=== PATIENT | female | born 1985 | race Caucasian/White ===

== ENCOUNTER 2023-06-09 20:09 | Outpatient (REF) | payer BC, SELFPAY ==
[2023-06-13 11:10] LABS: Age Gdln ACOG Testing Note (.); HPV Aptima Negative (Negative); IGP, Aptima HPV, rfx 16/18,45 Note (.)
== END 2023-06-09 20:10 | disposition home or self-care (01) ==
LOC: LAB 20:09
PROVIDERS: Visit Provider Obstetrics & Gynecology
DX: Z01.419 Encounter for gynecological examination (general) (routine) without abnormal findings (principal)
CPT/HCPCS: 87624; G0145

== ENCOUNTER 2023-07-10 15:59 | Outpatient (OUT) | payer BC, SELFPAY ==
[2023-07-10 17:03] LABS: Thyroid Stimulating Hormone 2.536 uIU/mL (0.358-3.740)
[2023-07-10 17:13] LABS: Free T4 0.96 ng/dL (0.76-1.46)
[2023-07-16 03:07] LABS: Free Testosterone(Direct) 0.4 pg/mL (0.0-4.2); Testosterone 5 ng/dL (8-60)
== END 2023-07-10 16:00 | disposition home or self-care (01) ==
LOC: LAB 16:01
PROVIDERS: PCP Internal Medicine; Visit Provider Internal Medicine
DX: E03.9 Hypothyroidism, unspecified (principal); E55.9 Vitamin D deficiency, unspecified
CPT/HCPCS: 36415; 82306; 84402; 84403; 84439; 84443; 84481

== ENCOUNTER 2024-06-16 19:28 | Outpatient (REF) | payer BC, SELFPAY ==
--- OUTSIDE RECORDS SUMMARY | 2024-06-16 19:33 | XMS_ITS | CCD ---
Author Organization [facility] Care Team Providers Care Traveling Sales Representative Name Role Phone CLARA, DR ZELAYA Attending Unavailable CLARA, DR ZELAYA Admitting Unavailable CLARA, DR ZELAYA Consulting Unavailable YUHAS, DR TREVINO Primary Care Unavailable WEST, DR SHANNA Layton Admitting Unavailable YUHAS, DR TREVINO Primary Care Unavailable WEST, DR SHANNA Layton Attending Unavailable WEST, DR SHANNA Layton Consulting Unavailable YUHAS, DR TREVINO Primary Care Unavailable WEST, DR SHANNA Layton Consulting Unavailable WEST, DR SHANNA Layton Attending Unavailable WEST, DR SHANNA Layton Admitting Unavailable YUHAS, DR TREVINO Primary Care Unavailable WEST, DR SHANNA Layton Consulting Unavailable WEST, DR SHANNA Layton Attending Unavailable WEST, DR SHANNA Layton Admitting Unavailable YUHAS, DR TREVINO Primary Care Unavailable WEST, DR SHANNA Layton Attending Unavailable WEST, DR SHANNA Layton Admitting Unavailable YUHAS, DR TREVINO Primary Care Unavailable WEST, DR SHANNA Layton Admitting Unavailable WEST, DR SHANNA Layton Consulting Unavailable WEST, DR SHANNA Layton Attending Unavailable YUHAS, DR TREVINO Primary Care Unavailable WEST, DR SHANNA Layton Consulting Unavailable WEST, DR SHANNA Layton Attending Unavailable WEST, DR SHANNA Layton Admitting Unavailable WEST, DR SHANNA Layton Admitting Unavailable YUHAS, DR TREVINO Primary Care Unavailable WEST, DR SHANNA Layton Consulting Unavailable WEST, DR SHANNA Layton Attending Unavailable YUHAS, DR TREVINO Primary Care Unavailable WEST, DR SHANNA Layton Consulting Unavailable WEST, DR SHANNA Layton Attending Unavailable WEST, DR SHANNA Layton Admitting Unavailable ZIEBER, DR SHRUTHI Orozco Consulting Unavailable YUHAS, DR TREVINO Primary Care Unavailable YULIET NAVARRO Attending Unavailable RAMONYULEIT OKEEFE Admitting Unavailable RAMONYULIET Consulting Unavailable CLARA, DR ZELAYA Attending Unavailable CLARA, DR ZELAYA Admitting Unavailable YUHAS, DR TREVINO Primary Care Unavailable CLARA, DR ZELAYA Consulting Unavailable YUHAS, DR TREVINO Primary Care Unavailable RUBI, DR MAGDALENA Orozco Attending Unavailable KUNJered, DR MAGDALENA Orozco Admitting Unavailable ZIEBER, DR SHRUTHI Orozco Consulting Unavailable RUBI, DR MAGDALENA Orozco Consulting Unavailable CLARA, DR ZELAYA Attending Unavailable CLARA, DR ZELAYA Admitting Unavailable NISH, DR TREVINO Primary Care Unavailable CLARA, DR ZELAYA Consulting Unavailable MILE, BUSHRA NEWSOME Consulting Unavailable PATRICK DAVIS Consulting Unavailable CLARA, DR ZELAYA Attending Unavailable CLARA, DR ZELAYA Admitting Unavailable NISH, DR TREVINO Primary Care Unavailable Unavailable Primary Care Provider UnavailBECKA Moore Attending Unavailable BECKA ALSTON Referring Unavailable MYA SUAZO Attending Unavailable BELINDA MOCK Referring Unavailable BELINDA MOCK Primary Care Unavailable Belinda Mokc DO Primary Care Provider Medications Current Medications Medication Drug Class(es) Dates Sig (Normalized) Sig (Original) acyclovir 400 mg oral tablet (1 source) Herpesvirus Nucleoside Analog DNA Polymerase Inhibitor, Herpes Simplex Virus Nucleoside Analog DNA Polymerase Inhibitor, Herpes Zoster Virus Nucleoside Analog DNA Polymerase Inhibitor acyclovir (ZOVIRAX) 400 mg tablet acyclovir 400 mg tablet as needed Active azithromycin 250 mg oral tablet (1 source) Macrolide Antimicrobial Start: 06-02-2024 End: 06-06-2024 azithromycin (ZITHROMAX) 250 mg tablet Indications: Upper respiratory tract infection, unspecified type Take 2 tablets the first day, then 1 tablet daily for 4 days. 6 tablet 06/02/2024 06/06/2024 Active citalopram 10 mg oral tablet (4 sources) Serotonin Reuptake Inhibitor Start: 07-29-2023 take 10 mg by mouth once daily Citalopram Active 10 MG PO Daily April 05, 2024 12:00am Start: 06-09-2023 take 20 mg by mouth once daily Citalopram Active 20 MG PO Daily April 05, 2024 12:00am dextromethorphan hydrobromide 30 mg / pyrilamine maleate 30 mg oral tablet (1 source) Uncompetitive J-dqtrts-R-aspartate Receptor Antagonist, Sigma-1 Agonist Start: 04-05-2024 take 1 tablet by mouth three times daily as needed for congestion pyrilamine-dextromethorphan 30-30 mg tablet Indications: Rhinitis, unspecified type Take 1 tablet by mouth 3 (three) times a day as needed (congestion). 15 tablet 1 04/05/2024 Active hydroxychloroquin e sulfate 200 mg oral tablet (5 sources) Antimalarial, Antirheumatic Agent Start: 2023 End: 06-05-2024 take 1.5 tablets by mouth once daily hydrOXYchloroQUINE (PLAQUENIL) 200 mg tablet Take 1.5 tablets by mouth once daily. 45 tablet 05/13/2024 Active Start: 11-13-2023 take 1 tablet by vickey th in the morning, then take 1 tablet by mouth at bedtime hydroxychloroquine (PLAQUENIL) 200 mg tablet Indications: Systemic lupus erythematosus, unspecified SLE type, unspecified organ involvement status (CMS-HCC) Take 1 tablet (200 mg total) by mouth in the morning and 1 tablet (200 mg total) before bedtime. 60 tablet 1 11/13/2023 Active levothyroxine sodium 0.05 mg oral tablet (2 sources) l-Thyroxine Start: 04-05-2024 take 50 ug by mouth once daily Levothyroxine Active 50 MCG PO Daily April 05, 2024 12:00am methylPREDNISolone (1 source) Corticosteroid Start: 04-05-2024 methylPREDNISolone (MEDROL, NAILA,) 4 mg tablet Indications: Upper respiratory tract infection, unspecified type follow package directions 21 tablet 04/05/2024 Active SUMAtriptan 100 mg oral tablet (1 source) Serotonin-1b and Serotonin-1d Receptor Agonist Start: 10-23-2022 SUMAtriptan (IMITREX) 100 mg tablet TAKE 1 TABLET BY MOUTH TWICE A DAY WITH AT LEAST 2 HOURS BETWEEN DOSES NEEDED FOR 30 DAYS 10/23/2022 Active Problems Active Problems Problem Classification Problem Date Documented Da te Episodic/Chronic Contraceptive and procreative management (4 sources) Encounter for sterilization; Translations: [ENCOUNTER FOR STERILIZATION] Onset: 06-07-2022 Episodic Malaise and fatigue (1 source) Chronic fatigue syndrome; Translations: [Chronic fatigue syndrome] Onset: 07-17-2022 07-17-2022 Chronic Other connective tissue disease (4 sources) Pain in left foot; Translations: [PAIN IN LEFT FOOT] Onset: 08-01-2022 Episodic Other upper respiratory disease (1 source) Chronic rhinitis; Translations: [Chronic rhinitis] Onset: 04-05-2024 Chronic Other upper respiratory disease (1 source) Pain in throat Onset: 04-05-2024 Episodic Other upper respiratory disease (1 source) Nasal congestion Onset: 04-05-2024 Episodic Other upper respiratory infections (2 sources) Acute upper respiratory infection, unspecified; Translations: [Upper respiratory infection] Onset: 04-05-2024 06-02-2024 Episodic Systemic lupus erythematosus and connective tissue disorders (10 sources) Systemic lupus erythematosus, unspecified; Translations: [Systemic lupus erythematosus] Onset: 08-20-2017 Chronic Thyroid disorders (3 sources) Autoimmune thyroiditis; Translations: [Hypothyroidism, unspecified] Onset: 06-12-2022 07-17-2022 Chronic Unclassified (1 source) CONTACT W/AND (SUSP) EXPOS COVID-19; Translations: [CONTACT W/AND (SUSP) EXPOS COVID-19] Onset: 06-09-2022 Past or Other Problems Problem Classification Problem Date Documented Da te Episodic/Chronic Bacterial infection; unspecified site (1 source) Methicillin resistant Staphylococcus aureus infection; Translations: [Methicillin resistant Staphylococcus aureus infection, unspecified site] Onset: 8 Resolved: 2 07-17-2022 Episodic Immunizations and screening for infectious disease (1 source) Encounter for screening for human papillomavirus (HPV); Translations: [ENC SCREENING HUMAN PAPILLOMAVIRUS] Onset: 2 Episodic Infective arthritis and osteomyelitis (except that caused by tuberculosis or sexually transmitted disease) (2 sources) Osteomyelitis of lower leg; Translations: [Subacute osteomyelitis, unspecified tibia and fibula] Onset: 8 Resolved: 8 08-22-2017 Chronic Mood disorders (1 source) Mood disorders Onset: 4 04-05-2024 Other aftercare (4 sources) Encounter for surgical aftercare following surgery on the circulatory system; Translations: [ENC SURG AFTRCARE FLW SURG CIRC SYS] Onset: 2 Episodic Other screening for suspected conditions (not mental disorders or infectious disease) (4 sources) Encounter for screening for malignant neoplasm of cervix; Translations: [ENC SCREENING MALIG NEOPLASM CERV] Onset: 2 Episodic Phlebitis; thrombophlebitis and thromboembolism (9 sources) Phlebitis and thrombophlebitis of superficial vessels of right lower extremity; Translations: [Phlebitis and thrombophlebitis of superficial vessels of left lower extremity] Onset: 2 Episodic Unclassified (1 source) Onset: 4 04-05-2024 Varicose veins of lower extremity (5 sources) Varicose veins of bilateral lower extremities with pain; Translations: [VARICOSE VNS SANTANA LOW EXTREM W/PAIN] Onset: 2 Episodic Results Test Name Value Interpretation Reference Range Facility No Panel InformationOrdered By: Emma Negrete on 04-05-2024 COVID Antigen (POC) [facility] Quick Strep (POC) [facility] VERNELL BY IFA SCREENon 12-08-19 Nuclear Ab pattern (S) [Interp] Nuclear dense fine speckled Normal [facility] Comment on above: Order Comment: Branden sandoval Type: BLOOD SPECIMEN Ordering Facility: [facility] Address: [address] [place] [address] Performed By: #### A NAIFS #### [facility] CLIA [id number] [address] [place] [address] [place] Nuclear Ab Ql (S) Positive Abnormal Negative [facility] Comment on above: Order Comment: Branden sandoval Type: BLOOD SPECIMEN Ordering Facility: [facility] Address: [address] [place] [address] Result Comment: Anti -nuclear antibody test is used as an aid in diagnosis of systemic autoimmune diseases. Where positive and clinically warranted, follow-up using disease-specific testing is recommended. Low positive titers are not uncommon with advanced age, certain chronic infections, and malignancies among others. Test methodology: Indirect fluorescence immunoassay (IFA) using HEp-2 cells. 1:640 Performed By: #### A NAIFS #### [facility] CLIA [id number] [address] [place] [address] [place] BLOOD TB SCREENon 2023 M. tuberculosis tuberculin stim IFN-g Ql (Bld) Negative Normal [facility] Comment on above: Order Comment: Branden sandoval Type: BLOOD SPECIMEN Ordering Facility: [facility] Address: [address] [place] [address] Performed By: #### I NFTBP #### [facility] CLIA [id number] [address] [place] [address] [place] MITOGEN MINUS NIL >9.99 Normal >=0.50 [facility] Comment on above: Order Comment: Speci men Type: BLOOD SPECIMEN Ordering Facility: [facility] Address: [address] [place] [address] Performed By: #### I NFTBP #### [facility] CLIA [id number] [address] [place] [address] [place] TB GAMMA INTERPRETATION Infection with M. tuberculosis complex is unlikely. If latent tuberculosis infection is highly suspected, a negative result does not rule out the infection. Specimens from immunocompromised patients and those <5 years of age may show false negative results. In case of a contact investigation, please repeat 8-12 weeks after a known exposure. Normal [facility] Comment on above: Order Comment: Speci men Type: BLOOD SPECIMEN Ordering Facility: [facility] Address: [address] [place] [address] Performed By: #### I NFTBP #### [facility] CLIA [id number] [address] [place] [address] TB NIL 0.01 IU/mL Normal <=8.00 [facility] Comment on above: Order Comment: Speci men Type: BLOOD SPECIMEN Ordering Facility: [facility] Address: [address] [place] [address] Performed By: #### I NFTBP #### [facility] CLIA [id number] [address] [place] [address] [place] TB1 AG MINUS NIL 0.02 IU/mL Normal <0.35 [facility] Comment on above: Order Comment: Speci men Type: BLOOD SPECIMEN Ordering Facility: [facility] Address: [address] [place] [address] Performed By: #### I NFTBP #### [facility] CLIA [id number] [address] [place] [address] [place] TB2 AG MINUS NIL 0.01 IU/mL Normal <0.35 [facility] Comment on above: Order Comment: Speci men Type: BLOOD SPECIMEN Ordering Facility: [facility] Address: [address] [place] [address] Performed By: #### I NFTBP #### [facility] CLIA [id number] [address] [place] [address] [place] C3 COMPLEMENTon 2023 Complement C3 [Mass/Vol] 97 mg/dL 86 - 166 mg/dL [facility] C3 SerPl-mCncon 2023 Complement C3 [Mass/Vol] 97 mg/dL Normal 86-166 [facility] Comment on above: Order Comment: Speci men Type: BLOOD SPECIMEN Ordering Facility: [facility] Address: [address] [place] [address] Performed By: #### 2 157-6, 4485-9, 4498-2 #### [facility] CLIA [id number] [address] [place] [address] [place] C4 COMPLEMENTon 2023 Complement C4 [Mass/Vol] 21 mg/dL 13 - 46 mg/dL [facility] C4 SerPl-mCncon 2023 Complement C4 [Mass/Vol] 21 mg/dL Normal 13-46 [facility] Comment on above: Order Comment: Speci men Type: BLOOD SPECIMEN Ordering Facility: [facility] Address: [address] [place] [address] Performed By: #### 2 157-6, 1435-9, 4498-2 #### [facility] CLIA [id number] [address] [place] [address] [place] CBC W Auto Differential pane l (Bld)on 2023 Basophils (Bld) [#/Vol] 0.05 10*3/uL Normal <0.11 [facility] Comment on above: Order Comment: Speci men Type: BLOOD SPECIMEN Ordering Facility: [facility] Address: [address] [place] [address] Performed By: #### 5 7021-8 #### [facility] [id number] [address] [place] [address] [place] Basophils/100 WBC (Bld) 0.9 % Normal [facility] Comment on above: Order Comment: Speci men Type: BLOOD SPECIMEN Ordering Facility: [facility] Address: [address] [place] [address] Performed By: #### 5 7021-8 #### [facility] [place] [id number] [address] [place] [address] [place] Differential cell count method Nom (Bld) Auto Normal [facility] Comment on above: Order Comment: Speci men Type: BLOOD SPECIMEN Ordering Facility: [facility] Address: [address] [place] [address] Performed By: #### 5 7021-8 #### [facility] [id number] [address] [place] [address] [place] Eosinophils (Bld) [#/Vol] 0.20 10*3/uL Normal <0.46 [facility] Comment on above: Order Comment: Speci men Type: BLOOD SPECIMEN Ordering Facility: [facility] Address: [address] [place] [address] Performed By: #### 5 7021-8 #### [facility] [id number] [address] [place] [address] [place] Eosinophils/100 WBC (Bld) 3.5 % Normal [facility] Comment on above: Order Comment: Speci men Type: BLOOD SPECIMEN Ordering Facility: [facility] Address: [address] [place] [address] Performed By: #### 5 7021-8 #### [facility] [id number] [address] [place] [address] [place] Erythrocyte distribution width (RBC) [Ratio] 12.3 % Normal 11.5-15.0 [facility] Comment on above: Order Comment: Speci men Type: BLOOD SPECIMEN Ordering Facility: [facility] Address: [address] [place] [address] Performed By: #### 5 7021-8 #### [facility] [id number] [address] [place] [address] [place] Hematocrit (Bld) [Volume fraction] 37.0 % Normal 36.0-46.0 [facility] Comment on above: Order Comment: Speci men Type: BLOOD SPECIMEN Ordering Facility: [facility] Address: [address] [place] [address] Performed By: #### 5 7021-8 #### [facility] [id number] [address] [place] [address] [place] Hemoglobin (Bld) [Mass/Vol] 12.6 g/dL Normal 11.5-15.5 [facility] Comment on above: Order Comment: Speci men Type: BLOOD SPECIMEN Ordering Facility: [facility] Address: [address] [place] [address] Performed By: #### 5 7021-8 #### [facility] [id number] [address] [place] [address] [place] Immature granulocytes (Bld) [#/Vol] 10*3/uL Normal <0.10 [facility] Comment on above: Order Comment: Speci men Type: BLOOD SPECIMEN Ordering Facility: [facility] Address: [address] [place] [address] Performed By: #### 5 7021-8 #### [facility] [id number] [address] [place] [address] [place] Immature granulocytes/100 WBC (Bld) 0.2 % Normal [facility] Comment on above: Order Comment: Speci men Type: BLOOD SPECIMEN Ordering Facility: [facility] Address: [address] [place] [address] Performed By: #### 5 7021-8 #### [facility] [id number] [address] [place] [address] [place] Lymphocytes (Bld) [#/Vol] 1.31 10*3/uL Normal 1.00-4.00 [facility] Comment on above: Order Comment: Speci men Type: BLOOD SPECIMEN Ordering Facility: [facility] Address: [address] [place] [address] Performed By: #### 5 7021-8 #### [facility] [place] [id number] [address] [place] [address] [place] Lymphocytes/100 WBC (Bld) 22.9 % Normal [facility] Comment on above: Order Comment: Speci men Type: BLOOD SPECIMEN Ordering Facility: [facility] Address: [address] [place] [address] Performed By: #### 5 7021-8 #### [facility] [id number] [address] [place] [address] [place] MCH (RBC) [Entitic mass] 31.3 pg Normal 26.0-34.0 [facility] Comment on above: Order Comment: Speci men Type: BLOOD SPECIMEN Ordering Facility: [facility] Address: [address] [place] [address] Performed By: #### 5 7021-8 #### [facility] [id number] [address] [place] [address] [place] MCHC (RBC) [Mass/Vol] 34.1 g/dL Normal 30.5-36.0 [facility] Comment on above: Order Comment: Speci men Type: BLOOD SPECIMEN Ordering Facility: [facility] Address: [address] [place] [address] Performed By: #### 5 7021-8 #### [facility] [id number] [address] [place], [place] [address] [place] MCV (RBC) [Entitic vol] 91.8 fL Normal 80.0-100.0 [facility] Comment on above: Order Comment: Speci men Type: BLOOD SPECIMEN Ordering Facility: [facility] Address: [address] [place] [address] Performed By: #### 5 7021-8 #### [facility] [id number] [address] [place] [address] [place] Monocytes (Bld) [#/Vol] 0.54 10*3/uL Normal <0.87 [facility] Comment on above: Order Comment: Speci men Type: BLOOD SPECIMEN Ordering Facility: [facility] Address: [address] [place] [address] Performed By: #### 5 7021-8 #### [facility] [id number] [address] [place] [address] [place] Monocytes/100 WBC (Bld) 9.4 % Normal [facility] Comment on above: Order Comment: Speci men Type: BLOOD SPECIMEN Ordering Facility: [facility] Address: [address] [place] [address] Performed By: #### 5 7021-8 #### [facility] [id number] [address] [place] [address] [place] Neutrophils (Bld) [#/Vol] 3.61 10*3/uL Normal 1.45-7.50 [facility] Comment on above: Order Comment: Speci men Type: BLOOD SPECIMEN Ordering Facility: [facility] Address: [address] [place] [address] Performed By: #### 5 7021-8 #### [facility] [id number] [address] [place] [address] [place] Neutrophils/100 WBC (Bld) 63.1 % Normal [facility] Comment on above: Order Comment: Speci men Type: BLOOD SPECIMEN Ordering Facility: [facility] Address: [address] [place] [address] Performed By: #### 5 7021-8 #### [facility] [id number] [address] [place] [address] [place] Nucleated RBC (Bld) [#/Vol] 10*3/uL Normal <0.01 [facility] Comment on above: Order Comment: Speci men Type: BLOOD SPECIMEN Ordering Facility: [facility] Address: [address] [place] [address] Performed By: #### 5 7021-8 #### [facility] [id number] [address] [place] [address] [place] Nucleated RBC/100 WBC (Bld) [Ratio] 0.0 /100 WBC Normal [facility] Comment on above: Order Comment: Speci men Type: BLOOD SPECIMEN Ordering Facility: [facility] Address: [address] [place] [address] Performed By: #### 5 7021-8 #### [facility] [id number] [address] [place] [address] [place] Platelet mean volume (Bld) [Entitic vol] 10.6 fL Normal 9.0-12.7 [facility] Comment on above: Order Comment: Speci men Type: BLOOD SPECIMEN Ordering Facility: [facility] Address: [address] [place] [address] Performed By: #### 5 7021-8 #### [facility] [id number] [address] [place] [address] [place] Platelets (Bld) [#/Vol] 287 10*3/uL Normal 150-400 [facility] Comment on above: Order Comment: Speci men Type: BLOOD SPECIMEN Ordering Facility: [facility] Address: [address] [place] [address] Performed By: #### 5 7021-8 #### [facility] [id number] [address] [place] [address] [place] RBC (Bld) [#/Vol] 4.03 10*6/uL Normal 3.90-5.20 [facility] Comment on above: Order Comment: Speci men Type: BLOOD SPECIMEN Ordering Facility: [facility] Address: [address] [place] [address] Performed By: #### 5 7021-8 #### [facility] [place] [id number] [address] [place] [address] [place] WBC (Bld) [#/Vol] 5.72 10*3/uL Normal 3.70-11.00 [facility] Comment on above: Order Comment: Speci men Type: BLOOD SPECIMEN Ordering Facility: [facility] Address: [address] [place] [address] Performed By: #### 5 7021-8 #### [facility] [place] [id number] [address] [place] [address] [place] Basophils (Bld) [#/Vol] 0.05 10*3/uL [facility] Basophils/100 WBC (Bld) 0.9 % [facility] Differential cell count method Nom (Bld) Auto [facility] Eosinophils (Bld) [#/Vol] 0.20 10*3/uL [facility] [facility] Eosinophils/100 WBC (Bld) 3.5 % [facility] Erythrocyte distribution width (RBC) [Ratio] 12.3 % 11.5 - 15.0 % [facility] Hematocrit (Bld) [Volume fraction] 37.0 % 36.0 - 46.0 % [facility] Hemoglobin (Bld) [Mass/Vol] 12.6 g/dL 11.5 - 15.5 g/dL [facility] Immature granulocytes (Bld) [#/Vol] NINF [facility] Immature granulocytes/100 WBC (Bld) 0.2 % [facility] Lymphocytes (Bld) [#/Vol] 1.31 10*3/uL [facility] Lymphocytes/100 WBC (Bld) 22.9 % [facility] MCH (RBC) [Entitic mass] 31.3 pg 26.0 - 34.0 pg [facility] MCHC (RBC) [Mass/Vol] 34.1 g/dL 30.5 - 36.0 g/dL [facility] MCV (RBC) [Entitic vol] 91.8 fL 80.0 - 100.0 fL [facility] Monocytes (Bld) [#/Vol] 0.54 10*3/[facility] Monocytes/100 WBC (Bld) 9.4 % [facility] Neutrophils (Bld) [#/Vol] 3.61 10*3/uL [facility] Neutrophils/100 WBC (Bld) 63.1 % [facility] Nucleated RBC (Bld) [#/Vol] NINF [facility] Nucleated RBC/100 WBC (Bld) [Ratio] 0.0 % /100 WBC [facility] Platelet mean volume (Bld) [Entitic vol] 10.6 fL 9.0 - 12.7 fL [facility] Platelets (Bld) [#/Vol] 287 10*3/uL [facility] RBC (Bld) [#/Vol] 4.03 10*6/uL 3.90 - 5.2 0 m/uL [facility] WBC (Bld) [#/Vol] 5.72 10*3/uL [facility] CK SerPl-cCncon 2023 CK [Catalytic activity/Vol] 103 U/L Normal 42-196 [facility] Comment on above: Order Comment: Speci men Type: BLOOD SPECIMEN Ordering Facility: [facility] Address: [address] [place] [address] Performed By: #### 2 157-6, 4485-9, 4498-2 #### [facility] CLIA [id number] [address] [place] [address] [place] CK [Catalytic activity/Vol]o n 2023 Interpretation and review of laboratory results Normal [facility] CNOVon 2023 CNOV Office Visit (RHEUMN ) SUSAN HOGUE ([id number]) 1985 F Date Time Provider Department 12/08/23 1:00 PM BECKA ALSTON RHEUMN During your visit today, we recorded the following information about you: Temperature Pulse Blood pressure Weight 97.8 degrees 89/minute 123/50 65.6 kg Becka Alston DO 2023 1:39 PM Signed [facility] DEPARTMENT OF RHEUMATIC AND IMMUNOLOGIC DISEASES This consult was requested by the doctor listed below for an opinion regarding the chief complaint listed below, and my final recommendations will be communicated to the requesting health care provider by way of the shared medical record for internal providers or letter via the U.[employer]. Postal Service for external providers. Referring Physician: No referring provider defined for this encounter. SUBJECTIVE: Reason for visit: Lupus establish care History of Present Illness: Susan Hogue is a 38 year old female with PMHx significant for migraines and SLE who is evaluated in the Rheumatology Clinic. To review her history, she has had symptom onset since 2010 with joint pain in her elbows and knees, weakness/numbness of her lower extremities and sun sensitivity. She was first diagnosed formally with SLE in 2015 (+VERNELL 1:640, low C3, arthralgia, myalgia of lower extremities, oral ulcerations and Raynaud's phenomenon) at which time she was and was placed on HCQ. She has had two children, no miscarriages. After her pregnancies, she was placed on methotrexate which did not have an effect and belimumab which caused injection site reactions. In 2019, she was placed in azathioprine 100 mg daily with HCQ which helped somewhat. She stayed on this regimen until 10/2023 when she was looking to change providers. She had not noticed any change in her symptoms since stopping. Today she has left hip pain, spasm ing of upper back muscles and a red race on her face which is stable to her. She has a great aunt with SLE and cousins with RA. Answers submitted by the patient for this visit: Review of Systems Rheumatology (Submitted on 12/07/2023) Fever : No Recent unintentional weight change: No Eye pain: No Eye redness: No Vision Disturbance: No Eye Dryness: Yes Nosebleeds: No Sores in your mouth: No Trouble Swallowing: No Dry Mouth: No Chest pain: No Leg Swelling: No A cough: No Shortness of breath: No Pain with breathing: No Heartburn: No Abdominal pain: No Diarrhea: Yes Black tarry stools: No Blood in urine: No Pain or burning with urination: No Joint pain or stiffness: Yes Muscle weakness: Yes Muscle aches: Yes Morning Stiffness in Joints: Yes A rash: Yes Do you have sun sensitive rashes?: Yes Skin Color Changes: No Hair Loss: Yes Nail Changes: Yes Headaches: Yes Numbness: Yes Memory Loss: No Swollen Glands: No PMHx: No past medical history on file. PSHx: No past surgical history on file. FamHx: No family history on file. SocHx: Social History Tobacco Use Smoking status: Never Smokeless tobacco: Never MEDICATIONS: hydrOXYchloroQUINE (PLAQUENIL) 200 mg tablet Take 1.5 tablets by mouth once daily. ALLERGIES: ALLERGIES Not on File OBJECTIVE: Physical Examination: Vitals: BP 123/50 Pulse 89 Temp 36.6 ?C (97.8 ?F) (Oral) Wt 65.6 kg (144 lb 10 oz) General: Looks well, NAD, A AND Ox3. HEENT: +pink rash across cheeks and chin. Sparing nasolabial fold. Neck: No LAD. CVS: RRR, nl S1/S2, no R/M/G,. Resp: CTAB. No rales or wheezing. Ext: Good DP/PTs palpable bilaterally. Neuro: Power 5/5 throughout. Gait Normal. Skin: No rash. No ulcers. Musculoskeletal: Neck: Good flexion/extension/late ral rotation Shoulders: No swelling, no tenderness, good ROM Elbows: No swelling, no tenderness, no flexion contractures, no nodules, good ROM Wrists: No swelling, no tenderness, no limitation in flexion and extension Hands: No evidence of synovitis. Able to make full fist bilaterally Knees: No effusion, no tenderness, good ROM Nailfold capillaroscopy shows tortuosity scattered throughout. IMPRESSIONS/RECOMMENDA TIONS: SLE Based on 2019 ACR/EULAR classification criteria: +VERNELL 1:640, low C3, arthralgia, myalgia of lower extremities, oral ulcerations and Raynaud's phenomenon. She has been placed on HCQ, methotrexate, mycophenolate, belimumab and azathioprine. MTX, MMF and BEL all stopped due to side effects. Currently on HCQ 200 mg PO daily. Symptoms today include joint pain of hands, elbows and knees and left hip. Also with a photosensitive rash on her face. Plan: We will obtain labs and urine studies today I have asked that she increase HCQ to 300 mg PO daily. We have discussed the risks and toxicities associated with the use of this medication and the appropriate monitoring. She will need to see (more content not included)... Normal [facility] CREATINE KINASE/CKon 024 CK [Catalytic activity/Vol] 103 U/L 42 - 196 U/L [facility] Centromere Ab IF Ql (S)on Centromere Ab Qn (S) <0.2 Normal <1.0 [facility] Comment on above: Order Comment: Speci men Type: URINE SPECIMEN Ordering Facility: [facility] Address: [address] [place] [address] Result Comment: Anti -centromere antibody is used as in aid in diagnosis of systemic sclerosis. Clinical correlation is required. Test Methodology: Multiplex flow immunoassay. Performed By: #### 2 4356-8 #### [facility] CLIA [id number] [address] [place] [address] [place] CENTROMERE AB QUAL Negative Normal Negative [facility] Comment on above: Order Comment: Speci lori Type: URINE SPECIMEN Ordering Facility: [facility] Address: [address] [place] [address] Performed By: #### 2 4356-8 #### [facility] CLIA [id number] [address] [place] [address] [place] Chromatin Ab Qnon 2023 CHROMATIN AB QUAL Negative Normal Negative [facility] Comment on above: Order Comment: Speci men Type: URINE SPECIMEN Ordering Facility: [facility] Address: [address] [place] [address] Performed By: #### 2 4356-8 #### [facility] CLIA [id number] [address] [place] [address] [place] Chromatin Ab SerPl-aCncon Chromatin Ab Qn <0.2 Normal <1.0 [facility] Comment on above: Order Comment: Speci men Type: URINE SPECIMEN Ordering Facility: [facility] Address: [address] [place] [address] Result Comment: Test Methodology: Multiplex flow immunoassay. Performed By: #### 2 4356-8 #### [facility] CLIA [id number] [address] [place] [address] [place] Comprehensive metabolic 2000 panelon 2023 Albumin [Mass/Vol] 4.4 g/dL Normal 3.9-4.9 [facility] Comment on above: Order Comment: Speci men Type: BLOOD SPECIMEN Ordering Facility: [facility] Address: [address] [place] [address] Performed By: #### 2 4323-8 #### [facility] [place] [id number] [address] [place] [address] [place] ALP [Catalytic activity/Vol] 67 U/L Normal 34-123 [facility] Comment on above: Order Comment: Speci men Type: BLOOD SPECIMEN Ordering Facility: [facility] Address: [address] [place] [address] Performed By: #### 2 4323-8 #### [facility] [place] [id number] [address] [place] [address] [place] ALT [Catalytic activity/Vol] 15 U/L Normal 7-38 [facility] Comment on above: Order Comment: Speci men Type: BLOOD SPECIMEN Ordering Facility: [facility] Address: [address] [place] [address] Performed By: #### 2 4323-8 #### [facility] [place] [id number] [address] [place] [address] [place] Anion gap [Moles/Vol] 9 mmol/L Normal 9-18 [facility] Comment on above: Order Comment: Speci men Type: BLOOD SPECIMEN Ordering Facility: [facility] Address: [address] [place] [address] Performed By: #### 2 4323-8 #### [facility] [id number] [address] [place] [address] [place] AST [Catalytic activity/Vol] 20 U/L Normal 13-35 [facility] Comment on above: Order Comment: Speci men Type: BLOOD SPECIMEN Ordering Facility: [facility] Address: [address] [place] [address] Performed By: #### 2 4323-8 #### [facility] [id number] [address] [place] [address] [place] Bilirubin [Mass/Vol] 0.6 mg/dL Normal 0.2-1.3 [facility] Comment on above: Order Comment: Speci men Type: BLOOD SPECIMEN Ordering Facility: [facility] Address: [address] [place] [address] Performed By: #### 2 4323-8 #### [facility] [id number] [address] [place] [address] [place] Calcium [Mass/Vol] 9.4 mg/dL Normal 8.5-10.2 [facility] Comment on above: Order Comment: Speci men Type: BLOOD SPECIMEN Ordering Facility: [facility] Address: [address] [place] [address] Performed By: #### 2 4323-8 #### [facility] [id number] [address] [place] [address] [place] Chloride [Moles/Vol] 105 mmol/L Normal 97-105 [facility] Comment on above: Order Comment: Speci men Type: BLOOD SPECIMEN Ordering Facility: [facility] Address: [address] [place] [address] Performed By: #### 2 4323-8 #### [facility] [id number] [address] [place] [address] [place] CO2 [Moles/Vol] 24 mmol/L Normal 22-30 [facility] Comment on above: Order Comment: Speci men Type: BLOOD SPECIMEN Ordering Facility: [facility] Address: [address] [place] [address] Performed By: #### 2 4323-8 #### [facility] [id number] [address] [place] [address] [place] Creatinine [Mass/Vol] 0.70 mg/dL Normal 0.58-0.96 [facility] Comment on above: Order Comment: Speci men Type: BLOOD SPECIMEN Ordering Facility: [facility] Address: [address] [place] [address] Performed By: #### 2 4323-8 #### [facility] [id number] [address] [place] [address] [place] Creatinine and Glomerular filtration rate.predicted panel (S/P/Bld) 115 mL/min/1.73m??? Normal >=60 [facility] Comment on above: Order Comment: Speci men Type: BLOOD SPECIMEN Ordering Facility: [facility] Address: [address] [place] [address] Result Comment: Prisca mated Glomerular Filtration Rate (eGFR) is calculated using the 2020 CKD-EPI creatinine equation. This equation utilizes serum creatinine, sex, and age as parameters. The creatinine assay has traceable calibration to isotope dilution-mass spectrometry. Refer to KDIGO guidelines for clinical interpretation. In patients with unstable renal function, e.g. those with acute kidney injury, the eGFR may not accurately reflect actual GFR. Performed By: #### 2 4323-8 #### [facility] [id number] [address] [place] [address] [place] Glucose [Mass/Vol] 89 mg/dL Normal 74-99 [facility] Comment on above: Order Comment: Speci men Type: BLOOD SPECIMEN Ordering Facility: [facility] Address: [address] [place] [address] Result Comment: The [place] Diabetes Association (ADA) provides guidance for cutoff values for fasting glucose and random glucose. The ADA defines fasting as no caloric intake for at least 8 hours. Fasting plasma glucose results between 100 to 125 mg/dL indicate increased risk for diabetes (prediabetes). Fasting plasma glucose results greater than or equal to 126 mg/dL meet the criteria for diagnosis of diabetes. In the absence of unequivocal hyperglycemia, results should be confirmed by repeat testing. In a patient with classic symptoms of hyperglycemia or hyperglycemic crisis, random plasma glucose results greater than or equal to 200 mg/dL meet the criteria for diagnosis of diabetes. Reference: Standards of Medical Care in Diabetes 2016, [place] [employer]. Diabetes Care. 2016.39(Suppl 1). Performed By: #### 2 4323-8 #### [facility] [id number] [address] [place] [address] [place] Potassium [Moles/Vol] 3.6 mmol/L Low 3.7-5.1 [facility] Comment on above: Order Comment: Speci men Type: BLOOD SPECIMEN Ordering Facility: [facility] Address: [address] [place] [address] Performed By: #### 2 4323-8 #### [facility] [id number] [address] [place] [address] [place] Protein [Mass/Vol] 6.9 g/dL Normal 6.3-8.0 [facility] Comment on above: Order Comment: Speci men Type: BLOOD SPECIMEN Ordering Facility: [facility] Address: [address] [place] [address] Performed By: #### 2 4323-8 #### [facility] [id number] [address] [place] [address] [place] Sodium [Moles/Vol] 138 mmol/L Normal 136-144 [facility] Comment on above: Order Comment: Speci men Type: BLOOD SPECIMEN Ordering Facility: [facility] Address: [address] [place], [place] [address] Performed By: #### 2 4323-8 #### [facility] [place] [id number] [address] [place] [address] [place] Urea nitrogen [Mass/Vol] 8 mg/dL Normal 7-21 [facility] Comment on above: Order Comment: Speci men Type: BLOOD SPECIMEN Ordering Facility: [facility] Address: [address] [place] [address] Performed By: #### 2 4323-8 #### [facility] [place] [id number] [address] [place] [address] [place] Albumin [Mass/Vol] 4.4 g/dL 3.9 - 4.9 g/dL [facility] ALP [Catalytic activity/Vol] 67 U/L 34 - 123 U/L [facility] ALT [Catalytic activity/Vol] 15 U/L 7 - 38 U/L [facility] Anion gap [Moles/Vol] 9 mmol/L 9 - 18 mmol/L [facility] AST [Catalytic activity/Vol] 20 U/L 13 - 35 U/L [facility] Bilirubin [Mass/Vol] 0.6 mg/dL 0.2 - 1 .3 mg/dL [facility] Calcium [Mass/Vol] 9.4 mg/dL 8.5 - 10. 2 mg/dL [facility] Chloride [Moles/Vol] 105 mmol/L 97 - 10 5 mmol/L [facility] CO2 [Moles/Vol] 24 mmol/L 22 - 30 mmol/L [facility] Creatinine [Mass/Vol] 0.70 mg/dL 0.58 - 0.96 mg/dL [facility] GFR/1.73 sq M.predicted among non-blacks MDRD (S/P/Bld) [Vol rate/Area] 115 mL/min/{1.73_m2} - PINF [facility] Comment on above: Estimated Glomerular Filtration Rate (eGFR) is calculated using the 2020 CKD-EPI creatinine equation. This equation utilizes serum creatinine, sex, and age as parameters. The creatinine assay has traceable calibration to isotope dilution-mass spectrometry. Refer to KDIGO guidelines for clinical interpretation. In patients with unstable renal function, e.g. those with acute kidney injury, the eGFR may not accurately reflect actual GFR. Glucose [Mass/Vol] 89 mg/dL 74 - 99 mg/dL [facility] Comment on above: The [place] Diabete s Association (ADA) provides guidance for cutoff values for fasting glucose and random glucose. The ADA defines fasting as no caloric intake for at least 8 hours. Fasting plasma glucose results between 100 to 125 mg/dL indicate increased risk for diabetes (prediabetes). Fasting plasma glucose results greater than or equal to 126 mg/dL meet the criteria for diagnosis of diabetes. In the absence of unequivocal hyperglycemia, results should be confirmed by repeat testing. In a patient with classic symptoms of hyperglycemia or hyperglycemic crisis, random plasma glucose results greater than or equal to 200 mg/dL meet the criteria for diagnosis of diabetes. Reference: Standards of Medical Care in Diabetes 2016, [place] [employer]. Diabetes Care. 2016.39(Suppl 1). Interpretation and review of laboratory results Abnormal [facility] Potassium [Moles/Vol] 3.6 mmol/L Low 3.7 - 5.1 mmol/L [facility] Protein [Mass/Vol] 6.9 g/dL 6.3 - 8.0 g/dL [facility] Sodium [Moles/Vol] 138 mmol/L 136 - 144 mmol/L [facility] Urea nitrogen [Mass/Vol] 8 mg/dL 7 - 21 mg/dL [facility] DNA ANTIBODY DS BLDon 2023 DNA ANTIBODY 72 IU/mL Normal <=200 [facility] Comment on above: Order Comment: Speci men Type: BLOOD SPECIMEN Ordering Facility: [facility] Address: [address] [place] [address] Result Comment: Nega tive: <200 IU/mL Equivocal: 201-300 IU/mL Moderate Positive: 301-800 IU/mL Strong Positive: >801 IU/mL Performed By: #### D NAAB #### [facility] CLIA [id number] [address] [place] [address] [place] DNA ANTIBODY QUALITATIVE INTERPRETATION Negative Normal Negative [facility] Comment on above: Order Comment: Lizi men Type: BLOOD SPECIMEN Ordering Facility: [facility] Address: [address] [place] [address] Performed By: #### D NAAB #### [facility] CLIA [id number] [address] [place] [address] [place] VANDANA Jo1 Ab Ser-aCncon 2023 Tara-1 extractable nuclear Ab Qn (S) <0.2 Normal <1.0 [facility] Comment on above: Order Comment: Speci men Type: URINE SPECIMEN Ordering Facility: [facility] Address: [address] [place] [address] Performed By: #### 2 4356-8 #### [facility] [place] [id number] [address] [place] [address] [place] VANDANA [employer] Ab Ser-aCncon 2023 Ribonucleoprotein extractable nuclear Ab Qn (S) <0.2 Normal <1.0 [facility] Comment on above: Order Comment: Speci men Type: URINE SPECIMEN Ordering Facility: [facility] Address: [address] [place] [address] Performed By: #### 2 4356-8 #### [facility] [place] [id number] [address] [place] [address] [place] Ribonucleoprotein extractable nuclear Ab Qn (S) 0.2 AI Normal <1.0 [facility] Comment on above: Order Comment: Speci men Type: BLOOD SPECIMEN Ordering Facility: [facility] Address: [address] [place] [address] Performed By: #### 2 157-6, 4485-9, 4498-2 #### [facility] [place] [id number] [address] [place] [address] [place] VANDANA SM IgG Ser-aCncon 2023 Matta extractable nuclear IgG Qn (S) <0.2 Normal <1.0 [facility] Comment on above: Order Comment: Speci men Type: URINE SPECIMEN Ordering Facility: [facility] Address: [address] [place] [address] Performed By: #### 2 4356-8 #### [facility] CLIA [id number] [address] [place] [address] [place] VAN[place]NA SS-A Ab Ser-aCncon 12-07 Sjogrens syndrome-A extractable nuclear Ab Qn (S) <0.2 Normal <1.0 [facility] Comment on above: Order Comment: Speci men Type: BLOOD SPECIMEN Ordering Facility: [facility] Address: [address] [place] [address] Result Comment: Test Methodology: Multiplex flow immunoassay. Performed By: #### 2 157-6, 4485-9, 4498-2 #### [facility] CLIA [id number] [address] [place] [address] [place] VANDANA SS-B Ab Ser-aCncon 12-07 Sjogrens syndrome-B extractable nuclear Ab Qn (S) <0.2 Normal <1.0 [facility] Comment on above: Order Comment: Speci men Type: URINE SPECIMEN Ordering Facility: [facility] Address: [address] [place] [address] Result Comment: Anti -SSB (anti-La) antibody is used as an aid in diagnosis of a variety of systemic autoimmune diseases, especially for Sjogren's syndrome and systemic lupus erythematosus. Clinical correlation is required. Test Methodology: Multiplex flow immunoassay. Performed By: #### 2 4356-8 #### [facility] CLIA [id number] [address] [place] [address] [place] HBV core Ab Ser Qlon 024 HBV core Ab Ql (S) Negative Normal Negative [facility] Comment on above: Order Comment: Speci men Type: URINE SPECIMEN Ordering Facility: [facility] Address: [address] [place] [address] Result Comment: No e vidence of current or past infection with Hepatitis B virus. Should recent infection be suspected, repeat testing may be considered 3-4 weeks after this draw. Performed By: #### 2 4356-8 #### [facility] CLIA [id number] [address] [place] [address] [place] HBV surface Ab Ql (S)on 11-10 HBV surface Ab Qn (S) 277.25 mIU/mL Normal [facility] Comment on above: Order Comment: Speci men Type: URINE SPECIMEN Ordering Facility: [facility] Address: [address] [place] [address] Result Comment: <8 m IU/mL: No serological evidence of immunity to Hepatitis B Virus. >/= 8 to <12 mIU/mL: No serological evidence of immunity to Hepatitis B Virus. >/= 12 mIU/mL: Consistent with serological evidence of immunity to Hepatitis B Virus. Performed By: #### 2 4356-8 #### [facility] CLIA [id number] [address] [place] [address] [place] HBV surface Ab Ser Qlon 11-10 HBV surface Ab Ql (S) Positive Normal [facility] Comment on above: Order Comment: Speci men Type: URINE SPECIMEN Ordering Facility: [facility] Address: [address] [place] [address] Result Comment: Cons istent with serological evidence of immunity to Hepatitis B Virus. Performed By: #### 2 4356-8 #### [facility] CLIA [id number] [address] [place] [address] [place] HBV surface Ag Ser Qlon 11-10 HBV surface Ag Ql (S) Negative Normal Negative [facility] Comment on above: Order Comment: Speci men Type: URINE SPECIMEN Ordering Facility: [facility] Address: [address] [place] [address] Performed By: #### 2 4356-8 #### [facility] CLIA [id number] [address] [place] [address] [place] HCV Ab Ser Qlon 2023 HCV Ab Ql (S) Negative Normal Negative [facility] Comment on above: Order Comment: Speci men Type: BLOOD SPECIMEN Ordering Facility: [facility] Address: [address] [place] [address] Result Comment: The result suggests no evidence of active infection with Hepatitis C virus. Should recent infection be suspected, repeat testing may be considered 4-6 weeks after this draw. Performed By: #### 2 157-6, 4485-9, 4498-2 #### [facility] CLIA [id number] [address] [place] [address] [place] Tara-1 extractable nuclear Ab Qn (S)on 2023 TARA 1 ANTIBODY QUAL Negative Normal Negative [facility] Comment on above: Order Comment: Speci men Type: URINE SPECIMEN Ordering Facility: [facility] Address: [address] [place] [address] Result Comment: Anti -TARA-1 antibody is used as an aid in diagnosis of polymyositis and dermatomyositis especially with pulmonary involvement. A negative result cannot rule out polymyositis or dermatomyositis. Clinical correlation is required. Test Methodology: Multiplex flow immunoassay. Performed By: #### 2 4356-8 #### [facility] CLIA [id number] [address] [place] [address] [place] No Panel Informationon 12-07 Interpretation and review of laboratory results Normal [facility] PROTEIN / CREATININE RATIOon 2023 Protein/Creatinine (U) [Mass ratio] 0.10 mg[facility]/mg [facility] Comment on above: Adult Proteinuria Ca tegories: <0.15 mg/mg is considered normal to mildly increased 0.15 - 0.50 mg/mg is considered moderately increased >0.50 mg/mg is considered severely increased KDIGO. (2013). KDIGO 2012 Clinical Practice Guideline for the Evaluation and Management of Chronic Kidney Disease. Official Journal of the International Society of Nephrology, 3(1), 1-150. Prot/Creat Uron 2023 Protein/Creatinine (U) [Mass ratio] 0.10 mg/mg Normal <0.15 [facility] Comment on above: Order Comment: Speci men Type: URINE SPECIMEN Ordering Facility: [facility] Address: [address] [place] [address] Result Comment: Adul t Proteinuria Categories: <0.15 mg/mg is considered normal to mildly increased 0.15 - 0.50 mg/mg is considered moderately increased >0.50 mg/mg is considered severely increased KDIGO. (2013). KDIGO 2012 Clinical Practice Guideline for the Evaluation and Management of Chronic Kidney Disease. Official Journal of the International Society of Nephrology, 3(1), 1-150. Performed By: #### 2 890-2 #### [facility] [id number] [address] [place] [address] [place] Protein/Creatinine (U) [Mass ratio]on 2023 Creatinine (U) [Mass/Vol] 48.3 mg/dL Normal 20.0-300.0 [facility] Comment on above: Order Comment: Speci men Type: URINE SPECIMEN Ordering Facility: [facility] Address: [address] [place] [address] Performed By: #### 2 890-2 #### [facility] [id number] [address] [place] [address] [place] Protein (U) [Mass/Vol] 5 mg/dL Normal 0-20 [facility] Comment on above: Order Comment: Speci men Type: URINE SPECIMEN Ordering Facility: [facility] Address: [address] [place] [address] Performed By: #### 2 890-2 #### [facility] [id number] [address] [place] [address] [place] Creatinine (U) [Mass/Vol] 48.3 mg/dL 20.0 - 300.0 mg/dL [facility] Interpretation and review of laboratory results Normal [facility] Protein (U) [Mass/Vol] 5 mg/dL 0 - 20 mg/dL [facility] Ribonucleoprotein extractabl e nuclear Ab Qn (S)on 2023 ANTI-LOGGER DRIVING HORSES QUAL Negative Normal Negative [facility] Comment on above: Order Comment: Speci men Type: BLOOD SPECIMEN Ordering Facility: [facility] Address: [address] [place] [address] Performed By: #### 2 157-6, 4485-9, 4498-2 #### [facility] CLIA [id number] [address] [place] [address] [place] RIBOSOMAL LOGGER DRIVING HORSES QUAL Negative Normal Negative [facility] Comment on above: Order Comment: Speci men Type: URINE SPECIMEN Ordering Facility: [facility] Address: [address] [place] [address] Result Comment: Anti -Ribosomal RNA (Ribosomal P) antibody is used as an aid in diagnosis of systemic autoimmune diseases especially systemic lupus erythematosus and mixed connective tissue disease. Cross-reactivity with Anti-matta antibody is not uncommon. Clinical correlation is required. Test Methodology: Multiplex flow immunoassay. Performed By: #### 2 4356-8 #### [facility] CLIA [id number] [address] [place] [address] [place] SCL-70 extractable nuclear I gG IA Qn (S)on 2023 SCLERODERMA AB QUAL Negative Normal Negative [facility] Comment on above: Order Comment: Speci men Type: URINE SPECIMEN Ordering Facility: [facility] Address: [address] [place] [address] Performed By: #### 2 4356-8 #### [facility] CLIA [id number] [address] [place] [address] [place] SCLERODERMA IGG AB <0.2 Normal <1.0 [facility] Comment on above: Order Comment: Speci men Type: URINE SPECIMEN Ordering Facility: [facility] Address: [address] [place] [address] Result Comment: Scl- 70/Scleroderma antibody test is used as an aid in diagnosis of systemic sclerosis especially the diffuse cutaneous form. A negative result cannot rule out systemic sclerosis. The final interpretation should consider clinical picture and other test results such as anti-centromere antibody. Test Methodology: Multiplex flow immunoassay. Performed By: #### 2 4356-8 #### [facility] CLIA [id number] [address] [place] [address] [place] Sjogrens syndrome-A extracta ble nuclear Ab Qn (S)on 2023 SSA ANTIBODY QUAL Negative Normal Negative [facility] Comment on above: Order Comment: Speci men Type: BLOOD SPECIMEN Ordering Facility: [facility] Address: [address] [place] [address] Performed By: #### 2 157-6, 4485-9, 4498-2 #### [facility] CLIA [id number] [address] [place] [address] [place] Sjogrens syndrome-B extracta ble nuclear Ab Qn (S)on 2023 SSB ANTIBODY QUAL Negative Normal Negative [facility] Comment on above: Order Comment: Speci men Type: URINE SPECIMEN Ordering Facility: [facility] Address: [address] [place] [address] Performed By: #### 2 4356-8 #### [facility] CLIA [id number] [address] [place] [address] [place] Matta extractable nuclear Ig G Qn (S)on 2023 SM ANTIBODY QUAL Negative Normal Negative [facility] Comment on above: Order Comment: Speci men Type: URINE SPECIMEN Ordering Facility: [facility] Address: [address] [place] [address] Result Comment: Anti -Sm (Matta) antibody is used as an aid in diagnosis of systemic lupus erythematosus and its presence is associated with renal disease. A negative result cannot rule out systemic lupus erythematosus. Clinical correlation is required. Test Methodology: Multiplex flow immunoassay. Performed By: #### 2 4356-8 #### [facility] CLIA [id number] [address] [place] [address] [place] Urinalysis complete panel (U )on 2023 Bacteria LM.HPF (Urine sed) [#/Area] Negative Normal Negative [facility] Comment on above: Order Comment: Speci men Type: URINE SPECIMEN Ordering Facility: [facility] Address: [address] [place] [address] Performed By: #### 2 4356-8 #### [facility] CLIA [id number] [address] [place] [address] [place] Bilirubin Ql (U) Negative Normal Negative [facility] Comment on above: Order Comment: Speci men Type: URINE SPECIMEN Ordering Facility: [facility] Address: [address] [place] [address] Performed By: #### 2 4356-8 #### [facility] CLIA [id number] [address] [place] [address] [place] Clarity (Unsp spec) Clear Normal Clear [facility] Comment on above: Order Comment: Speci men Type: URINE SPECIMEN Ordering Facility: [facility] Address: [address] [place] [address] Performed By: #### 2 4356-8 #### [facility] CLIA [id number] [address] [place] [address] [place] Color (U) Yellow Normal Yellow [facility] Comment on above: Order Comment: Speci men Type: URINE SPECIMEN Ordering Facility: [facility] Address: [address] [place] [address] Performed By: #### 2 4356-8 #### [facility] CLIA [id number] [address] [place] [address] [place] Epithelial cells LM.HPF (Urine sed) [#/Area] None Seen Normal [facility] Comment on above: Order Comment: Speci men Type: URINE SPECIMEN Ordering Facility: [facility] Address: [address] [place] [address] Performed By: #### 2 4356-8 #### [facility] CLIA [id number] [address] [place] [address] [place] Glucose Test strip (U) [Mass/Vol] Negative Normal Negative [facility] Comment on above: Order Comment: Speci men Type: URINE SPECIMEN Ordering Facility: [facility] Address: [address] [place] [address] Performed By: #### 2 4356-8 #### [facility] CLIA [id number] [address] [place] [address] [place] Hemoglobin Ql (U) Negative Normal Negative [facility] Comment on above: Order Comment: Speci men Type: URINE SPECIMEN Ordering Facility: [facility] Address: [address] [place] [address] Performed By: #### 2 4356-8 #### [facility] CLIA [id number] [address] [place] [address] [place] Hyaline casts (Urine sed) [#/Area] 1-3 /LPF Abnormal 0 /LPF [facility] Comment on above: Order Comment: Speci men Type: URINE SPECIMEN Ordering Facility: [facility] Address: [address] [place] [address] Performed By: #### 2 4356-8 #### [facility] CLIA [id number] [address] [place] [address] [place] Ketones Ql (U) Negative Normal Negative [facility] Comment on above: Order Comment: Speci men Type: URINE SPECIMEN Ordering Facility: [facility] Address: [address] [place] [address] Performed By: #### 2 4356-8 #### [facility] CLIA [id number] [address] [place] [address] [place] Leukocyte esterase Test strip Ql (U) Negative Normal Negative [facility] Comment on above: Order Comment: Speci men Type: URINE SPECIMEN Ordering Facility: [facility] Address: [address] [place] [address] Performed By: #### 2 4356-8 #### [facility] CLIA [id number] [address] [place] [address] [place] Nitrite Ql (U) Negative Normal Negative [facility] Comment on above: Order Comment: Speci men Type: URINE SPECIMEN Ordering Facility: [facility] Address: [address] [place] [address] Performed By: #### 2 4356-8 #### [facility] CLIA [id number] [address] [place] [address] [place] pH (U) 6.5 [pH] Normal <8.5 [facility] Comment on above: Order Comment: Speci men Type: URINE SPECIMEN Ordering Facility: [facility] Address: [address] [place] [address] Performed By: #### 2 4356-8 #### [facility] CLIA [id number] [address] [place] [address] [place] Protein (U) [Mass/Vol] Negative Normal Negative [facility] Comment on above: Order Comment: Speci men Type: URINE SPECIMEN Ordering Facility: [facility] Address: [address] [place] [address] Performed By: #### 2 4356-8 #### [facility] CLIA [id number] [address] [place] [address] [place] RBC LM.HPF (Urine sed) [#/Area] 0-2 /HPF Normal 0-2 /HPF [facility] Comment on above: Order Comment: Speci men Type: URINE SPECIMEN Ordering Facility: [facility] Address: [address] [place] [address] Performed By: #### 2 4356-8 #### [facility] CLIA [id number] [address] [place] [address] [place] Specific gravity (U) [Rel density] 1.010 Normal 1.005-1.030 [facility] Comment on above: Order Comment: Speci men Type: URINE SPECIMEN Ordering Facility: [facility] Address: [address] [place] [address] Performed By: #### 2 4356-8 #### [facility] CLIA [id number] [address] [place] [address] [place] Urobilinogen Ql (U) 0.2 EU/dL Normal 0.2-1.0 EU/dL [facility] Comment on above: Order Comment: Speci men Type: URINE SPECIMEN Ordering Facility: [facility] Address: [address] [place] [address] Performed By: #### 2 4356-8 #### [facility] CLIA [id number] [address] [place] [address] [place] WBC LM.HPF (Urine sed) [#/Area] 0-5 /HPF Normal 0-5 /HPF [facility] Comment on above: Order Comment: Speci men Type: URINE SPECIMEN Ordering Facility: [facility] Address: [address] [place] [address] Performed By: #### 2 4356-8 #### [facility] CLIA [id number] [address] [place] [address] [place] Bacteria LM.HPF (Urine sed) [#/Area] Negative Negative /HPF [facility] Bilirubin Ql (U) Negative Negative [facility] Clarity (Unsp spec) Clear [facility] Color (U) Yellow Yellow [facility] Epithelial cells LM.HPF (Urine sed) [#/Area] None Seen /HPF [facility] Glucose Test strip (U) [Mass/Vol] Negative Negative [facility] Hemoglobin Ql (U) Negative Negative [facility] Hyaline casts (Urine sed) [#/Area] 1-3 /LPF Abnormal 0 /LPF [facility] Interpretation and review of laboratory results Abnormal [facility] Ketones Ql (U) Negative Negative [facility] Leukocyte esterase Test strip Ql (U) Negative Negative [facility] Nitrite Ql (U) Negative Negative [facility] pH (U) 6.5 [pH] NINF - 8.5 [facility] Protein (U) [Mass/Vol] Negative Negative [facility] RBC LM.HPF (Urine sed) [#/Area] 0-2 /HPF 0-2 /HPF [facility] Specific gravity (U) [Rel density] 1.010 1.005 - 1.030 [facility] Urobilinogen Ql (U) 0.2 EU/dL 0.2-1.0 EU/dL [facility] WBC LM.HPF (Urine sed) [#/Area] 0-5 /HPF 0-5 /HPF [facility] This test was developed and its performance characteristics determined by [facility] [place] ([facility] It has not been cleared or approved by the FDA. [facility] is regulated under CLIA as qualified to perform high-complexity testing. This test is used for clinical purposes. It should not be regarded as investigational or for research. [facility] SED RATE 9 mm/hr Normal <=20 [facility] Comment on above: Performed By: #### S EDR #### [facility] [address] [address] [address] Mio Spicer CBC AUTO DIFFon 06-07-2022 BASO # 0.1 103/ul Normal 0.0-0.1 [facility] Comment on above: Performed By: #### C BC ####[facility] [address] [address]DrClaude Spicer Basophils/100 WBC (Bld) 1.1 % Normal 0.2-2.0 [facility] Comment on above: Performed By: #### C BC ####[facility] [address] [address]DrClaude Spicer EO # 0.5 103/ul Normal 0.0-0.7 [facility] Comment on above: Performed By: #### C BC ####[facility] [address] [address]DrClaude Spicer Eosinophils/100 WBC (Bld) 8.5 % Critically high 0.9-7.0 [facility] Comment on above: Performed By: #### C BC ####[facility] [address] [address]Dr. Mio Spicer Erythrocyte distribution width (RBC) [Ratio] 12.8 % Normal 11.0-15.0 [facility] Comment on above: Performed By: #### C BC ####[facility] [address] [address]Dr. Mio Spicer Hematocrit (Bld) [Volume fraction] 39.6 % Normal 36.0-48.0 [facility] Comment on above: Performed By: #### C BC ####[facility] [address] [place], [place] [address]Dr. Brandysanthosh Spicer Hemoglobin (Bld) [Mass/Vol] 13.4 g/dL Normal 12.0-16.0 [facility] Comment on above: Performed By: #### C BC ####[facility] [address] [place], [place] [address]Dr. Mio Spicer IG # 0.01 10e3/ul Normal 0.00-0.03 [facility] Comment on above: Performed By: #### C BC ####[facility] [address] [place], [place] [address]Dr. Brandysanthosh Spicer IG % 0.2 % Normal 0.0-0.5 [facility] Comment on above: Performed By: #### C BC ####[facility] [address] [place], [place] [address]Dr. Mio Spicer LYMPH # 1.4 103/ul Normal 1.2-3.8 [facility] Comment on above: Performed By: #### C BC ####[facility] [address] [place], [place] [address]Dr. Mio Spicer Lymphocytes/100 WBC (Bld) 23.0 % Normal 20.5-60.0 [facility] Comment on above: Performed By: #### C BC ####[facility] [address] [place], [place] [address]Dr. Mio Spicer MANUAL DIFF REQ NO Normal [facility] Comment on above: Performed By: #### C BC ####[facility] [address] [place], [place] [address]Dr. Mio Spicer MCH (RBC) [Entitic mass] 31.3 pg Normal 26.7-34.0 [facility] Comment on above: Performed By: #### C BC ####[facility] [address] [address]Dr. Mio Spicer MCHC (RBC) [Mass/Vol] 33.8 g/dL Normal 29.9-35.2 [facility] Comment on above: Performed By: #### C BC ####[facility] [address] [place], [place] [address]Dr. Mio Spicer MCV (RBC) [Entitic vol] 92.5 fL Normal 81.0-99.0 [facility] Comment on above: Performed By: #### C BC ####[facility] [address] [place], [place] [address]Dr. Mio Nayan MONO # 0.4 103/ul Normal 0.3-0.8 [facility] Comment on above: Performed By: #### C BC ####[facility] [address] [place], [place] [address]Dr. Mio Nayan Monocytes/100 WBC (Bld) 6.9 % Normal 1.7-12.0 [facility] Comment on above: Performed By: #### C BC ####[facility] [address] [place], [place] [address]Dr. Mio Spicer NEUT # 3.7 103/ul Normal 1.4-6.5 [facility] Comment on above: Performed By: #### C BC ####[facility] [address] [place], [place] [address]Dr. Mio Nayan Neutrophils/100 WBC (Bld) 60.3 % Normal 43.0-75.0 [facility] Comment on above: Performed By: #### C BC ####[facility] [address] [place], [place] [address]Dr. Mio Spicer Platelet mean volume (Bld) [Entitic vol] 10.1 fL Normal 9.5-13.5 [facility] Comment on above: Performed By: #### C BC ####[facility] [address] [place], [place] [address]Ba. Mio Spicer PLT 315 103/ul Normal 150-450 [facility] Comment on above: Performed By: #### C BC ####[facility] [address] [place], [place] [address]Uw. Mio Spicer RBC 4.28 106/ul Normal 4.20-5.40 [facility] Comment on above: Performed By: #### C BC ####[facility] [address] [place], [place] [address]Rb. Mio Spicer WBC 6.1 103/ul Normal 4.0-11.0 [facility] Comment on above: Performed By: #### C BC ####[facility] [address] [place], [place] [address]ZtClaude Spicer PREG HCG QUALon 06-07-2022 , QUAL Negative Normal NEGATIVE [facility] Comment on above: Performed By: #### P REG #### [facility] [address] [place], [place] [address] Dr. Mio Spicer Covid-19 PCR (CVDTB)on 05-12 SARS-CoV-2 (COVID-19) RNA CANDICE+probe Ql (Unsp spec) Not detected Normal NOT DETECTED [facility] Comment on above: Result Comment: This test is not yet approved or cleared by the [place] FDA. When there are no FDA-approved or cleared tests available, and other criteria are met, FDA can make tests available under an emergency access mechanism called an Emergency Use Authorization (EUA). The EUA for this test is supported by the [employer] of Health and Human Service's (HHS's) declaration that circumstances exist to justify the emergency use of in vitro diagnostics for the detection and/or diagnosis of the virus that causes COVID-19. This EUA will remain in effect (meaning this test can be used) for the duration of the COVID-19 declaration justifying emergency of IVDs, unless it is terminated or revoked by FDA (after which the test may no longer be used). When diagnostic testing is negative, the possibility of a false negative should be considered in the context of a patient's recent exposures and the presence of clinical signs and symptoms consistent with SARS-CoV-2. Performed By: #### C VDTBH ####[facility] [address] [address]Dr. Mio Spicer PAP ACOG PANEL 2: 30 to 65on 03-14-2022 . . Normal [facility] Comment on above: Result Comment: Perf ormed at: WB Performed By: #### 4 [id number] #### [facility] [address] [address] [address] Mio Spicer Age Gdln ACOG Testing 30-65 Normal [facility] Comment on above: Performed By: #### 4 [id number] #### [facility] [address] [address] [address] Mio Spicer DIAGNOSIS: Comment Normal [facility] Comment on above: Result Comment: NEGA TIVE FOR INTRAEPITHELIAL LESION OR MALIGNANCY. Performed at: WB Performed By: #### 4 [id number] #### [facility] [address] [place] [address] Dr. Mio Spicer HPV Aptima Negative Normal [facility] Comment on above: Result Comment: This nucleic acid amplification test detects fourteen high-risk HPV types (16,18,31,33,35,39,45,51,52,56,58,59,66,68) without differentiation. Performed at: =G Performed By: #### 4 [id number] #### [facility] [facility] [address] [place] [address] Dr. Moi Spicer Methodology: Comment Normal [facility] Comment on above: Result Comment: This liquid based ThinPrep(R) pap test was screened with the use of an image guided system. Performed at: [facility] Performed By: [id number] #### [facility] [address] [place] [address] Dr. Mio Spicer Note: Comment Normal [facility] Comment on above: Result Comment: The Pap smear is a screening test designed to aid in the detection of premalignant and malignant conditions of the uterine cervix. It is not a diagnostic procedure and should not be used as the sole means of detecting cervical cancer. Both false-positive and false-negative reports do occur. . Performed at: WB Performed By: [id number] #### [facility] [address] [address] [address] Mio Spicer Performed by: Comment Normal [facility] Comment on above: Result Comment: Carlo Goldman, [employer] (AS[facility]) Performed at: WB Performed By: [id number] #### [facility] [address] [address] [address] Mio Spicer Specimen adequacy: Comment Normal [facility] Comment on above: Result Comment: Sati sfactory for evaluation. Endocervical and/or squamous metaplastic cells (endocervical component) are present. Performed at: WB Performed By: #### [id number] #### [facility] [address] [address] [address] Mio Spicer MRI Ankle w/o + w/ Lefton MRI Ankle w/o + w/ Left HISTORY: Painful soft tissue mass just lateral to the insertion of the Achilles tendon. TECHNIQUE: Multisequence multiplanar MRI of the ankle was performed without contrast COMPARISON: Radiographs 10/04/2021 FINDINGS: A marker was placed on the skin along the lateral aspect of the Achilles tendon at the level of the tip of the lateral malleolus. No soft tissue mass directly deep to this marker however there is a 6 x 4 x 7 mm hyperintense T2/hypointense T1 nonenhancing lesion just distal to the marker along the lateral aspect of the calcaneus and Achilles tendon most compatible with a ganglion. A ganglion is also present along the lateral aspect of the articulation of the lateral cuneiform and cuboid measuring up to 7 mm. Achilles tendon and flexor and extensor tendons are intact. Plantar fascia is intact. No acute fracture or or bone marrow edema. No enhancing soft tissue or bone lesion. IMPRESSION: 6 x 4 x 7 mm nonenhancing cystic lesion along the distal lateral Achilles tendon at its insertion to the calcaneus most compatible with a ganglion. Report reported and signed by Blair [address] on 01/17/2022 1601 Normal [facility] Marketing Communications Coordinator VC INJ SCL ROSA SUPERVISOR OPEN HEARTH STOCKYARD VEINSon 0 01-08-2022 VC INJ SCL ROSA SUPERVISOR OPEN HEARTH STOCKYARD VEINS Patient: SUSAN HOGUE Exam Date: 01/08/2022 : 1985 Gender:F Ordering : DR SHANNA ROSA M.D. Admission #: [id number] Family : Order #: [id number] CLICK HERE TO VIEW EXAM RADIOLOGY REPORT PROCEDURE: VEIN CENTER INJECTION SCLEROSING SOLUTION MULTIPLE VEINS SAME COMPARISON: None. INDICATIONS: Pain co-occurrent and due to varicose veins of bilateral legs I83.813 PROCEDURE NOTE: The risks and benefits of the procedure were explained at length to the patient and informed written consent was obtained. Judd Maradiaga was present and assisted. The procedure was performed under sterile technique. The patient's leg was wrapped with Coban and postprocedural verbal and written instructions provided. SCLEROSANT: 4 cc, 0.5% polidocanol VEIN(S) INJECTED: 24 veins in the left leg VISUALIZATION: Ultrasound was not used to visualize the sclerosant ANESTHESIA Supercooled air COMPLICATIONS: None CONCLUSION: 1. Technically successful sclerotherapy as described Dictated by: Shanna Rosa MD on 01/08/2022 at 10:33 Approved by: Shanna Rosa MD on 01/08/2022 at 10:33 Normal [facility] VC CONSULT FOLLOWUPon 2021 VC CONSULT FOLLOWUP Patient: SUSAN HOGUE Exam Date: 12/10/2021 : 1985 Gender:F Ordering : DR SHANNA ROSA M.D. Admission #: [id number] Family : Order #: [id number] CLICK HERE TO VIEW EXAM RADIOLOGY REPORT PROCEDURE: VEIN CENTER CONSULTATION FOLLOWUP VEIN CENTER - OFFICE VISIT FOLLOW UP COMPARISON: VC CONSULT FOLLOWUP, 11/19/2021. VC CONSULT FOLLOWUP, 10/22/2021. PROGRESS NOTES: The patient reports no significant problems following intravenous laser ablation of the right small saphenous vein. The patient did not require oral analgesics. The patient did wear her compression stocking. The patient has followed our recommendations to walk 20-30 minutes once or twice per day since the procedure. The patient reports significant improvement in her initial presenting symptoms. The patient no longer has pain along the left calf, therefore we will defer treatment of the left small saphenous vein at this time. The patient would like treatment of her incompetent varicose veins, which measure up to 7 mm, however her insurance company did not approve micro foam chemical ablation. Review of the ultrasound performed the same day demonstrates occlusive thrombus extending throughout the treated right small saphenous vein with heat induced thrombus 2.7 cm from the saphenopopliteal junction. There is a residual branch saphenous incompetent 7 mm varicose vein observed. The patient expressed a desire to proceed with treatment of reticular and spider veins with injection sclerotherapy. She is approved for a single session, I did counseled the patient that she would need 3-4 sessions for treatment of her existing disease. IMPRESSION: 1. Successful ablation of the right small saphenous vein 2. 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 Persistent reticular and spider veins PLAN: Injection sclerotherapy Nurse notes, history and physical were reviewed and confirmed, see attached forms. The nurse was present throughout the physical exam and consultation Dictated by: Shanna Rosa MD on 12/10/2021 at 08:33 Approved by: Shanna Rosa MD on 12/10/2021 at 08:35 Normal [facility] VC EXT VENOUS RT LIMITEDon 0 12-10-2021 VC EXT VENOUS RT LIMITED Patient: SUSAN HOGUE Exam Date: 12/10/2021 : 1985 Gender:F Ordering : DR SHANNA ROSA M.D. Admission #: [id number] Family : Order #: [id number] CLICK HERE TO VIEW EXAM RADIOLOGY REPORT PROCEDURE: VEIN CENTER EXTREMITY VENOUS RIGHT LIMITED COMPARISON: VC VENOUS REFLUX SANTANA LMT, 01/09/2021. VC EXT VENOUS RT LIMITED, 10/22/2021. INDICATIONS: Phlebitis and thrombophlebitis of superficial veins of right lower extremity I80.01 TECHNIQUE: Lower extremity gavin scale and Duplex Doppler evaluation of the deep venous system from the inguinal ligament through the calf veins. FINDINGS: REGION: Right lower extremity. THROMBI: Negative for DVT. Heat-induced thrombus visualized in the right SSV 2.7 cm from SPJ and extends to the mid calf. COMPRESSIBILITY: Non-compressible segments corresponding to thrombus. FLOW: Absent flow corresponding to thrombus OTHER: 7 mm varicosity off of proximal SSV remains patent. *Exam performed in accordance with [facility] practice guidelines- Peripheral venous ultrasound, November 04, 2009. CONCLUSION: 1. Post ablation occlusion of the right small saphenous vein with heat induced thrombus 2.7 cm from the saphenous popliteal junction 2. Residual incompetent 7 mm tributary arising off the occluded right small saphenous vein Dictated by: Shanna Rosa MD on 12/10/2021 at 08:17 Approved by: Shanna Rosa MD on 12/10/2021 at 08:19 Normal [facility] VC ENDOVENOUS ABL 1ST V RTon 12-03-2021 VC ENDOVENOUS ABL 1ST V RT Patient: SUSAN HOGUE Exam Date: 12/03/2021 : 1985 Gender:F Ordering : DR SHANNA ROSA M.D. Admission #: [id number] Family : Order #: [id number] CLICK HERE TO VIEW EXAM RADIOLOGY REPORT PROCEDURE: VEIN CENTER ENDOVENOUS ABLATION FIRST VEIN RIGHT SMALL SAPHENOUS VEIN COMPARISON: VC ENDOVENOUS ABL 1ST V RT, 10/15/2021. INDICATIONS: Pain co-occurrent and due to varicose veins of bilateral legs I83.813 OPERATIVE REPORT: The risks and benefits of the procedure had been previously discussed, and were rediscussed at length. Informed written consent was obtained by and Judd Maradiaga assisted. Time out procedure was performed. The right lower extremity was prepared and draped in the usual sterile fashion. Duplex ultrasound probe was draped in a sterile cover, sterile transmission gel was used. Venous mapping was performed with the areas of dilation and large tributaries marked. The total length was 19 cm from the entry mid to distal thigh to where the vein begins to dip through the muscular fascia, this was a thigh extension. The diameter of the small saphenous vein ranged from 4-7 mm. A 30 gauge needle and 1% buffered lidocaine was used to anesthetize the entry site. A 4 mm incision was made with a scalpel and the saphenous vein was entered percutaneously under direct ultrasound guidance with a micropuncture set, 2 sticks were successful in gaining access. A micro-guide wire was inserted and the needle removed. A micro-set including a dilator was inserted over the microwire and the needle and dilator were removed. A 0.018 guide wire was inserted through the micro-set and threaded through the saphenous vein. The dilator was removed and an introducer sheath was inserted over the wire. The dilator and wire were removed and the 600 micron fiber was introduced and placed and positioned so that it extended beyond the sheath. Final position of the fiber was determined by ultrasound guidance and duplex imaging. Tumescent anesthetic was delivered by ultrasound guidance. 125 cc of fluid was delivered along the entire course of the saphenous vein. The solution consisted of 500 cc of normal saline with 20mL of 1% lidocaine and 10 mL of sodium bicarbonate. A final positioning check was made. The energy source was turned on by means of the foot pedal and the fiber and sheath were withdrawn. The total number of Joules delivered was 839. The laser was active for 105 seconds under continuous pulse, average laser use of 8 J. Laser start time 11:07 a.m. December 03, 2021. Laser stop time < 11:09 a.m. December 03, 2021. A duplex ultrasound revealed compressibility and flow at the saphenofemoral junction immediately after the procedure. Hemostasis at the access site was achieved. The skin incision of the saphenous vein was closed with a 4 x 4. A compression stocking was applied. Postop instructions were given. A follow up appointment was recommended and scheduled. The patient tolerated the procedure well and was discharged in good condition. CONCLUSION: 1. Technically successful endovenous laser ablation of the right small saphenous vein. Dictated by: Shanna Rosa MD on 12/03/2021 at 11:15 Approved by: Shanna Rosa MD on 12/03/2021 at 11:18 Normal [facility] VC CONSULT FOLLOWUPon 2021 VC CONSULT FOLLOWUP Patient: SUSAN HOGUE Exam Date: 11/19/2021 : 1985 Gender:F Ordering : DR SHANNA ROSA M.D. Admission #: [id number] Family : Order #: [id number] CLICK HERE TO VIEW EXAM RADIOLOGY REPORT PROCEDURE: VEIN CENTER CONSULTATION FOLLOWUP VEIN CENTER - OFFICE VISIT FOLLOW UP COMPARISON: VC CONSULT FOLLOWUP, 10/22/2021. PROGRESS NOTES: The patient reports mild discomfort following intravenous laser ablation of the left great saphenous vein. The patient did not require oral analgesics. The patient has worn her compression stocking. The patient has followed our recommendations to walk 20-30 minutes once or twice per day since the procedure. Physical exam demonstrates an area of mild bruising measuring 10 x 4 cm along the mid to distal left thigh likely related to tumescence injection. The insertion site is well-healed. No areas of erythema or warmth to suggest cellulitis or thrombophlebitis. No active ulceration. Review of the ultrasound performed the same day demonstrates occlusive thrombus extending throughout the treated left great saphenous vein with heat induced thrombus 9 mm from the saphenofemoral junction. Ultrasound demonstrated dilated incompetent bilateral small saphenous veins, right greater than left. The patient expressed a desire to proceed with treatment of incompetent right small saphenous vein with intravenous laser ablation. IMPRESSION: 1. Successful ablation of the left great saphenous vein 2. Persistent small saphenous veins, right greater than left PLAN: Endovenous laser ablation left small saphenous vein Nurse notes, history and physical were reviewed and confirmed, see attached forms. The nurse was present throughout the physical exam and consultation Dictated by: Shanna Rosa MD on 11/19/2021 at 13:58 Approved by: Shanna Rosa MD on 11/19/2021 at 14:00 Normal [facility] EXT VENOUS LT LIMITEDon 0 11-19-2021 VC EXT VENOUS LT LIMITED Patient: SUSAN HOGUE Exam Date: 11/19/2021 : 1985 Gender:F Ordering : DR SHANNA ROSA M.D. Admission #: [id number] Family : Order #: [id number] CLICK HERE TO VIEW EXAM RADIOLOGY REPORT PROCEDURE: VEIN CENTER EXTREMITY VENOUS LEFT LIMITED COMPARISON: None. INDICATIONS: Phlebitis and thrombophlebitis of superficial veins of left lower extremity I80.02 TECHNIQUE: Lower extremity gavin scale and Duplex Doppler evaluation of the deep venous system from the inguinal ligament through the calf veins. FINDINGS: REGION: Left lower extremity. THROMBI: Negative for DVT. Heat induced thrombus in the left GSV 8.6 mm from the SFJ and extends to the distal thigh in area of insertion. COMPRESSIBILITY: Noncompressibility corresponding to thrombus FLOW: Absent flow corresponding to thrombus. *Exam performed in accordance with [facility] practice guidelines- Peripheral venous ultrasound, November 04, 2009. CONCLUSION: Post ablation occlusion of the left great saphenous vein with heat induced thrombus 0.9 cm from the saphenofemoral junction Dictated by: Shanna Rosa MD on 11/19/2021 at 13:46 Approved by: Shanna Rosa MD on 11/19/2021 at 13:48 Normal [facility] ENDOVENOUS ABL 1ST V LTon 11-12-2021 VC ENDOVENOUS ABL 1ST V LT Patient: SUSAN HOGUE Exam Date: 11/12/2021 : 1985 Gender:F Ordering : DR SHANNA ROSA M.D. Admission #: [id number] Family : Order #: [id number] CLICK HERE TO VIEW EXAM RADIOLOGY REPORT PROCEDURE: VEIN CENTER ENDOVENOUS ABLATION FIRST VEIN LEFT GREAT SAPHENOUS VEIN COMPARISON: None. INDICATIONS: Pain co-occurrent and due to varicose veins of bilateral legs i83.813 OPERATIVE REPORT: The risks and benefits of the procedure had been previously discussed, and were rediscussed at length. Informed written consent was obtained by and Judd Maradiaga assisted. Time out procedure was performed. The left lower extremity was prepared and draped in the usual sterile fashion to allow knee flexion in the sterile field. Duplex ultrasound probe was draped in a sterile cover, sterile transmission gel was used. Venous mapping was performed with the areas of dilation and large tributaries marked. The total length was 26 cm from the entry at the level of the knee to 3 cm below the saphenofemoral junction. The vein below this area was to tortuous for treatment. The diameter of the greater saphenous vein ranged from 4-8 mm. A 30 gauge needle and 1% buffered lidocaine was used to anesthetize the entry site. A 4 mm incision was made with a scalpel and the saphenous vein was entered percutaneously under direct ultrasound guidance with a micropuncture set, a single stick was successful in gaining access. A micro-guide wire was inserted and the needle removed. A micro-set including a dilator was inserted over the microwire and the needle and dilator were removed. A 0.018 guide wire was inserted through the micro-set and threaded through the saphenous vein to the saphenofemoral junction. The dilator was removed and an introducer sheath was inserted over the wire until the end of the sheath entered the saphenofemoral junction. The dilator and wire were removed and the 600 micron fiber was introduced and placed and positioned so that it extended beyond the sheath and was 3 cm peripheral to the saphenofemoral femoral junction. Final position of the fiber was determined by ultrasound guidance and duplex imaging. Tumescent anesthetic was delivered by ultrasound guidance. 175 cc of fluid was delivered along the entire course of the saphenous vein. The solution consisted of 500 cc of normal saline with 20mL of 1% lidocaine and 10 mL of sodium bicarbonate. A final positioning check was made. The energy source was turned on by means of the foot pedal and the fiber and sheath were withdrawn. The total number of Joules delivered was 1266. The laser was active for 153 seconds under continuous pulse, average laser use of 8 J. Laser start time 9:55 a.m. November 12, 2021. Laser stop time 9:59 a.m. November 12, 2021. A duplex ultrasound revealed compressibility and flow at the saphenofemoral junction immediately after the procedure. Hemostasis at the access site was achieved. The skin incision of the saphenous vein was closed with a 4 x 4. A compression stocking was applied. Postop instructions were given. A follow up appointment was recommended and scheduled. The patient tolerated the procedure well and was discharged in good condition. CONCLUSION: 1. Technically successful endovenous laser ablation of the left great saphenous vein. Dictated by: Shanna Rosa MD on 11/12/2021 at 10:01 Approved by: Shanna Rosa MD on 11/12/2021 at 10:02 Normal [facility] VC CONSULT FOLLOWUPon 2021 VC CONSULT FOLLOWUP Patient: SUSAN HOGUE Exam Date: 10/22/2021 : 1985 Gender:F Ordering : DR SHANNA ROSA M.D. Admission #: [id number] Family : Order #: [id number] CLICK HERE TO VIEW EXAM RADIOLOGY REPORT PROCEDURE: VEIN CENTER CONSULTATION FOLLOWUP VEIN CENTER - OFFICE VISIT FOLLOW UP COMPARISON: None. PROGRESS NOTES: The patient reports no significant pain following intravenous laser ablation of the right great saphenous vein. The patient did not require oral analgesics. The patient has worn her compression stocking. The patient has followed our recommendations to walk 20-30 minutes once or twice per day since the procedure. Physical exam demonstrates a linear area of bruising along the distal medial thigh related to intravenous laser ablation. No areas of erythema or warmth to suggest cellulitis or thrombophlebitis. No active ulceration. Review of the ultrasound performed the same day demonstrates occlusive thrombus extending throughout the treated right great saphenous vein. Heat induced thrombus is 2.4 mm in the saphenofemoral junction. Occlusion of an associated branch saphenous varicose vein is observed. The patient expressed a desire to proceed with treatment of incompetent left great saphenous vein with intravenous laser ablation. The patient does need to sort out an insurance issue before scheduling the procedure. IMPRESSION: 1. Successful ablation of the right great saphenous vein with heat induced thrombus 2.4 mm from the saphenofemoral junction 2. Incompetent left great saphenous vein PLAN: 1. Follow-up ultrasound in 1-2 weeks to evaluate proximal right great saphenous vein thrombus extension 2. Endovenous laser ablation left great saphenous vein Nurse notes, history and physical were reviewed and confirmed, see attached forms. The nurse was present throughout the physical exam and consultation Dictated by: Shanna Rosa MD on 10/22/2021 at 13:40 Approved by: Shanna Rosa MD on 10/22/2021 at 13:42 Normal [facility] VC EXT VENOUS RT LIMITEDon 0 10-22-2021 VC EXT VENOUS RT LIMITED Patient: SUSAN HOGUE Exam Date: 10/22/2021 : 1985 Gender:F Ordering : DR SHANNA ROSA M.D. Admission #: [id number] Family : Order #: [id number] CLICK HERE TO VIEW EXAM RADIOLOGY REPORT PROCEDURE: VEIN CENTER EXTREMITY VENOUS RIGHT LIMITED COMPARISON: None. INDICATIONS: Phlebitis and thrombophlebitis of superficial veins of right lower extremity I80.01 TECHNIQUE: Lower extremity gavin scale and Duplex Doppler evaluation of the deep venous system from the inguinal ligament through the calf veins. FINDINGS: REGION: Right lower extremity. THROMBI: Negative for DVT. Heat induced thrombus in the right GSV 2.4 mm from SFJ and extends to the point of insertion at distal thigh. Associated varicose vein medial distal thigh is also thrombosed. COMPRESSIBILITY: Noncompressibility corresponding to thrombus FLOW: Absent flow corresponding to thrombus *Exam performed in accordance with [facility] practice guidelines- Peripheral venous ultrasound, November 04, 2009. CONCLUSION: Post ablation occlusion of the right great saphenous vein with heat induced thrombus 2.4 mm from the saphenofemoral junction. Dictated by: Shanna Rosa MD on 10/22/2021 at 13:26 Approved by: Shanna Rosa MD on 10/22/2021 at 13:28 [facility] ENDOVENOUS ABL 1ST V RTon 10-15-2021 VC ENDOVENOUS ABL 1ST V RT Patient: SUSAN HOGUE Exam Date: 10/15/2021 : 1985 Gender:F Ordering : DR SHANNA ROSA M.D. Admission #: [id number] Family : Order #: [id number] CLICK HERE TO VIEW EXAM RADIOLOGY REPORT PROCEDURE: VEIN CENTER ENDOVENOUS ABLATION FIRST VEIN RIGHT GREAT SAPHENOUS VEIN COMPARISON: None. INDICATIONS: Pain co-occurrent and due to varicose veins of bilateral legs I83.813 OPERATIVE REPORT: The risks and benefits of the procedure had been previously discussed, and were rediscussed at length. Informed written consent was obtained by and Judd pennington. Time out procedure was performed. The right lower extremity was prepared and draped in the usual sterile fashion to allow knee flexion in the sterile field. Duplex ultrasound probe was draped in a sterile cover, sterile transmission gel was used. Venous mapping was performed with the areas of dilation and large tributaries marked. The total length was 25 cm from the entry just below the knee to 3 cm below the saphenofemoral junction. The diameter of the greater saphenous vein ranged from 4-8 mm. A 30 gauge needle and 1% buffered lidocaine was used to anesthetize the entry site. A 4 mm incision was made with a scalpel and the saphenous vein was entered percutaneously under direct ultrasound guidance with a micropuncture set, a single stick was successful in gaining access. A micro-guide wire was inserted and the needle removed. A micro-set including a dilator was inserted over the microwire and the needle and dilator were removed. A 0.018 guide wire was inserted through the micro-set and threaded through the saphenous vein to the saphenofemoral junction. The dilator was removed and an introducer sheath was inserted over the wire until the end of the sheath entered the saphenofemoral junction. The dilator and wire were removed and the 600 micron fiber was introduced and placed and positioned so that it extended beyond the sheath and was 3 cm peripheral to the saphenofemoral femoral junction. Final position of the fiber was determined by ultrasound guidance and duplex imaging. Tumescent anesthetic was delivered by ultrasound guidance. 175 cc of fluid was delivered along the entire course of the saphenous vein. The solution consisted of 500 cc of normal saline with 20mL of 1% lidocaine and 10 mL of sodium bicarbonate. A final positioning check was made. The energy source was turned on by means of the foot pedal and the fiber and sheath were withdrawn. The total number of Joules delivered was 1206. The laser was active for 151 seconds under continuous pulse, average laser use of 8 J. Laser start time 10:21 a.m., October 15, 2021. Laser stop time 10:25 a.m., October 15, 2021. A duplex ultrasound revealed compressibility and flow at the saphenofemoral junction immediately after the procedure. Hemostasis at the access site was achieved. The skin incision of the saphenous vein was closed with a 4 x 4. A compression stocking was applied. Postop instructions were given. A follow up appointment was recommended and scheduled. The patient tolerated the procedure well and was discharged in good condition. CONCLUSION: 1. Technically successful endovenous laser ablation of the right great saphenous vein. Dictated by: Shanna Rosa MD on 10/15/2021 at 10:26 Approved by: Shanna Rosa MD on 10/15/2021 at 10:35 [facility] Vital Signs Date Time Vital Sign Value Performing Clinician Facility 04-05-2024 10:18-0400 Body height 165.1 cm [facility] 04-05-2024 10:18-0400 Body mass index (BMI) [Ratio] 23 kg/m2 [facility] 04-05-2024 10:18-0400 Body temperature 99.3 [degF] [facility] 04-05-2024 10:18-0400 Body weight 62.7 kg [facility] 04-05-2024 10:18-0400 Heart rate 91 /min [facility] 04-05-2024 10:18-0400 Respiratory rate 18 /min [facility] 04-05-2024 10:18-0400 SaO2% (BldA) [Mass fraction] 99 % [facility] 2023 12:42-0400 Body temperature 97.81 [degF] Becka Alecia DO Work Phone: [facility] 2023 12:42-0400 Body weight 65.6 kg Becka Alston DO Work Phone: [facility] 2023 12:42-0400 Diastolic blood pressure 50 mm[Hg] Becka Alston DO Work Phone: [facility] 2023 12:42-0400 Heart rate 89 /min Becka Alston DO Work Phone: [facility] 2023 12:42-0400 Systolic blood pressure 123 mm[Hg] Becka Alston DO Work Phone: [facility] Encounters Encounter Date Encounter Type Care Provider Facility Start: 06-02-2024 End: 06-02-2024 Orders Only Mya Rahul [facility] MINILAB OPERATOR-FILM WAXER Work Phone: [facility] Internal Medicine - Family Medicine Comment on above: Upper respiratory tr act infection, unspecified type (Primary Dx) Start: 05-13-2024 End: 05-13-2024 Refill Becka Alston DO Work Phone: Rheumatology Comment on above: Refill Request Start: 04-05-2024 End: 04-05-2024 ambulatory [facility] Start: 04-05-2024 End: 04-05-2024 ambulatory [facility] Work Phone: Start: 04-05-2024 End: 04-05-2024 Patient encounter procedure [facility] Jose Alberto Work Phone: Start: 2023 End: 12-09-2023 ambulatory BECKAJACQUELYN ANTONYJOHN Facility:[facility] Start: 2023 End: 2023 Patient encounter procedure Becka Alston DO Work Phone: Rheumatology Comment on above: 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) Start: 08-01-2022 End: 08-02-[address] SHRUTHI CHOW Facility: Start: 07-18-2022 End: 07-19-[address] BELINDA MOCK Facility:[facility] Start: 06-09-2022 Encounter for preprocedural laboratory examination DR GARCIA LÓPEZ [facility] Start: 06-07-2022 End: 06-07-[address] GARCIA LÓPEZ Facility:[facility] Start: 06-04-2022 End: 06-05-[address] GARCIA LÓPEZ Facility:[facility] Start: 06-04-2022 End: 06-05-2022 Encounter for preprocedural laboratory examination DR GARCIA LÓPEZ Facility:[facility] Start: 05-29-[address] GARCIA LÓPEZ Facility :[facility] Start: 03-11-2022 End: 03-11-[address] GARCIA LÓPEZ Facility:[facility] Start: 01-09-[address] BELINDA MOCK Facility: [facility] Start: 01-08-2022 End: 01-09-[address] BELINDA MOCK Facility:[facility] Start: 12-10-2021 End: 12-11-[address] BELINDA MOCK Facility:[facility] Start: 12-03-2021 End: 12-04-[address] BELINDA MOCK Facility:[facility] Start: 11-19-2021 End: 11-20-[address] SHANNA ROSA Facility:[facility] Start: 11-12-2021 End: 11-13-[address] SHANNA ROSA Facility:[facility] Start: 10-22-2021 End: 10-23-[address] BELINDA MOCK Facility:[facility] Start: 10-15-2021 End: 10-16-[address] BELINDA MOCK Facility:[facility] Procedures Date Procedure Procedure Detail Performing Clinician Start: 04-05-2024 COVID Antigen (POC) Start: 04-05-2024 Quick Strep (POC) Start: 04-05-2024 Adult depression screening assessment Mya EVANS Work Phone: Plan of Treatment Date Care Activity Detail Author Start: 07-25-2030 DTaP,Tdap and Td Vaccines (2 - Td or Tdap) DTaP,Tdap and Td Vaccines (2 - Td or Tdap) [facility] Start: 07-25-2030 Urine microalbumin profile DTaP,Tdap,Td Vaccine (2 - Td or Tdap) [facility] Start: 04-05-2025 Adult BMI Screening Adult BMI Screen ing [facility] Start: 04-05-2025 Depression Screening Depression Scre ening [facility] Start: 04-05-2025 Tobacco Screening Tobacco Screening [facility] Start: 06-16-2024 End: 06-16-2024 Patient encounter procedure 06/16/2024 11:00 AM EST Office Visit Rheumatology [address] [address] Becka Alston DO [id number] [place] [address] 6m SLE f/u per [facility] Comment on above: 6m SLE f/u per David duenas Start: 04-11-2024 Covid-19 Vaccine ( season) Covid-19 Vaccine ( season) [facility] Start: 04-11-2024 COVID-19 Vaccine ( season) COVID-19 Vaccine ( season) [facility] Start: 04-11-2024 Influenza vaccination [facility] Start: 2023 End: 03-08-2024 VERNELL BY IFA SCREEN [facility] Comment on above: Expected: 2023 , Expires: 03/08/2024 Start: 2023 End: 03-08-2024 BLOOD TB SCREEN [facility] Comment on above: Expected: 2023 , Expires: 03/08/2024 Start: 2023 End: 03-08-2024 DNA ANTIBODY DS BLD [facility] Comment on above: Expected: 2023 , Expires: 03/08/2024 Start: 2023 End: 03-08-2024 Extractable nuclear Ab panel - Serum [facility] Work Phone: Comment on above: Expected: 2023 , Expires: 03/08/2024 Start: 08-11-2023 Behavioral Health Screening Behavioral Health Screening [facility] Start: 04-11-2023 Covid-19 Vaccine ( season) Covid-19 Vaccine ( season) [facility] Start: 12-07-2017 Screening for malign ant neoplasm of cervix HPV Testing [facility] Start: 12-07-2008 Screening for malign ant neoplasm of cervix [facility] Start: 12-07-2005 Anxiety Screening Anxiety Screening [facility] Start: 12-07-2005 Depression Screening Depression Scre ening [facility] Start: 12-07-2005 HIV screening HIV Screening [facility] Immunizations Immunization Date Immunization Notes Care Provider Fa cilismita 05-15-2023 Influenza Vaccine, Quadrivalent, Adjuvanted Mya Suazo MINILAB OPERATOR-FILM WAXER Work Phone: [facility] 05-15-2023 influenza virus vaccine, unspecified formulation Becka Alston DO Work Phone: [facility] 05-21-2022 influenza virus vaccine, unspecified formulation Mya Suazo MINILAB OPERATOR-FILM WAXER Work Phone: [facility] 05-21-2022 influenza, injectabl e, quadrivalent, preservative free Mya Suazo MINILAB OPERATOR-FILM WAXER Work Phone: [facility] 07-25-2020 tetanus toxoid, reduced diphtheria toxoid, and acellular pertussis vaccine, adsorbed Mya Suazo MINILAB OPERATOR-FILM WAXER Work Phone: [facility] 05-12-2020 influenza, injectabl e, quadrivalent, preservative free Mya Suazo MINILAB OPERATOR-FILM WAXER Work Phone: [facility] 06-12-2019 influenza, injectabl e, quadrivalent, preservative free May Suazo MINILAB OPERATOR-FILM WAXER Work Phone: [facility] 05-28-2018 Influenza, injectabl e, Madin Helen Canine Kidney, preservative free, quadrivalent Mya Suazo MINILAB OPERATOR-FILM WAXER Work Phone: [facility] 05-30-2017 Influenza, injectabl e, Madin Helen Canine Kidney, preservative free, quadrivalent Mya Suazo MINILAB OPERATOR-FILM WAXER Work Phone: [facility] [employer] Payers Date Payer Category Payer Blue Cross Blue Shie ld Managed Care - Other ANTHEM [id number] 2020 Unknown ANTHEM BLUE CARD PPO OOS [id number] 2020-Present [phone] [address] [place] [address] PPO [id number] 1987 Unknown [id number] .[id number] 1987 Unknown [id number] .[id number] 1987 Unknown [id number] [id number] .2.593 1987 Unknown [id number] [id number] .2.593 1987 Unknown [id number] [id number] .2.593 1987 Unknown [id number] [id number] .2.593 1987 Unknown [id number] [id number] .2.593 1987 Unknown [id number] [id number] .2.593 1987 Unknown [id number] [id number] .2.593 1987 Unknown [id number] [id number] .2.593 1987 Unknown [id number] [id number] .2.593 1987 Unknown [id number] [id number] .2.593 1987 Unknown [id number] 2.16.840.1.341458.3.579 .2.593 1987 Unknown [id number] [id number] .2.593 1987 Unknown [id number] [id number] .2.1286 1959 Unknown [id number] Private Health Insurance [facility]ly [facility] [employer] Co [id number] Social History Date Type Detail Facility Start: 07-17-2022 End: 2023 Tobacco smoking status MDIS Never smoked tobacco [facility] Start: 07-17-2022 End: 2023 Tobacco use and exposure Smokeless tobacco non-user [facility] Start: 09-21-2020 End: 2023 History of Social function [facility] Start: 09-21-2020 End: 2023 Tobacco use panel [facility] Adult Depression Screening Assessment 0 [facility] Start: 1987 Sex Assigned At Not on file [facility] Start: 1987 Sex Assigned At Female F [facility] Start: 04-05-2024 Alcoholic beverage intake Current drinker of alcohol (finding) [facility] Start: 03-16-2015 Sex Female (finding) [facility] Clinical Notes 06-07-2022 to 05-13-2024 Telephone Encounter - Carmen Oquendo RN - 05/13/2024 4:40 PM EDTTelephone Encounter - Carmen Oquendo RN - 05/13/2024 4:40 PM Becka Baugh DO - 2023 1:00 PM EDT Note Date & Type Note Facility 05-13-2024 Telephone encounter Note Images from the original note were not included. Requesting refill on plaquenil. Script pended. No eye exam records in chart. [employer] Communication[employer] message sent to pt asking if she had her eye exam/OCT done. Please adjust script quantity if needed. Thank you. Most recent Rheumatology visit: 2023 (with Becka Alston) Last Bone Density on file: None on file Rheumatology Care Team: None on file Recent Office Visits - This Specialty 2023 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) Rheumatology Becka Alston DO Upcoming Rheumatology Appointments - Next 365 Days Visit Type Date Time Department [facility] 06/16/2024 11:00 AM [facility] A[facility] Last Ophthalmology Check for Plaquenil (Hydroxychloroquine) Last OCT Macula Exam No resulted procedures found. Last Visual Field Exam No resulted procedures found. CBC: Latest Ref Rng & Units 2023 CBC WBC 3.70 - 11.00 k/uL 5.72 Hemoglobin 11.5 - 15.5 g/dL 12.6 Hematocrit 36.0 - 46.0 % 37.0 Platelet Count 150 - 400 k/uL 287 Abs Neut (ANC) 1.45 - 7.50 k/uL 3.61 Abs Lymph 1.00 - 4.00 k/uL 1.31 Vitamin D: None on file in the last 6 months LFT: Latest Ref Rng & Units 2023 CMP Sodium 136 - 144 mmol/L 138 Potassium 3.7 - 5.1 mmol/L 3.6 Chloride 97 - 105 mmol/L 105 CO2 22 - 30 mmol/L 24 Glucose 74 - 99 mg/dL 89 BUN 7 - 21 mg/dL 8 Creatinine 0.58 - 0.96 mg/dL 0.70 Calcium 8.5 - 10.2 mg/dL 9.4 AST 13 - 35 U/L 20 ALT 7 - 38 U/L 15 Alkaline Phosphatase 34 - 123 U/L 67 Hepatic Function: Creatinine: Latest Ref Rng & Units 2023 Creatinine Creatinine 0.58 - 0.96 mg/dL 0.70 ESR/CRP: None on file in the last 6 months Uric Acid: None on file in the last 6 months Open Standing (Multiple Instance) Lab Orders None Open Future (Single Instance) Lab Orders None [facility] 05-13-2024 Miscellaneous Notes Images from the original note were not included. Requesting refill on plaquenil. Script pended. No eye exam records in chart. [employer] Communication[employer] message sent to pt asking if she had her eye exam/OCT done. Please adjust script quantity if needed. Thank you. Most recent Rheumatology visit: 2023 (with Becka Alston) Last Bone Density on file: None on file Rheumatology Care Team: None on file Recent Office Visits - This Specialty 2023 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) Rheumatology Becka Alston, DO Upcoming Rheumatology Appointments - Next 365 Days Visit Type Date Time Department [facility] 06/16/2024 11:00 AM [facility] MAIN A50 Last Ophthalmology Check for Plaquenil (Hydroxychloroquine) Last OCT Macula Exam No resulted procedures found. Last Visual Field Exam No resulted procedures found. CBC: Latest Ref Rng & Units 2023 CBC WBC 3.70 - 11.00 k/uL 5.72 Hemoglobin 11.5 - 15.5 g/dL 12.6 Hematocrit 36.0 - 46.0 % 37.0 Platelet Count 150 - 400 k/uL 287 Abs Neut (ANC) 1.45 - 7.50 k/uL 3.61 Abs Lymph 1.00 - 4.00 k/uL 1.31 Vitamin D: None on file in the last 6 months LFT: Latest Ref Rng & Units 2023 CMP Sodium 136 - 144 mmol/L 138 Potassium 3.7 - 5.1 mmol/L 3.6 Chloride 97 - 105 mmol/L 105 CO2 22 - 30 mmol/L 24 Glucose 74 - 99 mg/dL 89 BUN 7 - 21 mg/dL 8 Creatinine 0.58 - 0.96 mg/dL 0.70 Calcium 8.5 - 10.2 mg/dL 9.4 AST 13 - 35 U/L 20 ALT 7 - 38 U/L 15 Alkaline Phosphatase 34 - 123 U/L 67 Hepatic Function: Creatinine: Latest Ref Rng & Units 2023 Creatinine Creatinine 0.58 - 0.96 mg/dL 0.70 ESR/CRP: None on file in the last 6 months Uric Acid: None on file in the last 6 months Open Standing (Multiple Instance) Lab Orders None Open Future (Single Instance) Lab Orders None documented in this encounter [facility] 2023 Note HNO ID: [id number] Author: BECKA ALSTON, DO Service: ? Author Type: Physician Type: Progress Notes Filed: 2023 13:39 Note Text: [facility] DEPARTMENT OF RHEUMATIC AND IMMUNOLOGIC DISEASES This consult was requested by the doctor listed below for an opinion regarding the chief complaint listed below, and my final recommendations will be communicated to the requesting health care provider by way of the shared medical record for internal providers or letter via the [employer] Postal Service for external providers. Referring Physician: No referring provider defined for this encounter. SUBJECTIVE: Reason for visit: Lupus establish care History of Present Illness: Susan Hogue is a 38 year old female with PMHx significant for migraines and SLE who is evaluated in the Rheumatology Clinic. To review her history, she has had symptom onset since 2010 with joint pain in her elbows and knees, weakness/numbness of her lower extremities and sun sensitivity. She was first diagnosed formally with SLE in 2015 (+VERNELL 1:640, low C3, arthralgia, myalgia of lower extremities, oral ulcerations and Raynaud's phenomenon) at which time she was and was placed on HCQ. She has had two children, no miscarriages. After her pregnancies, she was placed on methotrexate which did not have an effect and belimumab which caused injection site reactions. In 2019, she was placed in azathioprine 100 mg daily with HCQ which helped somewhat. She stayed on this regimen until 10/2023 when she was looking to change providers. She had not noticed any change in her symptoms since stopping. Today she has left hip pain, spasm ing of upper back muscles and a red race on her face which is stable to her. She has a great aunt with SLE and cousins with RA. Answers submitted by the patient for this visit: Review of Systems Rheumatology (Submitted on 12/07/2023) Fever : No Recent unintentional weight change: No Eye pain: No Eye redness: No Vision Disturbance: No Eye Dryness: Yes Nosebleeds: No Sores in your mouth: No Trouble Swallowing: No Dry Mouth: No Chest pain: No Leg Swelling: No A cough: No Shortness of breath: No Pain with breathing: No Heartburn: No Abdominal pain: No Diarrhea: Yes Black tarry stools: No Blood in urine: No Pain or burning with urination: No Joint pain or stiffness: Yes Muscle weakness: Yes Muscle aches: Yes Morning Stiffness in Joints: Yes A rash: Yes Do you have sun sensitive rashes?: Yes Skin Color Changes: No Hair Loss: Yes Nail Changes: Yes Headaches: Yes Numbness: Yes Memory Loss: No Swollen Glands: No PMHx: No past medical history on file. PSHx: No past surgical history on file. FamHx: No family history on file. SocHx: Social History Tobacco Use Smoking status: Never Smokeless tobacco: Never MEDICATIONS: hydrOXYchloroQUINE (PLAQUENIL) 200 mg tablet Take 1.5 tablets by mouth once daily. ALLERGIES: ALLERGIES Not on File OBJECTIVE: Physical Examination: Vitals: BP 123/50 Pulse 89 Temp 36.6 ?C (97.8 ?F) (Oral) Wt 65.6 kg (144 lb 10 oz) General: Looks well, NAD, A AND Ox3. HEENT: +pink rash across cheeks and chin. Sparing nasolabial fold. Neck: No LAD. CVS: RRR, nl S1/S2, no R/M/G,. Resp: CTAB. No rales or wheezing. Ext: Good DP/PTs palpable bilaterally. Neuro: Power 5/5 throughout. Gait Normal. Skin: No rash. No ulcers. Musculoskeletal: Neck: Good flexion/extension/lateral rotation Shoulders: No swelling, no tenderness, good ROM Elbows: No swelling, no tenderness, no flexion contractures, no nodules, good ROM Wrists: No swelling, no tenderness, no limitation in flexion and extension Hands: No evidence of synovitis. Able to make full fist bilaterally Knees: No effusion, no tenderness, good ROM Nailfold capillaroscopy shows tortuosity scattered throughout. IMPRESSIONS/RECOMMENDATIONS: SLE Based on 2019 ACR/EULAR classification criteria: +VERNELL 1:640, low C3, arthralgia, myalgia of lower extremities, oral ulcerations and Raynaud's phenomenon. She has been placed on HCQ, methotrexate, mycophenolate, belimumab and azathioprine. MTX, MMF and BEL all stopped due to side effects. Currently on HCQ 200 mg PO daily. Symptoms today include joint pain of hands, elbows and knees and left hip. Also with a photosensitive rash on her face. Plan: We will obtain labs and urine studies today I have asked that she increase HCQ to 300 mg PO daily. We have discussed the risks and toxicities associated with the use of this medication and the appropriate monitoring. She will need to see ophthalmology for VF/OCT We will consider the use of monthly anifrolumab infusions, she is aware that she will need Shingles vaccination beforehand. She will see Dermatology locally. 2. History of arm numbness Per review of records, she has had this for > 10 years with (more content not included)... [facility] 2023 History of Presen t illness Narrative [facility] DEPARTMENT OF RHEUMATIC AND IMMUNOLOGIC DISEASES This consult was requested by the doctor listed below for an opinion regarding the chief complaint listed below, and my final recommendations will be communicated to the requesting health care provider by way of the shared medical record for internal providers or letter via the U.[employer]. Postal Service for external providers. Referring Physician: No referring provider defined for this encounter. SUBJECTIVE: Reason for visit: Lupus establish care History of Present Illness: Susan Hogue is a 38 year old female with PMHx significant for migraines and SLE who is evaluated in the Rheumatology Clinic. To review her history, she has had symptom onset since 2010 with joint pain in her elbows and knees, weakness/numbness of her lower extremities and sun sensitivity. She was first diagnosed formally with SLE in 2015 (+VERNELL 1:640, low C3, arthralgia, myalgia of lower extremities, oral ulcerations and Raynaud's phenomenon) at which time she was and was placed on HCQ. She has had two children, no miscarriages. After her pregnancies, she was placed on methotrexate which did not have an effect and belimumab which caused injection site reactions. In 2019, she was placed in azathioprine 100 mg daily with HCQ which helped somewhat. She stayed on this regimen until 10/2023 when she was looking to change providers. She had not noticed any change in her symptoms since stopping. Today she has left hip pain, spasm ing of upper back muscles and a red race on her face which is stable to her. She has a great aunt with SLE and cousins with RA. Answers submitted by the patient for this visit: Review of Systems Rheumatology (Submitted on 12/07/2023) Fever : No Recent unintentional weight change: No Eye pain: No Eye redness: No Vision Disturbance: No Eye Dryness: Yes Nosebleeds: No Sores in your mouth: No Trouble Swallowing: No Dry Mouth: No Chest pain: No Leg Swelling: No A cough: No Shortness of breath: No Pain with breathing: No Heartburn: No Abdominal pain: No Diarrhea: Yes Black tarry stools: No Blood in urine: No Pain or burning with urination: No Joint pain or stiffness: Yes Muscle weakness: Yes Muscle aches: Yes Morning Stiffness in Joints: Yes A rash: Yes Do you have sun sensitive rashes?: Yes Skin Color Changes: No Hair Loss: Yes Nail Changes: Yes Headaches: Yes Numbness: Yes Memory Loss: No Swollen Glands: No PMHx: No past medical history on file. PSHx: No past surgical history on file. FamHx: No family history on file. SocHx: Social History Tobacco Use Smoking status: Never Smokeless tobacco: Never MEDICATIONS: hydrOXYchloroQUINE (PLAQUENIL) 200 mg tablet Take 1.5 tablets by mouth once daily. ALLERGIES: ALLERGIES Not on File OBJECTIVE: Physical Examination: Vitals: BP 123/50 Pulse 89 Temp 36.6 C (97.8 F) (Oral) Wt 65.6 kg (144 lb 10 oz) General: Looks well, NAD, A & Ox3. HEENT: +pink rash across cheeks and chin. Sparing nasolabial fold. Neck: No LAD. CVS: RRR, nl S1/S2, no R/M/G,. Resp: CTAB. No rales or wheezing. Ext: Good DP/PTs palpable bilaterally. Neuro: Power 5/5 throughout. Gait Normal. Skin: No rash. No ulcers. Musculoskeletal: Neck: Good flexion/extension/lateral rotation Shoulders: No swelling, no tenderness, good ROM Elbows: No swelling, no tenderness, no flexion contractures, no nodules, good ROM Wrists: No swelling, no tenderness, no limitation in flexion and extension Hands: No evidence of synovitis. Able to make full fist bilaterally Knees: No effusion, no tenderness, good ROM Nailfold capillaroscopy shows tortuosity scattered throughout. IMPRESSIONS/RECOMMENDATIONS: SLE Based on 2019 ACR/EULAR classification criteria: +VERNELL 1:640, low C3, arthralgia, myalgia of lower extremities, oral ulcerations and Raynaud's phenomenon. She has been placed on HCQ, methotrexate, mycophenolate, belimumab and azathioprine. MTX, MMF and BEL all stopped due to side effects. Currently on HCQ 200 mg PO daily. Symptoms today include joint pain of hands, elbows and knees and left hip. Also with a photosensitive rash on her face. Plan: We will obtain labs and urine studies today I have asked that she increase HCQ to 300 mg PO daily. We have discussed the risks and toxicities associated with the use of this medication and the appropriate monitoring. She will need to see ophthalmology for VF/OCT We will consider the use of monthly anifrolumab infusions, she is aware that she will need Shingles vaccination beforehand. She will see Dermatology locally. 2. History of arm numbness Per review of records, she has had this for > 10 years with EMG at some point. 3. History of Muscle spasms She has had trapezius muscle spasms and right shoulder blade pain A course of PT and use of flexeril helped these symptoms. I will touch base with her over the portal with follow up in 3 months. Becka Alston DO documented in this encounter [facility] 08-02-2022 Note PROCEDURE: XR FOOT L T MIN 3 VIEWS HISTORY: Pain in left foot ; acute left foot pain, progression of pain to lateral, dorsal, and plantar forefoot COMPARISON: XR foot left 07/18/2022 FINDINGS: BONES:No fracture, acute abnormality, or significant arthropathy. SOFT TISSUES:No visible soft tissue swelling. EFFUSION:None visible. OTHER: Negative. IMPRESSION: 1. Normal examination. Electronically authenticated by: SHRUTHI CHOW Date: 2022-08-02 10:27 [facility] 07-18-2022 Note PROCEDURE: XR FOOT L T MIN 3 VIEWS HISTORY: Pain in left foot ; acute left foot pain, no known injury COMPARISON: None. FINDINGS: BONES:No fracture, acute abnormality, or significant arthropathy. SOFT TISSUES:No visible soft tissue swelling. EFFUSION:None visible. OTHER: Negative. IMPRESSION: 1. Normal examination. Electronically authenticated by: SHRUTHI CHOW Date: 2022-07-18 08:45 [facility] 06-07-2022 Note OPERATIVE NOTE OPERATION DATE: 06/07/2022 PROCEDURE: Bilateral laparoscopic salpingectomy. PREOPERATIVE DIAGNOSIS: Desires permanent sterilization, multiparity. POSTOPERATIVE DIAGNOSIS: Desires permanent sterilization, multiparity. ANESTHESIA: General. SURGEON: Garcia López D.O. PROTECTIVE SIGNAL OPERATIONS SUPERVISOR: BENJAMIN French URINE OUTPUT: Yellow and clear. BLOOD LOSS: 5 mL. SPECIMEN: Bilateral tubes. PROCEDURE: The patient was taken back to the Operating Room where she was given general anesthesia without difficulty. She was then prepped and draped in the normal sterile fashion after being placed in a dorsal lithotomy position. A wet sponge stick was placed into the patient's vagina. Attention was then turned to the patient's abdomen, where a scalpel was used to make a small infraumbilical incision. The S retractors were then used to dissect the underlying layers until the fascia could be seen. The fascia was then grasped with Mauro clamps and tented up. A knife was then used to make a small incision to the fascia. The muscle was identified, at that time two sutures of #0 Vicryl on a GI needle was then used and placed through the fascia. The peritoneum was then identified and entered bluntly. The 10-4 Neri was then placed into the patient's abdomen. This was confirmed with direct visualization of the bowel, using the laparoscope. The patient's abdomen was then insufflated using approximately 4 liters of CO2 gas. Survey of the patient's abdomen demonstrated ovaries were normal in appearance as well as both tubes and uterus. A second and third rt and lt lateral ports which were 7-8 and 5 mm in size, was then placed after the skin incision was made under direct visualization The patient's tube on the patient's right side was identified and tented up using a grasper, the LigaSure apparatus was then used to come across the mesosalpinx from the fimbriated end to the insertion site at the uterus, the tube was then amputated and removed in its entirety. This was done on the contralateral side. The tubes were the removed from the patient's abdomen. Excellent hemostasis was noted. The lateral ports were then moved under direct visualization with excellent hemostasis. All instruments were removed from the patient's abdomen. The fascia was closed using the #0 Vicryl on GI needle. The skin was closed using 4-0 Vicryl subcuticularly. All instruments were removed from the patient's vagina as well. The patient was taken out of the dorsal lithotomy position and placed in the supine position and taken to recovery in stable condition. Sponge, lap and needle counts were correct x2. [facility] Evaluation note Diagnosis 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)- Primary [facility] assessment information [facility] Work Phone: Evaluation note* Diagnosis Upper respiratory tract infection, unspecified type- Primary [facility] in this encounter [facility] System[facility]ructionsNot on filedocumented in this encounter [facility] Summary Purpose Family History Relationship Condition Age at Onset Recorded Date/T kylie Not Specified No pertinent family history Unknown Advance Directives Advance Directive Response Recorded Date/ Time Advance Directives No April 05, 2024 10:10am Date Activated Date Inactivated Comments 08/20/2017 8:46 PM 08/22/2017 6:59 PM Chief Complaint and Reason for Visit Chief Complaint Cough, sore throat Additional Source Comments INFORMATION SOURCE (unrecogn ized section and content) DATE CREATED AUTHOR 01/18/2022 [facility] dical Specialist DATE CREATED AUTHOR AUTHOR'S ORGANIZ ATION 08/08/2022 [facility] DATE CREATED AUTHOR AUTHOR'S ORGANIZ ATION 12/10/2023 [facility] DATE CREATED AUTHOR AUTHOR'S ORGANIZ ATION 04/07/2024 [facility] Source Comments (unrecognize d section and content) In the event this informatio n is protected by the Federal Confidentiality of Alcohol and Drug Abuse Patient Records regulations: The Federal rules restrict any use of the information to criminally investigate or prosecute any alcohol or drug abuse patient.[facility] the event this information is protected by the Federal Confidentiality of Alcohol and Drug Abuse Patient Records regulations: The Federal rules restrict any use of the information to criminally investigate or prosecute any alcohol or drug abuse patient.[facility] Care Teams (unrecognized sec tion and content) Team Status: Active Member Role Status Dates Belinda Mock DO Primary Care Provider Active Team Status: Inactive Member Role Status Dates Emma Negrete APRN Attending Provider Active Start: April 05, 2024 End: April 05, 2024 Belinda Mock DO Primary Care Provider Active Sta rt: April 05, 2024 End: April 05, 2024 Traveling Sales Representative Relationship Specialty Start Date End Date Belinda Mock DO [address] [place], [place] [id number] PCP - General Internal Medicine 08/20/17 Goals (unrecognized section and content) Goals may be documented in a n alternate sectionNot on filedocumented as of this encounter Reason for Visit (unrecogniz ed section and content) Reason Comments Refill Request FOR RECORDS PERTAINING TO PATIENTS WHO ARE OR HAVE BEEN ENROLLED IN A CHEMICAL DEPENDENCY/SUBSTANCEABUSE PROGRAM, SOME INFORMATION MAY BE OMITTED. This clinical summary was aggregated from multiple sources. Caution should be exercised in using it in the provision of clinical care. This summary normalizes information from multiple sources, and as a consequence, information in this document may materially change the coding, format and clinical context of patient data. In addition, data may be omitted in some cases. CLINICAL DECISIONS SHOULD BE BASED ON THE PRIMARY CLINICAL RECORDS. [facility]. provides no warranty or guarantee of the accuracy or completeness of information in this document.
[2024-06-24 12:09] LABS: Age Gdln ACOG Testing Note (.); HPV Aptima Negative (Negative); IGP, Aptima HPV, rfx 16/18,45 Note (.)
== END 2024-06-16 19:29 | disposition home or self-care (01) ==
LOC: LAB 19:28
PROVIDERS: PCP Internal Medicine; Visit Provider Obstetrics & Gynecology
DX: Z01.419 Encounter for gynecological examination (general) (routine) without abnormal findings (principal)
CPT/HCPCS: 87624; 88175

== ENCOUNTER 2024-07-26 12:37 | Outpatient (OUT) | payer BC, SELFPAY ==
--- NOTE | 2024-07-26 12:39 | MM_ITS ---
Patient Name: LISA KLINE MR#: [id number] : 1985 Exam Date: 07/26/2024 Ordering Doctor: DR aSurabh López . RADIOLOGY REPORT PROCEDURE: MM TOMOSYNTHESIS SCREENING BI COMPARISON: None. INDICATIONS: Screening Calculator Name NCI Breast Cancer Risk Assessment Tool 5 Year Breast Cancer Risk 0.30% Lifetime Breast Cancer Risk 9.20% Personal Breast Cancer No Personal Ovarian Cancer No Treatments None Family Cancers None [facility]: [facility] BREAST COMPOSITION: The breasts are heterogeneously dense,which may obscure small masses. FINDINGS: DIAGNOSTIC CATEGORY 2--BENIGN FINDING: Scattered benign-appearing calcifications are present. Scattered benign-appearing lymph nodes are present. RIGHT BREAST: No significant suspicious finding. LEFT BREAST: No significant suspicious finding. RECOMMENDATIONS: CLINICAL EVALUATION. PLEASE NOTE: A NORMAL MAMMOGRAM DOES NOT EXCLUDE THE POSSIBILITY OF BREAST CANCER. A CLINICALLY SUSPICIOUS PALPABLE LUMP SHOULD BE BIOPSIED. Dictated by: Pepe Linn MD on 07/26/2024 at 14:12 Approved by: Pepe Linn MD on 07/26/2024 at 14:13
--- OUTSIDE RECORDS SUMMARY | 2024-07-26 12:45 | XMS_ITS | CCD ---
Author Organization [facility] Care Team Providers Care Director Athletic Name Role Phone MARIBEL, DR ZELAYA Attending Unavailable MARIBEL, DR ZELAYA Admitting Unavailable MARIBEL, DR ZELAYA Consulting Unavailable YUHAS, DR TREVINO [...] Primary Care Unavailable WEST, DR SHANNA Layton Admsina Unavailable WEST, DR SHANNA Layton Consulting Unavailable [...] Primary Care Unavailable YULIET NAVARRO Attending Unavailable RAMONYULIET Admitting Unavailable RAMONYULIET Consulting Unavailable MARIBEL, DR ZELAYA Attending Unavailable MARIBEL, DR ZELAYA Admitting Unavailable YUHAS, DR TREVINO Primary Care Unavailable MARIBEL, DR ZELAYA Consulting Unavailable YUHAS, DR TREVINO Primary Care Unavailable RUBI, DR MAGDALENA Orozco Attending Unavailable RUBI, DR MAGDALENA Orozco Admitting Unavailable GERALDO, DR SHRUTHI Orozco Consulting Unavailable RUBI, DR MAGDALENA Orozco Consulting Unavailable MARIBEL, DR ZELAYA Attending Unavailable MARIBEL, DR ZELAYA Admitting Unavailable NISH, DR TREVINO Primary Care Unavailable MARIBEL, DR ZELAYA Consulting Unavailable TREADWELL, BUSHRA NEWSOME Consulting Unavailable PATRICK DAVIS Consulting Unavailable MRAIBEL, DR ZELAYA Attending Unavailable MARIBEL, DR ZELAYA Admitting Unavailable NISH, DR TREVINO Primary Care Unavailable Unavailable Primary Care Provider UnavailMYA Marin Attending Unavailable BELINDA MOCK Referring Unavailable BELINDA MOCK Primary Care Unavailable Belinda Mock DO Primary Care Provider [phone] BECKA ALSTON Attending Unavailable BECKA ALSTON Referring Unavailable BECKA ALSTON Attending Unavailable Belinda Mock MD Primary Care Provider GARCIA LÓPEZ Attending Unavailable Medications Current Medications Medication Drug Class(es) Dates Sig (Normalized) Sig (Original) azithromycin 250 mg oral tablet (1 source) Macrolide Antimicrobial Start: 06-02-2024 End: 06-06-2024 azithromycin (ZITHROMAX) 250 mg tablet Indications: Upper respiratory tract infection, unspecified type Take 2 tablets the first day, then 1 tablet daily for 4 days. 6 tablet 06/02/2024 06/06/2024 Active citalopram 10 mg oral tablet (12 sources) Serotonin Reuptake Inhibitor Start: 07-29-2023 take 1 tablet by mouth once daily in the morning citalopram (CeleXA) 10 MG tablet Indications: Mood changes TAKE 1 TABLET BY MOUTH EVERY DAY IN THE MORNING 90 tablet 3 05/04/2024 Active Start: 06-09-2023 take 1 tablet by vickey th once daily in the morning citalopram (CeleXA) 20 MG tablet Indications: Mood changes TAKE 1 TABLET BY MOUTH EVERY DAY IN THE MORNING 90 tablet 3 05/04/2024 Active dextromethorphan hydrobromide 30 mg / pyrilamine maleate 30 mg oral tablet (1 source) Uncompetitive Q-tyukvx-K-aspartate Receptor Antagonist, Sigma-1 Agonist Start: 04-05-2024 take 1 tablet by mouth three times daily as needed for congestion pyrilamine-dextromethorphan 30-30 mg tablet Indications: Rhinitis, unspecified type Take 1 tablet by mouth 3 (three) times a day as needed (congestion). 15 tablet 1 04/05/2024 Active hydroxychloroquin e sulfate 200 mg oral tablet (11 sources) Antimalarial, Antirheumatic Agent Start: 2023 End: 09-14-2024 take 1.5 tablets by mouth once daily hydrOXYchloroQUINE (PLAQUENIL) 200 mg tablet Take 1.5 tablets by mouth once daily. 135 tablet 06/16/2024 09/14/2024 Active Start: 11-13-2023 take 1 tablet by [...] Active levothyroxine sodium 0.05 mg oral tablet (6 sources) l-Thyroxine Start: 04-05-2024 take 50 ug [...] DOSES NEEDED FOR 30 DAYS 10/23/2022 Active Completed/Discontinued Medications Medication Drug Class(es) Dates Sig (Normalized) Sig (Original) acyclovir 400 mg oral tablet (5 sources) Herpesvirus Nucleoside Analog DNA Polymerase Inhibitor, Herpes Simplex Virus Nucleoside Analog DNA Polymerase Inhibitor, Herpes Zoster Virus Nucleoside Analog DNA Polymerase Inhibitor End: 06-25-2024 acyclovir (Zovirax) 400 MG tablet every 12 (twelve) hours. 06/25/2024 Discontinued acyclovir (ZOVIR AX) 400 mg tablet acyclovir 400 mg tablet as needed Active azaTHIOprine 50 mg oral tablet (3 sources) Purine Antimetabolite Start: 06-02-2020 End: 06-16-2024 Imuran 50 MG tablet as directed Orally 06/02/2020 06/16/2024 Discontinued Problems Active Problems Problem Classification Problem Date [...] Systemic lupus erythematosus and connective tissue disorders (11 sources) Systemic lupus erythematosus, unspecified; Translations: [Systemic [...] (HPV); Translations: [ENC SCREENING HUMAN PAPILLOMAVIRUS] Onset: Episodic Infective arthritis and osteomyelitis (except that [...] Test Name Value Interpretation Reference Range Facility IGP,APTIMA HPV,AGE GDLNon AGE GDLN ACOG TESTING Note . [facility] Comment on above: TESTS RESULT FLAG UN ITS REF RANGE LAB Clinician Provided Cytology Information Source.............Cervix;Endocervix No. of containers..01 ThinPrep Vial Age Algo ACOG Olga... FLAG LEGEND: L-Low Normal,H-High Normal,LL-Alert Low,HH-Alert High <-Panic Low,>-Panic High,A-Abnormal,AA-Critical Abnormal Performed at: 01 =[address] [phone] Fide Bolton MD, HPV APTIMA Negative Negative [facility] Comment on above: This nucleic acid am plification test detects fourteen high- risk HPV types (16,18,31,33,35,39,45,51,52,56,58,59,66,68) without differentiation. Performed at: =[address] [id number] Car Body Inspector: Fide Bolton MD, Phone: [phone] Performed at: [address] [id number] Car Body Inspector: Fide Bolton MD, Phone: [phone] IGP, APTIMA HPV, RFX 16/18,45 Note . [facility] Comment on above: TESTS RESULT FLAG UN ITS REF RANGE LAB DIAGNOSIS: 02 NEGATIVE FOR INTRAEPITHELIAL LESION OR MALIGNANCY. Specimen adequacy: 02 Satisfactory for evaluation. No endocervical component is identified. Performed by: 02 Inés Rsoa Money Examiner (ASCP) . 02 Note: Note 02 The Pap smear is a screening test designed to aid in the detection of premalignant and malignant conditions of the uterine cervix. It is not a diagnostic procedure and should not be used as the sole means of detecting cervical cancer. Both false-positive and false-negative reports do occur. Test Methodology: Note 02 This liquid based ThinPrep(R) pap test was screened with the use of an image guided system. HPV Genotype Reflex Note 02 Criteria not met, HPV Genotype not performed. FLAG LEGEND: L-Low Normal,H-High Normal,LL-Alert Low,HH-Alert High <-Panic Low,>-Panic High,A-Abnormal,AA-Critical Abnormal Performed at: 02 [address] [facility] [address] [address] Fide Bolton MD, BRUSH-SPATULA CERVIX ENDOCERVIX [facility] No Panel InformationOrdered By: Emma Negrete on 04-05-2024 COVID Antigen (POC) [facility] Quick Strep (POC) [facility] VERNELL BY IFA SCREENon 12-08-19 Nuclear Ab pattern (S) [Interp] Nuclear dense fine speckled Normal [facility] Comment on above: Order Comment: Branden sandoval Type: BLOOD SPECIMEN Ordering Facility: [facility] Address: [address] [place] [address] Performed By: #### A MALINIIFS #### [facility] CLIA [id number] [address] [place] [id number] [place] [address] [place] Nuclear Ab Ql (S) Positive Abnormal Negative [facility] Comment on above: Order Comment: Branden sandoval Type: BLOOD SPECIMEN Ordering Facility: [facility] Address: [address] [place] [address] Result Comment: Anti -nuclear antibody test is used as an aid in diagnosis of systemic autoimmune diseases. Where positive and clinically warranted, follow-up using disease-specific testing is recommended. Low positive titers are not uncommon with advanced age, certain chronic infections, and malignancies among others. Test methodology: Indirect fluorescence immunoassay (IFA) using HEp-2 cells. 1:640 Performed By: #### A NAIFS #### [facility] CLIA [id number] [address] [place] [address] BLOOD TB SCREENon 2023 M. tuberculosis tuberculin stim IFN-g Ql (Bld) Negative Normal [facility] Comment on above: Order Comment: Speci men Type: BLOOD SPECIMEN Ordering Facility: [facility] Address: [address] [place] [address] Performed By: #### A NAIFS #### [facility] CLIA [id number] [address] [place] [address] [place] MITOGEN MINUS NIL >9.99 Normal >=0.50 [facility] Comment on above: Order Comment: Lizi men Type: BLOOD SPECIMEN Ordering Facility: [facility] Address: [address] [place] [address] Performed By: #### A NAIFS #### [facility] CLIA [id number] [address] [place] [address] TB GAMMA INTERPRETATION Infection with M. tuberculosis complex is unlikely. If latent tuberculosis infection is highly suspected, a negative result does not rule out the infection. Specimens from immunocompromised patients and those <5 years of age may show false negative results. In case of a contact investigation, please repeat 8-12 weeks after a known exposure. Normal [facility] Comment on above: Order Comment: Lizi lori Type: BLOOD SPECIMEN Ordering Facility: [facility] Address: [address] [place] [address] Performed By: #### A NAIFS #### [facility] CLIA [id number] [address] [place] [address] TB NIL 0.01 IU/mL Normal <=8.00 [facility] Comment on above: Order Comment: Lizi men Type: BLOOD SPECIMEN Ordering Facility: [facility] Address: [address] [place] [address] Performed By: #### A NAIFS #### [facility] CLIA [id number] [address] [place] [address] [place] TB1 AG MINUS NIL 0.02 IU/mL Normal <0.35 [facility] Comment on above: Order Comment: Speci men Type: BLOOD SPECIMEN Ordering Facility: [facility] Address: [address] [place] [address] Performed By: #### A NAIFS #### [facility] CLIA [id number] [address] [place] [address] [place] TB2 AG MINUS NIL 0.01 IU/mL Normal <0.35 [facility] Comment on above: Order Comment: Speci men Type: BLOOD SPECIMEN Ordering Facility: [facility] Address: [address] [place] [address] Performed By: #### A NAIFS #### [facility] CLIA [id number] [address] [place] [address] [place] C3 COMPLEMENTon 2023 Complement C3 [Mass/Vol] 97 mg/dL 86 - 166 mg/dL [facility] C3 SerPl-mCncon 2023 Complement C3 [Mass/Vol] 97 mg/dL Normal 86-166 [facility] Comment on above: Order Comment: Speci men Type: BLOOD SPECIMEN Ordering Facility: [facility] Address: [address] [place] [address] Performed By: #### 1 6128-1 #### [facility] CLIA [id number] [address] [place], [place] [id number] [place] C4 COMPLEMENTon 2023 Complement C4 [Mass/Vol] 21 mg/dL 13 - 46 mg/dL [facility] C4 SerPl-mCncon 2023 Complement C4 [Mass/Vol] 21 mg/dL Normal 13-46 [facility] Comment on above: Order Comment: Speci men Type: BLOOD SPECIMEN Ordering Facility: [facility] Address: [address] [place] [address] Performed By: #### 1 6128-1 #### [facility] CLIA [id number] [address] [place] [address] [place] CBC W Auto Differential pane l (Bld)on 2023 Basophils (Bld) [#/Vol] 0.05 10*3/uL [facility] Basophils/100 WBC (Bld) 0.9 % [facility] Differential cell count method Nom (Bld) Auto [facility] Eosinophils (Bld) [#/Vol] 0.20 10*3/uL [facility] Eosinophils/100 WBC (Bld) 3.5 % [facility] Erythrocyte distribution width (RBC) [Ratio] 12.3 % 11.5 - 15.0 % [facility] Hematocrit (Bld) [Volume fraction] 37.0 % 36.0 - 46.0 % [facility] Hemoglobin (Bld) [Mass/Vol] 12.6 g/dL 11.5 - 15.5 g/dL [facility] Immature granulocytes (Bld) [#/Vol] [facility] Immature granulocytes/100 WBC (Bld) 0.2 % [facility] Lymphocytes (Bld) [#/Vol] 1.31 10*3/uL [facility] Lymphocytes/100 WBC (Bld) 22.9 % [facility] MCH (RBC) [Entitic mass] 31.3 pg 26.0 - 34.0 pg [facility] MCHC (RBC) [Mass/Vol] 34.1 g/dL 30.5 - 36.0 g/dL [facility] MCV (RBC) [Entitic vol] 91.8 fL 80.0 - 100.0 fL [facility] Monocytes (Bld) [#/Vol] 0.54 10*3/uL [facility] Monocytes/100 WBC (Bld) 9.4 % [facility] Neutrophils (Bld) [#/Vol] 3.61 10*3/uL [facility] Neutrophils/100 WBC (Bld) 63.1 % [facility] Nucleated RBC (Bld) [#/Vol] [facility] Nucleated RBC/100 WBC (Bld) [Ratio] 0.0 % /100 WBC [facility] Platelet mean volume (Bld) [Entitic vol] 10.6 fL 9.0 - 12.7 fL [facility] Platelets (Bld) [#/Vol] 287 10*3/uL [facility] RBC (Bld) [#/Vol] 4.03 10*6/uL 3.90 - 5.2 0 m/uL [facility] WBC (Bld) [#/Vol] 5.72 10*3/uL [facility] Basophils (Bld) [#/Vol] 0.05 10*3/uL Normal <0.11 [facility] Comment on above: Order Comment: Speci men Type: BLOOD SPECIMEN Ordering Facility: [facility] Address: [address] [place] [address] Performed By: #### 1 6128-1 #### [facility] CLIA [id number] [address] [place] [address] [place] Basophils/100 WBC (Bld) 0.9 % Normal [facility] Comment on above: Order Comment: Speci men Type: BLOOD SPECIMEN Ordering Facility: [facility] Address: [address] [place] [address] Performed By: #### 1 6128-1 #### [facility] CLIA [id number] [address] [place] [address] [place] Differential cell count method Nom (Bld) Auto Normal [facility] Comment on above: Order Comment: Speci men Type: BLOOD SPECIMEN Ordering Facility: [facility] Address: [address] [place] [address] Performed By: #### 1 6128-1 #### [facility] CLIA [id number] [address] [place] [address] [place] Eosinophils (Bld) [#/Vol] 0.20 10*3/uL Normal <0.46 [facility] Comment on above: Order Comment: Speci men Type: BLOOD SPECIMEN Ordering Facility: [facility] Address: [address] [place] [address] Performed By: #### 1 6128-1 #### [facility] CLIA [id number] [facility] [place] [address] [place] Eosinophils/100 WBC (Bld) 3.5 % Normal [facility] Comment on above: Order Comment: Speci men Type: BLOOD SPECIMEN Ordering Facility: [facility] Address: [address] [place] [address] Performed By: #### 1 6128-1 #### [facility] CLIA [id number] [address] [place] [address] [place] Erythrocyte distribution width (RBC) [Ratio] 12.3 % Normal 11.5-15.0 [facility] Comment on above: Order Comment: Speci men Type: BLOOD SPECIMEN Ordering Facility: [facility] Address: [address] [place] [address] Performed By: #### 1 6128-1 #### [facility] CLIA [id number] [address] [place] [address] [place] Hematocrit (Bld) [Volume fraction] 37.0 % Normal 36.0-46.0 [facility] Comment on above: Order Comment: Speci men Type: BLOOD SPECIMEN Ordering Facility: [facility] Address: [address] [place] [address] Performed By: #### 1 6128-1 #### [facility] CLIA [id number] [address] [place] [address] [place] Hemoglobin (Bld) [Mass/Vol] 12.6 g/dL Normal 11.5-15.5 [facility] Comment on above: Order Comment: Speci men Type: BLOOD SPECIMEN Ordering Facility: [facility] Address: [address] [place] [address] Performed By: #### 1 6128-1 #### [facility] CLIA [id number] [address] [place] [address] [place] Immature granulocytes (Bld) [#/Vol] 10*3/uL Normal <0.10 [facility] Comment on above: Order Comment: Speci men Type: BLOOD SPECIMEN Ordering Facility: [facility] Address: [address] [place] [address] Performed By: #### 1 6128-1 #### [facility] CLIA [id number] [address] [place] [address] [place] Immature granulocytes/100 WBC (Bld) 0.2 % Normal [facility] Comment on above: Order Comment: Speci men Type: BLOOD SPECIMEN Ordering Facility: [facility] Address: [address] [place] [address] Performed By: #### 1 6128-1 #### [facility] CLIA [id number] [address] [place] [address] [place] Lymphocytes (Bld) [#/Vol] 1.31 10*3/uL Normal 1.00-4.00 [facility] Comment on above: Order Comment: Speci men Type: BLOOD SPECIMEN Ordering Facility: [facility] Address: [address] [place] [address] Performed By: #### 1 6128-1 #### [facility] CLIA [id number] [address] [place] [address] [place] Lymphocytes/100 WBC (Bld) 22.9 % Normal [facility] Comment on above: Order Comment: Speci men Type: BLOOD SPECIMEN Ordering Facility: [facility] Address: [address] [place] [address] Performed By: #### 1 6128-1 #### [facility] CLIA [id number] [address] [place] [address] [place] MCH (RBC) [Entitic mass] 31.3 pg Normal 26.0-34.0 [facility] Comment on above: Order Comment: Speci men Type: BLOOD SPECIMEN Ordering Facility: [facility] Address: [address] [place] [address] Performed By: #### 1 6128-1 #### [facility] CLIA [id number] [address] [place] [address] [place] MCHC (RBC) [Mass/Vol] 34.1 g/dL Normal 30.5-36.0 [facility] Comment on above: Order Comment: Speci men Type: BLOOD SPECIMEN Ordering Facility: [facility] Address: [address] [place] [address] Performed By: #### 1 6128-1 #### [facility] CLIA [id number] [address] [place] [address] [place] MCV (RBC) [Entitic vol] 91.8 fL Normal 80.0-100.0 [facility] Comment on above: Order Comment: Speci men Type: BLOOD SPECIMEN Ordering Facility: [facility] Address: [address] [place] [address] Performed By: #### 1 6128-1 #### [facility] CLIA [id number] [address] [place] [address] [place] Monocytes (Bld) [#/Vol] 0.54 10*3/uL Normal <0.87 [facility] Comment on above: Order Comment: Speci men Type: BLOOD SPECIMEN Ordering Facility: [facility] Address: [address] [place] [address] Performed By: #### 1 6128-1 #### [facility] CLIA [id number] [address] [place] [address] [place] Monocytes/100 WBC (Bld) 9.4 % Normal [facility] Comment on above: Order Comment: Speci men Type: BLOOD SPECIMEN Ordering Facility: [facility] Address: [address] [place] [address] Performed By: #### 1 6128-1 #### [facility] CLIA [id number] [address] [place] [address] [place] Neutrophils (Bld) [#/Vol] 3.61 10*3/uL Normal 1.45-7.50 [facility] Comment on above: Order Comment: Speci men Type: BLOOD SPECIMEN Ordering Facility: [facility] Address: [address] [place] [address] Performed By: #### 1 6128-1 #### [facility] CLIA [id number] [address] [place] [address] [place] Neutrophils/100 WBC (Bld) 63.1 % Normal [facility] Comment on above: Order Comment: Speci men Type: BLOOD SPECIMEN Ordering Facility: [facility] Address: [address] [place] [address] Performed By: #### 1 6128-1 #### [facility] CLIA [id number] [address] [place] [address] [place] Nucleated RBC (Bld) [#/Vol] 10*3/uL Normal <0.01 [facility] Comment on above: Order Comment: Speci men Type: BLOOD SPECIMEN Ordering Facility: [facility] Address: [address] [place] [address] Performed By: #### 1 6128-1 #### [facility] CLIA [id number] [address] [place] [address] [place] Nucleated RBC/100 WBC (Bld) [Ratio] 0.0 /100 WBC Normal [facility] Comment on above: Order Comment: Speci men Type: BLOOD SPECIMEN Ordering Facility: [facility] Address: [address] [place] [address] Performed By: #### 1 6128-1 #### [facility] CLIA [id number] [address] [place] [address] [place] Platelet mean volume (Bld) [Entitic vol] 10.6 fL Normal 9.0-12.7 [facility] Comment on above: Order Comment: Speci men Type: BLOOD SPECIMEN Ordering Facility: [facility] Address: [address] [place] [address] Performed By: #### 1 6128-1 #### [facility] CLIA [id number] [address] [place] [address] [place] Platelets (Bld) [#/Vol] 287 10*3/uL Normal 150-400 [facility] Comment on above: Order Comment: Speci men Type: BLOOD SPECIMEN Ordering Facility: [facility] Address: [address] [place] [address] Performed By: #### 1 6128-1 #### [facility] CLIA [id number] [address] [place] [address] [place] RBC (Bld) [#/Vol] 4.03 10*6/uL Normal 3.90-5.20 [facility] Comment on above: Order Comment: Speci men Type: BLOOD SPECIMEN Ordering Facility: [facility] Address: [address] [place] [address] Performed By: #### 1 6128-1 #### [facility] CLIA [id number] [address] [place] [address] [place] WBC (Bld) [#/Vol] 5.72 10*3/uL Normal 3.70-11.00 [facility] Comment on above: Order Comment: Speci men Type: BLOOD SPECIMEN Ordering Facility: [facility] Address: [address] [place] [address] Performed By: #### 1 6128-1 #### [facility] CLIA [id number] [address] [place] [address] [place] CK SerPl-cCncon 2023 CK [Catalytic activity/Vol] 103 U/L Normal 42-196 [facility] Comment on above: Order Comment: Speci men Type: BLOOD SPECIMEN Ordering Facility: [facility] Address: [address] [place] [address] Performed By: #### 1 6128-1 #### [facility] CLIA [id number] [address] [place] [address] [place] CK [Catalytic activity/Vol]o n 2023 Interpretation and review of laboratory results Normal [facility] CNOVon 2023 CNOV Office Visit (RHEUMN ) SUSAN HOGUE ([id number]) 1985 F Date Time Provider Department 12/08/23 1:00 PM BECKA ALSTON RHEUMN During your visit today, we recorded the following information about you: Temperature Pulse Blood pressure Weight 97.8 degrees 89/minute 123/50 65.6 kg Becka Alston DO 2023 1:39 PM Signed [facility] DEPARTMENT OF [...] to see (more content not included)... Normal [facility] CREATINE KINASE/CKon 024 CK [Catalytic activity/Vol] 103 U/L 42 - 196 U/L [facility] Centromere Ab IF Ql (S)on Centromere Ab Qn (S) <0.2 Normal <1.0 [facility] Comment on above: Order Comment: Branden sandoval Type: BLOOD SPECIMEN Ordering Facility: [facility] Address: [address] [place] [address] Result Comment: Anti -centromere antibody is used as in aid in diagnosis of systemic sclerosis. Clinical correlation is required. Test Methodology: Multiplex flow immunoassay. Performed By: #### 1 7791-5, 93673-1, 68597-1, 44917-1, 66160-5, 24006-0, 38126-9, 14594-1 #### [facility] CLIA [id number] [address] [place] [address] [place] CENTROMERE AB QUAL Negative Normal Negative [facility] Comment on above: Order Comment: Speci men Type: BLOOD SPECIMEN Ordering Facility: [facility] Address: [address] [place] [address] Performed By: #### 1 7791-5, 89543-2, 85442-1, 81419-0, 99244-4, 76633-8, 17572-5, 04802-1 #### [facility] CLIA [id number] [address] [place] [address] [place] Chromatin Ab Qnon 2023 CHROMATIN AB QUAL Negative Normal Negative [facility] Comment on above: Order Comment: Speci men Type: BLOOD SPECIMEN Ordering Facility: [facility] Address: [address] [place] [address] Performed By: #### 1 7791-5, 16044-0, 65771-7, 97932-1, 49809-0, 17113-9, 08022-6, 14261-0 #### [facility] CLIA [id number] [address] [place] [address] [place] Chromatin Ab SerPl-aCncon Chromatin Ab Qn <0.2 Normal <1.0 [facility] Comment on above: Order Comment: Speci men Type: BLOOD SPECIMEN Ordering Facility: [facility] Address: [address] [place] [address] Result Comment: Test Methodology: Multiplex flow immunoassay. Performed By: #### 1 7791-5, 81498-7, 84035-6, 28644-5, 58520-2, 21241-0, 95173-4, 01680-9 #### [facility] CLIA [id number] [address] [place] [address] [place] Comprehensive metabolic 2000 panelon 2023 Albumin [Mass/Vol] 4.4 g/dL 3.9 - 4.9 g/dL [facility] ALP [Catalytic activity/Vol] 67 U/L 34 - 123 U/L [facility] ALT [Catalytic activity/Vol] 15 U/L 7 - 38 U/L [facility] Anion gap [Moles/Vol] 9 mmol/L 9 - 18 mmol/L [facility] AST [Catalytic activity/Vol] 20 U/L 13 - 35 U/L [facility] Bilirubin [Mass/Vol] 0.6 mg/dL 0.2 - 1 .3 mg/dL [facility] Calcium [Mass/Vol] 9.4 mg/dL 8.5 - 10. 2 mg/dL [facility] Chloride [Moles/Vol] 105 mmol/L 97 - 10 5 mmol/L [facility] CO2 [Moles/Vol] 24 mmol/L 22 - 30 mmol/L [facility] Creatinine [Mass/Vol] 0.70 mg/dL 0.58 - 0.96 mg/dL [facility] GFR/1.73 sq M.predicted among non-blacks MDRD (S/P/Bld) [Vol rate/Area] 115 mL/min/{1.73_m2} - PINF [facility] Comment on above: Estimated Glomerular Filtration Rate [...] [Mass/Vol] 89 mg/dL 74 - 99 mg/dL [facility] Comment on above: The [place] Diabete s Association (ADA) provides guidance for [...] Standards of Medical Care in Diabetes 2016, [place] [employer] Association. Diabetes Care. 2016.39(Suppl 1). Interpretation and review of laboratory results Abnormal [facility] Potassium [Moles/Vol] 3.6 mmol/L Low 3.7 - 5.1 mmol/L [facility] Protein [Mass/Vol] 6.9 g/dL 6.3 - 8.0 g/dL [facility] Sodium [Moles/Vol] 138 mmol/L 136 - 144 mmol/L [facility] Urea nitrogen [Mass/Vol] 8 mg/dL 7 - 21 mg/dL [facility] Albumin [Mass/Vol] 4.4 g/dL Normal 3.9-4.9 [facility] Comment on above: Order Comment: Speci men Type: BLOOD SPECIMEN Ordering Facility: [facility] Address: [address] [place] [address] Performed By: #### 1 6128-1 #### [facility] CLIA [id number] [address] [place] [address] [place] ALP [Catalytic activity/Vol] 67 U/L Normal 34-123 [facility] Comment on above: Order Comment: Speci men Type: BLOOD SPECIMEN Ordering Facility: [facility] Address: [address] [place] [address] Performed By: #### 1 6128-1 #### [facility] CLIA [id number] [address] [place] [address] [place] ALT [Catalytic activity/Vol] 15 U/L Normal 7-38 [facility] Comment on above: Order Comment: Speci men Type: BLOOD SPECIMEN Ordering Facility: [facility] Address: [address] [place] [address] Performed By: #### 1 6128-1 #### [facility] CLIA [id number] [address] [place] [address] [place] Anion gap [Moles/Vol] 9 mmol/L Normal 9-18 [facility] Comment on above: Order Comment: Speci men Type: BLOOD SPECIMEN Ordering Facility: [facility] Address: [address] [place] [address] Performed By: #### 1 6128-1 #### [facility] CLIA [id number] [address] [place] [address] [place] AST [Catalytic activity/Vol] 20 U/L Normal 13-35 [facility] Comment on above: Order Comment: Speci men Type: BLOOD SPECIMEN Ordering Facility: [facility] Address: [address] [place] [address] Performed By: #### 1 6128-1 #### [facility] CLIA [id number] [address] [place] [address] [place] Bilirubin [Mass/Vol] 0.6 mg/dL Normal 0.2-1.3 [facility] Comment on above: Order Comment: Speci men Type: BLOOD SPECIMEN Ordering Facility: [facility] Address: [address] [place] [address] Performed By: #### 1 6128-1 #### [facility] CLIA [id number] [address] [place] [address] [place] Calcium [Mass/Vol] 9.4 mg/dL Normal 8.5-10.2 [facility] Comment on above: Order Comment: Speci men Type: BLOOD SPECIMEN Ordering Facility: [facility] Address: [address] [place] [address] Performed By: #### 1 6128-1 #### [facility] CLIA [id number] [address] [place] [address] [place] Chloride [Moles/Vol] 105 mmol/L Normal 97-105 [facility] Comment on above: Order Comment: Speci men Type: BLOOD SPECIMEN Ordering Facility: [facility] Address: [address] [place] [address] Performed By: #### 1 6128-1 #### [facility] CLIA [id number] [address] [place] [address] [place] CO2 [Moles/Vol] 24 mmol/L Normal 22-30 [facility] Comment on above: Order Comment: Speci men Type: BLOOD SPECIMEN Ordering Facility: [facility] Address: [address] [place], [place] [address] Performed By: #### 1 6128-1 #### [facility] CLIA [id number] [address] [place] [address] [place] Creatinine [Mass/Vol] 0.70 mg/dL Normal 0.58-0.96 [facility] Comment on above: Order Comment: Specpatricia men Type: BLOOD SPECIMEN Ordering Facility: [facility] Address: [address] [place] [address] Performed By: #### 1 6128-1 #### [facility] CLIA [id number] [address] [place] [address] [place] Creatinine and Glomerular filtration rate.predicted panel (S/P/Bld) 115 mL/min/1.73m??? Normal >=60 [facility] Comment on above: Order Comment: Branden sandoval Type: BLOOD SPECIMEN Ordering Facility: [facility] Address: [address] [place] [address] Result Comment: Prisca mated Glomerular Filtration Rate [...] accurately reflect actual GFR. Performed By: #### 1 6128-1 #### [facility] CLIA [id number] [address] [place] [address] [place] Glucose [Mass/Vol] 89 mg/dL Normal 74-99 [facility] Comment on above: Order Comment: Speci men Type: BLOOD SPECIMEN Ordering Facility: [facility] Address: [address] [place] [address] Result Comment: The [place] Diabetes Association (ADA) provides guidance for cutoff [...] Standards of Medical Care in Diabetes 2016, [place] [employer]. Diabetes Care. 2016.39(Suppl 1). Performed By: #### 1 6128-1 #### [facility] CLIA [id number] [address] [place] [address] [place] Potassium [Moles/Vol] 3.6 mmol/L Low 3.7-5.1 [facility] Comment on above: Order Comment: Speci men Type: BLOOD SPECIMEN Ordering Facility: [facility] Address: [address] [place] [address] Performed By: #### 1 6128-1 #### [facility] CLIA [id number] [address] [place] [address] [place] Protein [Mass/Vol] 6.9 g/dL Normal 6.3-8.0 [facility] Comment on above: Order Comment: Speci men Type: BLOOD SPECIMEN Ordering Facility: [facility] Address: [address] [place] [address] Performed By: #### 1 6128-1 #### [facility] CLIA [id number] [address] [place] [address] [place] Sodium [Moles/Vol] 138 mmol/L Normal 136-144 [facility] Comment on above: Order Comment: Speci men Type: BLOOD SPECIMEN Ordering Facility: [facility] Address: [address] [place] [address] Performed By: #### 1 6128-1 #### [facility] CLIA [id number] [address] [place] [address] [place] Urea nitrogen [Mass/Vol] 8 mg/dL Normal 7-21 [facility] Comment on above: Order Comment: Speci men Type: BLOOD SPECIMEN Ordering Facility: [facility] Address: [address] [place] [address] Performed By: #### 1 6128-1 #### [facility] CLIA [id number] [address] [place] [address] [place] DNA ANTIBODY DS BLDon 2023 DNA ANTIBODY 72 IU/mL Normal <=200 [facility] Comment on above: Order Comment: Speci men Type: BLOOD SPECIMEN Ordering Facility: [facility] Address: [address] [place] [address] Result Comment: Nega tive: <200 IU/mL Equivocal: 201-300 IU/mL Moderate Positive: 301-800 IU/mL Strong Positive: >801 IU/mL Performed By: #### A NAIFS #### [facility] CLIA [id number] [address] [place] [address] [place] DNA ANTIBODY QUALITATIVE INTERPRETATION Negative Normal Negative [facility] Comment on above: Order Comment: Speci men Type: BLOOD SPECIMEN Ordering Facility: [facility] Address: [address] [place] [address] Performed By: #### A NAIFS #### [facility] CLIA [id number] [address] [place] [address] [place] VANDANA Jo1 Ab Ser-aCncon 2023 Tara-1 extractable nuclear Ab Qn (S) <0.2 Normal <1.0 [facility] Comment on above: Order Comment: Speci men Type: BLOOD SPECIMEN Ordering Facility: [facility] Address: [address] [place] [address] Performed By: #### 1 7791-5, 93404-0, 88705-1, 94767-6, 19682-5, 74236-6, 94287-2, 28614-0 #### [facility] CLIA [id number] [address] [place] [address] [place] VANDANA GOLF PLAYER ASSISTANT Ab Ser-aCncon 2023 Ribonucleoprotein extractable nuclear Ab Qn (S) <0.2 Normal <1.0 [facility] Comment on above: Order Comment: Speci men Type: BLOOD SPECIMEN Ordering Facility: [facility] Address: [address] [place] [address] Performed By: #### 1 7791-5, 40900-2, 49156-2, 64089-6, 88936-5, 99740-9, 84483-9, 24379-3 #### [facility] CLIA [id number] [address] [place] [address] [place] Ribonucleoprotein extractable nuclear Ab Qn (S) 0.2 AI Normal <1.0 [facility] Comment on above: Order Comment: Speci men Type: BLOOD SPECIMEN Ordering Facility: [facility] Address: [address] [place] [address] Performed By: #### A NALILLIANS #### [facility] CLIA [id number] [address] [place] [address] [place] VANDANA SM IgG Ser-aCncon 2023 Matta extractable nuclear IgG Qn (S) <0.2 Normal <1.0 [facility] Comment on above: Order Comment: Speci men Type: BLOOD SPECIMEN Ordering Facility: [facility] Address: [address] [place] [address] Performed By: #### 1 7791-5, 14801-1, 83809-6, 08200-8, 05092-7, 89290-8, 84912-6, 98543-6 #### [facility] CLIA [id number] [address] [place] [address] [place] VANDANA SS-A Ab Ser-aCncon 12-07 Sjogrens syndrome-A extractable nuclear Ab Qn (S) <0.2 Normal <1.0 [facility] Comment on above: Order Comment: Speci men Type: BLOOD SPECIMEN Ordering Facility: [facility] Address: [address] [place], [place] [address] Result Comment: Test Methodology: Multiplex flow immunoassay. Performed By: #### A NAIFS #### [facility] CLIA [id number] [address] [place] [address] [place] VANDANA SS-B Ab Ser-aCncon 12-07 Sjogrens syndrome-B extractable nuclear Ab Qn (S) <0.2 Normal <1.0 [facility] Comment on above: Order Comment: Speci men Type: BLOOD SPECIMEN Ordering Facility: [facility] Address: [address] [place] [address] Result Comment: Anti -SSB (anti-La) antibody is used as an aid in diagnosis of a variety of systemic autoimmune diseases, especially for Sjogren's syndrome and systemic lupus erythematosus. Clinical correlation is required. Test Methodology: Multiplex flow immunoassay. Performed By: #### 1 7791-5, 56097-6, 69621-4, 53424-9, 11632-2, 66216-7, 38855-1, 08222-3 #### [facility] CLIA [id number] [address] [place] [address] [place] HBV core Ab Ser Qlon 024 HBV core Ab Ql (S) Negative Normal Negative [facility] Comment on above: Order Comment: Speci men Type: BLOOD SPECIMEN Ordering Facility: [facility] Address: [address] [place] [address] Result Comment: No e vidence of current or past infection with Hepatitis B virus. Should recent infection be suspected, repeat testing may be considered 3-4 weeks after this draw. Performed By: #### A NAIFS #### [facility] CLIA [id number] [address] [place] [address] [place] HBV surface Ab Ql (S)on 11-10 HBV surface Ab Qn (S) 277.25 mIU/mL Normal [facility] Comment on above: Order Comment: Speci men Type: BLOOD SPECIMEN Ordering Facility: [facility] Address: [address] [place] [address] Result Comment: <8 m IU/mL: No serological evidence of immunity to Hepatitis B Virus. >/= 8 to <12 mIU/mL: No serological evidence of immunity to Hepatitis B Virus. >/= 12 mIU/mL: Consistent with serological evidence of immunity to Hepatitis B Virus. Performed By: #### A NAIFS #### [facility] CLIA [id number] [address] [place] [address] [place] HBV surface Ab Ser Qlon 11-10 HBV surface Ab Ql (S) Positive Normal [facility] Comment on above: Order Comment: Speci men Type: BLOOD SPECIMEN Ordering Facility: [facility] Address: [address] [place] [address] Result Comment: Cons istent with serological evidence of immunity to Hepatitis B Virus. Performed By: #### A NAIFS #### [facility] CLIA [id number] [address] [place] [address] OF [facility] HBV surface Ag Ser Qlon 11-10 HBV surface Ag Ql (S) Negative Normal Negative [facility] Comment on above: Order Comment: Speci men Type: BLOOD SPECIMEN Ordering Facility: [facility] Address: [address] [place] [address] Performed By: #### A NAIFS #### [facility] CLIA [id number] [address] [place] [address] [place] HCV Ab Ser Qlon 2023 HCV Ab Ql (S) Negative Normal Negative [facility] Comment on above: Order Comment: Speci men Type: BLOOD SPECIMEN Ordering Facility: [facility] Address: [address] [place] [address] Result Comment: The result suggests no evidence of active infection with Hepatitis C virus. Should recent infection be suspected, repeat testing may be considered 4-6 weeks after this draw. Performed By: #### 1 6128-1 #### [facility] CLIA [id number] [address] [place] Tara-1 extractable nuclear Ab Qn (S)on 2023 TARA 1 ANTIBODY QUAL Negative Normal Negative [facility] Comment on above: Order Comment: Speci men Type: BLOOD SPECIMEN Ordering Facility: [facility] Address: [address] [place] [address] Result Comment: Anti -TARA-1 antibody is used as an aid in diagnosis of polymyositis and dermatomyositis especially with pulmonary involvement. A negative result cannot rule out polymyositis or dermatomyositis. Clinical correlation is required. Test Methodology: Multiplex flow immunoassay. Performed By: #### 1 7791-5, 91712-8, 54936-4, 22172-2, 55334-7, 81477-6, 29107-5, 49194-3 #### [facility] CLIA [id number] [address] [place] [address] [place] No Panel Informationon 12-07 Interpretation and review of laboratory results Normal [facility] PROTEIN / CREATININE RATIOon 2023 Protein/Creatinine (U) [Mass ratio] 0.10 mg/mg NINF - 0.15 mg/mg [facility] Comment on above: Adult Proteinuria Ca tegories: [...] (U) [Mass ratio] 0.10 mg/mg Normal <0.15 [facility] Comment on above: Order Comment: Branden sandoval Type: BLOOD SPECIMEN Ordering Facility: [facility] Address: [address] [place] [address] Result Comment: Adul t Proteinuria Categories: <0.15 mg/mg is considered normal to mildly increased 0.15 - 0.50 mg/mg is considered moderately increased >0.50 mg/mg is considered severely increased KDIGO. (2013). KDIGO 2012 Clinical Practice Guideline for the Evaluation and Management of Chronic Kidney Disease. Official Journal of the International Society of Nephrology, 3(1), 1-150. Performed By: #### 1 6128-1 #### [facility] CLIA [id number] [address] [place] [address] [place] Protein/Creatinine (U) [Mass ratio]on 2023 Creatinine (U) [Mass/Vol] 48.3 mg/dL 20.0 - 300.0 mg/dL [facility] Interpretation and review of laboratory results Normal [facility] Protein (U) [Mass/Vol] 5 mg/dL 0 - 20 mg/dL [facility] Creatinine (U) [Mass/Vol] 48.3 mg/dL Normal 20.0-300.0 [facility] Comment on above: Order Comment: Speci men Type: BLOOD SPECIMEN Ordering Facility: [facility] Address: [address] [place] [address] Performed By: #### 1 6128-1 #### [facility] [place] [id number] [address] [place] [address] [place] Protein (U) [Mass/Vol] 5 mg/dL Normal 0-20 [facility] Comment on above: Order Comment: Speci lori Type: BLOOD SPECIMEN Ordering Facility: [facility] Address: [address] [place] [address] Performed By: #### 1 6128-1 #### [facility] CLIA [id number] [address] [place] [address] [place] Ribonucleoprotein extractabl e nuclear Ab Qn (S)on 2023 ANTI-GOLF PLAYER ASSISTANT QUAL Negative Normal Negative [facility] Comment on above: Order Comment: Speci men Type: BLOOD SPECIMEN Ordering Facility: [facility] Address: [address] [place] [address] Performed By: #### A NAIFS #### [facility] [place] [id number] [address] [place], [place] [address] [place] RIBOSOMAL GOLF PLAYER ASSISTANT QUAL Negative Normal Negative [facility] Comment on above: Order Comment: Branden sandoval Type: BLOOD SPECIMEN Ordering Facility: [facility] Address: [address] [place] [address] Result Comment: Anti -Ribosomal RNA (Ribosomal P) antibody is used as an aid in diagnosis of systemic autoimmune diseases especially systemic lupus erythematosus and mixed connective tissue disease. Cross-reactivity with Anti-matta antibody is not uncommon. Clinical correlation is required. Test Methodology: Multiplex flow immunoassay. Performed By: #### 1 7791-5, 21727-4, 19455-2, 74233-9, 34672-4, 63865-2, 73757-8, 67775-8 #### [facility] CLIA [id number] [address] [place] [address] [place] SCL-70 extractable nuclear I gG IA Qn (S)on 2023 SCLERODERMA AB QUAL Negative Normal Negative [facility] Comment on above: Order Comment: Branden sandoval Type: BLOOD SPECIMEN [facility] [facility] Address: [address] [place] [address] Performed By: #### 1 7791-5, 25058-7, 72557-6, 28909-7, 68701-4, 98194-3, 74529-2, 82497-9 #### [facility] CLIA [id number] [address] [place] [address] [place] SCLERODERMA IGG AB <0.2 Normal <1.0 [facility] Comment on above: Order Comment: Branden sandoval Type: BLOOD SPECIMEN Ordering Facility: [facility] Address: [address] [place] [address] Result Comment: Scl- 70/Scleroderma antibody test is used as an aid in diagnosis of systemic sclerosis especially the diffuse cutaneous form. A negative result cannot rule out systemic sclerosis. The final interpretation should consider clinical picture and other test results such as anti-centromere antibody. Test Methodology: Multiplex flow immunoassay. Performed By: #### 1 7791-5, 60281-5, 02562-6, 02654-7, 43475-1, 75232-8, 43504-5, 82098-8 #### [facility] CLIA [id number] [address] [place] [address] [place] Sjogrens syndrome-A extracta ble nuclear Ab Qn (S)on 2023 SSA ANTIBODY QUAL Negative Normal Negative [facility] Comment on above: Order Comment: Speci men Type: BLOOD SPECIMEN Ordering Facility: [facility] Address: [address] [place] [address] Performed By: #### A NAIFS #### [facility] CLIA [id number] [address] [place] [address] [place] Sjogrens syndrome-B extracta ble nuclear Ab Qn (S)on 2023 SSB ANTIBODY QUAL Negative Normal Negative [facility] Comment on above: Order Comment: Speci men Type: BLOOD SPECIMEN Ordering Facility: [facility] Address: [address] [place] [address] Performed By: #### 1 7791-5, 23360-6, 64499-9, 25688-8, 21159-6, 98615-5, 48163-7, 38781-5 #### [facility] CLIA [id number] [address] [place] [address] [place] Matta extractable nuclear Ig G Qn (S)on 2023 SM ANTIBODY QUAL Negative Normal Negative [facility] Comment on above: Order Comment: Speci men Type: BLOOD SPECIMEN Ordering Facility: [facility] Address: [address] [place] [address] Result Comment: Anti -Sm (Matta) antibody is used as an aid in diagnosis of systemic lupus erythematosus and its presence is associated with renal disease. A negative result cannot rule out systemic lupus erythematosus. Clinical correlation is required. Test Methodology: Multiplex flow immunoassay. Performed By: #### 1 7791-5, 04751-6, 40272-2, 25965-2, 93132-7, 70970-5, 00839-1, 90238-7 #### [facility] CLIA [id number] [address] [place] [address] [place] Urinalysis complete panel (U )on 2023 Bacteria LM.HPF (Urine sed) [#/Area] Negative Negative /HPF [facility] Bilirubin Ql (U) Negative Negative [facility] Clarity (Unsp spec) Clear Clear [facility] Color (U) Yellow Yellow [facility] Epithelial cells LM.HPF (Urine sed) [#/Area] None Seen /HPF [facility] Glucose Test strip (U) [Mass/Vol] Negative Negative [facility] Hemoglobin Ql (U) Negative Negative [facility] Hyaline casts (Urine sed) [#/Area] 1-3 /LPF Abnormal 0 /LPF [facility] Interpretation and review of laboratory results Abnormal [facility] Ketones Ql (U) Negative Negative [facility] Leukocyte esterase Test strip Ql (U) Negative Negative [facility] Nitrite Ql (U) Negative Negative [facility] pH (U) 6.5 [pH] NINF - 8.5 [facility] Protein (U) [Mass/Vol] Negative Negative [facility] RBC LM.HPF (Urine sed) [#/Area] 0-2 /HPF 0-2 /HPF [facility] Specific gravity (U) [Rel density] 1.010 1.005 - 1.030 [facility] Urobilinogen Ql (U) 0.2 EU/dL 0.2-1.0 EU/dL [facility] WBC LM.HPF (Urine sed) [#/Area] 0-5 /HPF 0-5 /HPF [facility] This test was developed and its performance characteristics determined by [facility]'s [facility] Pathology [facility] [place] ([facility]-PL[facility]). It has not been cleared or approved by the FDA. -[facility] is regulated under CLIA as qualified to perform high-complexity testing. This test is used for clinical purposes. It should not be regarded as investigational or for research. [facility] Bacteria LM.HPF (Urine sed) [#/Area] Negative Normal Negative [facility] Comment on above: Order Comment: Speci men Type: URINE SPECIMEN Ordering Facility: [facility] Address: [address] [place] [address] Performed By: #### 2 4356-8 #### [facility] CLIA [id number] [address] [place] [address] [place] Bilirubin Ql (U) Negative Normal Negative [facility] Comment on above: Order Comment: Speci men Type: URINE SPECIMEN Ordering Facility: [facility] Address: [address] [place] [address] Performed By: #### 2 4356-8 #### [facility] CLIA [id number] [address] [place] [address] [place] Clarity (Unsp spec) Clear Normal [facility] Comment on above: Order Comment: Speci men Type: URINE SPECIMEN Ordering Facility: [facility] Address: [address] [place] [address] Performed By: #### 2 4356-8 #### [facility] CLIA [id number] [address] [place] [address] [place] Color (U) Yellow Normal Yellow [facility] Comment on above: Order Comment: Speci men Type: URINE SPECIMEN Ordering Facility: [facility] Address: [address] [place] [address] Performed By: #### 2 4356-8 #### [facility] CLIA [id number] [address] [place] [address] [place] Epithelial cells LM.HPF (Urine sed) [#/Area] None Seen Normal [facility] Comment on above: Order Comment: Speci men Type: URINE SPECIMEN Ordering Facility: [facility] Address: [address] [place] [address] Performed By: #### 2 4356-8 #### [facility] CLIA [id number] [address] [place] [address] [place] Glucose Test strip (U) [Mass/Vol] Negative Normal Negative [facility] Comment on above: Order Comment: Speci men Type: URINE SPECIMEN Ordering Facility: [facility] Address: [address] [place] [address] Performed By: #### 2 4356-8 #### [facility] CLIA [id number] [address] [place] [address] [place] Hemoglobin Ql (U) Negative Normal Negative [facility] Comment on above: Order Comment: Speci men Type: URINE SPECIMEN Ordering Facility: [facility] Address: [address] [place] [address] Performed By: #### 2 4356-8 #### [facility] CLIA [id number] [address] [place] [address] [place] Hyaline casts (Urine sed) [#/Area] 1-3 /LPF Abnormal 0 /LPF [facility] Comment on above: Order Comment: Speci men Type: URINE SPECIMEN Ordering Facility: [facility] Address: [address] [place] [address] Performed By: #### 2 4356-8 #### [facility] CLIA [id number] [address] [place] [address] [place] Ketones Ql (U) Negative Normal Negative [facility] Comment on above: Order Comment: Speci men Type: URINE SPECIMEN Ordering Facility: [facility] Address: [address] [place] [address] Performed By: #### 2 4356-8 #### [facility] CLIA [id number] [address] [place] [address] [place] Leukocyte esterase Test strip Ql (U) Negative Normal Negative [facility] Comment on above: Order Comment: Speci men Type: URINE SPECIMEN Ordering Facility: [facility] Address: [address] [place] [address] Performed By: #### 2 4356-8 #### [facility] CLIA [id number] [address] [id number] [address] [place] Nitrite Ql (U) Negative Normal Negative [facility] Comment on above: Order Comment: Speci men Type: URINE SPECIMEN Ordering Facility: [facility] Address: [address] [place] [address] Performed By: #### 2 4356-8 #### [facility] CLIA [id number] [address] [place] [address] [place] pH (U) 6.5 [pH] Normal <8.5 [facility] Comment on above: Order Comment: Speci men Type: URINE SPECIMEN Ordering Facility: [facility] Address: [address] [place] [address] Performed By: #### 2 4356-8 #### [facility] CLIA [id number] [address] [place] [address] [place] Protein (U) [Mass/Vol] Negative Normal Negative [facility] [place] [facility] Comment on above: Order Comment: Speci men Type: URINE SPECIMEN Ordering Facility: [facility] Address: [address] [place] [address] Performed By: #### 2 4356-8 #### [facility] CLIA [id number] [address] [place] [address] [place] RBC LM.HPF (Urine sed) [#/Area] 0-2 /HPF Normal 0-2 /HPF [facility] Comment on above: Order Comment: Speci men Type: URINE SPECIMEN Ordering Facility: [facility] Address: [address] [place] [address] Performed By: #### 2 4356-8 #### [facility] CLIA [id number] [address] [place] [address] [place] Specific gravity (U) [Rel density] 1.010 Normal 1.005-1.030 [facility] Comment on above: Order Comment: Speci men Type: URINE SPECIMEN Ordering Facility: [facility] Address: [address] [place] [address] Performed By: #### 2 4356-8 #### [facility] CLIA [id number] [address] [place] [address] [place] Urobilinogen Ql (U) 0.2 EU/dL Normal 0.2-1.0 EU/dL [facility] Comment on above: Order Comment: Speci men Type: URINE SPECIMEN Ordering Facility: [facility] Address: [address] [place] [address] Performed By: #### 2 4356-8 #### [facility] CLIA [id number] [address] [place] [address] [place] WBC LM.HPF (Urine sed) [#/Area] 0-5 /HPF Normal 0-5 /HPF [facility] Comment on above: Order Comment: Speci men Type: URINE SPECIMEN Ordering Facility: [facility] Address: [address] [place] [address] Performed By: #### 2 4356-8 #### [facility] CLIA [id number] [address] [place] [address] [place] Cytology Cervical or vaginal smear or scraping studyOrdered By: Rita Busby on 06-09-2023 [facility] SED RATE [facility] 2021 SED RATE 9 mm/hr Normal <=20 [facility] Comment on above: Performed By: #### S EDR #### [facility] [address] [address] [address] Mio Spicer CBC AUTO DIFFon 06-07-2022 BASO # 0.1 103/ul Normal 0.0-0.1 [facility] Comment on above: Performed By: #### C BC ####[facility] [address] [address]Dr. Mio Spicer Basophils/100 WBC (Bld) 1.1 % Normal 0.2-2.0 [facility] Comment on above: Performed By: #### C BC ####[facility] [address] [address]Dr. Mio Spicer EO # 0.5 103/ul Normal 0.0-0.7 [facility] Comment on above: Performed By: #### C BC ####[facility] [address] [place], [place] [address]Dr. Mio Nayan Eosinophils/100 WBC (Bld) 8.5 % Critically high 0.9-7.0 [facility] Comment on above: Performed By: #### C BC ####[facility] [address] [place], [place] [address]Dr. Mio Spicer Erythrocyte distribution width (RBC) [Ratio] 12.8 % Normal 11.0-15.0 [facility] Comment on above: Performed By: #### C BC ####[facility] [address] [place], [place] [address]Dr. Brandysanthosh Spicer Hematocrit (Bld) [Volume fraction] 39.6 % Normal 36.0-48.0 [facility] Comment on above: Performed By: #### C BC ####[facility] [address] [place], [place] [address]Dr. Mio Nayan Hemoglobin (Bld) [Mass/Vol] 13.4 g/dL Normal 12.0-16.0 [facility] Comment on above: Performed By: #### C BC ####[facility] [address] [place], [place] [address]Dr. Mio Spicer IG # 0.01 10e3/ul Normal 0.00-0.03 [facility] Comment on above: Performed By: #### C BC ####[facility] [address] [place], [place] [address]Dr. Mio Spicer IG % 0.2 % Normal 0.0-0.5 [facility] Comment on above: Performed By: #### C BC ####[facility] [address] [place], [place] [address]DrClaude Spicer LYMPH # 1.4 103/ul Normal 1.2-3.8 [facility] Comment on above: Performed By: #### C BC ####[facility] [address] [place], [place] [address]Dr. Mio Spicer Lymphocytes/100 WBC (Bld) 23.0 % Normal 20.5-60.0 [facility] Comment on above: Performed By: #### C BC ####[facility] [address] [address]DrClaude Spicer MANUAL DIFF REQ NO Normal [facility] Comment on above: Performed By: #### C BC ####[facility] [address] [address]Dr. Mio Spicer MCH (RBC) [Entitic mass] 31.3 pg Normal 26.7-34.0 [facility] Comment on above: Performed By: #### C BC ####[facility] [address] [place], [place] [address]Dr. Mio Spicer MCHC (RBC) [Mass/Vol] 33.8 g/dL Normal 29.9-35.2 [facility] Comment on above: Performed By: #### C BC ####[facility] [address] [place], [place] [address]Dr. Mio Spicer MCV (RBC) [Entitic vol] 92.5 fL Normal 81.0-99.0 [facility] Comment on above: Performed By: #### C BC ####[facility] [address] [place], [place] [address]DrClaude Spicer MONO # 0.4 103/ul Normal 0.3-0.8 [facility] Comment on above: Performed By: #### C BC ####[facility] [address] [place], [place] [address]Dr. Mio Spicer Monocytes/100 WBC (Bld) 6.9 % Normal 1.7-12.0 [facility] Comment on above: Performed By: #### C BC ####[facility] [address] [place], [place] [address]DrClaude Spicer NEUT # 3.7 103/ul Normal 1.4-6.5 [facility] Comment on above: Performed By: #### C BC ####[facility] [address] [place], [place] [address]DrClaude Spicer Neutrophils/100 WBC (Bld) 60.3 % Normal 43.0-75.0 [facility] Comment on above: Performed By: #### C BC ####[facility] [address] [address]Dr. Mio Nayan Platelet mean volume (Bld) [Entitic vol] 10.1 fL Normal 9.5-13.5 [facility] Comment on above: Performed By: #### C BC ####[facility] [address] [place], [place] [address]Dd. Brandysanthosh Nayan PLT 315 103/ul Normal 150-450 [facility] Comment on above: Performed By: #### C BC ####[facility] [address] [address]DrClaude Spicer RBC 4.28 106/ul Normal 4.20-5.40 [facility] Comment on above: Performed By: #### C BC ####[facility] [address] [address]DrClaude Spicer WBC 6.1 103/ul Normal 4.0-11.0 [facility] Comment on above: Performed By: #### C BC ####[facility] [address] [address]Dr. Mio pSicer PREG HCG QUALon 06-07-2022 , QUAL Negative Normal NEGATIVE [facility] Comment on above: Performed By: #### P REG #### [facility] [address] [place], [place] [address] Dr. Mio Spicer [facility]12 SARS-CoV-2 (COVID-19) RNA CANDICE+probe Ql (Unsp spec) Not detected Normal NOT DETECTED [facility] Comment on above: Result Comment: This test is not yet approved or cleared by the [place] FDA. When there are no FDA-approved or cleared tests available, and other criteria are met, FDA can make tests available under an emergency access mechanism called an Emergency Use Authorization (EUA). The EUA for this test is supported by the [place] of Health and Human Service's (HHS's) declaration [...] consistent with SARS-CoV-2. Performed By: #### C VDTB ####[facility] [address] [address]Dr. Mio Spicer PAP ACOG PANEL 2: 30 to 65on 03-14-2022 . . Normal [facility] Comment on above: Result Comment: Perf ormed at: WB Performed By: #### 4 [id number] #### [facility] [address] [place] [address] Dr. Mio Spicer Age Gdln ACOG Testing - [facility] Comment on above: Performed By: #### 4 092433 #### [facility] [address] [address] [address] Mio Spicer DIAGNOSIS: Comment Normal [facility] Comment on above: Result Comment: NEGA TIVE FOR INTRAEPITHELIAL LESION OR MALIGNANCY. Performed at: WB Performed By: #### 4 [id number] #### [facility] [address] [address] [address] Mio Spicer HPV Aptima Negative Normal Negative [facility] Comment on above: Result Comment: This nucleic acid amplification test detects fourteen high-risk HPV types (16,18,31,33,35,39,45,51,52,56,58,59,66,68) without differentiation. Performed at: =G Performed By: #### 4 [id number] #### [facility] [address] [place] [address] Dr. Mio Spicer Methodology: Comment Normal [facility] Comment on above: Result Comment: This liquid based ThinPrep(R) pap test was screened with the use of an image guided system. Performed at: WB Performed By: #### 4 130059 #### [facility] [address] [address] [address] Mio Spicer Note: Comment Normal [facility] Comment on above: Result Comment: The Pap smear is a screening test designed to aid in the detection of premalignant and malignant conditions of the uterine cervix. It is not a diagnostic procedure and should not be used as the sole means of detecting cervical cancer. Both false-positive and false-negative reports do occur. . Performed at: WB Performed By: #### 4 [id number] #### [facility] [address] [address] [address] Mio Spicer Performed by: Comment Normal [facility] Comment on above: Result Comment: Carlo Goldman, Money Examiner (ASCP) Performed at: WB Performed By: #### 4 [id number] #### [facility] [address] [place] [address] Dr. Mio Spicer Specimen adequacy: Comment Normal [facility] Comment on above: Result Comment: Sati sfactory for evaluation. Endocervical and/or squamous metaplastic cells (endocervical component) are present. Performed at: WB Performed By: #### 4 [id number] #### [facility] [address] [place] [address] Dr. Mio Spicre MRI Ankle w/o + w/ Lefton MRI [...] by [address] on 01/17/2022 1601 Normal [facility] Medical Claims Processor VC INJ SCL ROSA DECISION SUPPORT ANALYST VEINSon 0 01-08-2022 VC INJ SCL ROSA DECISION SUPPORT ANALYST VEINS Patient: SUSAN HOGUE Exam Date: 01/08/2022 : 1985 Gender:F Ordering : DR SHANNA ROSA M.D. Admission #: [id number] Family : Order #: [id number] CLICK HERE TO VIEW EXAM RADIOLOGY REPORT [...] Rosa MD on 01/08/2022 at 10:33 Normal [facility] VC CONSULT FOLLOWUPon 2021 VC CONSULT FOLLOWUP Patient: SUSAN HOGUE Exam Date: 12/10/2021 : 1985 Gender:F Ordering : DR SHANNA ROSA M.D. Admission #: [id number] Family : Order #: [id number] CLICK HERE TO VIEW EXAM RADIOLOGY REPORT [...] Rosa MD on 12/10/2021 at 08:35 Normal [facility] VC EXT VENOUS RT LIMITEDon 0 12-10-2021 VC EXT VENOUS RT LIMITED Patient: SUSAN HOGUE Exam Date: 12/10/2021 : 1985 Gender:F Ordering : DR SHANNA ROSA M.D. Admission #: [id number] Family : Order #: [id number] CLICK HERE TO VIEW EXAM RADIOLOGY REPORT [...] Rosa MD on 12/10/2021 at 08:19 Normal [facility] VC ENDOVENOUS ABL 1ST V RTon 12-03-2021 VC ENDOVENOUS ABL 1ST V RT Patient: SUSAN HOGUE Exam Date: 12/03/2021 : 1985 Gender:F Ordering : DR SHANNA ROSA M.D. Admission #: [id number] Family : Order #: [id number] CLICK HERE TO VIEW EXAM RADIOLOGY REPORT PROCEDURE: VEIN CENTER ENDOVENOUS ABLATION FIRST VEIN RIGHT SMALL SAPHENOUS VEIN COMPARISON: VC ENDOVENOUS ABL 1ST V RT, 10/15/2021. INDICATIONS: Pain co-occurrent and due to varicose veins of bilateral legs I83.813 OPERATIVE REPORT: The risks and benefits of the procedure had been previously discussed, and were rediscussed at length. Informed written consent was obtained by ks and Judd Maradiaga assisted. Time out procedure [...] Shanna Rosa MD on 12/03/2021 at 11:18 [facility] VC CONSULT FOLLOWUPon 2021 VC CONSULT FOLLOWUP Patient: SUSAN HOGUE Exam Date: 11/19/2021 : 1985 Gender:F Ordering : DR SHANNA ROSA M.D. Admission #: [id number] Family : Order #: [id number] CLICK HERE TO VIEW EXAM RADIOLOGY REPORT [...] physical exam and consultation Dictated by: Shanna Rsoa MD on 11/19/2021 at 13:58 Approved by: Shanna Rosa MD on 11/19/2021 at 14:00 Normal [facility] EXT VENOUS LT LIMITEDon 0 11-19-2021 EXT VENOUS LT LIMITED Patient: SUSAN HOGUE Exam Date: 11/19/2021 : 1985 Gender:F Ordering : DR SHANNA ROSA M.D. Admission #: [id number] Family : Order #: [id number] CLICK HERE TO VIEW EXAM RADIOLOGY REPORT [...] to thrombus. *Exam performed in accordance with [facility] practice guidelines- Peripheral venous ultrasound, November 04, 2009. 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 Admission #: [id number] Family : Order #: [id number] CLICK HERE TO VIEW EXAM RADIOLOGY REPORT PROCEDURE: VEIN CENTER ENDOVENOUS ABLATION FIRST VEIN LEFT GREAT SAPHENOUS VEIN COMPARISON: None. INDICATIONS: Pain co-occurrent and due to varicose veins of bilateral legs i83.813 OPERATIVE REPORT: The risks and benefits of the procedure had been previously discussed, and were rediscussed at length. Informed written consent was obtained by me and Judd Maradiaga assisted. Time out procedure [...] Shanna Rosa MD on 11/12/2021 at 10:02 [facility] VC CONSULT FOLLOWUPon 2021 VC CONSULT FOLLOWUP Patient: SUSAN HOGUE Exam Date: 10/22/2021 : 1985 Gender:F Ordering : DR SHANNA ROSA M.D. Admission #: [id number] Family : Order #: [id number] CLICK HERE TO VIEW EXAM RADIOLOGY REPORT [...] Rosa MD on 10/22/2021 at 13:42 Normal [facility] VC EXT VENOUS RT LIMITEDon 0 10-22-2021 VC EXT VENOUS RT LIMITED Patient: SUSAN HOGUE Exam Date: 10/22/2021 : 1985 Gender:F Ordering : DR SHANNA ROSA M.D. Admission #: [id number] Family : Order #: [id number] CLICK HERE TO VIEW EXAM RADIOLOGY REPORT [...] to thrombus *Exam performed in accordance with [facility] practice guidelines- Peripheral venous ultrasound, November 04, 2009. CONCLUSION: Post ablation occlusion of the right great saphenous vein with heat induced thrombus 2.4 mm from the saphenofemoral junction. Dictated by: Shanna Rosa MD on 10/22/2021 at 13:26 Approved by: Shanna Rosa MD on 10/22/2021 at 13:28 Normal [facility] VC ENDOVENOUS ABL 1ST V RTon 10-15-2021 VC ENDOVENOUS ABL 1ST V RT Patient: SUSAN HOGUE Exam Date: 10/15/2021 : 1985 Gender:F Ordering : DR SHANNA ROSA M.D. Admission #: [id number] Family : Order #: [id number] CLICK HERE TO VIEW EXAM RADIOLOGY REPORT [...] Shanna Rosa MD on 10/15/2021 at 10:35 [facility] Vital Signs Date Time Vital Sign Value Performing Clinician Facility 06-16-2024 14:37-0500 Body mass index (BMI) [Ratio] 23.86 kg/m2 Zong Work Phone: [facility] 06-16-2024 14:37-0500 Body weight 65.05 kg Zong Work Phone: [facility] 06-16-2024 14:37-0500 Diastolic blood pressure 60 mm[Hg] Zong Work Phone: [facility] 06-16-2024 14:37-0500 Systolic blood pressure 106 mm[Hg] Garcia Maribel DO Work Phone: [facility] 04-05-2024 10:18-0400 Body height 165.1 cm [facility] 04-05-2024 10:18-0400 Body mass index (BMI) [Ratio] 23 kg/m2 [facility] 04-05-2024 10:18-0400 Body temperature 99.3 [degF] [facility] 04-05-2024 10:18-0400 Body weight 62.7 kg [facility] 04-05-2024 10:18-0400 Heart rate 91 /min [facility] 04-05-2024 10:18-0400 Respiratory rate 18 /min [facility] 04-05-2024 10:18-0400 SaO2% (BldA) [Mass fraction] 99 % [facility] 2023 12:42-0400 Body temperature 97.81 [degF] Becka Alston DO Work Phone: [facility] 2023 12:42-0400 Body weight 65.6 kg Becka Alston DO Work Phone: [facility] 2023 12:42-0400 Diastolic blood pressure 50 mm[Hg] Becka Villafanahn DO Work Phone: [facility] 2023 12:42-0400 Heart rate 89 /min Becka Alston DO Work Phone: [facility] 2023 12:42-0400 Systolic blood pressure 123 mm[Hg] Becka Villafanahn DO Work Phone: [facility] Encounters Encounter Date Encounter Type Care Provider Facility Start: 06-16-2024 End: 06-16-2024 Bamboo flowsheet Garcia Maribel DO Work Phone: [facility] Start: 06-16-2024 End: 06-24-2024 Bamboo flowsheet Garcia López DO Work Phone: [facility] Start: 06-16-2024 End: 06-24-2024 Clinisync Result Encounter Garcia Mujicao DO Work Phone: [facility] Unsolicited Start: 06-16-2024 End: 06-16-2024 Patient encounter procedure Garcia Mujicao DO Work Phone: [facility] Work Phone: Start: 06-16-2024 End: 06-16-2024 Periodic preventive med est patient 18-39 yrs Garcia Mujicao DO Work Phone: [facility] Comment on above: Well woman exam with routine gynecological exam Start: 06-16-2024 End: 06-16-2024 ambulatory Becka Alston DO Work Phone: Rheumatology Comment on above: Other forms of syste leopoldo lupus erythematosus, unspecified organ involvement status (HCC) (Primary Dx) Start: 06-16-2024 End: 06-16-2024 Telemedicine consultation with patient Becka Alston DO Work Phone: Rheumatology Start: 06-02-2024 End: 06-02-2024 Orders Only Mya Suazo REPAIR SERVICE CLERK-ZOOLOGY TEACHER Work Phone: [facility] Comment on above: Upper respiratory tr act infection, unspecified type (Primary Dx) Start: 05-13-2024 End: 05-13-2024 Refill Becka Alston DO Work Phone: Rheumatology Comment on above: Refill Request Start: 04-05-2024 End: 04-05-2024 ambulatory MYA SUAZO [facility] Start: 04-05-2024 End: 04-05-2024 ambulatory [facility] Work Phone: Start: 04-05-2024 End: 04-05-2024 Patient encounter procedure [facility] Jose Alberto Work Phone: Start: 2023 End: 2023 ambulatory BECKA ALSTON Facility:[facility] Start: 2023 End: 2023 Patient encounter procedure Becka Abdul Alecia DO Work Phone: Rheumatology Comment on above: 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) Start: 08-01-2022 End: 08-02-[address] SHRUTHI CHOW Facility:[facility] Start: 07-18-2022 End: 07-19-[address] BELINDA MOCK Facility:[facility] Start: 06-09-2022 Encounter for preprocedural laboratory examination DR GARCIA LÓPEZ [facility] Start: 06-07-2022 End: 06-07-[address] GARCIA [...] Date Procedure Procedure Detail Performing Clinician Start: 06-16-2024 IGP,APTIMA HPV,AGE GDLN Garcia López [employer] Work Phone: Start: 06-16-2024 Microscopic observat ion [Identifier] in Cervix by Cyto stain Garcia López [facility] [employer] Work Phone: Start: 04-05-2024 COVID Antigen (POC) Start: 04-05-2024 Quick Strep (POC) Start: 04-05-2024 Adult depression scr eening assessment Mya Suazo REPAIR SERVICE CLERK-ZOOLOGY TEACHER Work Phone: Start: 06-09-2023 Microscopic observat ion [Identifier] in Cervix by Cyto stain Garcia López [facility] Work Phone: Start: 06-09-2023 Cytp cerv/vag auto t hin layer prep mnl screen Garcia López [employer] Work Phone: Plan of Treatment Date Care Activity Detail Author Start: 07-25-2030 DTaP,Tdap and Td Vaccines (2 - Td or Tdap) DTaP,Tdap and Td Vaccines (2 - Td or Tdap) [facility] [email or web address] [facility] Start: 07-25-2030 Urine microalbumin profile DTaP,Tdap,Td Vaccine (2 - Td or Tdap) [facility] Start: 06-16-2029 Screening for malign ant neoplasm of cervix [facility] Start: 06-09-2028 Screening for malign ant neoplasm of cervix [facility] Start: 06-23-2025 End: 06-23-2025 Patient encounter procedure 06/23/2025 8:30 AM EST Office Visit [facility] [address] [place] [address] Garcia López DO [address] [place] [address] [facility] Start: 04-05-2025 Adult BMI Screening Adult BMI Screen ing [facility] Start: 04-05-2025 Depression Screening Depression Scre ening [facility] Start: 04-05-2025 Tobacco Screening Tobacco Screening [facility] Start: 06-16-2024 End: 09-15-2024 CBC W Auto Differential panel - Blood COMPLETE BLOOD COUNT AND DIFFERENTIAL Lab Routine Other forms of systemic lupus erythematosus, unspecified organ involvement status (HCC) Expected: 06/16/2024, Expires: 09/15/2024 [facility] Comment on above: Expected: 06/16/2024 , Expires: 09/15/2024 Start: 06-16-2024 End: 09-15-2024 Complement C3 [Mass/volume] in Serum or Plasma C3 COMPLEMENT Lab Routine Other forms of systemic lupus erythematosus, unspecified organ involvement status (HCC) Expected: 06/16/2024, Expires: 09/15/2024 [facility] Work Phone: Comment on above: Expected: 06/16/2024 , Expires: 09/15/2024 Start: 06-16-2024 End: 09-15-2024 Complement C4 [Mass/volume] in Serum or Plasma C4 COMPLEMENT Lab Routine Other forms of systemic lupus erythematosus, unspecified organ involvement status (HCC) Expected: 06/16/2024, Expires: 09/15/2024 [facility] Comment on above: Expected: 06/16/2024 , Expires: 09/15/2024 Start: 06-16-2024 End: 09-15-2024 Comprehensive metabolic 2000 panel - Serum or Plasma COMPREHENSIVE METABOLIC PANEL Lab Routine Other forms of systemic lupus erythematosus, unspecified organ involvement status (HCC) Expected: 06/16/2024, Expires: 09/15/2024 [facility] Comment on above: Expected: 06/16/2024 , Expires: 09/15/2024 Start: 06-16-2024 End: 09-15-2024 DNA ANTIBODY DS BLD DNA ANTIBODY DS BLD Lab Routine Other forms of systemic lupus erythematosus, unspecified organ involvement status (HCC) Expected: 06/16/2024, Expires: 09/15/2024 [facility] Comment on above: Expected: 06/16/2024 , Expires: 09/15/2024 Start: 06-16-2024 End: 09-15-2024 Protein/Creatinine [Mass Ratio] in Urine PROTEIN / CREATININE RATIO Lab Routine Other forms of systemic lupus erythematosus, unspecified organ involvement status (HCC) Expected: 06/16/2024, Expires: 09/15/2024 [facility] Comment on above: Expected: 06/16/2024 , Expires: 09/15/2024 Start: 06-16-2024 End: 09-15-2024 Urinalysis complete panel - Urine URINALYSIS, WITH MICROSCOPIC Lab Routine Other forms of systemic lupus erythematosus, unspecified organ involvement status (HCC) Expected: 06/16/2024, Expires: 09/15/2024 [facility] Comment on above: Expected: 06/16/2024 , Expires: 09/15/2024 Start: 06-16-2024 End: 06-16-2024 Patient encounter procedure 06/16/2024 11:00 AM EST Office Visit Rheumatology [address] [address] Becka Alston DO [address] [place] [address] 6m SLE f/u per [facility] Comment on above: 6m SLE f/u per David ejohn Start: 04-11-2024 Covid-19 Vaccine ( season) Covid-19 Vaccine ( season) [facility] Start: 04-11-2024 COVID-19 Vaccine ( season) COVID-19 Vaccine ( season) [facility] Start: 04-11-2024 Influenza vaccination C [facility] Start: 2023 End: 03-08-2024 VERNELL BY IFA SCREEN [facility] Comment on above: Expected: 2023 , Expires: 03/08/2024 Start: 2023 End: 03-08-2024 BLOOD TB SCREEN [facility] Comment on above: Expected: 2023 , Expires: 03/08/2024 Start: 2023 End: 03-08-2024 DNA ANTIBODY DS BLD [facility] Comment on above: Expected: 2023 , Expires: 03/08/2024 Start: 2023 End: 03-08-2024 Extractable nuclear Ab panel - Serum [facility] Work Phone: Comment on above: Expected: 2023 , Expires: 03/08/2024 Start: 08-11-2023 Behavioral Health Screening Behavioral Health Screening [facility] Start: 04-11-2023 Covid-19 Vaccine ( season) Covid-19 Vaccine ( season) [facility] Start: 12-07-2017 Screening for malign ant neoplasm of cervix HPV Testing [facility] Start: 12-07-2008 Screening for malign ant neoplasm of cervix [facility] Start: 12-07-2005 Anxiety Screening Anxiety Screening [facility] Start: 12-07-2005 Depression Screening Depression Scre ening [facility] Start: 12-07-2005 HIV screening HIV Screening [facility] Cervical or vaginal smear or scraping study Pap Smear Pathology and Cytology Routine Well woman exam with routine gynecological exam Ordered: 06/16/2024 [facility] [employer] Work Phone: Comment on above: Ordered: 06/16/2024 Human papilloma viru s DNA [Presence] in Unspecified specimen by Probe with amplification HPV DNA probe, amplified Microbiology Routine Well woman exam with routine gynecological exam Ordered: 06/16/2024 [facility] [employer] Comment on above: Ordered: 06/16/2024 Immunizations Immunization Date Immunization Notes Care Provider Jl mullins 05-15-2023 Influenza Vaccine, Quadrivalent, Adjuvanted Mya Suazo REPAIR SERVICE CLERK-ZOOLOGY TEACHER Work Phone: [facility] 05-15-2023 influenza virus vaccine, unspecified formulation Becka Alecia RAGLAND Work Phone: [facility] 05-21-2022 influenza virus vaccine, unspecified formulation Mya Suazo REPAIR SERVICE CLERK-ZOOLOGY TEACHER Work Phone: [facility] 05-21-2022 influenza, injectabl e, quadrivalent, preservative free Mya Suazo REPAIR SERVICE CLERK-ZOOLOGY TEACHER Work Phone: [facility] 07-25-2020 tetanus toxoid, reduced diphtheria toxoid, and acellular pertussis vaccine, adsorbed Mya Suazo REPAIR SERVICE CLERK-ZOOLOGY TEACHER Work Phone: [facility] 05-12-2020 influenza, injectabl e, quadrivalent, preservative free Mya Suazo REPAIR SERVICE CLERK-ZOOLOGY TEACHER Work Phone: [facility] 06-12-2019 influenza, injectabl e, quadrivalent, preservative free Mya Suazo REPAIR SERVICE CLERK-ZOOLOGY TEACHER Work Phone: [facility] 05-28-2018 Influenza, injectabl e, [place] Canine Kidney, preservative free, quadrivalent Mya Suazo REPAIR SERVICE CLERK-ZOOLOGY TEACHER Work Phone: [facility] 05-30-2017 Influenza, injectabl e, [place] Canine Kidney, preservative free, quadrivalent Mya Suazo REPAIR SERVICE CLERK-ZOOLOGY TEACHER Work Phone: [facility] Payers Date Payer Category [id number] 2020 [facility] Managed Care - Other ANTH [id number] 2020 Unknown [employer]UE C[employer] PPO OOS [id number] 2020-Present [phone] [address] [place] [address] PPO [id number] 1987 Unknown [id number] .2.593 1987 Unknown [id number] [id number] .2.593 1987 Unknown [id number] 2.16.840.1.229212.3.579 .2.593 1987 Unknown [id number] 2.16.840.1.205940.3.579 .2.593 1987 Unknown [id number] 2.16.840.1.942198.3.579 .2.593 1987 Unknown [id number] 2.16.840.1.547467.3.579 .2.593 1987 Unknown [id number] 2.16.840.1.269620.3.579 .2.593 1987 Unknown [id number] 2.16.840.1.267676.3.579 .2.593 1987 Unknown [id number] 2.16.840.1.632478.3.579 .2.593 1987 Unknown [id number] 2.16.840.1.895370.3.579 .2.593 1987 Unknown [id number] 2.16.840.1.213135.3.579 .2.593 1987 Unknown [id number] 2.16.840.1.450742.3.579 .2.593 1987 Unknown [id number] 2.16.840.1.185641.3.579 .2.593 1987 Unknown [id number] 2.16.840.1.883147.3.579 .2.593 1987 Unknown [id number] 2.16.840.1.403966.3.579 .2.1286 1987 Unknown [id number] 2.16.840.1.067565.3.579 .2.1259 1959 Unknown [id number] Private Health Insurance [employer] [id number] Social History Date Type Detail Facility Start: 05-26-2023 End: 2023 Tobacco smoking status NHIS Never smoked tobacco [facility] Start: 07-17-2022 End: 2023 Tobacco use and exposure Smokeless tobacco non-user [facility] Start: 2023 End: 06-16-2024 History of Social function [facility] Start: 2023 End: 06-16-2024 Tobacco use panel [facility] Start: 06-02-2023 Adult Depression Screening Assessment 0 [facility] Start: 1985 Sex Assigned At Not on file [facility] Start: 1985 Sex Assigned At Female F [facility] Start: 04-05-2024 End: 06-16-2024 Alcoholic beverage intake Current drinker of alcohol (finding) [facility] Start: 03-16-2015 Sex Female (finding) [facility] Start: 05-26-2023 Alcohol Comment Moderate alcohol use [facility] Start: 06-02-2023 Gender identity Identifies as female gender (finding) [facility] Clinical Notes 06-07-2022 to 06-16-2024 Summer Murry LPN - 06/16/2024 2:00 PM Becka Duffy DO - 06/16/2024 11:00 AM ESTTeanabell Rodriguez - Carmen Oquendo RN - 05/13/2024 4:40 PM EDT Note Date & Type Note Facility 06-16-2024 History of Presen t illness Narrative Reason for Appointment: Patient ID: Susan Hogue is a 38 y.o. female who presents for Well Women Visit Patient presents today for Annual Exam. MEDICATIONS Current Outpatient Medications Medication Instructions acyclovir (Zovirax) 400 MG tablet Every 12 hours citalopram (CELEXA) 20 mg, Oral, Every morning citalopram (CELEXA) 10 mg, Oral, Every morning hydroxychloroquine (Plaquenil) 200 MG tablet 1 tablet, Daily levothyroxine (Synthroid, Levoxyl) 50 MCG tablet TAKE 1 TABLET BY MOUTH EVERY DAY IN THE MORNING ON EMPTY STOMACH ALLERGIES No Known Allergies PROBLEMS Active Ambulatory Problems Diagnosis Date Noted No Active Ambulatory Problems Resolved Ambulatory Problems Diagnosis Date Noted No Resolved Ambulatory Problems Past Medical History: Diagnosis Date BMI 23.0-23.9, adult Genital herpes in women 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[facility]) Hypothyroidism (acquired) ([facility]) Lupus Pre-op evaluation Request for sterilization Skin infection HISTORY PAST MEDICAL HISTORY SOCIAL HISTORY Past Medical History: Diagnosis Date BMI 23.0-23.9, adult Genital herpes in women 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[facility]) Hypothyroidism (acquired) ([facility]) Lupus Pre-op evaluation Request for sterilization Skin infection hospitalizatin history Social History Tobacco Use Smoking status: Never Smokeless tobacco: Not on file Substance Use Topics Alcohol use: Yes Comment: Moderate alcohol use Drug use: Never FAMILY HISTORY Family History Problem Relation Name Age of Onset No Known Problems Sister Diabetes Maternal Grandmother Hypertension Maternal Grandfather Hypertension Paternal Grandmother SURGICAL HISTORY History reviewed. No pertinent surgical history. REVIEW OF SYSTEMS Review of Systems: Review of Systems Constitutional: Negative. HENT: Negative. Eyes: Negative. Respiratory: Negative. Cardiovascular: Negative. Gastrointestinal: Negative. Genitourinary: Negative. Musculoskeletal: Negative. Skin: Negative. Neurological: Negative. All other systems reviewed and are negative. Hematological: Negative. Endocrine: Negative. Allergic/Immunologic: Negative. OBJECTIVE Objective: Physical Exam Constitutional: Appearance: Normal appearance. She is well-developed. Genitourinary: Vulva normal. Breasts: Breasts are soft. Right: Normal. Left: Normal. Cardiovascular: Rate and Rhythm: Normal rate and regular rhythm. Pulmonary: Effort: Pulmonary effort is normal. Breath sounds: Normal breath sounds. Abdominal: General: Bowel sounds are normal. There is no distension. Palpations: Abdomen is soft. Tenderness: There is no abdominal tenderness. There is no guarding or rebound. Musculoskeletal: General: No swelling. Normal range of motion. Right lower leg: No edema. Left lower leg: No edema. Neurological: Mental Status: She is alert and oriented to person, place, and time. Skin: General: Skin is warm and dry. Psychiatric: Mood and Affect: Mood normal. Behavior: Behavior normal. Vitals and nursing note reviewed. Exam conducted with a pipe stem sawyer present. Vitals: Estimated body mass index is 23.86 kg/m as calculated from the following: Height as of 01/21/22: 5' 5 . Weight as of this encounter: 143 lb 6.4 oz. BP: 106/60 Patient's last menstrual period was 05/20/2024. ASSESSMENT & PLAN ICD-10-CM 1. Well woman exam with routine gynecological exam Z01.419 Pap Smear HPV DNA probe, amplified Annual Exam: Patient presents today for an annual exam. Patient states she is doing well and has no complaints. Pap was obtained without difficulty. Orders Placed This Encounter Procedures HPV DNA probe, amplified Follow Up: Patient is to return in one year for annual unless needed otherwise. Documented by Summer Murry LPN on behalf of: Garcia López DO documented in this encounter [facility] 06-16-2024 History of Presen t illness Narrative [facility] DEPARTMENT OF RHEUMATIC AND IMMUNOLOGIC DISEASES This visit was conducted as a virtual visit. SUBJECTIVE: Reason for visit: SLE Brief History of Present Illness: Susan Hogue is a 38 year old female with migraines and SLE who is evaluated in the Rheumatology Clinic. To review her history, she has had symptom onset since 2010 with joint pain in her elbows and knees, weakness/numbness of her lower extremities and sun sensitivity. She was first diagnosed formally with SLE in 2016 (+VERNELL 1:640, low C3, arthralgia, myalgia of [...] any change in her symptoms since stopping. Last seen 11/2023 when she had left hip pain, spasming of upper back muscles and a red race on her face which was stable to her. At that time, HCQ was increased to 300 mg daily. Today she notes she is much better on the higher dose of HCQ. She still has hair loss and some joint pain in her elbows, knees and ankles. Answers submitted by the patient for this visit: Review of Systems Rheumatology (Submitted on 06/11/2024) Fever : No Recent unintentional weight change: No Eye pain: No Eye redness: No Vision Disturbance: No Eye Dryness: Yes Nosebleeds: No Sores in your mouth: No Trouble Swallowing: Yes Dry Mouth: No Chest pain: No Leg Swelling: No A cough: No Shortness of breath: No Pain with breathing: No Heartburn: No Abdominal pain: No Diarrhea: Yes Black tarry stools: No Blood in urine: No Pain or burning with urination: No Joint pain or stiffness: Yes Muscle weakness: Yes Muscle aches: Yes Joint swelling: No Morning Stiffness in Joints: Yes A rash: Yes Do you have sun sensitive rashes?: Yes Skin Color Changes: No Hair Loss: Yes Nail Changes: No Headaches: Yes Numbness: Yes Memory Loss: Yes Swollen Glands: No PMHx: No past medical history on file. PSHx: No past surgical history on file. MEDICATIONS: hydrOXYchloroQUINE (PLAQUENIL) 200 mg tablet Take 1.5 tablets by mouth once daily. ALLERGIES: ALLERGIES Not on File OBJECTIVE: Physical Examination: General: Looks well, NAD, A & Ox3. HEENT: No facial rash. No alopecia. Neck: No LAD. Skin: No rash. No ulcers. Musculoskeletal: Shoulders: No swelling, good ROM Elbows: No swelling, no flexion contractures, no nodules, good ROM Wrists: No swelling, no limitation in flexion and extension Hands: No evidence of synovitis. Able to make full fist bilaterally IMPRESSIONS/RECOMMENDATIONS: Systemic Lupus Based on 2019 ACR/EULAR classification criteria: +VERNELL 1:640, low C3, arthralgia, myalgia of lower extremities, oral ulcerations and Raynaud's phenomenon. She has been placed on HCQ, methotrexate, mycophenolate, belimumab and azathioprine. MTX, MMF and BEL all stopped due to side effects. Currently on HCQ 300 mg PO daily. Symptoms today include joint pain of hands, elbows and knees and a photosensitive rash on her face which is improved since increasing HCQ. She would like to wait until spring 2023 prior to considering anifrolumab infusions. Plan: We will obtain labs and urine studies today She will continue HCQ to 300 mg PO daily. We have discussed the risks and toxicities associated with the use of this medication and the appropriate monitoring. She will need to fax /MAY fax # provided today. We will consider the use of monthly anifrolumab infusions, she is aware that she will need Shingles vaccination beforehand. RTC 4-6 months. Becka Alston D.O. Rheumatology Staff documented in this encounter [facility] 06-16-2024 Note HNO ID: [id number] Author: BECKA ALSTON DO Service: ? Author Type: Physician Type: Progress Notes Filed: 06/16/2024 11:15 Note Text: [facility] [facility] DEPARTMENT OF RHEUMATIC AND IMMUNOLOGIC DISEASES This visit was conducted as a virtual visit. SUBJECTIVE: Reason for visit: SLE Brief History of Present Illness: Susan Hogue is a 38 year old female with migraines and SLE who is evaluated in the Rheumatology Clinic. To review her history, she has had symptom onset since 2010 with joint pain in her elbows and knees, weakness/numbness of her lower extremities and sun sensitivity. She was first diagnosed formally with SLE in 2016 (+VERNELL 1:640, low C3, arthralgia, myalgia of [...] any change in her symptoms since stopping. Last seen 11/2023 when she had left hip pain, spasming of upper back muscles and a red race on her face which was stable to her. At that time, HCQ was increased to 300 mg daily. Today she notes she is much better on the higher dose of HCQ. She still has hair loss and some joint pain in her elbows, knees and ankles. Answers submitted by the patient for this visit: Review of Systems Rheumatology (Submitted on 06/11/2024) Fever : No Recent unintentional weight change: No Eye pain: No Eye redness: No Vision Disturbance: No Eye Dryness: Yes Nosebleeds: No Sores in your mouth: No Trouble Swallowing: Yes Dry Mouth: No Chest pain: No Leg Swelling: No A cough: No Shortness of breath: No Pain with breathing: No Heartburn: No Abdominal pain: No Diarrhea: Yes Black tarry stools: No Blood in urine: No Pain or burning with urination: No Joint pain or stiffness: Yes Muscle weakness: Yes Muscle aches: Yes Joint swelling: No Morning Stiffness in Joints: Yes A rash: Yes Do you have sun sensitive rashes?: Yes Skin Color Changes: No Hair Loss: Yes Nail Changes: No Headaches: Yes Numbness: Yes Memory Loss: Yes Swollen Glands: No PMHx: No past medical history on file. PSHx: No past surgical history on file. MEDICATIONS: hydrOXYchloroQUINE (PLAQUENIL) 200 mg tablet Take 1.5 tablets by mouth once daily. ALLERGIES: ALLERGIES Not on File OBJECTIVE: Physical Examination: General: Looks well, NAD, A AND Ox3. HEENT: No facial rash. No alopecia. Neck: No LAD. Skin: No rash. No ulcers. Musculoskeletal: Shoulders: No swelling, good ROM Elbows: No swelling, no flexion contractures, no nodules, good ROM Wrists: No swelling, no limitation in flexion and extension Hands: No evidence of synovitis. Able to make full fist bilaterally IMPRESSIONS/RECOMMENDATIONS: Systemic Lupus Based on 2019 ACR/EULAR classification criteria: +VERNELL 1:640, low C3, arthralgia, myalgia of lower extremities, oral ulcerations and Raynaud's phenomenon. She has been placed on HCQ, methotrexate, mycophenolate, belimumab and azathioprine. MTX, MMF and BEL all stopped due to side effects. Currently on HCQ 300 mg PO daily. Symptoms today include joint pain of hands, elbows and knees and a photosensitive rash on her face which is improved since increasing HCQ. She would like to wait until spring 2023 prior to considering anifrolumab infusions. Plan: We will obtain labs and urine studies today She will continue HCQ to 300 mg PO daily. We have discussed the risks and toxicities associated with the use of this medication and the appropriate monitoring. She will need to fax VF/OCT fax # provided today. We will consider the use of monthly anifrolumab infusions, she is aware that she will need Shingles vaccination beforehand. RTC 4-6 months. Becka Alston D.O. Rheumatology Staff [facility] 05-13-2024 Telephone encounter Note Images from the original note were not included. Requesting refill on plaquenil. Script pended. No eye exam records in chart. [facility] sent to pt asking if she [...] 365 Days Visit Type Date Time Department [facility] 06/16/2024 11:00 AM [facility] MAIN A50 Last Ophthalmology Check for Plaquenil [...] Open Future (Single Instance) Lab Orders None [facility] 05-13-2024 Miscellaneous Notes Images from the original note were not included. Requesting refill on plaquenil. Script pended. No eye exam records in chart. [facility] sent to pt asking if she [...] 365 Days Visit Type Date Time Department [facility] 06/16/2024 11:00 AM [facility] MAIN A50 Last Ophthalmology Check for Plaquenil [...] Lab Orders None documented in this encounter [facility] 2023 History of Presen t illness Narrative [facility] DEPARTMENT OF [...] was first diagnosed formally with SLE in 2016 (+VERNELL 1:640, low C3, arthralgia, myalgia of [...] Becka Alston DO documented in this encounter [facility] 2023 Note HNO ID: [id number] Author: ALECIA, BECKA, DO Service: ? Author Type: Physician Type: Progress Notes Filed: 2023 13:39 Note Text: [facility] DEPARTMENT OF [...] 10 years with (more content not included)... [facility] 08-02-2022 Note PROCEDURE: XR FOOT L T [...] authenticated by: SHRUTHI CHOW Date: 2022-08-02 10:27 [facility] 07-18-2022 Note PROCEDURE: XR FOOT L T MIN 3 VIEWS HISTORY: Pain in left foot ; acute left foot pain, no known injury COMPARISON: None. FINDINGS: BONES:No fracture, acute abnormality, or significant arthropathy. SOFT TISSUES:No visible soft tissue swelling. EFFUSION:None visible. OTHER: Negative. IMPRESSION: 1. Normal examination. Electronically authenticated by: SHRUTHI CHOW Date: 2022-07-18 08:45 [facility] 06-07-2022 Note OPERATIVE NOTE OPERATION DATE: 06/07/2022 PROCEDURE: Bilateral laparoscopic salpingectomy. PREOPERATIVE DIAGNOSIS: Desires permanent sterilization, multiparity. POSTOPERATIVE DIAGNOSIS: Desires permanent sterilization, multiparity. ANESTHESIA: General. SURGEON: Garcia López D.O. DIRECTOR OF NEIGHBORHOOD SERVICE CENTER: BENJAMIN French URINE OUTPUT: Yellow and clear. [...] and needle counts were correct x2. [facility] Evaluation note Diagnosis 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)- Primary [facility] this [facility] noteNo assessment information availableMed[facility] Work Phone: Evaluation note* Diagnosis Upper respiratory tract infection, unspecified type- Primary documented [facility]* Diagnosis Other forms of systemic lupus erythematosus, unspecified organ involvement status (HCC)- Primary [facility] this encounter [facility]* Diagnosis Well woman exam with routine gynecological exam Routine gynecological examination documented in this encounter [facility] HealthcareInstructionsNot on filedocumented in this [facility] Summary Purpose Family History Relationship Condition Age [...] section and content) DATE CREATED AUTHOR 01/18/2022 [facility] dical Specialist DATE CREATED AUTHOR AUTHOR'S ORGANIZ ATION 08/08/2022 [facility] DATE CREATED AUTHOR AUTHOR'S ORGANIZ ATION 04/07/2024 [facility] DATE CREATED AUTHOR AUTHOR'S ORGANIZ ATION 06/18/2024 [facility] DATE CREATED AUTHOR AUTHOR'S ORGANIZ ATION 06/18/2024 [facility] dical Specialists EPIC Source Comments (unrecognize d section and content) In the event this informatio n is protected by the Federal Confidentiality of Alcohol and Drug Abuse Patient Records regulations: The Federal rules restrict any use of the information to criminally investigate or prosecute any alcohol or drug abuse patient.[facility] Center[facility] the event this information is protected by the Federal Confidentiality of Alcohol and Drug Abuse Patient Records regulations: The Federal rules restrict any use of the information to criminally investigate or prosecute any alcohol or drug abuse patient.[facility] CenterIn the event this information is protected by the Federal Confidentiality of Alcohol and Drug Abuse Patient Records regulations: The Federal rules restrict any use of the information to criminally investigate or prosecute any alcohol or drug abuse patient.[facility] Care Teams (unrecognized sec tion and content) Team Status: Active Member Role Status Dates Belinda Mock DO Primary Care Provider Active Team Status: Inactive Member Role Status Dates Emma Negrete APRN Attending Provider Active Start: April 05, 2024 End: April 05, 2024 Belinda Mock DO Primary Care Provider Active Sta rt: April 05, 2024 End: April 05, 2024 Director Athletic Relationship Specialty Start Date End Date Belinda Mock DO [address] [place] [address] PCP - General Internal Medicine 08/20/17 Director Athletic Relationship Specialty Start Date End Date Belinda Mock MD [address] [place] [address] PCP - General Internal Medicine 06/09/23 Director Athletic Relationship Specialty Start Date End Date Belinda Mock MD [address] [place] [address] PCP - General Internal Medicine 06/09/23 Goals (unrecognized section and content) Goals may be documented in a n alternate sectionNot on filedocumented as of this encounter Reason for Visit (unrecogniz ed section and content) Reason Comments Refill Request Reason Comments SLE Reason Comments Well Women Visit FOR RECORDS PERTAINING TO PATIENTS WHO ARE [...] BE BASED ON THE PRIMARY CLINICAL RECORDS. [facility]. provides no warranty or guarantee of the accuracy or completeness of information in this document.
== END 2024-07-26 12:38 | disposition home or self-care (01) ==
LOC: MAMMO 12:37
PROVIDERS: PCP Internal Medicine; Visit Provider Obstetrics & Gynecology
DX: N64.4 Mastodynia (principal); Z12.31 Encounter for screening mammogram for malignant neoplasm of breast
CPT/HCPCS: 77063; 77067

== ENCOUNTER 2025-01-17 15:20 | Outpatient (OUT) | payer BC, SELFPAY ==
--- OUTSIDE RECORDS SUMMARY | 2025-01-10 10:00 | XMS_ITS | Encounter Summary ---
Author Organization [facility] Address [address] [facility] [place] [address] Care Team Providers Care Deputy Sheriff K9 Handler Name Role Phone Aba Garner MD Primary Care Provider [phone] Encounter Details Date Type Department Care Team (Latest Contact Info) Description 01/10/2025 10:00 AM EDT Ancillary Procedure [facility] [address] [place] [address] Menorrhagia with regular cycle Social History Tobacco Use Types Packs/Day Years Used Date Smoking Tobacco: Never Alcohol Use Standard Drinks/Week Comments Yes 0 (1 standard drink = 0.6 oz pur e alcohol) Moderate alcohol use Comments No Sex and Gender Information Value Date Recorded Sex Assigned at Female 06/02/2023 9:24 AM EDT Legal Sex Female 11:33 PM EDT Gender Identity Female 06/02/2023 9:24 AM EDT Sexual Orientation Asexual 06/02/2023 9: 24 AM EDT documented as of this encounter Plan of Treatment Upcoming Encounters Date Type Department Care Team (Late st Contact Info) Description 01/20/2025 10:30 AM EDT Procedure Visit [facility] [address] [place] [address] Saurabh López, DO [facility] [address] [place], [place] [id number] 06/27/2025 9:20 AM EST Office Visit [facility] [address] [place] [address] Saurabh López, DO [address] [place] [address] 12/01/2025 1:10 PM EDT Office Visit [facility] [address] [place] [id number] Brenna Merchant, ACCOUNTANCY PROFESSOR-HOME ADMINISTRATOR [address] [place] [address] documented as of this encounter Procedures Procedure Name Priority Date/Time Associated Diagnosis Comments US PELVIC COMPLETE W/ TV Routine 01/10/2025 10:30 AM EDT Menorrhagia with regular cycle documented in this encounter Results * US Pelvis w/ TV (01/10/2025 10:30 AM EDT) Anatomical Region Laterality Modality Pelvis Ultrasound 01/11/2025 11:3 3 PM EDT Narrative 01/11/2025 11:33 PM EDT EXAM: US PELVIC COMPLETE W/ TV HISTORY: Menorrhagia. Left lower quadrant discomfort. LMP 12/12/2024. . Bilateral salpingectomy. COMPARISON: None available. TECHNIQUE: Two-dimensional transabdominal grayscale and color Doppler ultrasound imaging of the pelvis was performed. Transvaginal was performed. FINDINGS: UTERUS 8.5 x 5.3 x 5.6 cm The uterus is anteverted in position and demonstrates a normal, homogeneous echotexture. There are prominent peripheral uterine and bilateral adnexal vessels. A nabothian cyst is visualized within the cervix. ENDOMETRIUM 1.1 cm The endometrium demonstrates a normal, homogeneous echotexture. RIGHT OVARY 2.6 x 1.2 x 2.4 cm The right ovary demonstrates a normal echotexture. There is normal color Doppler flow. LEFT OVARY 4.4 x 2.9 x 3.4 cm The left ovary demonstrates a normal echotexture with a 2.5 x 2.0 x 2.4 cm cystic lesion with an internal mural component. There is normal color Doppler flow. No fluid is present within the cul-de-sac. IMPRESSION: 1. Prominent peripheral uterine and bilateral adnexal vessels. 2. Left ovarian 2.5 cm cystic lesion with an internal mural component, possibly representing a complex cyst however, mass can not be entirely excluded. A follow up ultrasound in 6-12 weeks is recommended to document improvement/resolution. Interpreted by: Electronically signed by DARRYL KINNEY II, MD, PHD at 11-Jan-2025 11:32:05 PM [facility] Procedure Note Darryl Kinney MD - 01/11/2025 EXAM: US PELVIC COMPLETE W/ TV HISTORY: Menorrhagia. Left lower quadrant discomfort. LMP 12/12/2024.. Bilateral salpingectomy. COMPARISON: None available. TECHNIQUE: Two-dimensional transabdominal grayscale and color Dopplerultrasound imaging of the pelvis was performed. Transvaginal wasperformed. FINDINGS: UTERUS 8.5 x 5.3 x 5.6 cm The uterus is anteverted in position and demonstrates a normal,homogeneous echotexture. There are prominent peripheral uterine andbilateral adnexal vessels. A nabothian cyst is visualized within thecervix. ENDOMETRIUM 1.1 cm The endometrium demonstrates a normal, homogeneous echotexture. RIGHT OVARY 2.6 x 1.2 x 2.4 cm The right ovary demonstrates a normal echotexture. There is normal colorDoppler flow. LEFT OVARY 4.4 x 2.9 x 3.4 cm The left ovary demonstrates a normal echotexture with a 2.5 x 2.0 x 2.4 cmcystic lesion with an internal mural component. There is normal colorDoppler flow. No fluid is present within the cul-de-sac. IMPRESSION: 1. Prominent peripheral uterine and bilateral adnexal vessels. 2. Left ovarian 2.5 cm cystic lesion with an internal mural component,possibly representing a complex cyst however, mass can not be entirelyexcluded. A follow up ultrasound in 6-12 weeks is recommended to documentimprovement/resolution. Interpreted by: Electronically signed by DARRYL KINNEY II, MD, PHD [id number] 11:32:05 PM [facility] us Rita ALEJANDRO US PROCEDURES Final Result documented in this encounter Visit Diagnoses Diagnosis Menorrhagia with regular cycle documented in this encounter Care Teams Deputy Sheriff K9 Handler Relationship Specialty Start Date End Date Aba Garner MD PCP - General Internal Medicine 06/09/23 documented as of this encounter
--- OUTSIDE RECORDS SUMMARY | 2025-01-17 15:23 | XMS_ITS | Encounter Summary ---
Author Organization [facility] Address [address] [place] [address] Care Team Providers Care Well Drill Operator Cable Tool Name Role Phone Unavailable Primary Care Provider Unavailabl e Source Comments In the event this information is protected by the Federal Confidentiality of Alcohol and Drug AbusePatient Records regulations: The Federal rules restrict any use of the information to criminally investigate or prosecute any alcohol or drug abuse patient.[facility] Encounter Details Date Type Department Care Team (Late st Contact Info) Description 06/15/2024 Telephone [facility] [address] [id number] [place] [address] [place] [address], [address] [phone] Social History Tobacco Use Types Packs/Day Years Used Date Smoking Tobacco: Never Smokeless Tobacco: Never PHQ-2 Answer Date Recorded PHQ-2 score 0 12/01/2023 Comments Unknown Sex and Gender Information Value Date Recorded Sex Assigned at Not on file Legal Sex Female 3:09 PM EDT Gender Identity Not on file Sexual Orientation Not on file documented as of this encounter Plan of Treatment Upcoming Encounters Date Type Department Care Team (Late Contact Info) Description 04/13/2025 11:00 AM EDT Office Visit Rheumatology [address] [address] Becka Treviño, [address], [address] [phone] 6m SLE f/u per [place] documented as of this encounter Visit Diagnoses Not on filedocumented in this encounter
--- OUTSIDE RECORDS SUMMARY | 2025-01-17 15:23 | XMS_ITS | Encounter Summary ---
Author Organization [facility] Address [address] [facility] [place] [place] [address] Care Team Providers Care Clipper Operator Name Role Phone Aba Garner MD Primary Care Provider [phone] Encounter Details Date Type Department Care Team (Late st Contact Info) Description 06/25/2024 Orders Only [facility] [address] [facility] [place] [address] Rita Busby [place] [address] [place] [address] Social History Tobacco Use Types Packs/Day Years Used Date Smoking Tobacco: Never Alcohol Use Standard Drinks/Week Comments Yes 0 (1 standard drink = 0.6 oz pur e alcohol) Moderate alcohol use Comments Unknown Sex and Gender Information Value [...] 01/20/2025 10:30 AM EDT Procedure Visit [facility] OB [address] [place] [address] Saurabh López DO [address] [place], [place] [phone] 06/27/2025 9:20 AM EST Office Visit [facility] [address] [place] [address] Saurabh López, [address] [place] [address] 12/01/2025 1:10 PM EDT Office Visit [facility] [address] [place] [phone] Brenna Merchant APRN-TEACHERS' ASSISTANT [address] [place] [address] documented as of this encounter Procedures Procedure Name Priority Date/Time Associated Diagnosis Comments PAP SMEAR Routine 06/16/2024 12:00 AM EST documented in this encounter Results * Pap Smear (06/16/2024 12:00 AM EST) Swab Cervical swab / Unknown us Saurabh López DO LAB CYTOLOGY ORDERABLES Final Re sult EXTERNAL LAB documented in this encounter Visit Diagnoses Not on filedocumented in this encounter Care Teams Clipper Operator Relationship Specialty Start Date End Date Aba Garner MD PCP - General Internal Medicine 06/09/23 documented as of this encounter
--- OUTSIDE RECORDS SUMMARY | 2025-01-17 15:23 | XMS_ITS | Encounter Summary ---
Author Organization [facility] Address [address] [place] [address] Care Team Providers Care Rehab Rn Name Role Phone Unavailable Primary Care Provider Unavailabl e Source Comments In the event this information is protected by the Federal Confidentiality of Alcohol and Drug AbusePatient Records regulations: The Federal rules restrict any use of the information to criminally investigate or prosecute any alcohol or drug abuse patient.[facility] Encounter Details Date Type Department Care Team (Late st Contact Info) Description 12/15/2023 Patient Msg Rheumatology [address] [phone] Provider, [facility] Appointment scheduled Social History Tobacco Use Types Packs/Day Years [...] Care Team (Late st Contact Info) Description 04/13/2025 11:00 AM EDT Office Visit Rheumatology [address] [address] [place] [address] [place] [address], [address] [place] [address] 6m SLE f/u per [place] documented as of this encounter Visit Diagnoses Not on filedocumented in this encounter
--- OUTSIDE RECORDS SUMMARY | 2025-01-17 15:23 | XMS_ITS | Clinical Summary ---
Author Organization [employer] tem Address [id number] [address] [place] [address] Care Team Providers Care Filament Cutter Name Role Phone Vianeykimani Aba Juany RAGLAND Primary Care Provider [phone] Allergies No known active allergies Medications levothyroxine (SYNTHROID, LEVOTHROID) 50 MCG tablet Take 1 tablet (50 mcg total) by mouth in the morning. Active acyclovir (ZOVIRAX) 400 mg tablet acyclovir 400 mg tablet as needed Active SUMAtriptan (IMITREX) 100 mg tablet TAKE 1 TABLET BY MOUTH TWICE A DAY WITH AT LEAST 2 HOURS BETWEEN DOSES NEEDED FOR 30 DAYS 3 Active hydroxychloroqui ne (PLAQUENIL) 200 mg tabletIndication s:Systemic lupus erythematosus, unspecified SLE type, unspecified organ involvement status ([facility]) Take 1 tablet (200 mg total) by mouth in the morning and 1 tablet (200 mg total) before bedtime. 60 tablet 1 4 Active citalopram (CeleXA) 20 mg tablet Daily 3 Active citalopram (CeleXA) 10 mg tablet Daily 3 Active methylPREDNISolo ne (MEDROL, NAILA,) 4 mg tabletIndication s:Upper respiratory tract infection, unspecified type follow package directions 21 tablet 4 Active pyrilamine-dextr omethorphan 30-30 mg tabletIndication s:Rhinitis, unspecified type Take 1 tablet by mouth 3 (three) times a day as needed (congestion). 15 tablet 1 08/26/202 4 Active Active Problems Problem Noted Date Diagnosed Date Chronic fatigue syndrome 07/17/2022 Hypothyroidism 07/17/2022 Sjogren's syndrome 07/17/2022 SLE (systemic lupus erythematosus) 07/17/2022 SLE-Sjogren overlap syndrome 08/20/2017 Resolved Problems Problem Noted Date Diagnosed Date Resolved Date MRSA (methicillin resistant Staphylococcus aureus) infection 08/20/2017 07/17/2022 Subacute osteomyelitis of fibula 08/20/2017 08/22/2017 Osteomyelitis of ankle or foot 08/20/2017 08/22/2017 Immunizations Immunization Administration Dates Next Due Influenza Vaccine, Quadrivalent, Adjuvanted 12/2022 Influenza, Injectable, Mdck, Preservative Free, Quad 05/28/2018,05/30/2017 Influenza, Injectable, quadrivalent (PF) 022,05/12/2020,06/12/2019 Influenza, Unspecified 05/21/2022 Tdap 07/25/2020 Family History Medical History Relation Name Comments No Known Problems Father No Known Problems Mother No Known Problems Sister Relation Name Status Comments Father Alive Mother Alive Sister Alive Social History Tobacco Use Types Packs/Day Years Used Date Smoking Tobacco: Never Smokeless Tobacco: Never Tobacco Cessation:Counseling Given: Not Answered Alcohol Use Standard Drinks/Week Comments Yes 0 (1 standard drink = 0.6 oz pur e alcohol) PHQ-2 Answer Date Recorded Total Score 0 04/05/2024 Childcare Answer Date Recorded Childcare Unknown 01/20/2019 Employment Answer Date Recorded Employment Unknown 01/20/2019 Hunger Screening Answer Date Recorded Within the past 12 months we worried whether our food would run out before we got money to buy more. Never True 04/05/2024 Within the past 12 months th e food we bought just didn't last and we didn't have money to get more. Never True 04/05/2024 Purpose - Life Answer Date Recorded Purpose and direction in life Unknown Comments Unknown Sex and Gender Information Value Date Recorded Sex Assigned at Not on file Legal Sex Female 11:37 AM EDT Gender Identity Not on file Sexual Orientation Not on file Last Filed Vital Signs Vital Sign Reading Time Taken Comments Blood Pressure 120/50 04/05/2024 2:55 PM EDT Pulse 75 04/05/2024 2:55 PM EDT Temperature 36.9 C (98.4 F) 04/05/2024 2:55 PM EDT Respiratory Rate 20 04/05/2024 2:55 PM EDT Oxygen Saturation 99% 04/05/2024 2:55 PM EDT Inhaled Oxygen Concentration - - Weight 61.7 kg (136 lb) 04/05/2024 2:55 PM EDT Height 165.1 cm (5' 5 ) 04/05/2024 2:55 PM EDT Body Mass Index 22.63 04/05/2024 2:55 PM EDT Plan of Treatment Health Maintenance Due Date Last Done Comments COVID-19 Vaccine (2023-2 5 season) 2024 04/25/2021, 04/02/2021 Adult BMI Screening 04/05/2025 04/05/2024 Depression Screening 04/05/2025 04/05/2024 Tobacco Screening 04/05/2025 04/05/2024 Influenza Vaccine 04/11/2025 05/15/2023, , 05/21/2022, Additional history exists Pap Smear 06/09/2026 06/09/2023 DTaP,Tdap and Td Vaccines (2 - Td or Tdap) 07/25/2030 07/25/2020 Medical Devices Not on file Insurance [employer] Advance Directives * Full Code (Latest Code Status on File) Date Activated Date Inactivated Comments 08/20/2017 8:46 PM 08/22/2017 6:59 PM Care Teams Filament Cutter Relationship Specialty Start Date End Date Aba Garner DO [address] [id number] PCP - General Internal Medicine 08/20/17
--- OUTSIDE RECORDS SUMMARY | 2025-01-17 15:23 | XMS_ITS | Encounter Summary ---
Author Organization [facility] Address [address] [place] [address] Care Team Providers Care Avian Keeper Name Role Phone Unavailable Primary Care Provider Unavailabl e Source Comments In the event this information is protected by the Federal Confidentiality of Alcohol and Drug AbusePatient Records regulations: The Federal rules restrict any use of the information to criminally investigate or prosecute any alcohol or drug abuse patient.[facility] Encounter Details Date Type Department Care Team (Late st Contact Info) Description 06/07/2024 Patient [facility] -[address] [place] [address] Brenna Lima RPh At your next appointment, choose [facility]. Social History Tobacco Use Types Packs/Day Years [...] 11:00 AM EDT Office Visit Rheumatology [address] [address] Becka Treviño, DO [address], [address] [place] [address] 6m SLE f/u per [place] documented as of this encounter Visit Diagnoses Not on filedocumented in this encounter
--- OUTSIDE RECORDS SUMMARY | 2025-01-17 15:23 | XMS_ITS | Encounter Summary ---
Author Organization [facility] [employer] tem Address [id number] [address] [place] [address] Care Team Providers Care No Bake Molder Name Role Phone Aba Garner DO Primary Care Provider [phone] Reason for Visit * Reason Comments Med Refill Encounter Details Date Type Department Care Team (Late st Contact Info) Description 10/17/2023 Refill [facility] Internal Medicine - Family Medicine [address] [place] [address] Aba Garner DO [address] [place] [address] Social History Tobacco Use Types Packs/Day Years Used Date Smoking Tobacco: Never Smokeless Tobacco: Never Alcohol Use Standard Drinks/Week Comments Yes 0 (1 standard drink = 0.6 oz pur e alcohol) PHQ-2 Answer Date Recorded Total Score 0 12/02/2022 Childcare Answer Date Recorded Childcare Unknown 01/20/2019 Employment Answer Date Recorded Employment Unknown 01/20/2019 Hunger Screening Answer Date Recorded Within the past 12 months we worried whether our food would run out before we got money to buy more. Never True 12/02/2022 Within the past 12 months th e food we bought just didn't last and we didn't have money to get more. Never True 12/02/2022 Purpose - Life Answer Date Recorded Purpose and direction in life Unknown Comments Unknown Sex and Gender Information Value Date Recorded Sex Assigned at Not on file Legal Sex Female 11:37 AM EDT Gender Identity Not on file Sexual Orientation Not on file documented as of this encounter Miscellaneous Notes * Telephone Encounter - Nora Mcguire - 10/17/2023 12:18 AM EST LM on VM * Telephone Encounter - Jennifer Khanna CMA - 10/17/2023 12:18 AM EST Spoke with the patient and she said that this should of went to her Community Worker. She is going to call [facility] and let them know this documented in this encounter Plan of Treatment Not on file documented as of this encounter Visit Diagnoses Not on filedocumented in this encounter Additional Health Concerns Assessment Noted Time PHQ-9 Depression Total Score: 0 12/03/19 23 1:44 PM EDT documented as of this encounter Care Teams No Bake Molder Relationship Specialty Start Date End Date Aba Garner DO [address] [place] [address] PCP - General Internal Medicine 08/20/17 documented as of this encounter
--- OUTSIDE RECORDS SUMMARY | 2025-01-17 15:23 | XMS_ITS | Encounter Summary ---
Author Organization [facility] Address [address] [facility] [place] [address] Care Team Providers Care Shipping Supervisor Name Role Phone Aba Garner MD Primary Care Provider [phone] Reason for Visit * Reason Comments Med Refill Encounter Details Date Type Department Care Team (Late st Contact Info) Description 02/05/2024 Refill [facility] [address] [facility] [place] [address] Saurabh López, DO [address] [facility] [place] [address] Yeast infection Social History Tobacco Use Types Packs/Day Years [...] AM EDT documented as of this encounter Miscellaneous Notes * Telephone Encounter - Myrna Olmos LPN - 02/09/2024 7:10 AM EDT Medication refused due to failing protocol. Requested Prescriptions Pending Prescriptions Disp Refills fluconazole (Diflucan) 150 MG tablet [Pharmacy Med Name: FLUCONAZOLE 150 MG TABLET] 2 tablet 0 Sig: TAKE 1 TABLET BY MOUTH 1 TIME FOR 1 DOSE REPEAT IN 7 DAYS IF SYMPTOMS PERSIST There is no refill protocol information for this order documented in this encounter Plan of Treatment Upcoming Encounters Date Type Department Care Team (Late st Contact Info) Description 01/20/2025 10:30 AM EDT Procedure Visit [facility] [address] [facility] [place] [id number] Saurabh López, DO [address] [place] [address] [place] [address] 06/27/2025 9:20 AM EST Office Visit [facility] [address] [facility] [place] [address] Saurabh López, DO [address] [facility] [place] [address] 12/01/2025 1:10 PM EDT Office Visit [facility] [address] [place] [phone] Brenna Merchant APRN-SUPERVISOR [employer]ARING [address] [place] [address] documented as of this encounter Visit Diagnoses Diagnosis Yeast infection documented in this encounter Care Teams Shipping Supervisor Relationship Specialty Start Date End Date Aba Garner MD PCP - General Internal Medicine 06/09/23 documented as of this encounter
--- OUTSIDE RECORDS SUMMARY | 2025-01-17 15:23 | XMS_ITS | Encounter Summary ---
Author Organization [facility] Address [address] [facility] [place] [address] Care Team Providers Care Valet Cashier Name Role Phone Belinda Mock MD Primary Care Provider [phone] Encounter Details Date Type Department Care Team (Late st Contact Info) Description 07/26/2024 Clinisync Result Encounter [facility] External Department Unsolicited Saurabh López, [facility] [address] Social History Tobacco Use Types Packs/Day Years [...] 01/20/2025 10:30 AM EDT Procedure Visit [facility] [address] [place] [phone] Saurabh López DO [facility] [place] [address] 06/27/2025 9:20 AM EST Office Visit [facility] [address] [place] [address] Saurabh López, DO [address] [facility] [place] [address] 12/01/2025 1:10 PM EDT Office Visit [facility] [address] [place] [address] Brenna Merchant, REGULATORY SERVICES CONSULTANT-HAZMAT TANKER DRIVER [address] [place] [address] documented as of this encounter Procedures Procedure Name Priority Date/Time Associated Diagnosis Comments MM TOMOSYNTHESIS SCREENING BI 07/26/2024 2:13 PM EST documented in this encounter Results * MM TOMOSYNTHESIS SCREENING BI (07/26/2024 2:13 PM EST) Anatomical Region Laterality Modality Other 07/26/2024 2:13 PM EST Narrative 07/26/2024 2:14 PM EST [address] [address] Mammography Report Signed Patient: SUSAN HOGUE MR#: [id number] : 1985 Acct:[id number] Age/Sex: 38 / F ADM Date: 07/26/24 Loc: MAMMO Attending Dr: Saurabh López D.O. Ordering Physician: Saurabh López D.O. Results: Date of Service: 07/26/24 Follow Up: Procedure(s): MM tomosynthesis screening BI Accession Number(s): [id number] cc: Saurabh López D.O.; BELINDA MOCK Patient Name: SUSAN HOGUE MR#: [id number] : 1985 Exam Date: 07/26/2024 Ordering Doctor: DR Saurabh López . RADIOLOGY REPORT PROCEDURE: MM TOMOSYNTHESIS SCREENING BI COMPARISON: None. INDICATIONS: Screening Calculator Name NCI Breast Cancer Risk Assessment Tool 5 Year Breast Cancer Risk 0.30% Lifetime Breast Cancer Risk 9.20% Personal Breast Cancer No Personal Ovarian Cancer No Treatments None Family Cancers None LOCATION: [facility] BREAST COMPOSITION: The breasts are heterogeneously dense,which may obscure small masses. FINDINGS: DIAGNOSTIC CATEGORY 2--BENIGN FINDING: Scattered benign-appearing calcifications are present. Scattered benign-appearing lymph nodes are present. RIGHT BREAST: No significant suspicious finding. LEFT BREAST: No significant suspicious finding. RECOMMENDATIONS: CLINICAL EVALUATION. PLEASE NOTE: A NORMAL MAMMOGRAM DOES NOT EXCLUDE THE POSSIBILITY OF BREAST CANCER. A CLINICALLY SUSPICIOUS PALPABLE LUMP SHOULD BE BIOPSIED. Dictated by: Pepe Linn MD on 07/26/2024 at 14:12 Approved by: Pepe Linn MD on 07/26/2024 at 14:13 Dictated By: Pepe Linn M.D. Signed By: 07/26/24 141 DD/ 12 TD/TT: Folding Rules Printing Machine Operator: Procedure Note Radiology, Radiologist, - 07/26/2024 [place] [address] Mammography Report Signed Patient: SUSAN HOGUE MMR#: [id number] : 1985Acct:[id number] Age/Sex: 38 / FADM Date: 07/26/24 Loc: MAMMO Attending Dr: Saurabh López D.O. Ordering Physician: Saurabh López D.O.Results: Date of Service: 07/26/24Follow Up: Procedure(s): MM tomosynthesis screening BI Accession Number(s): [id number] cc: Saurabh López D.O.; BELINDA MOCK Patient Name: SUSAN HOGUE MR#: [id number] : 1985 Exam Date: 07/26/2024 Ordering Doctor: DR Saurabh López . RADIOLOGY REPORT PROCEDURE: MM TOMOSYNTHESIS SCREENING BI COMPARISON: None. INDICATIONS: Screening Calculator Name NCI Breast Cancer Risk Assessment Tool 5 Year Breast Cancer Risk 0.30% Lifetime Breast Cancer Risk 9.20% Personal Breast Cancer No Personal Ovarian Cancer No Treatments None Family Cancers None LOCATION: [facility] BREAST COMPOSITION: The breasts are heterogeneously dense,which may obscure small masses. FINDINGS: DIAGNOSTIC CATEGORY 2--BENIGN FINDING: Scattered benign-appearing calcifications are present. Scattered benign-appearing lymph nodes are present. RIGHT BREAST: No significant suspicious finding. LEFT BREAST: No significant suspicious finding. RECOMMENDATIONS: CLINICAL EVALUATION. PLEASE NOTE: A NORMAL MAMMOGRAM DOES NOT EXCLUDE THE POSSIBILITY OFBREAST CANCER. A CLINICALLY SUSPICIOUS PALPABLE LUMP SHOULD BE BIOPSIED. Dictated by: Pepe Linn MD on 07/26/2024 at 14:12 Approved by: Pepe Linn MD on 07/26/2024 at 14:13 Dictated By: Pepe Linn M.D. Signed By:07/26/24 1414 DD/ 1413 TD/TT: Folding Rules Printing Machine Operator: us Saurabh Maribel DO [facility] Final Result documented in this encounter Visit Diagnoses Not on filedocumented in this encounter Care Teams Valet Cashier Relationship Specialty Start Date End Date Belinda Mock MD PCP - General Internal Medicine 06/09/23 documented as of this encounter
--- OUTSIDE RECORDS SUMMARY | 2025-01-17 15:23 | XMS_ITS | Encounter Summary ---
Author Organization [facility] Address [facility] [id number] [address] [place] [address] Care Team Providers Care Tube Handler Name Role Phone Aba Garner Primary Care Provider [phone] Encounter Details Date Type Department Care Team (Late st Contact Info) Description 07/26/2024 Orders Only [facility] Internal Medicine - Family Medicine [address] [place] [address] Ref Prov, [place] [address] Social History Tobacco Use Types Packs/Day Years [...] as of this encounter Plan of Treatment Not on file documented as of this encounter Procedures Procedure Name Priority Date/Time Associated Diagnosis Comments HM MAMMOGRAPHY Routine 07/26/2024 5:05 PM EST documented in this encounter Results * MAMMOGRAPHY (07/26/2024 5:05 PM EST) Anatomical Region Laterality Modality Other us Not In System Ref Prov HEALTH MAINTENANCE Final Result documented in this encounter Visit Diagnoses Not on filedocumented in this encounter Additional Health Concerns Assessment Noted Time PHQ-9 Depression Total Score: 0 04/05/20 24 2:54 PM EDT A Body Mass Index follow-up plan has been documented for the patient 04/05/2024 3:39 PM EDT documented as of this encounter Care Teams Tube Handler Relationship Specialty Start Date End Date Aba Garner DO [address] [place] [address] PCP - General Internal Medicine 08/20/17 documented as of this encounter
--- OUTSIDE RECORDS SUMMARY | 2025-01-17 15:23 | XMS_ITS | Encounter Summary ---
Author Organization [facility] tem Address [id number] [address] [place] [address] Care Team Providers Care Program Architect Name Role Phone Aba Garner Primary Care Provider [phone] Encounter Details Date Type Department Care Team (Late st Contact Info) Description 09/27/2024 [facility] [address] [place] [address] Ref Prov, [place] [address] Social History Tobacco Use Types Packs/Day Years [...] Procedure Name Priority Date/Time Associated Diagnosis Comments DIABETES EYE EXAM Routine 09/23/2024 3:03 PM EST documented in this encounter Results * DIABETES EYE EXAM (09/23/2024 3:03 PM EST) us Not In System Ref Prov HEALTH MAINTENANCE Final Result MANUALLY TRANSCRIBED RESULTS documented in this encounter Visit Diagnoses Not on filedocumented in this encounter Additional Health Concerns Assessment Noted Time PHQ-9 Depression Total Score: 0 04/05/20 24 2:54 PM EDT A Body Mass Index follow-up plan has been documented for the patient 04/05/2024 3:39 PM EDT documented as of this encounter Care Teams Program Architect Relationship Specialty Start Date End Date Aba Garner DO [address] [place] [address] PCP - General Internal Medicine 08/20/17 documented as of this encounter
--- OUTSIDE RECORDS SUMMARY | 2025-01-17 15:23 | XMS_ITS | Encounter Summary ---
Author Organization [employer] Address [id number] [address] [place] [address] Care Team Providers Care Automated Cutting Machine Operator Name Role Phone Aba Garner Primary Care Provider [phone] Encounter Details Date Type Department Care Team (Late st Contact Info) Description 11/12/2023 Refill [facility] Internal Medicine - Family Medicine [address] [place] [address] Summer Najera CMA Systemic lupus erythematosus, unspecified SLE type, unspecified organ involvement status (CMS-HCC) (Primary Dx) Social History Tobacco Use Types Packs/Day Years [...] encounter Miscellaneous Notes * Telephone Encounter - Summer Najera CMA - 11/12/2023 3:35 PM EDT Pt called states her Rheumatoid arthritis Doctor resigned or retired and she has a visit with the [facility] Rheumatoid Doctor the end of November.Was wondering if you could give her a refill on her Plaquenil just until she sees him? Pharmacy is listed and correct documented in this encounter Plan of Treatment Not on file documented as of this encounter Visit Diagnoses Diagnosis Systemic lupus erythematosus, unspecified SLE type, unspecified organ involvement status (CMS-HCC)- Primary documented in this encounter Additional Health Concerns Assessment Noted Time PHQ-9 Depression Total Score: 0 12/03/19 23 1:44 PM EDT documented as of this encounter Care Teams Automated Cutting Machine Operator Relationship Specialty Start Date End Date Aba Garner DO [address] [phone] PCP - General Internal Medicine 08/20/17 documented as of this encounter
--- OUTSIDE RECORDS SUMMARY | 2025-01-17 15:23 | XMS_ITS | Encounter Summary ---
Author Organization [facility] Address [address] [place] [address] Care Team Providers Care Insurance Claims Processor Name Role Phone Unavailable Primary Care Provider Unavailabl e Source Comments In the event this information is protected by the Federal Confidentiality of Alcohol and Drug AbusePatient Records regulations: The Federal rules restrict any use of the information to criminally investigate or prosecute any alcohol or drug abuse patient.[facility] Encounter Details Date Type Department Care Team (Late st Contact Info) Description 12/01/2023 Patient Msg Rheumatology [address] [address] Provider, [facility] Appointment Rescheduled Social History Tobacco Use Types Packs/Day Years Used Date Smoking Tobacco: Never Assessed PHQ-2 Answer Date Recorded PHQ-2 score 0 [...] 11:00 AM EDT Office Visit Rheumatology [address] [address] Becka Treviño DO [address] [place] [address] 6m SLE f/u per [place] documented as of this encounter Visit Diagnoses Not on filedocumented in this encounter
--- OUTSIDE RECORDS SUMMARY | 2025-01-17 15:23 | XMS_ITS | Encounter Summary ---
Author Organization [facility] Address [address] [place] [address] Care Team Providers Care Import Export Agent Name Role Phone Unavailable Primary Care Provider Unavailabl e Source Comments In the event this information is protected by the Federal Confidentiality of Alcohol and Drug AbusePatient Records regulations: The Federal rules restrict any use of the information to criminally investigate or prosecute any alcohol or drug abuse patient.[facility] Encounter Details Date Type Department Care Team (Late st Contact Info) Description 11/22/2024 Patient Msg Rheumatology [address] [address] [place] [address] [place] [address], [address] [place], [place] [phone] Appointment Request Social History Tobacco Use Types Packs/Day Years [...] 11:00 AM EDT Office Visit Rheumatology [address] [address] Becka Treviño, [address], [address] [place] [phone] 6m SLE f/u per [place] documented as of this encounter Visit Diagnoses Not on filedocumented in this encounter
--- OUTSIDE RECORDS SUMMARY | 2025-01-17 15:23 | XMS_ITS | Encounter Summary ---
Author Organization [facility] Sys tem Address [id number] [address] [place] [address] Care Team Providers Care Ceo Ziff Davis Name Role Phone Aba Garner DO Primary Care Provider [phone] Reason for Visit * Reason Comments Med Change Request Encounter Details Date Type Department Care Team (Late st Contact Info) Description 01/08/2023 Refill [facility] Internal Medicine - Family Medicine [address] [place] [address] Aba Garner DO [address] [phone] Allergic conjunctivitis of right eye Social History Tobacco Use Types Packs/Day Years [...] as of this encounter Visit Diagnoses Diagnosis Allergic conjunctivitis of right eye Other chronic allergic conjunctivitis documented in this encounter Additional Health Concerns Assessment Noted Time PHQ-9 Depression Total Score: 0 12/03/19 23 1:44 PM EDT documented as of this encounter Care Teams Ceo Ziff Davis Relationship Specialty Start Date End Date Aba Garner DO [address] [place] [address] PCP - General Internal Medicine 08/20/17 documented as of this encounter
--- OUTSIDE RECORDS SUMMARY | 2025-01-17 15:23 | XMS_ITS | Encounter Summary ---
Author Organization [facility] Address [address] [place] [address] Care Team Providers Care Supervisor Blast Furnace [employer]uxiliaries Name Role Phone Unavailable Primary Care Provider Unavailabl e Source Comments In the event this information is protected by the Federal Confidentiality of Alcohol and Drug AbusePatient Records regulations: The Federal rules restrict any use of the information to criminally investigate or prosecute any alcohol or drug abuse patient.[facility] Encounter Details Date Type Department Care Team (Late st Contact Info) Description 12/12/2023 Patient Msg Rheumatology [address] [address] [place] [address] [place] [address], [address] [place] [address] [id number] Rheumatology labs Social History Tobacco Use Types Packs/Day Years [...] 11:00 AM EDT Office Visit Rheumatology [address] [address] Becka Treviño, [address], [address] [place] [phone] 6m SLE f/u per [place] documented as of this encounter Visit Diagnoses Not on filedocumented in this encounter
--- OUTSIDE RECORDS SUMMARY | 2025-01-17 15:23 | XMS_ITS | Encounter Summary ---
Author Organization [facility] Address [facility] [id number] [address] [place] [address] Care Team Providers Care Rib Sawyer Name Role Phone Aba Garner Juany RAGLAND Primary Care Provider [phone] Encounter Details Date Type Department Care Team (Late st Contact Info) Description 07/24/2022 Orders Only [facility] Internal Medicine - Family Medicine [address] [place] [address] Rita Weathers MA Systemic lupus erythematosus, unspecified SLE type, unspecified organ involvement status ([facility]) Social History Tobacco Use Types Packs/Day Years Used Date Smoking Tobacco: Never Smokeless Tobacco: Never Alcohol Use Standard Drinks/Week Comments Yes 0 (1 standard drink = 0.6 oz pur e alcohol) Childcare Answer Date Recorded Childcare Unknown 01/20/2019 Employment Answer Date Recorded Employment Unknown 01/20/2019 Purpose - Life Answer Date Recorded Purpose and direction in life Unknown Comments Unknown Sex and Gender Information Value Date Recorded Sex Assigned at Not on file Legal Sex Female 11:37 AM EDT Gender Identity Not on file Sexual Orientation Not on file COVID-19 Exposure Response Date Recorded In the last month, have you been in contact with someone who was confirmed or suspected to have Coronavirus / COVID-19? No / Unsure 07/17/2022 3:42 PM EST documented as of this encounter Plan of Treatment Not on file documented as of this encounter Procedures Procedure Name Priority Date/Time Associated Diagnosis Comments XR FOOT LT MIN 3 VWS Routine 07/24/2022 8:[address] Systemic lupus erythematosus, unspecified SLE type, unspecified organ involvement status ([facility]) documented in this encounter Results * X-ray foot left minimum 3 views (07/24/2022 8:10 AM EST) Anatomical Region Laterality Modality Lower Extremities, MSK, Foot Left Com puted Radiography Ml Wolfe SEAMSTRESS FITTER-SHANK BREAKER IMG DIAGNOSTIC IMAGING ORDE DHARA Final Result documented in this encounter Visit Diagnoses Diagnosis Systemic lupus erythematosus, unspecified SLE type, unspecified organ involvement status ([facility]) documented in this encounter Care Teams Rib Sawyer Relationship Specialty Start Date End Date Aba Garner DO [facility] [place] [address] PCP - General Internal Medicine 08/20/17 documented as of this encounter
--- OUTSIDE RECORDS SUMMARY | 2025-01-17 15:23 | XMS_ITS | Encounter Summary ---
Author Organization [facility] Address [facility] [id number] [address] [place] [address] Care Team Providers Care Thread Laster Name Role Phone Aba Garner Primary Care Provider [phone] Encounter Details Date Type Department Care Team (Late st Contact Info) Description 06/06/2022 [facility] [address] [facility] [address] [place] [address] Ref Prov, [place] [address] Social History Tobacco Use Types Packs/Day Years Used Date Smoking Tobacco: Never Smokeless Tobacco: Never Alcohol Use Standard Drinks/Week Comments No 0 (1 standard drink = 0.6 oz [...] Procedure Name Priority Date/Time Associated Diagnosis Comments SARS COV 2 (COVID-19) STAT 06/06/2022 documented in this encounter Results * SARS COV 2 (COVID-19) (06/06/2022) NASOPHARYNGEAL us Not In System Ref Prov MICROBIOLOGY - GENERAL OR DERABLES Final Result MANUALLY TRANSCRIBED RESULTS documented in this encounter Visit Diagnoses Not on filedocumented in this encounter Care Teams Thread Laster Relationship Specialty Start Date End Date Aba Garner DO [address] [place] [address] PCP - General Internal Medicine 08/20/17 documented as of this encounter
--- OUTSIDE RECORDS SUMMARY | 2025-01-17 15:23 | XMS_ITS | Encounter Summary ---
Author Organization [facility] Address [facility] [place]-[id number] [address] [place] [address] Care Team Providers Care Granulizing Machine Operator Name Role Phone Aba Garner Juany RAGLAND Primary Care Provider [phone] Encounter Details Date Type Department Care Team (Late st Contact Info) Description 07/23/2022 Orders Only [facility] Internal Medicine - Family Medicine [address] [place] [address] Diane Yin MA Systemic lupus erythematosus, unspecified SLE type, unspecified organ involvement status ([facility]) Social History Tobacco Use Types Packs/Day Years [...] Procedure Name Priority Date/Time Associated Diagnosis Comments ERYTHROCYTE SEDIMENTATION RATE (ESR) Routine 07/18/2022 Systemic lupus erythematosus, unspecified SLE type, unspecified organ involvement status ([facility]) documented in this encounter Results * Erythrocyte Sedimentation Rate (ESR) (07/18/2022) 07/18/2022 Ml Wolfe ELEMENTARY INSTRUCTIONAL COACH-PETROGRAPHER LAB BLOOD ORDERABLES Final Result [facility] documented in this encounter Visit Diagnoses Diagnosis Systemic lupus erythematosus, unspecified SLE type, unspecified organ involvement status ([facility]) documented in this encounter Care Teams Granulizing Machine Operator Relationship Specialty Start Date End Date Aba Garner DO [facility] [place] [address] PCP - General Internal Medicine 08/20/17 documented as of this encounter
--- OUTSIDE RECORDS SUMMARY | 2025-01-17 15:24 | XMS_ITS | Encounter Summary ---
Author Organization [facility] Address [address] [place] [address] Care Team Providers Care Marble Machine Operator Name Role Phone Aba Garner MD Primary Care Provider [phone] Encounter Details Date Type Department Care Team (Late st Contact Info) Description 01/13/2025 Telephone [facility] OB [address] [facility] [place] [address] Rita Fermin PA [address] [facility] [address] [place], [facility]11 Social History Tobacco Use Types Packs/Day Years [...] encounter Miscellaneous Notes * Telephone Encounter - Oksana CHEL Bass - 01/13/2025 11:47 AM EDT Patient call was returned and she was advised per this is a normal size we expel each month and that this pain should not be from that and will discuss at her appointment more on . Patientwas instructed per provider if to severe to go to ER for evaluation. Patient was advised to use heat, tylenol and motrin to help. PVU * Telephone Encounter - Oksana Bass LPN - 01/13/2025 11:10 AM EDT I have been in recently. You can look at my ultrasound I had I am again having excruciating pain onmy left side. This happened last month. I do have a cyst that was found. I am just really not feeling well. And I want to to just let the know, or if you could advise me documented in this encounter Plan of Treatment Upcoming Encounters Date Type Department Care Team (Late st Contact Info) Description 01/20/2025 10:30 AM EDT Procedure Visit [facility] OB [address] [place] [phone] Saurabh López, DO [address] [place] [address] [place] [address] 06/27/2025 9:20 AM EST Office Visit [facility] [address] [facility] [place] [address] Saurabh López, DO [address] [facility] [place] [address] 12/01/2025 1:10 PM EDT Office Visit [facility] DERM [address] [place] [address] Brenna Merchant, REMOTE MEDICAL CODER-CONVEYOR FEEDER OFFBEARER [address] [place] [address] documented as of this encounter Visit Diagnoses Not on filedocumented in this encounter Care Teams Marble Machine Operator Relationship Specialty Start Date End Date Aba Garner MD PCP - General Internal Medicine 06/09/23 documented as of this encounter
--- OUTSIDE RECORDS SUMMARY | 2025-01-17 15:24 | XMS_ITS | Encounter Summary ---
Author Organization [facility] Address [address] [facility] [place] [address] Care Team Providers Care Adjunct Faculty Mathematics Department Name Role Phone Aba Garner MD Primary Care Provider [phone] Encounter Details Date Type Department Care Team (Latest Contact Info) Description 01/10/2025 Travel Social History Tobacco Use Types Packs/Day Years [...] 01/20/2025 10:30 AM EDT Procedure Visit [facility] OB [address] [facility] [address] Saurabh López, DO [address] [place], [place] [address] 06/27/2025 9:20 AM EST Office Visit [facility] [address] [place] [address] Saurabh López, DO [address] [place], [facility]11 12/01/2025 1:10 PM EDT Office Visit [facility] DERM [address] [place] [address] Brenna Merchant APRN-CASH APPLICATIONS COORDINATOR [address] [place] [address] documented as of this encounter Visit Diagnoses Not on filedocumented in this encounter Care Teams Adjunct Faculty Mathematics Department Relationship Specialty Start Date End Date Aba Garner MD PCP - General Internal Medicine 06/09/23 documented as of this encounter
--- OUTSIDE RECORDS SUMMARY | 2025-01-17 15:24 | XMS_ITS | Encounter Summary ---
Author Organization [facility] Address [address] [facility] [place] [address] Care Team Providers Care Car Electronics Installer Name Role Phone Aba Garner MD Primary Care Provider [phone] Encounter Details Date Type Department Care Team (Late st Contact Info) Description 05/26/2023 Abstract [facility] OB [address] [place] [address] Saurabh López [address] [place], [facility]11 Social History Tobacco Use Types Packs/Day Years Used Date Smoking Tobacco: Never Tobacco Cessation:Counseling Given: Not Answered [...] 01/20/2025 10:30 AM EDT Procedure Visit [facility] OB [address] [place] [address] Saurabh López [facility] [address] [place], [place] [phone] 06/27/2025 9:20 AM EST Office Visit [facility] BCP OB [address] [facility] [address] Saurabh López DO [address] [facility] [place] [address] 12/01/2025 1:10 PM EDT Office Visit [facility] [address] [place] [address] Brenna Merchant APRN-RESOURCE RECOVERY ENGINEER [address] [place] [address] documented as of this encounter Visit Diagnoses Not on filedocumented in this encounter Care Teams Car Electronics Installer Relationship Specialty Start Date End Date Aba Garner MD PCP - General Internal Medicine 06/09/23 documented as of this encounter
--- OUTSIDE RECORDS SUMMARY | 2025-01-17 15:24 | XMS_ITS | Encounter Summary ---
Author Organization [facility] Address [address] [facility] [place] [address] Care Team Providers Care Transplant Case Manager Name Role Phone Aba Garner MD Primary Care Provider [phone] Encounter Details Date Type Department Care Team (Late st Contact Info) Description 01/12/2025 Abstract [facility] OB [address] [facility] [place] [address] Rita Fermin PA [address] [facility] [address] [place], [facility]11 Social History Tobacco Use Types Packs/Day [...] EDT Procedure Visit [facility] OB [address] [facility] [place] [address] Saurabh López DO [address] [facility] [address] [place], [place] [address] 06/27/2025 9:20 AM EST Office Visit [facility] OB [address] [facility] [place] [address] Saurabh López, DO [address] [facility] [place] [address] 12/01/2025 1:10 PM EDT Office Visit [facility] [address] [place] [address] Brenna Merchant APRN-SPORTS PHYSICIAN [address] [place] [address] documented as of this encounter Visit Diagnoses Not on filedocumented in this encounter Care Teams Transplant Case Manager Relationship Specialty Start Date End Date Aba Garner MD PCP - General Internal Medicine 06/09/23 documented as of this encounter
--- OUTSIDE RECORDS SUMMARY | 2025-01-17 15:24 | XMS_ITS | Encounter Summary ---
Author Organization [facility] Address [address] [place] [address] Care Team Providers Care Blind Lacer Name Role Phone Unavailable Primary Care Provider Unavailabl e Source Comments In the event this information is protected by the Federal Confidentiality of Alcohol and Drug AbusePatient Records regulations: The Federal rules restrict any use of the information to criminally investigate or prosecute any alcohol or drug abuse patient.[facility] Encounter Details Date Type Department Care Team (Late st Contact Info) Description 11/23/2024 Patient Msg Orth and Rheum [place] [address] [place] [address] Provider, [facility]cf Appointment Social History Tobacco Use Types Packs/Day Years [...] 11:00 AM EDT Office Visit Rheumatology [address] [place] [address] Becka Treviño, DO [address], [address] [place] [address] 6m SLE f/u per [place] documented as of this encounter Visit Diagnoses Not on filedocumented in this encounter
--- OUTSIDE RECORDS SUMMARY | 2025-01-17 15:24 | XMS_ITS | Clinical Summary ---
Author Organization [facility] Address [address] [place] [address] Care Team Providers Care Personnel Worker Name Role Phone Unavailable Primary Care Provider Unavailabl e Medications hydrOXYchloroQ UINE (PLAQUENIL) 200 mg tablet TAKE 1 AND 1/2 TABLETS BY MOUTH ONCE DAILY 136 tablet 5 Active hydrOXYchloroQ UINE (PLAQUENIL) 200 mg tablet TAKE 1 AND 1/2 TABLETS BY MOUTH ONCE DAILY 45 tablet 5 12/25/19 25 Discontinued Encounters Date Type Department Care Team Description 12/27/2024 Telephone Rheumatology [address] [address] Becka Treviño DO Received Outside Medical Records 12/24/2024 Refill Rheumatology [address] [address] Becka Treviño DO Refill Request 12/10/2024 8:30 AM EDT [facility] Rheumatology [address] [address] Becka Treviño DO 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) 12/10/2024 Travel 12/09/2024 Telephone [facility] [address] [address] Becka Treviño DO Appointment 11/23/2024 Patient Msg Orth and Rheum [place] [address] [place] [address] Provider, Ccf Appointment 11/22/2024 Patient Msg Rheumatology [address] [address] Becka Treviño DO Appointment Request 10/21/2024 Refill Rheumatology [address] [address] Becka Trveiño DO Refill Request from Last 3 Months Social History Tobacco Use Types Packs/Day Years Used Date Smoking Tobacco: Never Smokeless Tobacco: Never PHQ-2 Answer Date Recorded PHQ-2 score 0 12/10/2024 Area Deprivation Index Answer Date Jan rded National Score (1-100), lower number is lower ri sk 63 12/10/2024 State Score (1-10), lower number is lower risk 4 12/10/2024 Data from: https://www.neighborhoodatlas.medicine.[facility].edu/. Last address used for calculation [address] [place] [address] [address] 12/10/2024 Comments Unknown Sex and Gender Information Value Date Recorded Sex Assigned at Not on file Legal Sex Female 3:09 PM EDT Gender Identity Not on file Sexual Orientation Not on file Last Filed Vital Signs Vital Sign Reading Time Taken Comments Blood Pressure 123/50 2023 12:42 PM EDT Pulse 89 2023 12:42 PM EDT Temperature 36.6 C (97.8 F) 2023 12:42 PM EDT Respiratory Rate - - Oxygen Saturation - - Inhaled Oxygen Concentration - - Weight 65.6 kg (144 lb 10 oz) 2023 12:42 P M EDT Height - - Body Mass Index - - Plan of Treatment Upcoming Encounters Date Type Department Care Team (Late st Contact Info) Description 04/13/2025 11:00 AM EDT Office Visit Rheumatology [address] [address] Becka Treviño DO [address], [address] [place], [place] [phone] 6m SLE f/u per [place] Health Maintenance Due Date Last Done Comments HPV Vaccine: Recommended Bas ed On Risk 1987 Cervical Cancer Screening 12/07/1998 Anxiety Screening 12/07/2005 Depression Screening 12/07/2005 HIV Screening 12/07/2005 Covid-19 Vaccine (2023-2 5 season) 2024 04/25/2021, 04/02/2021 Influenza Vaccine (Season Ended) 2025 05/15/2023, 05/21/2022, 05/12/2020, Additional history exists DTaP,Tdap,Td Vaccine (2 - Td or Tdap) 07/25/2030 07/25/2020 Hepatitis C Screening Completed 2023, 024 Procedures Procedure Name Priority Date/Time Associated Diagnosis Comments HEPATITIS C ANTIBODY IA WITH CONFIRMATION Routine 2023 2:12 PM EDT 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) from Last 3 Months or Most Recently Relevant to Health Maintenance Results * HEPATITIS C ANTIBODY IA WITH CONFIRMATION (2023 2:12 PM EDT) Hep C Antibody IA Negative Negative 2023 5:39 PM EDT [facility] Comment:The result suggests no evidence of active infection with Hepatitis C virus. Should recent infection be suspected, repeat testing may be considered 4-6 weeks after this draw. Blood BLOOD SPECIMEN / Unknown Venipuncture / Unknown 2023 2:12 PM EDT 2023 2:14 PM EDT us Becka Treviño DO LABORATORY Final Resu lt [facility] [address] [facility] [address] [place] [address], [place] from Last 3 Months or Most Recently Relevant to Health Maintenance Insurance [address] [place], [place] [id number] [place] [address] CARD PPO OOS Member Subscriber Plan / Payer (Ef fective 2020-Present) Name:SUSAN KLINE Relation to Subscriber:Spouse Name:BUSHRA KLINE Date of :1978 (Home) Address: [address] [place] [address] Payer ID:[id number] (NAIC) Type:PPO Address: [facility] [id number] [place] [id number]
--- OUTSIDE RECORDS SUMMARY | 2025-01-17 15:24 | XMS_ITS | Encounter Summary ---
Author Organization [facility] Address [address] [place] [address] Care Team Providers Care Chlorine Cell Tender Name Role Phone Unavailable Primary Care Provider Unavailabl e Source Comments In the event this information is protected by the Federal Confidentiality of Alcohol and Drug AbusePatient Records regulations: The Federal rules restrict any use of the information to criminally investigate or prosecute any alcohol or drug abuse patient.[facility] Reason for Visit * Reason Comments Appointment Encounter Details Date Type Department Care Team (Late st Contact Info) Description 12/09/2024 Telephone [facility] [address] [address] [place] [address] [place] [address], [address] [place] [address] Appointment Social History Tobacco Use Types Packs/Day Years Used Date Smoking Tobacco: Never Smokeless Tobacco: Never PHQ-2 Answer Date Recorded PHQ-2 score 0 12/10/2024 Area Deprivation Index Answer Date Jan rded National Score (1-100), lower number is lower ri sk 63 12/10/2024 State Score (1-10), lower number is lower risk 4 12/10/2024 Data from: https://www.neighborhoodatlas.medicine.[facility].edu/. Last address used for calculation [address] [place] [address] 185 12/10/2024 Comments Unknown Sex and Gender Information Value Date Recorded Sex Assigned at Not on file Legal Sex Female 3:09 PM EDT Gender Identity Not on file Sexual Orientation Not on file documented as of this encounter Plan of Treatment Upcoming Encounters Date Type Department Care Team (Late st Contact Info) Description 04/13/2025 11:00 AM EDT Office Visit Rheumatology [address] [address] Becka Treviño DO [address], [address] [place] [address] 6m SLE f/u per [place] documented as of this encounter Visit Diagnoses Not on filedocumented in this encounter
--- OUTSIDE RECORDS SUMMARY | 2025-01-17 15:24 | XMS_ITS | Encounter Summary ---
Author Organization [facility] Address [facility]-[id number] [address] [place] [address] Care Team Providers Care Special Loan Officer Name Role Phone Aba Garner DO Primary Care Provider [phone] Encounter Details Date Type Department Care Team (Late st Contact Info) Description 01/20/2023 [facility]phone [facility] Medicine [address] [place] [address] Aba Garner DO [address] [place] [address] Social History Tobacco Use Types Packs/Day Years [...] encounter Miscellaneous Notes * Telephone Encounter - Angeles Monge - 01/20/2023 12:51 PM EDT Susan called today upset about a recent Bill she received for a Influenza A/B COVID test that was performed in the office on 12-02-22. Pt states that she came in the office for possible Strep and wastold that she was being swabbed for Strep which would have cost $30 after this is run through her insurance. She learned today that a different test was performed and is costing her $100 after insurance. She said if she was told up front that an Influenza A/B COVID test was being done she would have denied this test. Please advise if wrong test was performed, documented and billed and needs rebilled to ins. Thanks * Telephone Encounter - Aba Garner DO - 01/20/2023 12:51 PM EDT It appears I ordered the wrong test. Can we just cancel the charge? * Telephone Encounter - Angeles Monge - 01/20/2023 12:51 PM EDT I spoke with Diane Yin and she voided the charge and sent a note to Billing noting the reason documented in this encounter Plan of Treatment Not on file documented as of this encounter Visit Diagnoses Not on filedocumented in this encounter Additional Health Concerns Assessment Noted Time PHQ-9 Depression Total Score: 0 12/03/19 1:44 PM EDT documented as of this encounter Care Teams Special Loan Officer Relationship Specialty Start Date End Date Aba Garner DO [address] [place] [address] PCP - General Internal Medicine 08/20/17 documented as of this encounter
--- OUTSIDE RECORDS SUMMARY | 2025-01-17 15:24 | XMS_ITS | Clinical Summary ---
Author Organization [facility] Address [address] [facility] [place] [address] Care Team Providers Care Circus Trainer Name Role Phone Aba Garner MD Primary Care Provider [phone] Allergies Active Allergy Reactions Criticality Noted Date Comments Duloxetine Hcl Unknown 12/01/2024 Medications hydroxychloroqui ne (Plaquenil) 200 MG tablet Take 1 tablet by mouth in the morning. Active citalopram (CeleXA) 20 MG tabletIndication s:Mood changes TAKE 1 TABLET BY MOUTH EVERY DAY IN THE MORNING 90 tablet 3 4 Active citalopram (CeleXA) 10 MG tabletIndication s:Mood changes TAKE 1 TABLET BY MOUTH EVERY DAY IN THE MORNING 90 tablet 3 4 Active acyclovir (Zovirax) 400 MG tabletIndication s:H/O cold sores TAKE 1 TABLET BY MOUTH TWICE A DAY 180 tablet 5 Active SUMAtriptan (Imitrex) 100 MG tabletIndication s:Migraine without status migrainosus, not intractable, unspecified migraine type (CMS/HCC) Take 1 tablet (100 mg) by mouth 1 (one) time if needed for migraine (december repeat x1) 27 tablet 2 5 Active levothyroxine (Synthroid, Levoxyl) 50 MCG tabletIndication s:Hypothyroidism , unspecified TAKE 1 TABLET BY MOUTH EVERY DAY IN THE MORNING ON EMPTY STOMACH 90 tablet 1 5 Active Active Problems No known active problems Encounters Date Type Department Care Team Description 01/13/2025 Telephone [facility] [address] [place] [address] Rita Fermin PA 01/12/2025 Abstract [facility] [address] [place] [address] Rita Fermin PA 01/12/20[address] Telephone [facility] [address] [place] [address] Rita Fermin PA 01/10/2025 10:00 AM EDT Ancillary Procedure [facility] [address] [place] [address] Menorrhagia with regular cycle 01/10/2025 Travel 12/13/2024 2:30 PM EDT Office Visit [facility] [address] [place] [address] Rita Fermin, PA Menorrhagia with regular cycle; Pelvic cramping; Nausea 12/13/2024 Telephone [facility] [address] [place] [address] Saurabh López DO 12/01/2024 1:40 PM EDT Office Visit [facility] [address] [place] [address] Brenna Merchant, GEOSPATIAL APPLICATIONS DEVELOPER-PROBATION AND PAROLE OFFICER Capillary angioma; Seborrheic keratosis; Other rosacea; Common wart; Pain 12/01/2024 Bamboo flowsheet [facility] [address] [place] [address] Brenna Merchant, GEOSPATIAL APPLICATIONS DEVELOPER-PROBATION AND PAROLE OFFICER 12/01/2024 Travel 11/30/2024 Travel 10/29/2024 Refill [facility] [address] [place] [address] Jammie Tee MD Hypothyroidism, unspecified (CMS/HCC) from Last 3 Months Family History Medical History Relation Name Comments Hypertension Maternal Grandfather Diabetes Maternal Grandmother Hypertension Paternal Grandmother No Known Problems Sister Relation Name Status Comments Father Alive Maternal Grandfather Maternal Grandmother Mother Alive Paternal Grandmother Sister Son 1 Alive Son 2 Alive Social History Tobacco Use Types Packs/Day [...] Orientation Asexual 06/02/2023 9: 24 AM EDT Last Filed Vital Signs Vital Sign Reading Time Taken Comments Blood Pressure 110/68 12/13/2024 2:51 PM EDT Pulse 72 07/07/2023 3:09 PM EST Temperature - - Respiratory Rate 18 07/07/2023 3:09 PM EST Oxygen Saturation 99% 07/07/2023 3:09 PM EST Inhaled Oxygen Concentration - - Weight 65.3 kg (144 lb) 12/13/2024 2:51 PM EDT Height 165.1 cm (5' 5 ) 10/11/2024 12:06 PM EST Body Mass Index 23.96 10/11/2024 12:06 PM EST Plan of Treatment Upcoming Encounters Date Type Department Care Team (Late st Contact Info) Description 01/20/2025 10:30 AM EDT Procedure Visit [facility] [address] [facility] [address] [address] [place] [phone] Saurabh López, [address] [place] [address] 06/27/2025 9:20 AM EST Office Visit [facility] [address] [facility] [place] [place] [address] Saurabh López, DO [facility] [place], [place] [address] 12/01/2025 1:10 PM EDT Office Visit [facility] [address] [place] [address] Felter, Brenna A, GEOSPATIAL APPLICATIONS DEVELOPER-PROBATION AND PAROLE OFFICER [address] [place] [address] Health Maintenance Due Date Last Done Comments Influenza Vaccine (Season Ended) 2025 05/15/2023, 05/21/2022, 05/12/2020, Additional history exists Cervical Cancer Screening 06/16/2029 HPV/Cotest 06/16/2029 Pap Smear 06/16/2029 06/16/2024, 06/09/2023 Procedures Procedure Name Priority Date/Time Associated Diagnosis Comments US PELVIC COMPLETE W/ TV Routine 01/10/2025 10:30 AM EDT Menorrhagia with regular cycle POCT , URINE Routine 12/13/2024 2:56 PM EDT Nausea Pelvic cramping POCT URINALYSIS DIPSTICK Routine 12/13/2024 2:56 PM EDT Nausea Pelvic cramping PAP SMEAR Routine 06/16/2024 12:00 AM EST from Last 3 Months or Most Recently Relevant to Health Maintenance Results * US Pelvis w/ TV (01/10/2025 [...] II, MD, PHD at 11-Jan-2025 11:32:05 PM [facility] Procedure Note Darryl Kinney MD - [...] signed by DARRYL KINNEY II, MD, PHD [id number] 11:32:05 PM [facility] Rita BAHENA IMG US PROCEDURES Final Result * POCT , urine manually resulted (12/13/2024 2:56 PM EDT) Preg Test, Ur Negative Negative Urine 12/13/2024 2:56 PM EDT Rita BAHENA POINT OF CARE TEST ENTER/EDIT OR DERABLES Final Result * POCT urinalysis dipstick manually resulted (12/13/2024 2:56 PM EDT) Color, UA Yellow Clarity, UA Clear Glucose, UA Negative Negative - 2000(110) ++++ mg/dL Bilirubin, UA Negative Negative - 4(70) +++ mg/dL Ketones, UA Positive Negative - 160(16) ++++ mg/dL Comment:trace Spec Grav, UA 1.030 1 - 1.03 Blood, UA Negative Negative - 50 Gino/mcL pH, UA 5.5 5 - 9 Protein, UA Negative Negative - 2000(20) ++++ mg/dL Urobilinogen, UA 0.2 0.2 - 12 mg/dL Leukocytes, UA Negative Negative - 500+++ Lisa/mcL Nitrite, UA Negative Negative - Positive Urine 12/13/2024 2:56 PM EDT Rita BAHENA POINT OF CARE TEST ENTER/EDIT OR DERABLES Final Result * Pap Smear (06/16/2024 12:00 AM EST) Swab Cervical swab / Unknown Saurabh López DO LAB CYTOLOGY ORDERABLES Final Re sult EXTERNAL LAB from Last 3 Months or Most Recently Relevant to Health Maintenance Insurance BCBS Care Teams Circus Trainer Relationship Specialty Start Date End Date Aba Garner MD PCP - General Internal Medicine 06/09/23
--- OUTSIDE RECORDS SUMMARY | 2025-01-17 15:24 | XMS_ITS | Encounter Summary ---
Author Organization [facility] Address [address] [facility] [place] [address] Care Team Providers Care Light Out Examiner Name Role Phone Aba Garner MD Primary Care Provider [phone] Encounter Details Date Type Department Care Team (Late st Contact Info) Description 01/12/2025 Telephone [facility] [address] [facility] [place] [address] Rita Fermin PA [address] [facility] [address] [place], [facility] Social History Tobacco Use Types Packs/Day [...] Miscellaneous Notes * Telephone Encounter - Oksana Bass LPN - 01/12/2025 12:13 PM EDT Patient was called and made aware with the ultrasound results Provider would like to order labs to have obtained prior to next appointment. Patient was advised will come in for the Endo biopsy and will discuss the ablation. Patient had labs previously ordered and advised to get those and this set together. Patient was asking about the HCG level and that no chance of as tubes removed andshe was advised she can decline this but may have to have done prior to surgery. VPU and all labs sent to [facility]. documented in this encounter Plan of Treatment Upcoming Encounters Date Type Department Care Team (Late st Contact Info) Description 01/20/2025 10:30 AM EDT Procedure Visit [facility] OB [address] [place] [address] Saurabh López, DO [address] [place] [address] 06/27/2025 9:20 AM EST Office Visit [facility] OB [address] [facility] [address] Saurabh López, DO [address] [place] [address] 12/01/2025 1:10 PM EDT Office Visit [facility] [address] [place] [address] Brenna Merchant APRN-DIRT SHOVELER [address] [place], [place] [id number] Scheduled Orders Name Type Priority Associated Diagnoses Orde r Schedule Lactate dehydrogenase, isoenzymes Lab Routine Complex ovarian cyst Expected: 01/12/2025 (Approximate), Expires: 01/12/2026 CEA Lab Routine Complex ovarian cyst Expected: 01/12/2025 (Approximate), Expires: 01/12/2026 HCG, tumor marker Lab Routine Complex ovarian cyst Expected: 01/12/2025 (Approximate), Expires: 01/12/2026 CA 125 Lab Routine Complex ovarian cyst Expected: 01/12/2025 (Approximate), Expires: 01/12/2026 AFP tumor marker Lab Routine Complex ovarian cyst Expected: 01/12/2025 (Approximate), Expires: 01/12/2026 documented as of this encounter Visit Diagnoses Diagnosis Complex ovarian cyst documented in this encounter Care Teams Light Out Examiner Relationship Specialty Start Date End Date Aba Garner MD PCP - General Internal Medicine 06/09/23 documented as of this encounter
[2025-01-17 15:50] LABS: Basophils Percent Auto 0.6 % (0.2-2.0); Eosinophils Absolute Auto 0.2 10^3/uL (0.0-0.7); Eosinophils Percent Auto 3.2 % (0.9-7.0); Hemoglobin 11.9 g/dL (12.0-16.0); Immature Granulocytes Abs Auto 0.01 10^3/uL (0.00-0.03); Immature Granulocytes Pct Auto 0.2 % (0.0-0.5); Lymphocytes Absolute Auto 1.6 10^3/uL (1.2-3.8); Lymphocytes Percent Auto 30.4 % (20.5-60.0); Mean Corpuscular Hemoglobin 31.5 pg (26.7-34.0); Mean Corpuscular Volume 92.6 fL (81.0-99.0); Mean Platelet Volume 10.6 fL (9.5-13.5); Monocytes Absolute Auto 0.5 10^3/uL (0.3-0.8); Monocytes Percent Auto 8.8 % (1.7-12.0); Neutrophils Absolute Auto 3.1 10^3/uL (1.4-6.5); Neutrophils Percent Auto 56.8 % (43.0-75.0); Platelet Count 268 10^3/uL (150-450); Red Blood Count 3.78 10^6/uL (4.20-5.40); Red Cell Distribution Width 12.5 % (11.0-15.0); White Blood Count 5.4 10^3/uL (4.0-11.0)
[2025-01-17 16:04] LABS: INR 1.02; Partial Thromboplastin Time 28.9 sec (22.3-36.2); Prothrombin Time 10.8 sec (9.0-11.6)
[2025-01-17 16:16] LABS: Lactate Dehydrogenase 182 U/L (81-234); Thyroid Stimulating Hormone 2.971 uIU/mL (0.358-3.740)
[2025-01-17 17:01] LABS: Estimated Average Glucose 100 mg/dL; Glycohemoglobin A1C 5.1 % (4.5-6.2)
[2025-01-17 17:03] LABS: HCG Quantitative <1 mIU/mL
[2025-01-17 17:09] LABS: Free T4 1.05 ng/dL (0.76-1.46)
[2025-01-19 04:10] LABS: HCG Tumor Marker <1 mIU/mL (.)
[2025-01-19 08:08] LABS: AFP, Serum, Tumor Marker 3.7 ng/mL (0.0-6.4); CEA 2.3 ng/mL (0.0-4.7); Cancer Antigen (CA) 125 23.6 U/mL (0.0-38.1)
== END 2025-01-17 15:21 | disposition home or self-care (01) ==
PROVIDERS: PCP Internal Medicine; Visit Provider Physician Assistant
DX: N92.0 Excessive and frequent menstruation with regular cycle (principal); N83.299 Other ovarian cyst, unspecified side
CPT/HCPCS: 36415; 82105; 82378; 83036; 83615; 84439; 84443; 84702; 85025; 85610; 85730; 86304

== ENCOUNTER 2025-01-20 15:27 | Outpatient (REF) | payer BC, SELFPAY ==
--- OUTSIDE RECORDS SUMMARY | 2025-01-20 10:30 | XMS_ITS | Encounter Summary ---
Author Organization [facility] Address [address] [place] [address] Care Team Providers Care Client Director Name Role Phone Aba Garner MD Primary Care Provider [phone] Reason for Visit * Reason Comments Pre-op Visit Encounter Details Date Type Department Care Team (Late st Contact Info) Description 01/20/2025 10:30 AM EDT Procedure Visit [facility] [address] [place] [address] Saurabh López, DO [address] [facility] [address] [place], [facility] Pre-op examination; Menorrhagia with irregular cycle; Pelvic pain; Abnormal uterine bleeding (AUB) Social History Tobacco Use Types Packs/Day Years [...] AM EDT documented as of this encounter Last Filed Vital Signs Vital Sign Reading Time Taken Comments Blood Pressure 112/72 01/20/2025 11:00 AM EDT Pulse - - Temperature - - Respiratory Rate - - Oxygen Saturation - - Inhaled Oxygen Concentration - - Weight 61.2 kg (135 lb) 01/20/2025 11:00 AM EDT Height - - Body Mass Index 22.47 10/11/2024 12:06 PM EST documented in this encounter Progress Notes * Rita Busby MA - 01/20/2025 10:30 AM EDT Reason for Appointment: Patient ID: Susan Hogue is a 39 y.o. female who presents for Pre-op Visit Patient presents today for Pre Op/Endometrial Biopsy appointment. Patient is scheduled to undergo Endometrial Ablation with Tiffanie on 02/18/[address] López at [facility]. MEDICATIONS Current Outpatient Medications Medication Instructions acyclovir (ZOVIRAX) 400 mg, Oral, 2 times daily citalopram (CELEXA) 20 mg, Oral, Every morning citalopram (CELEXA) 10 mg, Oral, Every morning hydroxychloroquine (Plaquenil) 200 MG tablet 1 tablet, Daily levothyroxine (Synthroid, Levoxyl) 50 MCG tablet TAKE 1 TABLET BY MOUTH EVERY DAY IN THE MORNING ONEMPTY STOMACH SUMAtriptan (IMITREX) 100 mg, Oral, Once as needed ALLERGIES Allergies Allergen Reactions Duloxetine Hcl Unknown PROBLEMS Active Ambulatory Problems Diagnosis Date Noted No Active Ambulatory Problems Resolved Ambulatory Problems Diagnosis Date Noted No Resolved Ambulatory Problems Past Medical History: Diagnosis Date Abnormal weight gain BMI 23.0-23.9, adult Genital herpes in women Serafin's disease Hypothyroidism (acquired) Lupus Pre-op evaluation Request for sterilization Skin infection Vitamin D deficiency HISTORY PAST MEDICAL HISTORY SOCIAL HISTORY Past Medical History: Diagnosis Date Abnormal weight gain BMI 23.0-23.9, adult Genital herpes in women Serafin's disease Hypothyroidism (acquired) Lupus Pre-op evaluation Request for sterilization Skin infection hospitalizatin history Vitamin D deficiency Social History Tobacco Use Smoking status: Never Smokeless tobacco: Not on file Substance Use Topics Alcohol use: Yes Comment: Moderate alcohol use Drug use: Never FAMILY HISTORY Family History Problem Relation Name Age of Onset No Known Problems Sister Diabetes Maternal Grandmother Hypertension Maternal Grandfather Hypertension Paternal Grandmother SURGICAL HISTORY Past Surgical History: Procedure Laterality Date SALPINGECTOMY REVIEW OF SYSTEMS Review of Systems: Review of Systems Gastrointestinal: Positive for abdominal pain. Genitourinary: Positive for pelvic pain, vaginal bleeding and vaginal pain. All other systems reviewed and are negative. OBJECTIVE Objective: Physical Exam Constitutional: Appearance: Normal appearance. She is well-developed. Genitourinary: Vulva normal. Right Adnexa: not tender and no mass present. Left Adnexa: not tender and no mass present. No cervical discharge. Breasts: Breasts are soft. Right: Normal. Left: Normal. HENT: Head: Normocephalic. Nose: Nose normal. Mouth/Throat: Mouth: Mucous membranes are moist. Cardiovascular: Rate and Rhythm: Normal rate and regular rhythm. Pulmonary: Effort: Pulmonary effort is normal. Breath sounds: Normal breath sounds. Abdominal: General: Bowel sounds are normal. There is no distension. Palpations: Abdomen is soft. Tenderness: There is no abdominal tenderness. There is no guarding or rebound. Musculoskeletal: General: No swelling. Normal range of motion. Cervical back: Normal range of motion. Right lower leg: No edema. Left lower leg: No edema. Neurological: General: No focal deficit present. Mental Status: She is alert and oriented to person, place, and time. Skin: General: Skin is warm and dry. Psychiatric: Mood and Affect: Mood normal. Behavior: Behavior normal. Vitals and nursing note reviewed. Exam conducted with a cable puller present. Vitals: Estimated body mass index is 23.96 kg/m?? as calculated from the following: Height as of 10/11/24: 5' 5 . Weight as of 12/13/24: 144 lb. BP: No LMP recorded. ASSESSMENT & PLAN ICD-10-CM 1. Pre-op examination Z01.818 2. Menorrhagia with irregular cycle N92.1 3. Pelvic pain R10.2 4. Abnormal uterine bleeding (AUB) N93.9 EMBX: Patient was placed in dorsal lithotomy position with feet in stirrups. A sterile speculum was placed into the vagina and the cervix was visualized. The cervix was grasped with a single tooth tenaculum. The endometrial pipette was placed through the cervix into the uterus, endometrial curettage was performed and sampling was obtained, endometrial curettings were placed in formalin, and single tooth tenaculum was removed. Excellent hemostasis was assured. All instruments were removed from vagina. Pre Op: Patient is doing well but has complaints of bleeding and pelvic pain. Patient has tried hormone therapy in the past but all attempts to subside patients issues have failed. I have discussed conservative management vs. surgical management with the patient in detail and patient desires surgical management at this time. Patient will undergo Endometrial Ablation with Tiffanie on 02/18/2025. Surgical consents were signed, mmc was reviewed, and patient is to proceed to [facility] OR. Patient voiced that her last 2 cycles have been very painful. Patient voiced that they were so painful that she almost passed out. Patient aware that if she has severe cramps again that effect her ADL's she is to reach out to office and nursing can see if pain medication could be prescribed to helpwith symptoms until procedure. Follow Up: Patient is to follow up between 1-2 weeks post op to assess proper healing and recovery from procedure. Documented by Sunshine Fernandez LPN on behalf of: Saurabh López DO documented in this encounter Plan of Treatment Upcoming Encounters Date Type Department Care Team (Late st Contact Info) Description 02/28/2025 8:40 AM EDT Office Visit [facility] OB [address] [facility] [place] [address] Saurabh López DO [address] [place] [address] 06/27/2025 9:20 AM EST Office Visit [facility] OB [address] [facility] [place] [address] Saurabh López [address] [place] [address] 12/01/2025 1:10 PM EDT Office Visit [facility] [address] [place] [address] Brenna Merchant APRN-JENNIFER [address] [place] [address] Scheduled Orders Name Type Priority Associated Diagnoses Orde r Schedule Endometrial biopsy Procedures Routine Menorrhagia with irregular cycle Pelvic pain Abnormal uterine bleeding (AUB) Ordered: 01/20/2025 documented as of this encounter Procedures Procedure Name Priority Date/Time Associated Diagnosis Comments POCT , URINE Routine 01/20/2025 11:02 AM EDT Menorrhagia with irregular cycle Pelvic pain Abnormal uterine bleeding (AUB) documented in this encounter Results * POCT , urine manually resulted (01/20/2025 11:02 AM EDT) Preg Test, Ur Negative Negative Urine 01/20/2025 11:0 2 AM EDT Saurabh Maribel DO POINT OF CARE TEST ENTER/EDIT OR DERABLES Final Result documented in this encounter Visit Diagnoses Diagnosis Pre-op examination Menorrhagia with irregular cycle Pelvic pain Abnormal uterine bleeding (AUB) documented in this encounter Care Teams Client Director Relationship Specialty Start Date End Date Aba Garner MD [address] [place] [address] PCP - General Internal Medicine 06/09/23 documented as of this encounter
--- OUTSIDE RECORDS SUMMARY | 2025-01-27 15:30 | XMS_ITS | Clinical Summary ---
Author Organization [facility] Address [address] [place] [address] Care Team Providers Care Atmospheric Scientist Name Role Phone Unavailable Primary Care Provider Unavailabl e Medications hydrOXYchloroQU INE (PLAQUENIL) 200 mg tablet TAKE 1 AND 1/2 TABLETS BY MOUTH ONCE DAILY 136 tablet 12/24/2024 Active Encounters Date Type Department Care Team Description 12/27/2024 Telephone Rheumatology [address] [address] Becka Treviño DO Received Outside Medical Records 12/24/2024 Refill Rheumatology [address] [address] Becka Treviño DO Refill Request 12/10/2024 8:30 AM EDT [facility] Rheumatology [address] [address] Becka Treviño DO 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) 12/10/2024 Travel 12/09/2024 Telephone [facility] [address] [address] Becka Treviño DO Appointment 11/23/2024 Patient Msg [facility] [place] [address] [place] [address] Provider, [facility] Appointment 11/22/2024 Patient Msg Rheumatology [address] [address] Becka Treviño DO Appointment Request from Last 3 Months Social History Tobacco Use Types Packs/Day Years Used Date Smoking Tobacco: Never Smokeless Tobacco: Never PHQ-2 Answer Date Recorded PHQ-2 score 0 12/10/2024 Area Deprivation Index Answer Date Jan rded National Score (1-100), lower number is lower ri sk 63 12/10/2024 State Score (1-10), lower number is lower risk 4 12/10/2024 Data from: https://www.neighborhoodatlas.medicine.[facility]/. Last address used for calculation [address] 12/10/2024 Comments Unknown Sex and [...] 11:00 AM EDT Office Visit Rheumatology [address] [place] [id number] Becka Treviño DO [address] [facility] [place] [address] 6m SLE f/u per [facility] Maintenance [...] IA Negative Negative 2023 5:39 PM EDT [facility] Comment:The result suggests no evidence of active infection with Hepatitis C virus. Should recent infection be suspected, repeat testing may be considered 4-6 weeks after this draw. Blood BLOOD SPECIMEN / Unknown Venipuncture / Unknown 2023 2:12 PM EDT 2023 2:14 PM EDT us Becka Treviño DO LABORATORY Final Resu lt [facility] [address] [facility] [address], [place] from Last 3 Months or Most Recently Relevant to Health Maintenance Insurance BLUE CARD PPO OOS
--- OUTSIDE RECORDS SUMMARY | 2025-01-27 15:30 | XMS_ITS | Encounter Summary ---
Author Organization [facility] Address [address] [facility] [place] [address] Care Team Providers Care Skoog Patching Machine Operator Name Role Phone Aba Garner MD Primary Care Provider [phone] Encounter Details Date Type Department Care Team (Late st Contact Info) Description 06/25/2024 Orders Only [facility] [address] [facility] [place] [address] Rita Busby [place] [address] [place] [address] Social History Tobacco Use Types Packs/Day Years [...] 02/28/2025 8:40 AM EDT Office Visit [facility] [address] [facility] [place] [address] Saurabh López DO [address] [place] [place], [place] [id number] 06/27/2025 9:20 AM EST Office Visit [facility] OB [address] [place] [address] Saurabh López [address] [place] [address] 12/01/2025 1:10 PM EDT Office Visit [facility] [address] [place] [address] Brenna Merchant APRN-DIRECTOR SUPPLY CHAIN [address] [place] [address] documented as of this encounter Procedures Procedure Name Priority Date/Time Associated Diagnosis Comments PAP SMEAR Routine 06/16/2024 12:00 AM EST documented in this encounter Results * Pap Smear (06/16/2024 12:00 AM EST) Swab Cervical swab / Unknown Saurabh López DO LAB CYTOLOGY ORDERABLES Final Re sult EXTERNAL LAB documented in this encounter Visit Diagnoses Not on filedocumented in this encounter Care Teams Skoog Patching Machine Operator Relationship Specialty Start Date End Date Aba Garner MD [address] [place] [address] PCP - General Internal Medicine 06/09/23 documented as of this encounter
--- OUTSIDE RECORDS SUMMARY | 2025-01-27 15:30 | XMS_ITS | Encounter Summary ---
Author Organization [facility] Address [address] [place] [address] Care Team Providers Care Severity Of Illness Coordinator Name Role Phone Unavailable Primary Care Provider Unavailabl e Source Comments In the event this information is protected by the Federal Confidentiality of Alcohol and Drug AbusePatient Records regulations: The Federal rules restrict any use of the information to criminally investigate or prosecute any alcohol or drug abuse patient.[facility] Encounter Details Date Type Department Care Team (Late st Contact Info) Description 11/22/2024 Patient Msg Rheumatology [address] [address] [place] [address] [place] [address], [address] [place], [place] [phone] Appointment Request Social History Tobacco Use Types [...] 11:00 AM EDT Office Visit Rheumatology [address] [address] Becka Treviño, [address], [address] [place] [id number] 6m SLE f/u per [facility] documented as of this encounter Visit Diagnoses Not on filedocumented in this encounter
--- OUTSIDE RECORDS SUMMARY | 2025-01-27 15:30 | XMS_ITS | Encounter Summary ---
Author Organization [facility] Address [facility] [address] [place] [address] Care Team Providers Care Brazer Repair And Salvage Name Role Phone Aba Garner Primary Care Provider [phone] Encounter Details Date Type Department Care Team (Late st Contact Info) Description 06/06/2022 [facility] [address] [facility] [place] [address] Ref Prov, [place] [address] Social History Tobacco Use Types Packs/Day Years [...] on filedocumented in this encounter Care Teams Brazer Repair And Salvage Relationship Specialty Start Date End Date Aba Garner DO [address] [place] [address] PCP - General Internal Medicine 08/20/17 documented as of this encounter
--- OUTSIDE RECORDS SUMMARY | 2025-01-27 15:30 | XMS_ITS | Patient Health Record ---
Author Organization [facility] in [place] Address [address] [place] [address] Care Team Providers Care Gas Appliance Servicer Helper Name Role Phone Aba Garner DO Primary Care Provider Unavailabl e Allergies Allergen (clinical drug ingredient) Drug/Non Drug Allergy documented on EMR Reaction Allergy Type Onset Date Status duloxetine Duloxetine HCl Unknown Drug Allergy A ctive Reason For Referral No Information Medications Medication SIG (Take, Route, Frequency, Duration) Notes Start Date End Date Status NIFEdipine ER 30 MG 1 tablet on an empty stomach Orally Once a day for 30 Not-Taking Acyclovir 400 MG 1 tablet Orally prn prn Active Magic Mouthwash 80 ml viscous lidocaine 2%, 80 ml Mylanta, 80 ml diphenhydramine 12.5 mg per 5 ml elixir, 80 ml nystatin 100,000U suspension, 80 ml prednisolone 15mg per 5ml solution, 80 ml distilled water as directed Swish, gargle, and spit 5-10 mL Q6h. May be swallowed if esophageal involvement. for 10 days 02/18/2017 Not-Taking Mycophenolate Mofetil 500 MG 1 Orally Daily for 30 day(s) 01/18/2019 Not-Taking LamISIL 250 MG 1 tablet Orally Once a day for 10 day(s) called patient and instructed not to take- risk of SLE exacerbation. (DW 05/26/19 4248) 10/22/2018 Not-Taking Loratadine 10 MG 1 tablet Orally Once a day Not-Taking Folic Acid 1 MG 1 tablet Orally Once a day for 90 days 12/30/2016 Not-Taking Jolessa 0.15-0.03 MG 1 tablet Orally Once a day Not-Taking Celecoxib 200 mg 1 capsule with food Orally Once a day for 90 Not-Taking Clindamycin HCl 300 MG one Orally TID for 10 day(s) 07/27/2020 Not-Taking Benlysta 200 MG/ML 1 ml Subcutaneous once a week for 30 day(s) 06/03/2018 Not-Taking Hydroxychloroquine Sulfate 200 MG TAKE 1 TABLET BY MOUTH EVERY DAY FOR 90 DAYS for 90 Active azaTHIOprine 50 MG 1 tablet Orally BID for 90 days Active Ambien 5 MG 1 tablet at bedtime Orally Once a day for 14 days 05/19/2017 Not-Taking Bactrim DS 800-160 MG 1 tablet Orally BID for 10 day(s) 06/02/2017 Not-Taking SUMAtriptan Succinate 25 MG 1 tablet at least 2 hours between doses as needed Orally Twice a day for 30 days dx: G43.919 06/28/2021 Active ZyrTEC Allergy 10 MG 1 tablet Orally Once a day for 30 day(s) Active Naproxen 500 MG TAKE 1 TABLET BY MOUTH EVERY 12 HOURS WITH FOOD OR MILK NEEDED FOR 30 DAYS for 30 Active predniSONE 5 MG as directed Orally 4 tabs daily x 3 days, 3 tabs daily x 3 days , 2 tabs daily x 3 days , 1 tab daily x 3 days for 12 days 03/25/2022 Not-Taking Levothyroxine Sodium 50 MCG 1 tablet Orally Once a day Active Cyclobenzaprine HCl 10 MG 1 tablet as needed Orally BID for 30 days prn 01/28/2019 Active predniSONE 5 MG 0.5 Orally Once a day Not-Taking predniSONE 5 MG 30 mg x 3 days, 25 mg x 3 days, 20 mg x 3 days, 15 mg x 3 days, 10 mg x 3 days 5 mg x 3 days Orally Once a day for 18 days 06/28/2021 Not-Taking Pennsaid 2 % 2 applications to affected area Transdermal Twice a day * Lot # [id number] Expiration Date 01/26 Rosa Gallagher RMA 12/30/2016 02:39:57 PM EDT > 12/30/2016 Not-Taking predniSONE 10 MG 40 mg x 3 days, 30 mg x 3 days, 20 mg x 3 days, 10 mg x 3 days Orally Once a day for 16 days 05/19/2017 Not-Taking Ibuprofen 800 MG 1 tablet with food or milk as needed Orally every 8 hrs for 7 Days hold all other nsaids while on 08/28/2022 Active Social History Tobacco Use: Social History Observation Description Date Details (start date - stop date) Never Smoker NA - NA Tobacco Use/Smoking Question Answer Notes Patient is a nonsmoker Living Will Question Answer Notes Living Will No, patient does not have a living will and no information was provided Problems Problem Type SNOMED Code ICD Code Onset Dates Problem Status W/U Status Risk Notes Problem 907132744 Rheumatoid nodule, unspecified site (M06.30) Active confirmed Problem Systemic lupus erythematosus (72177106) Systemic lupus erythematosus, unspecified (M32.9) Active confirmed Problem Chronic fatigue syndrome (42074918) Chronic fatigue, unspecified (R53.82) Active confirmed Problem Chronic fatigue syndrome (27856844) Chronic fatigue (R53.82) Active confirmed Problem Autoimmune disease (65875319) Autoimmune disease (M35.9) Active confirmed Problem History of methicillin resistant Staphylococcus aureus infection (546328172) History of MRSA infection (Z86.14) Active confirmed Problem Sjogrens syndrome (70363579) Sicca syndrome (M35.00) Active confirmed Problem 360880128 Intractable migraine without status migrainosus, unspecified migraine type (G43.919) Active confirmed Problem Collagen disease (58898821) Diffuse connective tissue disease (M35.9) Active confirmed Problem 85203935 Hypothyroidism, unspecified type (E03.9) Active confirmed Problem 565376434 Raynaud's disease without gangrene (I73.00) Active confirmed Problem Localized, primary osteoarthritis of the pelvic region and thigh (407633745) Arthritis of both hips (M16.0) Active confirmed Problem Neuropathy of upper limb (491825342) 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) Active confirmed Problem 921987006112261 Acute migraine (G43.909) Active confirmed Plan Of Treatment Pending Test Test Name Order Date VERNELL SUBTYPE (8) (dsDNA, SSA, SSB, MILIAN, PRODUCT APPLICATIONS ENGINEER, SCL70,JO1,CENTOMERE) 03/25/2022 MRI Brain w/wo contrast * 08/20/2017 Future Test Test Name Order Date MTX PANEL (CBC, ALB,ALT, AST, ALK and CR EA) 10/07/2022 SED RATE and CRP 10/07/2022 MTX PANEL (CBC, ALB,ALT, AST, ALK and CR EA) 12/05/2022 SED RATE and CRP 12/05/2022 MTX PANEL (CBC, ALB,ALT, AST, ALK and CR EA) 02/04/2023 SED RATE and CRP 02/04/2023 MTX PANEL (CBC, ALB,ALT, AST, ALK and CR EA) 04/06/2023 SED RATE and CRP 04/06/2023 Insurance Providers Payer Name Payer Address Payer Phone Subscriber Number Group Number Insured Name Patient Relationship to Insured Coverage Start Date Coverage End Date BCBS OUT OF STATE [address] [place] [address] [phone] [id number] Mukul Hogue Spouse - patient is the spouse of the insured 2020 Medications Administered Medication Instructions Date of Administration Dosage Notes Kenalog, 40 mg/mL 10/09/2016 40 mg Medical (General) History Medical History History ICD Code Hypothyroidism 244.9 Genital herpes, unspecified 054.10 Systemic lupus erythematosus, unspecifie d M32.9 Surgical History Surgery Date(Month/Year) salpingectomy 05/2022 Hospitalization History Reason Date(Month/Year) childbirth. 2015 MRSA 08/2017
--- OUTSIDE RECORDS SUMMARY | 2025-01-27 15:30 | XMS_ITS | Encounter Summary ---
Author Organization [facility] [employer] Sys tem Address [id number] [address] [place] [address] Care Team Providers Care Fleece Tier Name Role Phone Aba Garner DO Primary Care Provider [phone] Reason for Visit * Reason Comments Med Refill Encounter Details Date Type Department Care Team (Late st Contact Info) Description 10/17/2023 Refill [facility] - Family Medicine [address] [place] [address] Aba Garner DO [address] [place] [address] Social History Tobacco Use Types Packs/Day Years [...] that this should of went to her Medical Aide. She is going to call [facility] and let them know this documented in this encounter Plan of Treatment Not on file documented as of this encounter Visit Diagnoses Not on filedocumented in this encounter Additional Health Concerns Assessment Noted Time PHQ-9 Depression Total Score: 0 12/03/19 23 1:44 PM EDT documented as of this encounter Care Teams Fleece Tier Relationship Specialty Start Date End Date Aba Garner DO [address] [place] [address] PCP - General Internal Medicine 08/20/17 documented as of this encounter
--- OUTSIDE RECORDS SUMMARY | 2025-01-27 15:30 | XMS_ITS | Encounter Summary ---
Author Organization [facility] Address [address] [facility] [place] [address] Care Team Providers Care Wet Pan Mixer Name Role Phone Aba Garner MD Primary Care Provider [phone] Encounter Details Date Type Department Care Team (Late st Contact Info) Description 01/17/2025 Clinisync Result Encounter [facility] External Department Unsolicited Rita Fermin PA [address] [place], [place] [id number] Social History Tobacco Use Types Packs/Day Years [...] EDT Office Visit [facility] [address] [place] [address] Saurabh López DO [address] [place] [address] 06/27/2025 9:20 AM EST Office Visit [facility] [address] [facility] [place] [address] Saurabh López, DO [address] [place] [address] 12/01/2025 1:10 PM EDT Office Visit [facility] [address] [place] [phone] Brenna Merchant, HEAD OF COMMISSION DEPARTMENT-REGIONAL COMMERCIAL SALES MANAGER [address] [place] [address] documented as of this encounter Procedures Procedure Name Priority Date/Time Associated Diagnosis Comments ELCH AFP TUMOR MARKER Routine 01/17/2025 3:42 PM EDT [facility] HCG,BETA-QUANT,TUMOR MARKER Routine 01/17/2025 3:42 PM EDT TBH PREG QUANT HCG Routine 01/17/2025 3: 42 PM EDT SRMCO[facility] PROTHROMBIN TIME INR W/O COUM Routine 01/17/2025 3:42 PM EDT MLR HEMOGLOBIN A1C Routine 01/17/2025 3: 42 PM EDT CCF APTT Routine 01/17/2025 3:42 PM EDT ALL THYROXINE (T4) FREE Routine 01/17/2025 3:42 PM EDT ALL THYROID STIM HORMONE Routine 01/17/2025 3:42 PM EDT ALL LDH Routine 01/17/2025 3:42 PM EDT ALL CEA Routine 01/17/2025 3:42 PM EDT ALL CBC WITH AUTO DIFF Routine 01/17/2025 3:42 PM EDT ALL CA 125 Routine 01/17/2025 3:42 PM EDT documented in this encounter Results * ALL CEA (01/17/2025 3:42 PM EDT) Pathologist [facility] CEA 2.3 0.0 - 4.7 ng/mL TB Comment: Nonsmokers <3.9 Smokers <5.6 [employer] Electrochemiluminescence Immunoassay (ECLIA) Values obtained with different assay methods or kits cannot be used interchangeably. Results cannot be interpreted as absolute evidence of the presence or absence of malignant disease. Performed at: [address] [id number] Electrical Supervisor: Luis Garcia PhD, Phone: [phone] 01/17/2025 3:42 PM EDT 01/17/2025 3:43 PM EDT Narrative EVITANC - 01/19/2025 8:08 AM EDT Rita BAHENA CLINISYMA Final Result [facility] * HCG,BETA-QUANT,TUMOR MARKER (01/17/2025 3:42 PM EDT) Pathologist [facility] HCG TUMOR MARKER <1 . mIU/mL TB Comment: Female (Non-) 0 - 5 (Postmenopausal) 0 - 8 [employer] Electrochemiluminescence Immunoassay (ECLIA) The [employer] HCG + beta assay recognizes the holo-hormone, human chorionic gonadotropin (hCG), nicked forms of hCG, the beta-core fragment and the free beta-subunit in human serum and plasma. Results obtained with different test methods or kits cannot used interchangeably. This assay is intended for the early detection of . The result should not be used for treatment or for diagnostic purposes without confirmation of the diagnosis by another medically established diagnostic product or procedure. This test was developed and its performance characteristics determined by [employer] ([place]). It has not been cleared or approved by the Food and Drug Administration for use as a tumor marker. This test is not interpretable as a tumor marker in females. Performed at: [address] [id number] Electrical Supervisor: Luis Garcia PhD, Phone: [phone] 01/17/2025 3:42 PM EDT 01/17/2025 3:43 PM EDT Narrative CLINISYNC - 01/19/2025 8:08 AM EDT Rita WOOTEN Final Result [facility] * ALL CA 125 (01/17/2025 3:42 PM EDT) [facility] CANCER ANTIGEN (CA) 125 23.6 0.0 - 38.1 U/mL [facility] Comment: [employer] Electrochemiluminescence Immunoassay (ECLIA) Values obtained with different assay methods or kits cannot be used interchangeably. Results cannot be interpreted as absolute evidence of the presence or absence of malignant disease. Performed at: [address] [id number] Electrical Supervisor: Luis Garcia PhD, Phone: [phone] 01/17/2025 3:42 PM EDT 01/17/2025 3:43 PM EDT Narrative CLINISYNC - 01/19/2025 8:08 AM EDT Rita WOOTEN Final Result Performing Organization Address [facility]/ZIP Co de Phone Number [facility] * ELCH AFP TUMOR MARKER (01/17/2025 3:42 PM EDT) [facility] AFP, SERUM, TUMOR MARKER 3.7 0.0 - 6.4 ng/mL [facility] Comment: [employer] Electrochemiluminescence Immunoassay (ECLIA) Values obtained with different assay methods or kits cannot be used interchangeably. Results cannot be interpreted as absolute evidence of the presence or absence of malignant disease. This test is not interpretable in females. 01/17/2025 3:42 PM EDT 01/17/2025 3:43 PM EDT Narrative CLINISYNC - 01/19/2025 8:08 AM EDT Rita WOOTEN Final Result Performing Organization Address [facility]/ZIP Co de Phone Number [facility] * ALL THYROXINE (T4) FREE (01/17/2025 3:42 PM EDT) FREE T4 1.05 0.76 - 1.46 ng/dL TB 01/17/2025 3:42 PM EDT 01/17/2025 3:43 PM EDT Narrative CLINISYNC - 01/17/2025 5:12 PM EDT Rita WOOTEN Final Result Performing Organization Address [facility] Co de Phone Number [facility] * MLR HEMOGLOBIN A1C (01/17/2025 3:42 PM EDT) [facility] GLYCOHEMOGLOBIN A1C 5.1 4.5 - 6.2 % [facility] Comment: ADA RECOMMENDED LIMIT 4.0 - 6.0 ADA THERAPEUTIC TARGET < 7.0 ACTION SUGGESTED > 7.0 ESTIMATED AVERAGE GLUCOSE 100 mg/dL TB 01/17/2025 3:42 PM EDT 01/17/2025 3:43 PM EDT Narrative CLINISYNC - 01/17/2025 5:03 PM EDT Rita WOOTEN Final Result Performing Organization Address [facility] de Phone Number [facility] * TBH PREG QUANT HCG (01/17/2025 3:42 PM EDT) [facility] HCG QUANTITATIVE <1 mIU/mL TB Comment: 5-50 0.2-1 WEEK 50-500 1-2 WEEKS 100-5,000 2-3 WEEKS 500-10,000 3-4 WEEKS 1,000-50,000 4-5 WEEKS 10,000-100,000 5-6 WEEKS 15,000-200,000 6-8 WEEKS 10,000-100,000 2-3 MONTHS 01/17/2025 3:42 PM EDT 01/17/2025 3:43 PM EDT Narrative CLINISYNC - 01/17/2025 5:03 PM EDT Rita BAHENA CLINISYNC Final Result Performing Organization Address [facility] Phone Number [facility] * ALL THYROID STIM HORMONE (01/17/2025 3:42 PM EDT) THYROID STIMULATING HORMONE 2.971 0.358 - 3.740 uIU/mL TB 01/17/2025 3:42 PM EDT 01/17/2025 3:43 PM EDT Narrative CLINISYNC - 01/17/2025 5:03 PM EDT Rita ACOSTAISYALLA Final Result Performing Organization Address [facility] Phone Number [facility] * ALL LDH (01/17/2025 3:42 PM EDT) LACTATE DEHYDROGENASE 182 81 - 234 U/L TB 01/17/2025 3:42 PM EDT 01/17/2025 3:43 PM EDT Narrative CLINISYNC - 01/17/2025 5:03 PM EDT Rita BAHENA CLINISYNC Final Result Performing Organization Address [facility] Phone [facility] * [facility] APTT (01/17/2025 3:42 PM EDT) PARTIAL THROMBOPLASTIN TIME 28.9 22.3 - 36.2 sec TB 01/17/2025 3:42 PM EDT 01/17/2025 3:43 PM EDT Narrative CLINISYNC - 01/17/2025 4:05 PM EDT Rita BAHENA EVITANC Final Result Performing Organization Address [facility] Phone Number [facility] * [facility] PROTHROMBIN TIME INR W/O COUM (01/17/2025 3:42 PM EDT) PROTHROMBIN TIME 10.8 9.0 - 11.6 sec TB TB INR 1.02 TB Comment: DESIRED INR: 2.0-3.0 CONDITIONS NOT LISTED BELOW 2.5-3.5 FOR PROSTHETIC HEART VALVE REPLACEMENT 2.5-3.5 RECURRENT THROMBOSIS 01/17/2025 3:42 PM EDT 01/17/2025 3:43 PM EDT Narrative CLINISYNC - 01/17/2025 4:05 PM EDT Rita BAHENA CLINISYNC Final Result [facility] * (ABNORMAL) ALL CBC WITH AUTO DIFF (01/17/2025 3:42 PM EDT) Pathologist [facility] TB WBC 5.4 4.0 - 11.0 10 3/uL TBH TB RBC 3.78(L) 4.20 - 5.40 10 6/uL TBH TBH HGB 11.9(L) 12.0 - 16.0 g/dL TB TB HCT 35.0(L) 36.0 - 48.0 % TB TB MCV 92.6 81.0 - 99.0 fL TBH TB MCH 31.5 26.7 - 34.0 pg TBH TB MCHC 34.0 29.9 - 35.2 g/dL TB TB RDW 12.5 11.0 - 15.0 % TBH TBH PLT 268 150 - 450 10 3/uL TBH TB MPV 10.6 9.5 - 13.5 fL TBH NEUTROPHILS PERCENT AUTO 56.8 43.0 - 75.0 % TBH LYMPHOCYTES PERCENT AUTO 30.4 20.5 - 60.0 % TBH MONOCYTES PERCENT AUTO 8.8 1.7 - 12.0 % TBH TBH EO % 3.2 0.9 - 7.0 % TBH BASOPHILS PERCENT AUTO 0.6 0.2 - 2.0 % TBH IMMATURE GRANULOCYTES PCT AUTO 0.2 0.0 - 0.5 % TBH NEUTROPHILS ABSOLUTE AUTO 3.1 1.4 - 6.5 10 3/uL TBH LYMPHOCYTES ABSOLUTE AUTO 1.6 1.2 - 3.8 10 3/uL TBH MONOCYTES ABSOLUTE AUTO 0.5 0.3 - 0.8 10 3/uL TBH TBH EO # 0.2 0.0 - 0.7 10 3/uL TBH BASOPHILS ABSOLUTE AUTO 0.0 0.0 - 0.1 10 3/uL TBH IMMATURE GRANULOCYTES ABS AUTO 0.01 0.00 - 0.03 10 3/uL TBH 01/17/2025 3:42 PM EDT 01/17/2025 3:43 PM EDT Narrative CLINISYNC - 01/17/2025 3:54 PM EDT Rita BAHENA CLINISYNC Final Result [facility] documented in this encounter Visit Diagnoses Not on filedocumented in this encounter Care Teams Wet Pan Mixer Relationship Specialty Start Date End Date Aba Garner MD [address] [place] [address] PCP - General Internal Medicine 06/09/23 documented as of this encounter
--- OUTSIDE RECORDS SUMMARY | 2025-01-27 15:30 | XMS_ITS | Encounter Summary ---
Author Organization [facility] Address [id number] [address] [place] [address] Care Team Providers Care Oven Roaster Name Role Phone Aba Garner DO Primary Care Provider [phone] Reason for Visit * Reason Comments Med Change Request Encounter Details Date Type Department Care Team (Late st Contact Info) Description 01/08/2023 Refill [facility] - Family Medicine [address] [place] [address] Aba Garner DO [address] [phone] Allergic conjunctivitis of right eye Social History [...] documented as of this encounter Care Teams Oven Roaster Relationship Specialty Start Date End Date Aba Garner DO [address] [place] [address] PCP - General Internal Medicine 08/20/17 documented as of this encounter
--- OUTSIDE RECORDS SUMMARY | 2025-01-27 15:30 | XMS_ITS | Encounter Summary ---
Author Organization [facility] Address [address] [facility] [address] Care Team Providers Care Fluorescent Solution Mixer Name Role Phone Aba Garner MD Primary Care Provider [phone] Reason for Visit * Reason Comments Med Refill Encounter Details Date Type Department Care Team (Late st Contact Info) Description 02/05/2024 Refill [facility] [address] [place] [address] Saurabh López, DO [address] [facility] [place] [address] Yeast infection Social History Tobacco Use Types [...] EDT Office Visit [facility] [address] [place] [phone] Saurabh López, DO [address] [place] [address] [place] [address] 06/27/2025 9:20 AM EST Office Visit [facility] [address] [place] [address] Saurabh López, DO [address] [facility] [place] [address] 12/01/2025 1:10 PM EDT Office Visit [facility] [address] [place] [address] Brenna Merchant APRN-PRINTING SIGN MACHINE OPERATOR [address] [place] [address] documented as of this encounter Visit Diagnoses Diagnosis Yeast infection documented in this encounter Care Teams Fluorescent Solution Mixer Relationship Specialty Start Date End Date Aba Garner MD [address] [place] [address] PCP - General Internal Medicine 06/09/23 documented as of this encounter
--- OUTSIDE RECORDS SUMMARY | 2025-01-27 15:30 | XMS_ITS | Encounter Summary ---
Author Organization [employer] Address [id number] [address] [place] [address] Care Team Providers Care Medical Administrative Specialist Name Role Phone Aba Garner Primary Care Provider [phone] Encounter Details Date Type Department Care Team (Late st Contact Info) Description 11/12/2023 Refill [facility] - Family Medicine [address] [place] [address] Summer Najera CMA Systemic lupus erythematosus, unspecified [...] and she has a visit with the [facility] Rheumatoid Doctor the end of November.Was [...] documented as of this encounter Care Teams Medical Administrative Specialist Relationship Specialty Start Date End Date Aba Garner DO [address] [phone] PCP - General Internal Medicine 08/20/17 documented as of this encounter
--- OUTSIDE RECORDS SUMMARY | 2025-01-27 15:30 | XMS_ITS | Encounter Summary ---
Author [facility] Address [id number] [address] [place] [address] Care Team Providers Care Aquatic Laborer Name Role Phone Aba Garner Juany RAGLAND Primary Care Provider [phone] Encounter Details Date Type Department Care Team (Late st Contact Info) Description 07/23/2022 Orders Only [facility] - Family Medicine [address] [place] [address] Diane Yin MA Systemic lupus erythematosus, unspecified SLE type, unspecified organ involvement status ([facility]) Social History Tobacco Use Types Packs/Day Years [...] unspecified SLE type, unspecified organ involvement status ([facility]) documented in this encounter Results * Erythrocyte Sedimentation Rate (ESR) (07/18/2022) 07/18/2022 Ml Wolfe WAREHOUSE PACKER-STONE FINISHER LAB BLOOD ORDERABLES Final Result [facility] documented in this encounter Visit Diagnoses Diagnosis Systemic lupus erythematosus, unspecified SLE type, unspecified organ involvement status ([facility]) documented in this encounter Care Teams Aquatic Laborer Relationship Specialty Start Date End Date Aba Garner DO [facility] [place] [address] PCP - General Internal Medicine 08/20/17 documented as of this encounter
--- OUTSIDE RECORDS SUMMARY | 2025-01-27 15:30 | XMS_ITS | Clinical Summary ---
Author Organization [employer] Address [id number] [address] [place] [address] Care Team Providers Care Cabinet Builder Name Role Phone Vianeykimani Aba Juany RAGLAND Primary Care Provider [phone] Allergies No known active allergies Medications levothyroxine [...] unspecified SLE type, unspecified organ involvement status ([facility]) Take 1 tablet (200 mg total) by [...] 8:46 PM 08/22/2017 6:59 PM Care Teams Cabinet Builder Relationship Specialty Start Date End Date Aba Garner DO [address] [phone] PCP - General Internal Medicine 08/20/17
--- OUTSIDE RECORDS SUMMARY | 2025-01-27 15:30 | XMS_ITS | Encounter Summary ---
Author Organization [employer] s tem Address [id number] [address] [place] [address] Care Team Providers Care Metallurgy Laboratory Technician Name Role Phone Aba Garner Juany RAGLAND Primary Care Provider [phone] Encounter Details Date Type Department Care Team (Late st Contact Info) Description 07/24/2022 Orders Only [facility] Internal Medicine - Family Medicine [address] [place] [address] Rita Weathers MA Systemic lupus erythematosus, unspecified SLE type, unspecified organ involvement status ([facility]) Social History Tobacco Use Types Packs/Day Years [...] unspecified SLE type, unspecified organ involvement status ([facility]) documented in this encounter Results * X-ray foot left minimum 3 views (07/24/2022 8:10 AM EST) Anatomical Region Laterality Modality Lower Extremities, MSK, Foot Left Com puted Radiography Ml Wolfe FARMWORKER CRANBERRY-STEAM FINISHER IMG DIAGNOSTIC IMAGING ORDE DHARA Final Result documented in this encounter Visit Diagnoses Diagnosis Systemic lupus erythematosus, unspecified SLE type, unspecified organ involvement status ([facility]) documented in this encounter Care Teams Metallurgy Laboratory Technician Relationship Specialty Start Date End Date Aba Garner DO [facility] [place] [address] PCP - General Internal Medicine 08/20/17 documented as of this encounter
--- OUTSIDE RECORDS SUMMARY | 2025-01-27 15:30 | XMS_ITS | Encounter Summary ---
Author Organization [facility] Address [id number] [address] [place] [address] Care Team Providers Care Aircraft Sheet Metal Mechanic Name Role Phone Aba Garner Primary Care Provider [phone] Encounter Details Date Type Department Care Team (Late st Contact Info) Description 07/26/2024 Orders Only [facility] Internal Medicine - Family Medicine [address] [place] [address] Ref Prov, [place] [address] Social History Tobacco Use Types Packs/Day Years [...] documented as of this encounter Care Teams Aircraft Sheet Metal Mechanic Relationship Specialty Start Date End Date Aba Garner DO [address] [place] [address] PCP - General Internal Medicine 08/20/17 documented as of this encounter
--- OUTSIDE RECORDS SUMMARY | 2025-01-27 15:30 | XMS_ITS | Encounter Summary ---
Author Organization [facility] Address [address] [place] [address] Care Team Providers Care Returned Telephone Equipment Appraiser Name Role Phone Unavailable Primary Care Provider Unavailabl e Source Comments In the event this information is protected by the Federal Confidentiality of Alcohol and Drug AbusePatient Records regulations: The Federal rules restrict any use of the information to criminally investigate or prosecute any alcohol or drug abuse patient.[facility] Encounter Details Date Type Department Care Team (Late st Contact Info) Description 06/15/2024 Telephone [facility] [address] [id number] [place] [address] [place] [address], [address] [place] [id number] Social History Tobacco Use Types Packs/Day Years [...] 11:00 AM EDT Office Visit Rheumatology [address] [address] Becka Treviño, [address], [address] [place] [phone] 6m SLE f/u per [place] documented as of this encounter Visit Diagnoses Not on filedocumented in this encounter
--- OUTSIDE RECORDS SUMMARY | 2025-01-27 15:30 | XMS_ITS | Encounter Summary ---
Author Organization [facility] Address [address] [facility] [place] [address] Care Team Providers Care Electrical Lineworker Name Role Phone Aba Garner MD Primary Care Provider [phone] Encounter Details Date Type Department Care Team (Late st Contact Info) Description 05/26/2023 Abstract [facility] [address] [place] [address] Saurabh López [address] [place], [place] [address] Social History Tobacco Use Types Packs/Day Years [...] 02/28/2025 8:40 AM EDT Office Visit [facility] [address] [place] [address] Saurabh López [facility] [address] [place], [place] [id number] 06/27/2025 9:20 AM EST Office Visit [facility] OB [address] [facility] [place] [phone] Saurabh López DO [address] [facility] [place] [address] 12/01/2025 1:10 PM EDT Office Visit [facility] [address] [place] [address] Brenna Merchant APRN-HEALTH CAREERS INSTRUCTOR [address] [place] [address] documented as of this encounter Visit Diagnoses Not on filedocumented in this encounter Care Teams Electrical Lineworker Relationship Specialty Start Date End Date Aba Garner MD [address] [place] [address] PCP - General Internal Medicine 06/09/23 documented as of this encounter
--- OUTSIDE RECORDS SUMMARY | 2025-01-27 15:30 | XMS_ITS | Encounter Summary ---
Author Organization [facility] Address [address] [facility] [place] [address] Care Team Providers Care Gear Inspector Name Role Phone Aba Garner MD Primary Care Provider [phone] Encounter Details Date Type Department Care Team (Late st Contact Info) Description 01/13/2025 Telephone [facility] [address] [facility] [place] [address] Rita Fermin PA [address] [facility] [address] [place], [facility] Social History Tobacco Use Types Packs/Day Years [...] EDT Office Visit [facility] [address] [facility] [place] [place] [address] Saurabh López, [address] [place] [address] 06/27/2025 9:20 AM EST Office Visit [facility] OB [address] [place] [address] Saurabh López, [address] [place] [address] 12/01/2025 1:10 PM EDT Office Visit [facility] [address] [place] [address] Brenna Merchant, ALARM SECURITY OR SURVEILLANCE MONITOR-DAIRY PROCESSING SUPERVISOR [address] [place] [address] documented as of this encounter Visit Diagnoses Not on filedocumented in this encounter Care Teams Gear Inspector Relationship Specialty Start Date End Date Aba Garner MD [address] [place] [address] PCP - General Internal Medicine 06/09/23 documented as of this encounter
--- OUTSIDE RECORDS SUMMARY | 2025-01-27 15:30 | XMS_ITS | Encounter Summary ---
Author Organization [facility] Address [address] [facility] [place] [address] Care Team Providers Care Baby Counselor Name Role Phone Belinda Mock MD Primary Care Provider [phone] Encounter Details Date Type Department Care Team (Late st Contact Info) Description 07/26/2024 Clinisync Result Encounter [facility] External Department Unsolicited Saurabh López, [place] [address] Social History Tobacco Use Types Packs/Day Years [...] 02/28/2025 8:40 AM EDT Office Visit [facility] [address] [place] [address] Saurabh López DO [facility] [place] [address] 06/27/2025 9:20 AM EST Office Visit [facility] OB [address] [place] [address] Saurabh López, DO [address] [facility] [place] [address] 12/01/2025 1:10 PM EDT Office Visit [facility] [address] [place] [address] Brenna Merchant, COMPUTER INSTALLATION ENGINEER-GAME MODERATOR [address] [place] [address] documented as of this encounter Procedures Procedure Name Priority Date/Time Associated Diagnosis Comments MM TOMOSYNTHESIS SCREENING BI 07/26/2024 2:13 PM EST documented in this encounter Results * MM TOMOSYNTHESIS SCREENING BI (07/26/2024 2:13 PM EST) Anatomical Region Laterality Modality Other 07/26/2024 2:13 PM EST Narrative 07/26/2024 2:14 PM EST [address] [address] Mammography Report Signed Patient: SUSAN HOGUE MR#: [id number] : 1985 Acct:[id number] Age/Sex: 38 / F ADM Date: 07/26/24 Loc: MAMMO Attending Dr: Saurabh López D.O. Ordering Physician: Saurabh López D.O. Results: Date of Service: 07/26/24 Follow Up: Procedure(s): MM tomosynthesis screening BI Accession Number(s): [id number] cc: Saurabh López D.O.; BELINDA MOCK Patient Name: SUSAN HOGUE MR#: [id number] : 1985 Exam Date: 07/26/2024 Ordering Doctor: DR Saurabh López . RADIOLOGY REPORT PROCEDURE: MM TOMOSYNTHESIS SCREENING BI COMPARISON: None. INDICATIONS: Screening Calculator Name NCI Breast Cancer Risk Assessment Tool 5 Year Breast Cancer Risk 0.30% Lifetime Breast Cancer Risk 9.20% Personal Breast Cancer No Personal Ovarian Cancer No Treatments None Family Cancers None LOCATION: [facility] BREAST COMPOSITION: The breasts are heterogeneously dense,which [...] Signed By: 07/26/24 141 DD/ 12 TD/TT: It Program Engagement Director: Procedure Note Radiology, Radiologist, - 07/26/2024 [place] [address] Mammography Report Signed Patient: SUSAN HOGUE MMR#: [id number] : 1985Acct:[id number] Age/Sex: 38 / FADM Date: 07/26/24 Loc: MAMMO Attending Dr: Saurabh López D.O. Ordering Physician: Saurabh López D.O.Results: Date of Service: 07/26/24Follow Up: Procedure(s): MM tomosynthesis screening BI Accession Number(s): [id number] cc: Saurabh López D.O.; BELINDA MOCK Patient Name: SUSAN HOGUE MR#: [id number] : 1985 Exam Date: 07/26/2024 Ordering Doctor: DR Saurabh López . RADIOLOGY REPORT PROCEDURE: MM TOMOSYNTHESIS SCREENING BI COMPARISON: None. INDICATIONS: Screening Calculator Name NCI Breast Cancer Risk Assessment Tool 5 Year Breast Cancer Risk 0.30% Lifetime Breast Cancer Risk 9.20% Personal Breast Cancer No Personal Ovarian Cancer No Treatments None Family Cancers None LOCATION: [facility] BREAST COMPOSITION: The breasts are heterogeneously dense,which [...] M.D. Signed By:07/26/24 1414 DD/ 1413 TD/TT: It Program Engagement Director: us Saurabh Maribel DO [facility] Final Result documented in this encounter Visit Diagnoses Not on filedocumented in this encounter Care Teams Baby Counselor Relationship Specialty Start Date End Date Belinda Mock MD [address] [place] [phone] PCP - General Internal Medicine 06/09/23 documented as of this encounter
--- OUTSIDE RECORDS SUMMARY | 2025-01-27 15:30 | XMS_ITS | Encounter Summary ---
Author Organization [facility] Address [address] [place] [address] Care Team Providers Care Logistics Management Specialist Name Role Phone Unavailable Primary Care Provider Unavailabl e Source Comments In the event this information is protected by the Federal Confidentiality of Alcohol and Drug AbusePatient Records regulations: The Federal rules restrict any use of the information to criminally investigate or prosecute any alcohol or drug abuse patient.[facility] Encounter Details Date Type Department Care Team (Late st Contact Info) Description 06/07/2024 Patient [facility] -[address] [place] [address] Brenna Lima RPh At your next appointment, choose [facility]. Social History Tobacco Use Types Packs/Day [...] 11:00 AM EDT Office Visit Rheumatology [address] [address] Becka Treviño, DO [address], [address] [place] [address] 6m SLE f/u per [place] documented as of this encounter Visit Diagnoses Not on filedocumented in this encounter
--- OUTSIDE RECORDS SUMMARY | 2025-01-27 15:30 | XMS_ITS | Encounter Summary ---
Author Organization [facility] Address [id number] [address] [place] [address] Care Team Providers Care Patient Accounts Manager Name Role Phone Aba Garner DO Primary Care Provider [phone] Encounter Details Date Type Department Care Team (Late st Contact Info) Description 01/20/2023 Telephone [facility] - Family Medicine [address] [place] [address] Aba Garner DO [address] [place] [address] Social History Tobacco Use Types Packs/Day Years [...] documented as of this encounter Care Teams Patient Accounts Manager Relationship Specialty Start Date End Date Aba Garner DO [address] [place] [address] PCP - General Internal Medicine 08/20/17 documented as of this encounter
--- OUTSIDE RECORDS SUMMARY | 2025-01-27 15:30 | XMS_ITS | Encounter Summary ---
Author Organization [facility] Sys tem Address [id number] [address] [place] [address] Care Team Providers Care Filters Assembler Name Role Phone Aba Garner Primary Care Provider [phone] Encounter Details Date Type Department Care Team (Late st Contact Info) Description 09/27/2024 [facility] [address] [place] [address] Ref Prov, [place] [address] Social History Tobacco Use Types Packs/Day Years [...] documented as of this encounter Care Teams Filters Assembler Relationship Specialty Start Date End Date Aba Garner DO [address] [place] [address] PCP - General Internal Medicine 08/20/17 documented as of this encounter
--- OUTSIDE RECORDS SUMMARY | 2025-01-27 15:30 | XMS_ITS | Encounter Summary ---
Author Organization [facility] Address [address] [facility] [place] [address] Care Team Providers Care Exec. Creative Director Name Role Phone Aba Garner MD Primary Care Provider [phone] Encounter Details Date Type Department Care Team (Latest Contact Info) Description 01/19/2025 Travel Social History Tobacco Use Types Packs/Day [...] 02/28/2025 8:40 AM EDT Office Visit [facility] OB [address] [place] [address] Saurabh López, DO [address] [place], [place] [address] 06/27/2025 9:20 AM EST Office Visit [facility] [address] [place] [address] Saurabh López, DO [address] [place], [facility] 12/01/2025 1:10 PM EDT Office Visit [facility] [address] [place] [address] Brenna Merchant APRN-SUPERVISOR FABRICATION AND ASSEMBLY [address] [place] [address] documented as of this encounter Visit Diagnoses Not on filedocumented in this encounter Care Teams Exec. Creative Director Relationship Specialty Start Date End Date Aba Garner MD [address] [place] [address] PCP - General Internal Medicine 06/09/23 documented as of this encounter
--- OUTSIDE RECORDS SUMMARY | 2025-01-27 15:30 | XMS_ITS | Encounter Summary ---
Author Organization [facility] Address [address] [place] [address] Care Team Providers Care Dispatcher Street Department Name Role Phone Unavailable Primary Care Provider Unavailabl e Source Comments In the event this information is protected by the Federal Confidentiality of Alcohol and Drug AbusePatient Records regulations: The Federal rules restrict any use of the information to criminally investigate or prosecute any alcohol or drug abuse patient.[facility] Encounter Details Date Type Department Care Team (Late st Contact Info) Description 12/15/2023 Patient Msg Rheumatology [address] [phone] Provider, Ccf Appointment scheduled Social History Tobacco [...] 11:00 AM EDT Office Visit Rheumatology [address] [address] [place] [address] [place] [address], [address] [place] [address] 6m SLE f/u per [place] documented as of this encounter Visit Diagnoses Not on filedocumented in this encounter
--- OUTSIDE RECORDS SUMMARY | 2025-01-27 15:30 | XMS_ITS | Encounter Summary ---
Author Organization [facility] Address [address] [facility] [place] [address] Care Team Providers Care Steam Pan Sponger Name Role Phone Aba Garner MD Primary Care Provider [phone] Encounter Details Date Type Department Care Team (Late st Contact Info) Description 01/20/2025 Abstract [facility] OB [address] [place] [address] Saurabh López [address] [place], [facility] Social History Tobacco Use Types Packs/Day Years [...] 02/28/2025 8:40 AM EDT Office Visit [facility] OB [address] [place] [address] Saurabh L[facility]pez [facility] [place] [address] 06/27/2025 9:20 AM EST Office Visit [facility] OB [address] [facility] [place] [address] Saurabh López, [address] [facility] [place] [address] 12/01/2025 1:10 PM EDT Office Visit [facility] [address] [place] [address] Brenna Merchant APRN-STOPPER MAKER [address] [place] [address] documented as of this encounter Visit Diagnoses Not on filedocumented in this encounter Care Teams Steam Pan Sponger Relationship Specialty Start Date End Date Aba Garner MD [address] [place] [address] PCP - General Internal Medicine 06/09/23 documented as of this encounter
--- OUTSIDE RECORDS SUMMARY | 2025-01-27 15:30 | XMS_ITS | Encounter Summary ---
Author Organization [facility] Address [address] [place] [address] Care Team Providers Care Lead Database Administrator Name Role Phone Unavailable Primary Care Provider Unavailabl e Source Comments In the event this information is protected by the Federal Confidentiality of Alcohol and Drug AbusePatient Records regulations: The Federal rules restrict any use of the information to criminally investigate or prosecute any alcohol or drug abuse patient.[facility] Encounter Details Date Type Department Care Team (Late st Contact Info) Description 12/12/2023 Patient Msg Rheumatology [address] [address] [place] [address] [place] [address], [address] [place] [phone] Rheumatology labs Social History Tobacco Use Types [...] 11:00 AM EDT Office Visit Rheumatology [address] [address] Becka Treviño, [address], [address] [place] [address] 6m SLE f/u per [place] documented as of this encounter Visit Diagnoses Not on filedocumented in this encounter
--- OUTSIDE RECORDS SUMMARY | 2025-01-27 15:30 | XMS_ITS | Encounter Summary ---
Author Organization [facility] Address [address] [place] [address] Care Team Providers Care Inshore Undersea Warfare Officer Name Role Phone Unavailable Primary Care Provider [...] Info) Description 12/01/2023 Patient Msg Rheumatology [address] [address] Provider, Ccf Appointment Rescheduled Social History Tobacco [...] 11:00 AM EDT Office Visit Rheumatology [address] [address] Becka Treviño DO [address], [address] [place] [address] 6m SLE f/u per [place] documented as of this encounter Visit Diagnoses Not on filedocumented in this encounter
--- OUTSIDE RECORDS SUMMARY | 2025-01-27 15:31 | XMS_ITS | Encounter Summary ---
Author Organization [facility] Address [address] [place] [address] Care Team Providers Care Emergency Medicine Name Role Phone Unavailable Primary Care Provider Unavailabl e Source Comments In the event this information is protected by the Federal Confidentiality of Alcohol and Drug AbusePatient Records regulations: The Federal rules restrict any use of the information to criminally investigate or prosecute any alcohol or drug abuse patient.[facility] Reason for Visit * Reason Comments Appointment Encounter Details Date Type Department Care Team (Late st Contact Info) Description 12/09/2024 Telephone [facility] [address] [address] [place] [address] [place] [address], [address] [place] [address] Appointment Social History Tobacco Use Types Packs/Day Years Used Date Smoking Tobacco: Never Smokeless Tobacco: Never PHQ-2 Answer Date Recorded PHQ-2 score 0 12/10/2024 Area Deprivation Index Answer Date Jan rded National Score (1-100), lower number is lower ri sk 63 12/10/2024 State Score (1-10), lower number is lower risk 4 12/10/2024 Data from: https://www.neighborhoodatlas.medicine.[facility].edu/. Last address used for calculation [address] [place] [address] 12/10/2024 Comments Unknown Sex and Gender Information Value Date Recorded Sex Assigned at Not on file Legal Sex Female 3:09 PM EDT Gender Identity Not on file Sexual Orientation Not on file documented as of this encounter Plan of Treatment Upcoming Encounters Date Type Department Care Team (Late st Contact Info) Description 04/13/2025 11:00 AM EDT Office Visit Rheumatology [address] [address] Becka Treviño DO [address], [address] [place] [address] 6m SLE f/u per [place] documented as of this encounter Visit Diagnoses Not on filedocumented in this encounter
--- OUTSIDE RECORDS SUMMARY | 2025-01-27 15:31 | XMS_ITS | Encounter Summary ---
Author Organization [facility] Address [address] [facility] [place] [place] [address] Care Team Providers Care Calker Name Role Phone Aba Garner MD Primary Care Provider [phone] Encounter Details Date Type Department Care Team (Late st Contact Info) Description 01/12/2025 Abstract [facility] OB [address] [facility] [address] Rita Fermin PA [address] [facility] [address] [place], [facility] Social History Tobacco Use Types Packs/Day [...] EDT Office Visit [facility] OB [address] [facility] [place] [address] Saurabh López DO [address] [facility] [address] [place], [place] [address] 06/27/2025 9:20 AM EST Office Visit [facility] OB [address] [facility] [place] [address] Saurabh López DO [address] [facility] [place] [address] 12/01/2025 1:10 PM EDT Office Visit [facility] [address] [place] [address] Brenna Merchant, DRAFTER CIVIL (CAD)-MUFF WINDER [address] [place] [address] documented as of this encounter Visit Diagnoses Not on filedocumented in this encounter Care Teams Calker Relationship Specialty Start Date End Date Aba Garner MD [address] [place] [address] PCP - General Internal Medicine 06/09/23 documented as of this encounter
--- OUTSIDE RECORDS SUMMARY | 2025-01-27 15:31 | XMS_ITS | Encounter Summary ---
Author Organization [facility] Address [address] [place] [address] Care Team Providers Care Diet Aid Name Role Phone Unavailable Primary Care Provider Unavailabl e Source Comments In the event this information is protected by the Federal Confidentiality of Alcohol and Drug AbusePatient Records regulations: The Federal rules restrict any use of the information to criminally investigate or prosecute any alcohol or drug abuse patient.[facility] Encounter Details Date Type Department Care Team (Late st Contact Info) Description 11/23/2024 Patient Msg [facility] [place] [address] [place] [address] Provider, Ccf Appointment Social History Tobacco Use [...] AM EDT Office Visit Rheumatology [address] [place] [address] Becka Treviño, DO [address], [address] [place] [address] 6m SLE f/u per [place] documented as of this encounter Visit Diagnoses Not on filedocumented in this encounter
--- OUTSIDE RECORDS SUMMARY | 2025-01-27 15:31 | XMS_ITS | Clinical Summary ---
Author Organization [facility] Address [address] [facility] [place] [address] Care Team Providers Care Design Checker Name Role Phone Aba Garner MD Primary Care Provider [phone] Allergies Active Allergy Reactions Criticality Noted Date [...] status migrainosus, not intractable, unspecified migraine type Take 1 tablet (100 mg) by mouth 1 (one) time if needed for migraine (may repeat x1) 27 tablet 2 5 Active levothyroxine (Synthroid, Levoxyl) 50 MCG tabletIndication s:Hypothyroidism , unspecified TAKE 1 TABLET BY MOUTH EVERY DAY IN THE MORNING ON EMPTY STOMACH 90 tablet 1 5 Active Active Problems No known active problems Encounters Date Type Department Care Team Description 01/20/2025 10:30 AM EDT Procedure Visit [facility] [address] [place] [address] Saurabh López, Pre-op examination; Menorrhagia with irregular cycle; Pelvic pain; Abnormal uterine bleeding (AUB) 01/20/[address] [facility] [address] [place] [address] Saurabh López, DO 01/19/2025 Travel 01/17/2025 Clinisync Result Encounter [facility] External Department Unsolicited Rita Fermin PA 01/13/[address] [facility] [address] [place] [address] Rita Fermin PA 01/12/2025 Abstract [facility] [address] [place] [address] Rita Fermin PA 01/12/[address] [facility] [address] [place] [address] Rita Fermin PA 01/10/2025 10:00 AM EDT Ancillary Procedure [facility] [address] [place] [address] Menorrhagia with regular cycle 01/10/2025 Travel 12/13/2024 2:30 PM EDT Office Visit [facility] [address] [place] [address] Rita Fermin PA Menorrhagia with regular cycle; Pelvic cramping; Nausea 12/13/[address] [facility] [address] [place] [address] Saurabh López, DO 12/01/2024 1:40 PM EDT Office Visit [facility] [address] [facility] [address] [place] [address] Brenna Merchant, SWAPNA-JENNIFER Capillary angioma; Seborrheic keratosis; Other rosacea; Common wart; Pain 12/01/2024 Bamboo flowsheet [facility] [address] [place] [phone] Brenna Merchant, [employer] PROFESSOR-DRAMATIC CRITIC 12/01/2024 Travel 11/30/2024 Travel 10/29/2024 Refill [facility] [address] [place] [phone] Jammie Tee MD Hypothyroidism, unspecified from Last 3 Months Family History Medical [...] Pressure 112/72 01/20/2025 11:00 AM EDT Pulse 72 07/07/2023 3:09 PM EST Temperature - - Respiratory Rate 18 07/07/2023 3:09 PM EST Oxygen Saturation 99% 07/07/2023 3:09 PM EST Inhaled Oxygen Concentration - - Weight 61.2 kg (135 lb) 01/20/2025 11:00 AM EDT Height 165.1 cm (5' 5 ) 10/11/2024 12:06 PM EST Body Mass Index 22.47 10/11/2024 12:06 PM EST Plan of Treatment Upcoming Encounters Date Type Department Care Team (Late st Contact Info) Description 02/28/2025 8:40 AM EDT Office Visit [facility] [address] [place] [phone] Saurabh López DO [address] [place], [place] [id number] 06/27/2025 9:20 AM EST Office Visit [facility] [address] [place] [phone] Saurabh López, DO [address] [place] [address] 12/01/2025 1:10 PM EDT Office Visit [facility] [address] [place] [phone] Brenna Merchant, [employer] PROFESSOR-DRAMATIC CRITIC [address] [place] [address] Health Maintenance Due Date Last Done Comments Influenza Vaccine (Season Ended) 2025 05/15/2023, 05/21/2022, 05/12/2020, Additional history exists Cervical Cancer Screening 06/16/2029 HPV/Cotest 06/16/2029 Pap Smear 06/16/2029 06/16/2024, 06/09/2023 Procedures Procedure Name Priority Date/Time Associated Diagnosis Comments POCT , URINE Routine 01/20/2025 11:02 AM EDT Menorrhagia with irregular cycle Pelvic pain Abnormal uterine bleeding (AUB) ALL CEA Routine 01/17/2025 3:42 PM EDT UH HCG,BETA-QUANT,TUMOR MARKER Routine 01/17/2025 3:42 PM EDT ALL CA 125 Routine 01/17/2025 3:42 PM EDT ELCH AFP TUMOR MARKER Routine 01/17/2025 3:42 PM EDT ALL THYROXINE (T4) FREE Routine 01/17/2025 3:42 PM EDT MLR HEMOGLOBIN A1C Routine 01/17/2025 3: 42 PM EDT TBH PREG QUANT HCG Routine 01/17/2025 3: 42 PM EDT ALL THYROID STIM HORMONE Routine 01/17/2025 3:42 PM EDT ALL LDH Routine 01/17/2025 3:42 PM EDT [facility] APTT Routine 01/17/2025 3:42 PM EDT SRMCOH PROTHROMBIN TIME INR W/O COUM Routine 01/17/2025 3:42 PM EDT ALL CBC WITH AUTO DIFF Routine 01/17/2025 3:42 PM EDT US PELVIC COMPLETE W/ TV Routine 01/10/2025 10:30 AM EDT Menorrhagia with regular cycle POCT , URINE Routine 12/13/2024 2:56 PM EDT Nausea Pelvic cramping POCT URINALYSIS DIPSTICK Routine 12/13/2024 2:56 PM EDT Nausea Pelvic cramping PAP SMEAR Routine 06/16/2024 12:00 AM EST from Last 3 Months or Most Recently Relevant to Health Maintenance Results * POCT , urine manually resulted (01/20/2025 11:02 AM EDT) Only the most recent of2 resultswithin the time period is included. Pathologist [facility] Preg Test, Ur Negative Negative Urine 01/20/2025 11:0 2 AM EDT Saurabh Maribel DO POINT OF CARE TEST ENTER/EDIT OR DERABLES Final Result * ELCH AFP TUMOR MARKER (01/17/2025 3:42 PM EDT) Pathologist [facility] AFP, SERUM, TUMOR MARKER 3.7 0.0 - 6.4 ng/mL [facility] Comment: [employer] Electrochemiluminescence Immunoassay (ECLIA) Values obtained with different assay methods or kits cannot be used interchangeably. Results cannot be interpreted as absolute evidence of the presence or absence of malignant disease. This test is not interpretable in females. 01/17/2025 3:42 PM EDT 01/17/2025 3:43 PM EDT Narrative CLINISYNC - 01/19/2025 8:08 AM EDT Rita BAHENA CLINISYWY Final Result Performing Organization Address [facility] Co de Phone Number [facility] * UH HCG,BETA-QUANT,TUMOR MARKER (01/17/2025 3:42 PM EDT) HCG TUMOR MARKER <1 . mIU/mL TBH Comment: Female (Non-) 0 - 5 (Postmenopausal) [...] developed and its performance characteristics determined by [facility]. It has not been cleared or approved by the Food and Drug Administration for use as a tumor marker. This test is not interpretable as a tumor marker in females. Performed at: [address] [id number] Site Administrator: Luis Garcia PhD, Phone: [phone] 01/17/2025 3:42 PM EDT 01/17/2025 3:43 PM EDT Narrative CLINISYNC - 01/19/2025 8:08 AM EDT Rita BAHENA CLINISYNC Final Result Performing Organization Address City/[facility]/ZIP Co de Phone Number JE [facility] * TBH PREG QUANT HCG (01/17/2025 3:42 PM EDT) HCG QUANTITATIVE <1 mIU/mL [facility]H Comment: 5-50 0.2-1 WEEK 50-500 1-2 WEEKS 100-5,000 2-3 WEEKS 500-10,000 3-4 WEEKS 1,000-50,000 4-5 WEEKS 10,000-100,000 5-6 WEEKS 15,000-200,000 6-8 WEEKS 10,000-100,000 2-3 MONTHS 01/17/2025 3:42 PM EDT 01/17/2025 3:43 PM EDT Narrative CLINISYNC - 01/17/2025 5:03 PM EDT Rita WOOTEN Final Result [facility] * SRMCOH PROTHROMBIN TIME INR W/O COUM (01/17/2025 3:42 PM EDT) PROTHROMBIN TIME 10.8 9.0 - 11.[address] [facility] INR 1.02 TB Comment: DESIRED INR: 2.0-3.0 CONDITIONS NOT LISTED BELOW 2.5-3.5 FOR PROSTHETIC HEART VALVE REPLACEMENT 2.5-3.5 RECURRENT THROMBOSIS 01/17/2025 3:42 PM EDT 01/17/2025 3:43 PM EDT Narrative CLINISYNC - 01/17/2025 4:05 PM EDT Rita WOOTEN Final Result [facility] * MLR HEMOGLOBIN A1C (01/17/2025 3:42 PM EDT) GLYCOHEMOGLOBIN A1C 5.1 4.5 - 6.2 % TB Comment: ADA RECOMMENDED LIMIT 4.0 - 6.0 ADA THERAPEUTIC TARGET < 7.0 ACTION SUGGESTED > 7.0 ESTIMATED AVERAGE GLUCOSE 100 mg/dL TB 01/17/2025 3:42 PM EDT 01/17/2025 3:43 PM EDT Narrative CLINISYNC - 01/17/2025 5:03 PM EDT Rita Zander PA EVITAALLA Final Result Performing Organization Address [facility] de Phone Number CLINISYNC TB * [facility] APTT (01/17/2025 3:42 PM EDT) PARTIAL THROMBOPLASTIN TIME 28.9 22.3 - 36.2 sec TBH 01/17/2025 3:42 PM EDT 01/17/2025 3:43 PM EDT Narrative CLINISYNC - 01/17/2025 4:05 PM EDT Rita BAHENA EVITAALLA Final Result Performing Organization Address [facility] Phone Number CLINISYNC TB * ALL THYROXINE (T4) FREE (01/17/2025 3:42 PM EDT) FREE T4 1.05 0.76 - 1.46 ng/dL TBH 01/17/2025 3:42 PM EDT 01/17/2025 3:43 PM EDT Narrative CLINISYNC - 01/17/2025 5:12 PM EDT Rita Zanedr PA EVITAALLA Final Result Performing Organization Address [facility] Phone Number CLINISYNC TB * ALL THYROID STIM HORMONE (01/17/2025 3:42 PM EDT) THYROID STIMULATING HORMONE 2.971 0.358 - 3.740 uIU/mL TBH 01/17/2025 3:42 PM EDT 01/17/2025 3:43 PM EDT Narrative CLINISYNC - 01/17/2025 5:03 PM EDT us Rita Higginson PA JE Final Result Performing Organization Address [facility] de Phone Number CLINISYNC TB * ALL LDH (01/17/2025 3:42 PM EDT) LACTATE DEHYDROGENASE 182 81 - 234 U/L TBH 01/17/2025 3:42 PM EDT 01/17/2025 3:43 PM EDT Narrative CLINISYNC - 01/17/2025 5:03 PM EDT Rita BAHENA CLINISYNC Final Result Performing Organization Address [facility] de Phone Number [facility] * ALL CEA (01/17/2025 3:42 PM EDT) [facility] CEA 2.3 0.0 - 4.7 ng/mL TB Comment: Nonsmokers <3.9 Smokers <5.6 [employer] Electrochemiluminescence Immunoassay (ECLIA) Values obtained with different assay methods or kits cannot be used interchangeably. Results cannot be interpreted as absolute evidence of the presence or absence of malignant disease. Performed at: [address] [id number] Site Administrator: Luis Garcia PhD, Phone: [phone] 01/17/2025 3:42 PM EDT 01/17/2025 3:43 PM EDT Narrative CLINISYNC - 01/19/2025 8:08 AM EDT Rita WOOTEN Final Result Performing Organization Address [facility] Phone Number [facility] * (ABNORMAL) ALL CBC WITH AUTO DIFF (01/17/2025 3:42 PM EDT) Pathologist [facility] TB WBC 5.4 4.0 - 11.0 10 3/uL TBH TBH RBC 3.78(L) 4.20 - 5.40 10 6/uL TBH TBH HGB 11.9(L) 12.0 - 16.0 g/dL TBH TBH HCT 35.0(L) 36.0 - 48.0 % TBH TBH MCV 92.6 81.0 - 99.0 fL TBH TBH MCH 31.5 26.7 - 34.0 pg TBH TBH MCHC 34.0 29.9 - 35.2 g/dL TBH TBH RDW 12.5 11.0 - 15.0 % TBH TBH PLT 268 150 - 450 10 3/uL TBH TBH MPV 10.6 9.5 - 13.5 fL TBH [...] PM EDT Rita BAHENA CLINISYNC Final Result [facility] * ALL CA 125 (01/17/2025 3:42 PM EDT) CANCER ANTIGEN (CA) 125 23.6 0.0 - 38.1 U/mL TB Comment: [employer] Electrochemiluminescence Immunoassay (ECLIA) Values obtained with different assay methods or kits cannot be used interchangeably. Results cannot be interpreted as absolute evidence of the presence or absence of malignant disease. Performed at: [address] [id number] Site Administrator: Luis Garcia PhD, Phone: [phone] 01/17/2025 3:42 PM EDT 01/17/2025 3:43 PM EDT Narrative JE - 01/19/2025 8:08 AM EDT us Rita WOOTEN Final Result JE TBH * US Pelvis w/ TV (01/10/2025 10:30 [...] II, MD, PHD at 11-Jan-2025 11:32:05 PM [facility] Procedure Note Darryl Kinney MD - [...] signed by DARRYL KINNEY II, MD, PHD [id number] 11:32:05 PM [facility] [place] us Rita BAHENA Haydee US PROCEDURES Final Result * POCT urinalysis dipstick manually resulted (12/13/2024 2:56 PM EDT) Color, UA Yellow Clarity, UA Clear Glucose, UA Negative Negative - 1999(110) ++++ mg/dL Bilirubin, UA Negative Negative - 4(70) +++ mg/dL Ketones, UA Positive Negative - 160(16) ++++ mg/dL Comment:trace Spec Grav, UA 1.030 1 - 1.03 Blood, UA Negative Negative - 50 Gino/mcL pH, UA 5.5 5 - 9 Protein, UA Negative Negative - 1999(20) ++++ mg/dL Urobilinogen, UA 0.2 0.2 - [...] to Health Maintenance Insurance BCBS Care Teams Design Checker Relationship Specialty Start Date End Date Aba Garner MD [address] [place] [address] PCP - General Internal Medicine 06/09/23
--- OUTSIDE RECORDS SUMMARY | 2025-01-27 15:43 | XMS_ITS | CCD ---
Author Organization [facility] CliniSynh Care Team Providers Care Grazing Aide Name Role Phone MARIBEL, DR ZELAYA Attending [...] SHANNA Layton Consulting Unavailable WEST, DR SHANNA aLyton Attending Unavailable YUHAS, DR TREVINO Primary Care [...] Primary Care Unavailable YULIET NAVARRO Attending Unavailable YULIET NAVARRO Admitting Unavailable YULIET NAVARRO Consulting Unavailable MARIBEL, DR ZELAYA Attending Unavailable [...] Care Unavailable MARIBEL, DR ZELAYA Consulting Unavailable MILE, BUSHRA NEWSOME Consulting Unavailable PATRICK DAVIS Consulting Unavailable MARIBEL, DR ZELAYA Attending Unavailable MARIBEL, DR ZELAYA Admitting Unavailable NISH, DR TREVINO Primary Care Unavailable Unavailable Primary Care Provider UnavailMYA Marin Attending Unavailable BELINDA MOCK Referring Unavailable NISH, BELINDA Harrington Primary Care Unavailable Belinda Mock MD Primary Care Provider Belinda Mock MD Primary Care Provider BEATRIZ ALSTON Referring Unavailable HUDSON, BEATRIZ Abdul Attending Unavailable BEATRIZ ALSTON Attending Unavailable KALYANI OBREGON Attending Unavailable GODWIN MERCHANT Attending Unavailable STANTON, RITA Attending Unavailable RITA EID Referring Unavailable SAURABH LÓPEZ Attending Unavailable SAURABH LÓPEZ Attending Unavailable Belinda Mock Primary Care Unavailable Saurabh López Attending Unavailable Saurabh López Admitting Unavailable Medications Current Medications Medication Drug Class(es) Dates Sig (Normalized) Sig (Original) acyclovir 400 mg oral tablet (14 sources) Herpesvirus Nucleoside Analog DNA Polymerase Inhibitor, Herpes Simplex Virus Nucleoside Analog DNA Polymerase Inhibitor, Herpes Zoster Virus Nucleoside Analog DNA Polymerase Inhibitor Start: 09-20-2024 take 1 tablet by mouth twice daily acyclovir (Zovirax) 400 MG tablet Indications: H/O cold sores TAKE 1 TABLET BY MOUTH TWICE A DAY 180 tablet 09/20/2024 Active Start: 06-25-2024 take 1 tablet by vickey th twice daily acyclovir (Zovirax) 400 MG tablet Indications: H/O cold sores TAKE 1 TABLET BY MOUTH TWICE A DAY 180 tablet 06/25/2024 Active End: 06-25-2024 acyclovir (Zovirax) 400 MG t ablet every 12 (twelve) hours. 06/25/2024 Discontinued citalopram 20 mg oral tablet (20 sources) Serotonin Reuptake Inhibitor Start: 05-04-2024 take 1 tablet by mouth once daily in the morning citalopram (CeleXA) 20 MG tablet Indications: Mood changes TAKE 1 TABLET BY MOUTH EVERY DAY IN THE MORNING 90 tablet 3 05/04/2024 Active Start: 05-04-2024 take 1 tablet by vickey th once daily in the morning citalopram (CeleXA) 10 MG tablet Indications: Mood changes TAKE 1 TABLET BY MOUTH EVERY DAY IN THE MORNING 90 tablet 3 05/04/2024 Active Start: 04-05-2024 take 20 mg by mouth once daily Citalopram Active 20 MG PO Daily April 05, 2024 12:00am Start: 04-05-2024 take 10 mg by mouth once daily Citalopram Active 10 MG PO Daily April 05, 2024 12:00am hydroxychloroquine sulfate 200 mg oral tablet (20 sources) Antimalarial, Antirheumatic Agent Start: 10-21-2024 End: 12-24-2024 hydrOXYchloroQUINE (PLAQUENIL) 200 mg tablet TAKE 1 AND 1/2 TABLETS BY MOUTH ONCE DAILY 136 tablet 12/24/2024 Active Start: 2023 End: 09-14-2024 take 1.5 tablets by mouth once daily hydrOXYchloroQUINE (PLAQUENIL) 200 mg tablet Take 1.5 tablets by mouth once daily. 135 tablet 06/16/2024 09/14/2024 Active levothyroxine sodium 0.05 mg oral tablet (15 sources) l-Thyroxine Start: 10-29-2024 take 1 tablet by mouth once daily in the morning levothyroxine (Synthroid, Levoxyl) 50 MCG tablet Indications: Hypothyroidism, unspecified TAKE 1 TABLET BY MOUTH EVERY DAY IN THE MORNING ON EMPTY STOMACH 90 tablet 1 10/29/2024 Active Start: 04-05-2024 take 50 ug by mouth once daily Levothyroxine Active 50 MCG PO Daily April 05, 2024 12:00am SUMAtriptan 100 mg oral tablet (12 sources) Serotonin-1b and Serotonin-1d Receptor Agonist Start: 09-08-2024 End: 01-09-2025 take 1 tablet by mouth once SUMAtriptan (Imitrex) 100 MG tablet Indications: Migraine without status migrainosus, not intractable, unspecified migraine type Take 1 tablet (100 mg) by mouth 1 (one) time if needed for migraine (december repeat x1) 27 tablet 2 10/11/2024 Active Completed/Discontinued Medications Medication Drug Class(es) Dates Sig (Normalized) Sig (Original) azaTHIOprine 50 mg oral tablet (3 sources) Purine Antimetabolite Start: 06-02-2020 End: 06-16-2024 Imuran 50 MG tablet as directed Orally 06/02/2020 06/16/2024 Discontinued Problems Active Problems Problem Classification Problem Date Documented Da te Episodic/Chronic Abdominal pain (3 sources) Pain in pelvis; Translations: [Pelvic and perineal pain] 12-13-2024 Episodic Contraceptive and procreative management (4 sources) Encounter for sterilization; Translations: [ENCOUNTER FOR STERILIZATION] Onset: 06-07-2022 Episodic Headache; including migraine (3 sources) Migraine; Translations: [Migraine, unspecified, not intractable, without status migrainosus] 09-08-2024 Chronic Menstrual disorders (3 sources) Menorrhagia; Translations: [Excessive and frequent menstruation with regular cycle] 12-13-2024 Chronic Nausea and vomiting (2 sources) Nausea; Translations: [Nausea] 12-13-2024 Episodic Other circulatory disease (2 sources) Spider nevus; Translations: [Nevus, non-neoplastic] 12-01-2024 Episodic Other connective tissue disease (4 sources) Pain in left foot; Translations: [PAIN IN LEFT FOOT] Onset: 08-01-2022 Episodic Other female genital disorders (1 source) Abnormal uterine bleeding; Translations: [Abnormal uterine and vaginal bleeding, unspecified] 01-20-2025 Chronic Other inflammatory condition of skin (2 sources) Rosacea; Translations: [Other rosacea] 12-01-2024 Chronic Other skin disorders (2 sources) Seborrheic keratosis; Translations: [Other seborrheic keratosis] 12-01-2024 Episodic Other upper respiratory disease (1 source) Chronic rhinitis; Translations: [Chronic rhinitis] Onset: 04-05-2024 Chronic Other upper respiratory disease (1 source) Pain in throat Onset: 04-05-2024 Episodic Other upper respiratory disease (1 source) Nasal congestion Onset: 04-05-2024 Episodic Other upper respiratory infections (1 source) Acute upper respiratory infection, unspecified; Translations: [Acute upper respiratory infection, unspecified] Onset: 04-05-2024 Episodic Residual codes; unclassified (2 sources) Pain; Translations: [Pain, unspecified] 12-01-2024 Episodic Systemic lupus erythematosus and connective tissue disorders (8 sources) Systemic lupus erythematosus, unspecified; Translations: [Systemic lupus erythematosus] Onset: 06-12-2022 Chronic Thyroid disorders (2 sources) Autoimmune thyroiditis; Translations: [Hypothyroidism, unspecified] Onset: 06-12-2022 Chronic Unclassified (1 source) CONTACT W/AND (SUSP) EXPOS COVID-19; Translations: [CONTACT W/AND (SUSP) EXPOS COVID-19] Onset: 06-09-2022 Viral infection (2 sources) Verruca vulgaris; Translations: [Other viral warts] 12-01-2024 Episodic Past or Other Problems Problem Classification Problem Date Documented Da te Episodic/Chronic Immunizations and screening for infectious disease (1 source) Encounter for screening for human papillomavirus (HPV); Translations: [ENC SCREENING HUMAN PAPILLOMAVIRUS] Onset: 2 Episodic Other aftercare (4 sources) Encounter for surgical [...] of left lower extremity] Onset: 2 Episodic Varicose veins of lower extremity (5 sources) Varicose veins of bilateral lower extremities with pain; Translations: [VARICOSE VNS SANTANA LOW EXTREM W/PAIN] Onset: 2 Episodic Results Test Name Value Interpretation Reference Range Facility HCG ( test) Ql (U)o n 01-20-2025 Interpretation and review of laboratory results Normal [facility] Preg Test, Ur Negative Negative [facility] Raf 01-20-2025 L -- ---- Specimen: [id number] Received: 01/21/25 Status: BOYD Vallejo Num: [id number] Spec Type: Surgical Subm Dr: Saurabh López Tissues: A Endocervix - Biopsy (ENDOCERVIX) Procedures: HE/2, Gross/Micro L4 ---- Age/ Patient Sex Location Account Attending Physician ---- Susan Hogue 39/F LABELL [id number] Saurabh López ---- SPEC NUM: [id number] RECD: 01/21/25 STATUS: BOYD CORBIN NUM: [id number] VINNY: 01/20/25-[address]: Saurabh López ENTERED: 01/21/[address]: Sandeep,Lab SPEC TYPE: Surgical DEPT: BESSIE CUI ENTERED BY: [id number] RECV BY: [id number] ORDERED: HE/2, Gross/Micro L4 ORDERED: MARYBEL Gross/Micro L4 Pathological Diagnosis Endometrium, biopsy: - Proliferative phase endometrium. - No evidence of hyperplasia or malignancy identified. Clinical Information Menorrhagia with irregular cycles N92.1, abnormal uterine bleeding N93.9 Gross Description Received in formalin labeled with the patients name, date of , and EM BX is a pale ray mucoid material, admixed with snyder-pink to red-brown, delicate tissue fragments, 2.5 x 1.5 x 0.2 cm in aggregate. The specimen is filtered and entirely submitted in a single cassette. (1, ns, [id number]) Microscopic Description Microscopic examination is performed. ---- Specimen: [id number] Received: 01/21/25 Status: BOYD Corbin Num: [id number] Spec Type: Surgical Subm Dr: Saurabh Lóepz Tissues: A Endocervix - Biopsy (ENDOCERVIX) Procedures: MARYBEL, Gross/Micro L4 ---- Patient: Susan Hogue [id number] (Continued) ---- Specimen: [id number] Received: 01/21/25 (Continued) Signed (signature on file) Mati Inman MD 01/24/25 1340 ---- Specimen: [id number] Received: 01/21/25 Status: PACOLance Vallejo Num: [id number] Spec Type: Surgical Subm Dr: Saurabh López Tissues: A Endocervix - Biopsy (ENDOCERVIX) Procedures: HE/Lulu, Gross/Micro L4 ---- Patient: Susan Hogue [id number] (Continued) ---- Specimen: [id number] Received: 01/21/25 (Continued) CPT Codes 12045 ---- ---- Specimen: [id number] Received: 01/21/25 Status: BOYD Vallejo Num: [id number] Spec Type: Surgical Subm Dr: Saurabh López Tissues: A Endocervix - Biopsy (ENDOCERVIX) Procedures: HE/2, Gross/Micro L4 ---- Patient: Susan Hogue [id number] (Continued) ---- Signed (signature on file) Mati Inman MD 01/24/25 1340 Normal [facility] ALL CBC WITH AUTO DIFFon BASOPHILS ABSOLUTE [facility]O [facility] Basophils/100 WBC (Bld) 0.6 % 0.2 - 2.0 % [facility] Eosinophils/100 WBC (Bld) 3.2 % 0.9 - 7.0 % [facility] Erythrocyte distribution width (RBC) [Ratio] 12.5 % 11.0 - 15.0 % [facility] Hematocrit (Bld) [Volume fraction] 35 % Low 36.0 - 48.0 % [facility] Hemoglobin (Bld) [Mass/Vol] 11.9 g/dL Low 12.0 - 16.0 g/dL [facility] IMMATURE GRANULOCYTES ABS AUTO 0.01 [facility] Immature granulocytes/100 WBC (Bld) 0.2 % 0.0 - 0.5 % [facility] Interpretation and review of laboratory results Abnormal [facility] LYMPHOCYTES ABSOLUTE AUTO 1.6 [facility] Lymphocytes/100 WBC (Bld) 30.4 % 20.5 - 60.0 % [facility] MCH (RBC) [Entitic mass] 31.5 pg 26.7 - 34.0 pg [facility] MCHC (RBC) [Mass/Vol] 34 g/dL 29.9 - 35.2 g/dL [facility] MCV (RBC) [Entitic vol] 92.6 fL 81.0 - 99.0 fL [facility] MONOCYTES ABSOLUTE AUTO 0.5 [facility] Monocytes/100 WBC (Bld) 8.8 % 1.7 - 12.0 % [facility] NEUTROPHILS ABSOLUTE AUTO 3.1 [facility] Neutrophils/100 WBC (Bld) 56.8 % 43.0 - 75.0 % [facility] Platelet mean volume (Bld) [Entitic vol] 10.6 fL 9.5 - 13.5 fL [facility] TB RBC 3.78 Low [facility] WBC 5.4 [facility] US PELVIC COMPLETE W/ TVon 0 - US PELVIC COMPLETE W/ TV EXAM: US PELVIC COMPLETE W/ TV HISTORY: [...] in 6-12 weeks is recommended to document improvement/resolution . Interpreted by: Electronically signed by DARRYL KINNEY II, MD, PHD at 11-Jan-2025 11:32:05 PM [facility] Normal Not Available Comment on above: Order Comment: US PE LVIS-TRANSVAG IF INDICATED Patient's last menstrual period was 12/12/2024 (exact date). Demi 12-27-2024 CNPN Telephone (RHEUMN) SUSAN HOGUE ([id number]) 1985 F Date Time Provider Department 12/27/24 BEATRIZ ALSTONN During your visit today, we recorded the following information about you: Julia Mcarthur 12/27/2024 3:08 PM Signed [facility] Scanned for review. Jerel Leiva RN 12/28/2024 7:30 AM Signed Scan on 12/27/2024 10:19 AM by Provider, KENYON Garcia: Consultation - Ophthalmology Allergies As of Date: 12/27/2024 (Not on File) Date Reviewed: Never Reviewed Reason for Visit: Received Outside Medical Records [[id number]] Prescriptions as of 12/28/2024 - hydrOXYchloroQUINE (PLAQUENIL) 200 mg tablet TAKE 1 AND 1/2 TABLETS BY MOUTH ONCE DAILY Problem List As Of Date: 12/27/2024 (None) Encounter Status:Closed by JEREL LEIVA on 12/28/[address] [facility] HCG ( test) Ql (U)o n 12-13-2024 Interpretation and review of laboratory results Normal [facility] Preg Test, Ur Negative Negative [facility] Urinalysis macro (dipstick) panel (U)on 12-13-2024 Bilirubin, UA Negative Negative - 4(70) +++ mg/dL [facility] Blood, UA Negative Negative - 50 Gino/mcL [facility] Clarity, UA Clear [facility] Color, UA Yellow [facility] Glucose, UA Negative Negative - 2000(110) ++++ mg/dL [facility] Interpretation and review of laboratory results Normal [facility] Ketones, UA Positive Negative - 160(16) ++++ mg/dL [facility] Comment on above: trace Leukocytes, UA Negative Negative - 500+++ Lisa/mcL [facility] Nitrite, UA Negative Negative - Positive [facility] pH, UA 5.5 5 - 9 [facility] Protein, UA Negative Negative - 2000(20) ++++ mg/dL [facility] Spec Grav, UA 1.03 1 - 1.03 [facility] Urobilinogen, UA 0.2 0.2 - 12 mg/dL [facility] C3 SerPl-mCncon 09-14-2024 Complement C3 [Mass/Vol] 97 mg/dL Normal 86-[address] [facility] Comment on above: Order Comment: Speci men Type: BLOOD SPECIMEN Ordering Facility: [facility] Address: [address] [place] [address] Performed By: #### 4 498-2, 4485-9 #### [facility] CLIA [id number] [address] [place] [address] [place] C4 SerPl-mCncon 09-14-2024 Complement C4 [Mass/Vol] 16 mg/dL Normal 13-[address] [facility] Comment on above: Order Comment: Speci men Type: BLOOD SPECIMEN Ordering Facility: [facility] Address: [address] [place] [address] Performed By: #### 4 498-2, 4485-9 #### [facility] CLIA [id number] [address] [facility] [address] [place] [id number] [place] CBC W Auto Differential pane l (Bld)on 09-14-2024 Basophils (Bld) [#/Vol] 0.05 10*3/uL Normal <0.[address] [facility] Comment on above: Order Comment: Speci men Type: BLOOD SPECIMEN Ordering Facility: [facility] Address: [address] [place] [address] Performed By: #### 5 7021-8 #### [facility] CLIA [id number] [address] [place] [address] Basophils/100 WBC (Bld) 0.8 % Normal [facility] Comment on above: Order Comment: Speci men Type: BLOOD SPECIMEN Ordering Facility: [facility] Address: [address] [place] [address] Performed By: #### 5 7021-8 #### [facility] CLIA [id number] [address] [place] [address] 53559 Differential cell count method Nom (Bld) Auto Normal [facility] Comment on above: Order Comment: Speci men Type: BLOOD SPECIMEN Ordering Facility: [facility] Address: [address] [place] [address] Performed By: #### 5 7021-8 #### [facility] CLIA [id number] [address] [place] [address] 52719 Eosinophils (Bld) [#/Vol] 0.15 10*3/uL Normal <0.[address] [facility] Comment on above: Order Comment: Speci men Type: BLOOD SPECIMEN Ordering Facility: [facility] Address: [address] [place] [address] Performed By: #### 5 7021-8 #### [facility] CLIA [id number] [address] [place] [address] 11893 Eosinophils/100 WBC (Bld) 2.4 % Normal [facility] Comment on above: Order Comment: Speci men Type: BLOOD SPECIMEN Ordering Facility: [facility] Address: [address] [place] [address] Performed By: #### 5 7021-8 #### [facility] CLIA [id number] [address] [place] [address] 13233 Erythrocyte distribution width (RBC) [Ratio] 12.3 % Normal 11.5-15.[address] [facility] Comment on above: Order Comment: Speci men Type: BLOOD SPECIMEN Ordering Facility: [facility] Address: [address] [place] [address] Performed By: #### 5 7021-8 #### [facility] CLIA [id number] [address] [place] [address]02 Hematocrit (Bld) [Volume fraction] 40.3 % Normal 36.0-46.[address] [facility] Comment on above: Order Comment: Speci men Type: BLOOD SPECIMEN Ordering Facility: [facility] Address: [address] [place] [address] Performed By: #### 5 7021-8 #### [facility] CLIA [id number] [address] [place] [address]177 Hemoglobin (Bld) [Mass/Vol] 13.6 g/dL Normal 11.5-15.[address] [facility] Comment on above: Order Comment: Speci men Type: BLOOD SPECIMEN Ordering Facility: [facility] Address: [address] [place] [address] Performed By: #### 5 7021-8 #### [facility] CLIA [id number] [address] [place] [address] Immature granulocytes (Bld) [#/Vol] 10*3/uL Normal <0.[address] [facility] Comment on above: Order Comment: Speci men Type: BLOOD SPECIMEN Ordering Facility: [facility] Address: [address] [place] [address] Performed By: #### 5 7021-8 #### [facility] CLIA [id number] [address] [place] [address] Immature granulocytes/100 WBC (Bld) 0.2 % Normal [facility] Comment on above: Order Comment: Speci men Type: BLOOD SPECIMEN Ordering Facility: [facility] Address: [address] [place] [address] Performed By: #### 5 7021-8 #### [facility] CLIA [id number] [address] [place] [address] Lymphocytes (Bld) [#/Vol] 1.65 10*3/uL Normal 1.00-4.[address] [facility] Comment on above: Order Comment: Speci men Type: BLOOD SPECIMEN Ordering Facility: [facility] Address: [address] [place] [address] Performed By: #### 5 7021-8 #### [facility] CLIA [id number] [address] [place] [address]10 Lymphocytes/100 WBC (Bld) 26.0 % Normal [facility] Comment on above: Order Comment: Speci men Type: BLOOD SPECIMEN Ordering Facility: [facility] Address: [address] [place] [address] Performed By: #### 5 7021-8 #### [facility] CLIA [id number] [address] [place] [address]179 MCH (RBC) [Entitic mass] 30.2 pg Normal 26.0-34.[address] [facility] Comment on above: Order Comment: Speci men Type: BLOOD SPECIMEN Ordering Facility: [facility] Address: [address] [place] [address] Performed By: #### 5 7021-8 #### [facility] CLIA [id number] [address] [place] [address] 20252 MCHC (RBC) [Mass/Vol] 33.7 g/dL Normal 30.5-36.0 [facility] Comment on above: Order Comment: Speci men Type: BLOOD SPECIMEN Ordering Facility: [facility] Address: [address] [place] [address] Performed By: #### 5 7021-8 #### [facility] CLIA [id number] [address] [place] [address]30 MCV (RBC) [Entitic vol] 89.6 fL Normal 80.0-100.[address] [facility] Comment on above: Order Comment: Speci men Type: BLOOD SPECIMEN Ordering Facility: [facility] Address: [address] [place] [address] Performed By: #### 5 7021-8 #### [facility] CLIA [id number] [address] [place] [address] 61872 Monocytes (Bld) [#/Vol] 0.50 10*3/uL Normal <0.[address] [facility] Comment on above: Order Comment: Speci men Type: BLOOD SPECIMEN Ordering Facility: [facility] Address: [address] [place] [address] Performed By: #### 5 7021-8 #### [facility] CLIA [id number] [address] [place] [address] 43326 Monocytes/100 WBC (Bld) 7.9 % Normal [facility] Comment on above: Order Comment: Speci men Type: BLOOD SPECIMEN Ordering Facility: [facility] Address: [address] [place] [address] Performed By: #### 5 7021-8 #### [facility] CLIA [id number] [address] [place] [address]3 Neutrophils (Bld) [#/Vol] 3.99 10*3/uL Normal 1.45-7.[address] [facility] Comment on above: Order Comment: Speci men Type: BLOOD SPECIMEN Ordering Facility: [facility] Address: [address] [place] [address] Performed By: #### 5 7021-8 #### [facility] CLIA [id number] [address] [place] [address] 49955 Neutrophils/100 WBC (Bld) 62.7 % Normal [facility] Comment on above: Order Comment: Speci men Type: BLOOD SPECIMEN Ordering Facility: [facility] Address: [address] [place] [address] Performed By: #### 5 7021-8 #### [facility] CLIA [id number] [address] [place] [address] 11786 Nucleated RBC (Bld) [#/Vol] 10*3/uL Normal <0.[address] [facility] Comment on above: Order Comment: Speci men Type: BLOOD SPECIMEN Ordering Facility: [facility] Address: [address] [place] [address] Performed By: #### 5 7021-8 #### [facility] CLIA [id number] [address] [place] [address] 42541 Nucleated RBC/100 WBC (Bld) [Ratio] 0.0 /100 WBC Normal [facility] Comment on above: Order Comment: Speci men Type: BLOOD SPECIMEN Ordering Facility: [facility] Address: [address] [place] [address] Performed By: #### 5 7021-8 #### [facility] CLIA [id number] [address] [place] [address] 64892 Platelet mean volume (Bld) [Entitic vol] 10.7 fL Normal 9.0-12.[address] [facility] Comment on above: Order Comment: Speci men Type: BLOOD SPECIMEN Ordering Facility: [facility] Address: [address] [place] [address] Performed By: #### 5 7021-8 #### [facility] CLIA [id number] [address] [place] [address] 56788 Platelets (Bld) [#/Vol] 277 10*3/uL Normal 150-[address] [facility] Comment on above: Order Comment: Speci men Type: BLOOD SPECIMEN Ordering Facility: [facility] Address: [facility] [place] [address] Performed By: #### 5 7021-8 #### [facility] CLIA [id number] [address] [place] [address] RBC (Bld) [#/Vol] 4.50 10*6/uL Normal 3.90-5.20 [facility] Comment on above: Order Comment: Speci men Type: BLOOD SPECIMEN Ordering Facility: [facility] Address: [address] [place] [address] Performed By: #### 5 7021-8 #### [facility] CLIA [id number] [address] [place] [address] WBC (Bld) [#/Vol] 6.35 10*3/uL Normal 3.70-11.00 [facility] Comment on above: Order Comment: Speci men Type: BLOOD SPECIMEN Ordering Facility: [facility] Address: [address] [place] [address] Performed By: #### 5 7021-8 #### [facility] CLIA [id number] [address] [place] [address] Comprehensive metabolic 2000 panelon 09-14-2024 Albumin [Mass/Vol] 4.8 g/dL Normal 3.9-4.9 [facility] Comment on above: Order Comment: Speci men Type: BLOOD SPECIMEN Ordering Facility: [facility] Address: [address] [place] [address] Performed By: #### 2 4323-8 #### [facility] CLIA [id number] [address] [place] [address] ALP [Catalytic activity/Vol] 50 U/L Normal 34-[address] [facility] Comment on above: Order Comment: Speci men Type: BLOOD SPECIMEN Ordering Facility: [facility] Address: [address] [place] [address] Performed By: #### 2 4323-8 #### [facility] CLIA [id number] [address] [place] [address] ALT [Catalytic activity/Vol] 16 U/L Normal 7-[address] [facility] Comment on above: Order Comment: Speci men Type: BLOOD SPECIMEN Ordering Facility: [facility] Address: [address] [place] [address] Performed By: #### 2 4323-8 #### [facility] CLIA [id number] [address] [place] [address] Anion gap [Moles/Vol] 8 mmol/L Normal 8-15 [facility] Comment on above: Order Comment: Speci men Type: BLOOD SPECIMEN Ordering Facility: [facility] Address: [address] [place] [place] [id number] Performed By: #### 2 4323-8 #### [facility] CLIA [id number] [address] [place] [address] AST [Catalytic activity/Vol] 22 U/L Normal 13-[address] [facility] Comment on above: Order Comment: Speci men Type: BLOOD SPECIMEN Ordering Facility: [facility] Address: [address] [place] [address] Performed By: #### 2 4323-8 #### [facility] CLIA [id number] [address] [place] [address] Bilirubin [Mass/Vol] 0.4 mg/dL Normal 0.2-1.3 [facility] Comment on above: Order Comment: Speci men Type: BLOOD SPECIMEN Ordering Facility: [facility] Address: [address] [id number] Performed By: #### 2 4323-8 #### [facility] CLIA [id number] [address] [place] [address] Calcium [Mass/Vol] 10.2 mg/dL Normal 8.5-10.2 [facility] Comment on above: Order Comment: Speci men Type: BLOOD SPECIMEN Ordering Facility: [facility] Address: [address] [id number] Performed By: #### 2 4323-8 #### [facility] CLIA [id number] [address] [place] [address] Chloride [Moles/Vol] 105 mmol/L Normal 98-107 [facility] Comment on above: Order Comment: Speci men Type: BLOOD SPECIMEN Ordering Facility: [facility] Address: [address] [place] [address] Performed By: #### 2 4323-8 #### [facility] CLIA [id number] [address] [place] [address] CO2 [Moles/Vol] 27 mmol/L Normal 22-[address] [facility] Comment on above: Order Comment: Speci men Type: BLOOD SPECIMEN Ordering Facility: [facility] Address: [address] [place] [address] Performed By: #### 2 4323-8 #### [facility] CLIA [id number] [address] [place] [address] Creatinine [Mass/Vol] 0.66 mg/dL Normal 0.58-0.96 [facility] Comment on above: Order Comment: Speci men Type: BLOOD SPECIMEN Ordering Facility: [facility] Address: [address] [place] [address] Performed By: #### 2 4323-8 #### [facility] CLIA [id number] [address] [place] [address] Creatinine and Glomerular filtration rate.predicted panel (S/P/Bld) 117 mL/min/1.73m??? Normal >=[address] [facility] Comment on above: Order Comment: Speci men Type: BLOOD SPECIMEN Ordering Facility: [facility] Address: [address] [place] [address] Result Comment: Prisca mated Glomerular Filtration Rate [...] GFR. Performed By: #### 2 4323-8 #### [facility] CLIA [id number] [address] [place] [address] Glucose [Mass/Vol] 93 mg/dL Normal 74-99 [facility] Comment on above: Order Comment: Speci men Type: BLOOD SPECIMEN Ordering Facility: [facility] Address: [address] [place] [address] Result Comment: The [place] Diabetes Association (ADA) provides guidance for cutoff [...] Standards of Medical Care in Diabetes 2016, [place] Diabetes Association. Diabetes Care. 2016.39(Suppl 1). Performed By: #### 2 4323-8 #### [facility] CLIA [id number] [address] [place] [address] Potassium [Moles/Vol] 3.8 mmol/L Normal 3.7-5.1 [facility] Comment on above: Order Comment: Speci men Type: BLOOD SPECIMEN Ordering Facility: [facility] Address: [address] [place] [address] Performed By: #### 2 4323-8 #### [facility] CLIA [id number] [address] [place] [address] Protein [Mass/Vol] 7.4 g/dL Normal 6.3-8.0 [facility] Comment on above: Order Comment: Speci men Type: BLOOD SPECIMEN Ordering Facility: [facility] Address: [address] [place] [address] Performed By: #### 2 4323-8 #### [facility] CLIA [id number] [address] [place] [address] Sodium [Moles/Vol] 140 mmol/L Normal 136-144 [facility] Comment on above: Order Comment: Speci men Type: BLOOD SPECIMEN Ordering Facility: [facility] Address: [address] [place] [address] Performed By: #### 2 4323-8 #### [facility] CLIA [id number] [address] [place] [address] Urea nitrogen [Mass/Vol] 11 mg/dL Normal 7-[address] [facility] Comment on above: Order Comment: Speci men Type: BLOOD SPECIMEN Ordering Facility: [facility] Address: [address] [place] [address] Performed By: #### 2 4323-8 #### [facility] CLIA [id number] [address] [place] [address] DNA ANTIBODY DS BLDon 2024 DNA ANTIBODY 51 IU/mL Normal <=[address] [facility] Comment on above: Order Comment: Speci men Type: BLOOD SPECIMEN Ordering Facility: [facility] Address: [address] [place] [address] Result Comment: Nega tive: <200 IU/mL Equivocal: 201-300 IU/mL Moderate Positive: 301-800 IU/mL Strong Positive: >801 IU/mL Performed By: #### D NAAB #### [facility] CLIA [id number] [address] [place] [address] [place] DNA ANTIBODY QUALITATIVE INTERPRETATION Negative Normal Negative [facility] Comment on above: Order Comment: Speci men Type: BLOOD SPECIMEN Ordering Facility: [facility] Address: [address] [place] [address] Performed By: #### D NAAB #### [facility] CLIA [id number] [address] [place] [address] [place] Prot/Creat Uron 09-14-2024 Protein/Creatinine (U) [Mass ratio] 0.09 mg/mg Normal <0.[address] [facility] Comment on above: Order Comment: Speci men Type: URINE SPECIMEN Ordering Facility: [facility] Address: [address] [place] [address] Result Comment: Adul t Proteinuria Categories: <0.15 mg/mg is considered normal to mildly increased 0.15 - 0.50 mg/mg is considered moderately increased >0.50 mg/mg is considered severely increased KDIGO. (2013). KDIGO 2012 Clinical Practice Guideline for the Evaluation and Management of Chronic Kidney Disease. Official Journal of the International Society of Nephrology, 3(1), 1-150. Performed By: #### 2 890-2 #### [facility] CLIA [id number] [address] [place] [address] [place] Protein/Creatinine (U) [Mass ratio]on 09-14-2024 Creatinine (U) [Mass/Vol] 79.9 mg/dL Normal 20.0-300.[address] [facility] Comment on above: Order Comment: Speci men Type: URINE SPECIMEN Ordering Facility: [facility] Address: [address] [place] [address] Performed By: #### 2 890-2 #### [facility] CLIA [id number] [address] [place] [address] [place] Protein (U) [Mass/Vol] 7 mg/dL Normal 0-20 [facility] Comment on above: Order Comment: Speci men Type: URINE SPECIMEN Ordering Facility: [facility] Address: [address] [place] [address] Performed By: #### 2 890-2 #### [facility] CLIA [id number] [address] [place] [address] [place] Urinalysis complete panel (U )on 09-14-2024 BACTERIA UL 3984.7 uL High Negative [facility] Comment on above: Order Comment: Speci men Type: URINE SPECIMEN Ordering Facility: [facility] Address: [address] [place] [address] Performed By: #### 2 4356-8 #### [facility] CLIA [id number] [address] [place] [address] [place] Bilirubin Ql (U) Negative Normal Negative [facility] Comment on above: Order Comment: Speci men Type: URINE SPECIMEN Ordering Facility: [facility] Address: [address] [place] [address] Performed By: #### 2 4356-8 #### [facility] CLIA [id number] [address] [place] [address] [place] Clarity (Unsp spec) Clear Normal Clear [facility] Comment on above: Order Comment: Speci men Type: URINE SPECIMEN Ordering Facility: [facility] Address: [address] [place] [address] Performed By: #### 2 4356-8 #### [facility] CLIA [id number] [address] [place] [address] [place] Color (U) Yellow Normal Yellow [facility] Comment on above: Order Comment: Speci men Type: URINE SPECIMEN Ordering Facility: [facility] Address: [address] [place] [address] Performed By: #### 2 4356-8 #### [facility] CLIA [id number] [address] [place] [address] [place] Epithelial cells LM.HPF (Urine sed) [#/Area] Many Normal [facility] Comment on above: Order Comment: Speci men Type: URINE SPECIMEN Ordering Facility: [facility] Address: [address] [place] [address] Performed By: #### 2 4356-8 #### [facility] CLIA [id number] [address] [place] [address] [place] Glucose Test strip (U) [Mass/Vol] Negative Normal Negative [facility] Comment on above: Order Comment: Speci men Type: URINE SPECIMEN Ordering Facility: [facility] Address: [address] [place] [address] Performed By: #### 2 4356-8 #### [facility] CLIA [id number] [address] [place] [address] [place] Hemoglobin Ql (U) Negative Normal Negative [facility] Comment on above: Order Comment: Speci men Type: URINE SPECIMEN Ordering Facility: [facility] Address: [address] [place] [address] Performed By: #### 2 4356-8 #### [facility] CLIA [id number] [address] [place] [address] [place] Hyaline casts (Urine sed) [#/Area] 1-3 /LPF Abnormal 0 /LPF [facility] Comment on above: Order Comment: Speci men Type: URINE SPECIMEN Ordering Facility: [facility] Address: [address] [place] [address] Performed By: #### 2 4356-8 #### [facility] CLIA [id number] [address] [place] [address] [place] Ketones Ql (U) Negative Normal Negative [facility] Comment on above: Order Comment: Speci men Type: URINE SPECIMEN Ordering Facility: [facility] Address: [address] [place] [address] Performed By: #### 2 4356-8 #### [facility] CLIA [id number] [address] [place] [address] [place] Leukocyte esterase Test strip Ql (U) Trace Abnormal Negative [facility] Comment on above: Order Comment: Speci men Type: URINE SPECIMEN Ordering Facility: [facility] Address: [address] [place] [address] Performed By: #### 2 4356-8 #### [facility] CLIA [id number] [address] [place] [address] [place] Nitrite Ql (U) Negative Normal Negative [facility] Comment on above: Order Comment: Speci men Type: URINE SPECIMEN Ordering Facility: [facility] Address: [address] [place] [address] Performed By: #### 2 4356-8 #### [facility] CLIA [id number] [address] [place] [address] [place] pH (U) 6.5 [pH] Normal <8.[address] [facility] Comment on above: Order Comment: Speci men Type: URINE SPECIMEN Ordering Facility: [facility] Address: [address] [place] [address] Performed By: #### 2 4356-8 #### [facility] CLIA [id number] [address] [place] [address] [place] Protein (U) [Mass/Vol] Negative Normal Negative [facility] Comment on above: Order Comment: Speci men Type: URINE SPECIMEN Ordering Facility: [facility] Address: [address] [place] [address] Performed By: #### 2 4356-8 #### [facility] CLIA [id number] [address] [place] [address] [place] RBC LM.HPF (Urine sed) [#/Area] 0-2 /HPF Normal 0-2 /HPF [facility] Comment on above: Order Comment: Speci men Type: URINE SPECIMEN Ordering Facility: [facility] Address: [address] [place] [address] Performed By: #### 2 4356-8 #### [facility] CLIA [id number] [address] [place] [address] [place] Specific gravity (U) [Rel density] 1.017 Normal 1.005-1.[address] [facility] Comment on above: Order Comment: Speci men Type: URINE SPECIMEN Ordering Facility: [facility] Address: [address] [place] [address] Performed By: #### 2 4356-8 #### [facility] CLIA [id number] [address] [place] [address] [place] Urobilinogen Ql (U) 0.2 EU/dL Normal 0.2-1.0 EU/dL [facility] Comment on above: Order Comment: Speci men Type: URINE SPECIMEN Ordering Facility: [facility] Address: [address] [place] [address] Performed By: #### 2 4356-8 #### [facility] CLIA [id number] [address] [place] [address] [place] WBC LM.HPF (Urine sed) [#/Area] 6-10 /HPF Abnormal 0-5 /HPF [facility] Comment on above: Order Comment: Speci men Type: URINE SPECIMEN Ordering Facility: [facility] Address: [address] [place] [address] Performed By: #### 2 4356-8 #### [facility] CLIA [id number] [address] [place] [address] [place] IGP,APTIMA HPV,AGE GDLNon AGE GDLN ACOG TESTING Note . [facility] Comment on above: TESTS RESULT FLAG UN ITS REF RANGE LAB Clinician Provided Cytology Information Source.............Cervix;Endocervix No. of containers..01 ThinPrep Vial Age Algo ACOG Olga... FLAG LEGEND: L-Low Normal,H-High Normal,LL-Alert Low,HH-Alert High <-Panic Low,>-Panic High,A-Abnormal,AA-Critical Abnormal Performed at: 01 =G [address] [place] [address] Fide Bolton MD, HPV APTIMA Negative Negative [facility] Comment on above: This nucleic acid am plification test detects fourteen high- risk HPV types (16,18,31,33,35,39,45,51,52,56,58,59,66,68) without differentiation. Performed at: =G - [facility], [place] [id number] Balance Wheel Hand Filer: Fide Bolton MD, Phone: [phone] Performed at: - [address], [place] [id number] Balance Wheel Hand Filer: iFde Bolton MD, Phone: [phone] IGP, APTIMA HPV, RFX 16/18,45 Note . [facility] Comment on above: TESTS RESULT FLAG UN ITS REF RANGE LAB DIAGNOSIS: 02 NEGATIVE FOR INTRAEPITHELIAL LESION OR MALIGNANCY. Specimen adequacy: 02 Satisfactory for evaluation. No endocervical component is identified. Performed by: Kelton Rosa, Entry Specialist (ASCP) . 02 Note: Note 02 The [...] High,A-Abnormal,AA-Critical Abnormal Performed at: 02 [facility] [address] [place] [address] Fide Bolton MD, BRUSH-SPATULA CERVIX ENDOCERVIX [facility] No Panel InformationOrdered By: Emma Negrete on 04-05-2024 COVID Antigen (POC) [facility] Quick Strep (POC) [facility] C3 COMPLEMENTon 2023 Complement C3 [Mass/Vol] 97 mg/dL 86 - 166 mg/dL [facility] C4 COMPLEMENTon 2023 Complement C4 [Mass/Vol] 21 mg/dL 13 - 46 mg/dL [facility] CBC W Auto Differential pane l (Bld)on 2023 Basophils (Bld) [#/Vol] 0.05 10*3/uL [facility] Basophils/100 WBC (Bld) 0.9 % [facility] Differential cell count method Nom (Bld) Auto [facility] Eosinophils (Bld) [#/Vol] 0.20 10*3/uL [facility] Eosinophils/100 WBC (Bld) 3.5 % [facility] Erythrocyte distribution width (RBC) [Ratio] 12.3 % 11.5 - 15.0 % [facility] Hematocrit (Bld) [Volume fraction] 37.0 % 36.0 - 46.0 % [facility] Hemoglobin (Bld) [Mass/Vol] 12.6 g/dL 11.5 - 15.5 g/dL [facility] Immature granulocytes (Bld) [#/Vol] [facility] Immature granulocytes/100 WBC (Bld) 0.2 % [facility] Lymphocytes (Bld) [#/Vol] 1.31 10*3/uL [facility] Lymphocytes/100 WBC (Bld) 22.9 % [facility] MCH (RBC) [Entitic mass] 31.3 pg 26.0 - 34.0 pg [facility] MCHC (RBC) [Mass/Vol] 34.1 g/dL 30.5 - 36.0 g/dL [facility] MCV (RBC) [Entitic vol] 91.8 fL 80.0 - 100.0 fL [facility] Monocytes (Bld) [#/Vol] 0.54 10*3/uL NINF [facility] Monocytes/100 WBC (Bld) 9.4 % [facility] Neutrophils (Bld) [#/Vol] 3.61 10*3/uL [facility] Neutrophils/100 WBC (Bld) 63.1 % [facility] Nucleated RBC (Bld) [#/Vol] NINF [facility] Nucleated RBC/100 WBC (Bld) [Ratio] 0.0 % /100 WBC [facility] Platelet mean volume (Bld) [Entitic vol] 10.6 fL 9.0 - 12.7 fL [facility] Platelets (Bld) [#/Vol] 287 10*3/uL [facility] RBC (Bld) [#/Vol] 4.03 10*6/uL 3.90 - 5.2 0 m/uL [facility] WBC (Bld) [#/Vol] 5.72 10*3/uL [facility] CK [Catalytic activity/Vol]o n 2023 Interpretation and review of laboratory results Normal [facility] CREATINE KINASE/CKon 024 CK [Catalytic activity/Vol] 103 U/L 42 - 196 U/L [facility] Comprehensive metabolic 2000 panelon 2023 Albumin [Mass/Vol] 4.4 g/dL 3.9 - 4.9 g/dL [facility] ALP [Catalytic activity/Vol] 67 U/L 34 - 123 U/L [facility] ALT [Catalytic activity/Vol] 15 U/L 7 - 38 U/L [facility] Anion gap [Moles/Vol] 9 mmol/L 9 - 18 mmol/L [facility] AST [Catalytic activity/Vol] 20 U/L 13 - 35 U/L [facility] Bilirubin [Mass/Vol] 0.6 mg/dL 0.2 - 1 .3 mg/dL [facility] Calcium [Mass/Vol] 9.4 mg/dL 8.5 - 10. 2 mg/dL [facility] Chloride [Moles/Vol] 105 mmol/L 97 - 10 5 mmol/L [facility] CO2 [Moles/Vol] 24 mmol/L 22 - 30 mmol/L [facility] Creatinine [Mass/Vol] 0.70 mg/dL 0.58 - 0.96 mg/dL [facility] GFR/1.73 sq M.predicted among non-blacks MDRD (S/P/Bld) [Vol rate/Area] 115 mL/min/{1.73_m2} - PINF [facility] Comment on above: Estimated Glomerular Filtration Rate [...] [Mass/Vol] 89 mg/dL 74 - 99 mg/dL [facility] Comment on above: The [place] Diabete s Association (ADA) provides guidance for [...] Standards of Medical Care in Diabetes 2016, [place] [employer]. Diabetes Care. 2016.39(Suppl 1). Interpretation and review of laboratory results Abnormal [facility] Potassium [Moles/Vol] 3.6 mmol/L Low 3.7 - 5.1 mmol/L [facility] Protein [Mass/Vol] 6.9 g/dL 6.3 - 8.0 g/dL [facility] Sodium [Moles/Vol] 138 mmol/L 136 - 144 mmol/L [facility] Urea nitrogen [Mass/Vol] 8 mg/dL 7 - 21 mg/dL [facility] No Panel Informationon 12-07 Interpretation and review of laboratory results Normal [facility] PROTEIN / CREATININE RATIOon 2023 Protein/Creatinine (U) [Mass ratio] 0.10 mg/mg NINF - 0.15 mg/mg [facility] Comment on above: Adult Proteinuria Ca tegories: <0.15 mg/mg is considered normal to mildly increased 0.15 - 0.50 mg/mg is considered moderately increased >0.50 mg/mg is considered severely increased KDIGO. (2013). KDIGO 2012 Clinical Practice Guideline for the Evaluation and Management of Chronic Kidney Disease. Official Journal of the International Society of Nephrology, 3(1), 1-150. Protein/Creatinine (U) [Mass ratio]on 2023 Creatinine (U) [Mass/Vol] 48.3 mg/dL 20.0 - 300.0 mg/dL [facility] Interpretation and review of laboratory results Normal [facility] Protein (U) [Mass/Vol] 5 mg/dL 0 - 20 mg/dL [facility] Urinalysis complete panel (U )on 2023 Bacteria LM.HPF (Urine sed) [#/Area] Negative Negative /HPF [facility] Bilirubin Ql (U) Negative Negative [facility] Clarity (Unsp spec) Clear Clear [facility] Color (U) Yellow Yellow [facility] Epithelial cells LM.HPF (Urine sed) [#/Area] None Seen /HPF [facility] Glucose Test strip (U) [Mass/Vol] Negative Negative [facility] Hemoglobin Ql (U) Negative Negative [facility] Hyaline casts (Urine sed) [#/Area] 1-3 /LPF Abnormal 0 /LPF [facility] Interpretation and review of laboratory results Abnormal [facility] Ketones Ql (U) Negative Negative [facility] Leukocyte esterase Test strip Ql (U) Negative Negative [facility] Nitrite Ql (U) Negative Negative [facility] pH (U) 6.5 [pH] NINF - 8.5 [facility] Protein (U) [Mass/Vol] Negative Negative [facility] RBC LM.HPF (Urine sed) [#/Area] 0-2 /HPF 0-2 /HPF [facility] Specific gravity (U) [Rel density] 1.010 1.005 - 1.030 [facility] Urobilinogen Ql (U) 0.2 EU/dL 0.2-1.0 EU/dL [facility] WBC LM.HPF (Urine sed) [#/Area] 0-5 /HPF 0-5 /HPF [facility] This test was developed and its performance characteristics determined by [facility]'s [facility] [place] [facility] It has not been cleared or approved by the FDA. [facility] is regulated under CLIA as qualified to perform high-complexity testing. This test is used for clinical purposes. It should not be regarded as investigational or for research. [facility] Cytology Cervical or vaginal smear or scraping studyOrdered By: Rita Busby on 06-09-2023 [facility] SED RATE [facility] 2021 SED RATE 9 mm/hr Normal <=20 [facility] Comment on above: Performed By: #### S EDR #### [facility] [address] [place], [place] [address] Dr. Mio Spicer CBC AUTO DIFFon 06-07-2022 BASO # 0.1 103/ul Normal 0.0-0.1 [facility] Comment on above: Performed By: #### C BC ####[facility] [address] [place] [address]DrClaude Spicer Basophils/100 WBC (Bld) 1.1 % Normal 0.2-2.0 [facility] Comment on above: Performed By: #### C BC ####[facility] [address] [place] [address]DrClaude Spicer EO # 0.5 103/ul Normal 0.0-0.7 The [facility] Comment on above: Performed By: #### C BC ####[facility] [address] [place] [address]DrClaude Spicer Eosinophils/100 WBC (Bld) 8.5 % Critically high 0.9-7.0 The [facility] Comment on above: Performed By: #### C BC ####[facility] [address] [place] [address]DrClaude Spicer Erythrocyte distribution width (RBC) [Ratio] 12.8 % Normal 11.0-15.0 [facility] Comment on above: Performed By: #### C BC ####[facility] [address] [place] [address]Dr. Mio Spicer Hematocrit (Bld) [Volume fraction] 39.6 % Normal 36.0-48.0 [facility] Comment on above: Performed By: #### C BC ####[facility] [address] [place] [address]Dr. Mio Spicer Hemoglobin (Bld) [Mass/Vol] 13.4 g/dL Normal 12.0-16.0 The [facility] Comment on above: Performed By: #### C BC ####[facility] [address] [place], [place] [address]Dr. Mio Spicer IG # 0.01 10e3/ul Normal 0.00-0.03 The [facility] Comment on above: Performed By: #### C BC ####[facility] [address] [place], [place] [address]Dr. Mio Spicer IG % 0.2 % Normal 0.0-0.5 The [facility] Comment on above: Performed By: #### C BC ####[facility] [address] [place], [place] [address]Dr. Mio Spicer LYMPH # 1.4 103/ul Normal 1.2-3.8 The [facility] Comment on above: Performed By: #### C BC ####[facility] [address] [place], [place] [address]Dr. Mio Spicer Lymphocytes/100 WBC (Bld) 23.0 % Normal 20.5-60.0 The [facility] Comment on above: Performed By: #### C BC ####[facility] [address] [place], [place] [address]Dr. Mio Spicer MANUAL DIFF REQ NO Normal The [facility] Comment on above: Performed By: #### C BC ####[facility] [address] [place] [address]Dr. Mio Spicer MCH (RBC) [Entitic mass] 31.3 pg Normal 26.7-34.0 The [facility] Comment on above: Performed By: #### C BC ####[facility] [address] [place] [address]Dr. Mio Nayan MCHC (RBC) [Mass/Vol] 33.8 g/dL Normal 29.9-35.2 The [facility] Comment on above: Performed By: #### C BC ####[facility] [address] [place] [address]Dr. Mio Spicer MCV (RBC) [Entitic vol] 92.5 fL Normal 81.0-99.0 [facility] Comment on above: Performed By: #### C BC ####[facility] [address] [place], [place] [address]Dr. Mio Spicer MONO # 0.4 103/ul Normal 0.3-0.8 The [facility] Comment on above: Performed By: #### C BC ####[facility] [address] [place], [place] [address]Dr. Mio Spicer Monocytes/100 WBC (Bld) 6.9 % Normal 1.7-12.0 The [facility] Comment on above: Performed By: #### C BC ####[facility] [address] [place], [place] [address]Dr. Mio Spicer NEUT # 3.7 103/ul Normal 1.4-6.5 The [facility] Comment on above: Performed By: #### C BC ####[facility] [address] [place], [place] [address]Dr. Mio Spicer Neutrophils/100 WBC (Bld) 60.3 % Normal 43.0-75.0 The [facility] Comment on above: Performed By: #### C BC ####[facility] [address] [place], [place] [address]DrClaude Spicer Platelet mean volume (Bld) [Entitic vol] 10.1 fL Normal 9.5-13.5 The [facility] Comment on above: Performed By: #### C BC ####[facility] [address] [place], [place] [address]Dr. Mio Spicer PLT 315 103/ul Normal 150-450 The [facility] Comment on above: Performed By: #### C BC ####[facility] [address] [place], [place] [address]Wk. Mio Spicer RBC 4.28 106/ul Normal 4.20-5.40 [facility] Comment on above: Performed By: #### C BC ####[facility] [address] [place], [place] [address]Xk. Mio Spicer WBC 6.1 103/ul Normal 4.0-11.0 [facility] Comment on above: Performed By: #### C BC ####[facility] [address] [place], [place] [address]Wt. Mio Spicer PREG HCG QUALon 06-07-2022 , QUAL Negative Normal NEGATIVE The [facility] Comment on above: Performed By: #### P REG #### [facility] [address] [place], [place] [address] Dr. Mio Spicer Covid-19 PCR (CVDTB)on 05-12 SARS-CoV-2 (COVID-19) RNA CANDICE+probe Ql (Unsp spec) Not detected Normal NOT DETECTED The [facility] Comment on above: Result Comment: This test is not yet approved or cleared by the [place] FDA. When there are no FDA-approved or cleared tests available, and other criteria are met, FDA can make tests available under an emergency access mechanism called an Emergency Use Authorization (EUA). The EUA for this test is supported by the Mortgage Loan Processing Clerk of Health and Human Service's (HHS's) declaration [...] with SARS-CoV-2. Performed By: #### C VDTBH ####[facility] [address] [place] [address]Dr. Mio Spicer PAP ACOG PANEL 2: 30 to 65on 03-14-2022 . . Normal [facility] Comment on above: Result Comment: Perf ormed at: WB Performed By: #### 4 [id number] #### [facility] [address] [place] [address] [address] Mio Spicer Age Gdln ACOG Testing 30-65 Normal [facility] Comment on above: Performed By: #### 4 [id number] #### [facility] [address] [place] [address] [address] Mio Spicer DIAGNOSIS: Comment Normal [facility] Comment on above: Result Comment: NEGA TIVE FOR INTRAEPITHELIAL LESION OR MALIGNANCY. Performed at: WB Performed By: #### 4 [id number] #### [facility] [address] [place] [address] Dr. Mio Spicer HPV Aptima Negative Normal Negative [facility] Comment on above: Result Comment: This nucleic acid amplification test detects fourteen high-risk HPV types (16,18,31,33,35,39,45,51,52,56,58,59,66,68) without differentiation. Performed at: =G Performed By: #### 4 [id number] #### [facility] [address] [place] [address] Dr. Mio Spicer Methodology: Comment Normal [facility] Comment on above: Result Comment: This liquid based ThinPrep(R) pap test was screened with the use of an image guided system. Performed at: WB Performed By: #### 4 [id number] #### [facility] [address] [place] [address] Dr. Mio Spicer Note: Comment Normal [facility] Comment on above: Result Comment: The Pap smear is a screening test designed to aid in the detection of premalignant and malignant conditions of the uterine cervix. It is not a diagnostic procedure and should not be used as the sole means of detecting cervical cancer. Both false-positive and false-negative reports do occur. . Performed at: WB Performed By: #### 4 [id number] #### [facility] [address] [place] [address] [address] Mio Spicer Performed by: Comment Normal The [facility] Comment on above: Result Comment: Carlo Goldman, Entry Specialist (ASCP) Performed at: WB Performed By: #### 4 [id number] #### [facility] [address] [place] [address] [address] Mio Spicer Specimen adequacy: Comment Normal [facility] Comment on above: Result Comment: Sati sfactory for evaluation. Endocervical and/or squamous metaplastic cells (endocervical component) are present. Performed at: WB Performed By: #### 4 [id number] #### [facility] [address] [place] [address] [address] Mio Spicer MRI Ankle w/o + [...] by [address] on 01/17/2022 1601 Normal [facility] [employer] VC INJ SCL ROSA SEISMIC PROSPECTING OBSERVER HELPER VEINSon 0 01-08-2022 VC INJ SCL ROSA SEISMIC PROSPECTING OBSERVER HELPER VEINS Patient: SUSAN HOGUE Exam Date: 01/08/2022 : 1985 Gender:F Ordering : DR SHANNA ROSA M.D. Admission #: [id number] Family : Order #: [id number] CLICK HERE TO VIEW EXAM RADIOLOGY REPORT [...] Rosa MD on 01/08/2022 at 10:33 Normal [facility] VC CONSULT FOLLOWUPon 2021 VC CONSULT FOLLOWUP Patient: SUSAN HOGUE Exam Date: 12/10/2021 : 1985 Gender:F Ordering : DR SHANNA ROSA M.D. Admission #: [id number] Family : Order #: [id number] CLICK HERE TO VIEW EXAM RADIOLOGY REPORT [...] Rosa MD on 12/10/2021 at 08:35 Normal [facility] VC EXT VENOUS RT LIMITEDon 0 12-10-2021 VC EXT VENOUS RT LIMITED Patient: SUSAN HOGUE Exam Date: 12/10/2021 : 1985 Gender:F Ordering : DR SHANNA ROSA M.D. Admission #: [id number] Family : Order #: [id number] CLICK HERE TO VIEW EXAM RADIOLOGY REPORT [...] remains patent. *Exam performed in accordance with [facility] practice [...] Rosa MD on 12/10/2021 at 08:19 Normal [facility] VC ENDOVENOUS ABL 1ST V RTon 12-03-2021 VC ENDOVENOUS ABL 1ST V RT Patient: SUSAN HOGUE Exam Date: 12/03/2021 : 1985 Gender:F Ordering : DR SHANNA ROSA M.D. Admission #: [id number] Family : Order #: [id number] CLICK HERE TO VIEW EXAM RADIOLOGY REPORT [...] Rosa MD on 12/03/2021 at 11:18 Normal [facility] VC CONSULT FOLLOWUPon 2021 VC CONSULT FOLLOWUP Patient: SUSAN HOGUE Exam Date: 11/19/2021 : 1985 Gender:F Ordering : DR SHANNA ROSA M.D. Admission #: [id number] Family : Order #: [id number] CLICK HERE TO VIEW EXAM RADIOLOGY REPORT [...] Rosa MD on 11/19/2021 at 14:00 Normal [facility] VC EXT VENOUS LT LIMITEDon 0 11-19-2021 VC EXT VENOUS LT LIMITED Patient: SUSAN HOGUE Exam Date: 11/19/2021 : 1985 Gender:F Ordering : DR SHANNA ROSA M.D. Admission #: [id number] Family : Order #: [id number] CLICK HERE TO VIEW EXAM RADIOLOGY REPORT [...] Rosa MD on 11/19/2021 at 13:48 Normal [facility] VC ENDOVENOUS ABL 1ST V LTon 11-12-2021 VC ENDOVENOUS ABL 1ST V LT Patient: SUSAN HOGUE Exam Date: 11/12/2021 : 1985 Gender:F Ordering : DR SHANNA ROSA M.D. Admission #: [id number] Family : Order #: [id number] CLICK HERE TO VIEW EXAM RADIOLOGY REPORT [...] Rosa MD on 11/12/2021 at 10:02 Normal [facility] VC CONSULT FOLLOWUPon 2021 VC CONSULT FOLLOWUP Patient: SUSAN HOGUE Exam Date: 10/22/2021 : 1985 Gender:F Ordering : DR SHANNA ROSA M.D. Admission #: [id number] Family : Order #: [id number] CLICK HERE TO VIEW EXAM RADIOLOGY REPORT [...] Rosa MD on 10/22/2021 at 13:42 Normal [facility] VC EXT VENOUS RT LIMITEDon 0 10-22-2021 VC EXT VENOUS RT LIMITED Patient: SUSAN HOGUE Exam Date: 10/22/2021 : 1985 Gender:F Ordering : DR SHANNA ROSA M.D. Admission #: [id number] Family : Order #: [id number] CLICK HERE TO VIEW EXAM RADIOLOGY REPORT [...] Rosa MD on 10/22/2021 at 13:28 Normal [facility] VC ENDOVENOUS ABL 1ST V RTon 10-15-2021 VC ENDOVENOUS ABL 1ST V RT Patient: SUSAN HOGUE Exam Date: 10/15/2021 : 1985 Gender:F Ordering : DR SHANNA ROSA M.D. Admission #: [id number] Family : Order #: [id number] CLICK HERE TO VIEW EXAM RADIOLOGY REPORT [...] Shanna Rosa MD on 10/15/2021 at 10:35 Normal [facility] Vital Signs Date Time Vital Sign Value Performing Clinician Facility 01-20-2025 11:00-0400 Body mass index (BMI) [Ratio] 22.47 kg/m2 [employer] Work Phone: [facility] 01-20-2025 11:00-0400 Body weight 61.24 kg [employer] Work Phone: [facility] 01-20-2025 11:00-0400 Diastolic blood pressure 72 mm[Hg] [employer] Work Phone: [facility] 01-20-2025 11:00-0400 Systolic blood pressure 112 mm[Hg] [employer] Work Phone: [facility] 12-13-2024 14:51-0400 Body mass index (BMI) [Ratio] 23.96 kg/m2 Rita BAHENA Work Phone: [facility] 12-13-2024 14:51-0400 Body weight 65.32 kg Rita BAHENA Work Phone: [facility] 12-13-2024 14:51-0400 Diastolic blood pressure 68 mm[Hg] Rita Eid PA Work Phone: [facility] 12-13-2024 14:51-0400 Systolic blood pressure 110 mm[Hg] Rita Eid PA Work Phone: [facility] 10-11-2024 12:06-0500 Body height 165.1 cm Kalyani Lowe PA Work Phone: [facility] 10-11-2024 12:06-0500 Body mass index (BMI) [Ratio] 25.13 kg/m2 Kalyani Lowe PA Work Phone: [facility] 10-11-2024 12:06-0500 Body weight 68.49 kg Kalyani Lowe PA Work Phone: [facility] 10-11-2024 12:06-0500 Diastolic blood pressure 72 mm[Hg] Kalyani Lowe PA Work Phone: [facility] 10-11-2024 12:06-0500 Systolic blood pressure 118 mm[Hg] Kalyani Lowe PA Work Phone: [facility] 06-16-2024 14:37-0500 Body mass index (BMI) [Ratio] 23.86 kg/m2 Saurabh Maribel DO Work Phone: [facility] 06-16-2024 14:37-0500 Body weight 65.05 kg Saurabh Maribel DO Work Phone: [facility] 06-16-2024 14:37-0500 Diastolic blood pressure 60 mm[Hg] Saurabh Maribel DO Work Phone: [facility] 06-16-2024 14:37-0500 Systolic blood pressure 106 mm[Hg] Saurabh Maribel DO Work Phone: [facility] 04-05-2024 10:18-0400 Body height 165.1 cm [facility] [place] 04-05-2024 10:18-0400 Body mass index (BMI) [Ratio] 23 kg/m2 [facility] 04-05-2024 10:18-0400 Body temperature 99.3 [degF] [facility] 04-05-2024 10:18-0400 Body weight 62.7 kg [facility] [place] 04-05-2024 10:18-0400 Heart rate 91 /min [facility] [place] 04-05-2024 10:18-0400 Respiratory rate 18 /min [facility] 04-05-2024 10:18-0400 SaO2% (BldA) [Mass fraction] 99 % [facility] 2023 12:42-0400 Body temperature 97.81 [degF] Beatriz Alston DO Work Phone: [facility] 2023 12:42-0400 Body weight 65.6 kg Beatriz Alston DO Work Phone: [facility] 2023 12:42-0400 Diastolic blood pressure 50 mm[Hg] Beatriz Alston DO Work Phone: [facility] 2023 12:42-0400 Heart rate 89 /min Beatriz Alston DO Work Phone: [facility] 2023 12:42-0400 Systolic blood pressure 123 mm[Hg] Beatriz Alston DO Work Phone: [facility] Encounters Encounter Date Encounter Type Care Provider Facility Start: 01-20-2025 End: 01-20-2025 ambulatory [facility] Facility:[facility] Start: 01-20-2025 End: 01-20-2025 Patient encounter procedure Saurabh Maribel DO Work Phone: [facility] Comment on above: Pre-op examination; Menorrhagia with irregular cycle; Pelvic pain; Abnormal uterine bleeding (AUB) Start: 01-20-2025 End: 01-20-2025 Preprocedural examination done Sauarbh Mujicao DO Work Phone: [facility] Start: 01-20-2025 End: 01-20-2025 ambulatory SAURABH LÓPEZ Not Available Start: 01-17-2025 End: 01-17-2025 Clinisync Result Encounter Rita BAHENA Work Phone: [facility] Unsolicited Start: 01-17-2025 End: 01-17-2025 Clinisync Result Encounter Rita BAHENA Work Phone: [facility] Unsolicited Start: 01-10-2025 End: 01-10-2025 ambulatory RITA EID Not Available Start: 12-27-2024 End: 12-28-2024 Telephone encounter Beatriz Alston DO Work Phone: Rheumatology Comment on above: Received Outside Med ical Records Start: 12-24-2024 End: 12-24-2024 Refill Beatriz Alston DO Work Phone: Rheumatology Comment on above: Refill Request Start: 12-13-2024 End: 12-13-2024 Office outpatient visit 15 minutes Rita BAHENA Work Phone: [facility] Comment on above: Menorrhagia with reg ular cycle; Pelvic cramping; Nausea Start: 12-13-2024 End: 12-13-2024 ambulatory RITA EID Not Available Start: 12-10-2024 End: 12-10-2024 Telemedicine consultation with patient Beatriz Alston DO Work Phone: Rheumatology Start: 12-10-2024 End: 12-10-2024 ambulatory Beatriz Alston DO Work Phone: Rheumatology Comment on above: 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) Start: 12-01-2024 End: 12-01-2024 Bamboo flowsheet Godwin A Felter 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 [employer] Work Phone: [facility] Start: 12-01-2024 End: 12-01-2024 Bamboo flowsheet Godwin A Felter 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 [employer] Work Phone: [facility] Start: 12-01-2024 End: 12-01-2024 Office outpatient new 30 minutes Godwin A Felter 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 [employer] Work Phone: [facility] Comment on above: Capillary angioma; Seborrheic keratosis; Other rosacea; Common wart; Pain Start: 12-01-2024 End: 12-01-2024 ambulatory GODWIN MERCHANT Not Available Start: 10-21-2024 End: 10-21-2024 Refill Beatriz Alston DO Work Phone: Rheumatology Comment on above: Refill Request Start: 10-11-2024 End: 10-11-2024 ambulatory KALYANI CHRIS Not Available Start: 10-11-2024 End: 10-11-2024 Office outpatient visit 15 minutes Kalyani BAHENA Work Phone: [facility] Comment on above: Migraine without sta tus migrainosus, not intractable, unspecified migraine type (CMS/HCC) Start: 09-20-2024 End: 11-20-2024 Follow-up encounter Beatriz Antonyjohn DO Work Phone: Rheumatology Start: 09-14-2024 End: 09-14-2024 ambulatory BEATRIZ ANTONYJOHN Facility:[facility] Start: 09-08-2024 End: 09-08-2024 Telephone encounter Kalyani BAHENA Work Phone: [facility] Start: 06-16-2024 End: 06-16-2024 Bamboo flowsheet Saurabh Maribel DO Work Phone: [facility] Start: 06-16-2024 End: 06-24-2024 Bamboo flowsheet Saurabh Maribel DO Work Phone: [facility] Start: 06-16-2024 End: 06-24-2024 Clinisync Result Encounter Saurabh Maribel DO Work Phone: [facility] Unsolicited Start: 06-16-2024 End: 06-16-2024 Patient encounter procedure Saurabh Maribel DO Work Phone: [facility] Work Phone: Start: 06-16-2024 End: 06-16-2024 Periodic preventive med est patient 18-39 yrs Saurabh Maribel DO Work Phone: [facility] Comment on above: Well woman exam with routine gynecological exam Start: 06-16-2024 End: 06-16-2024 ambulatory Beatriz Alston DO Work Phone: Rheumatology Comment on above: Other forms of syste leopoldo lupus erythematosus, unspecified organ involvement status (HCC) (Primary Dx) Start: 06-16-2024 End: 06-16-2024 Telemedicine consultation with patient Beatriz Alston DO Work Phone: Rheumatology Start: 05-13-2024 End: 05-13-2024 Refill Beatriz Alston DO Work Phone: Rheumatology Comment on above: Refill Request Start: 04-05-2024 End: 04-05-2024 [facility]ulatory [facility] Start: 04-05-2024 End: 04-05-2024 ambulatory [facility] Work Phone: Start: 04-05-2024 End: 04-05-2024 Patient encounter procedure [facility] Physician [facility] Jose Alberto Work Phone: Start: 2023 End: 2023 Patient encounter procedure Beatriz Alston DO Work Phone: Rheumatology Comment on above: 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) Start: 08-01-2022 End: 08-02-[address] SHRUTHI CHOW Facility:[facility] Start: 07-18-2022 End: 07-19-[address] BELINDA MOCK Facility:[facility] Start: 06-09-2022 Encounter for preprocedural laboratory examination DR SAURABH LÓPEZ [facility] Start: 06-07-2022 End: 06-07-[address] SAURABH LÓPEZ Facility:[facility] Start: 06-04-2022 End: 06-05-[address] SAURABH LÓPEZ Facility:[facility] Start: 06-04-2022 End: 06-05-2022 Encounter for preprocedural laboratory examination DR SAURABH LÓPEZ Facility:[facility] Start: 05-29-[address] SAURABH LÓPEZ Facility :[facility] Start: 03-11-2022 End: 03-11-[address] SAURABH LÓPEZ Facility:[facility] Start: 01-09-[address] BELINDA MOCK Facility: [facility] Start: 01-08-2022 End: 01-09-[address] BELINDA MOCK Facility:[facility] Start: 12-10-2021 End: 12-11-[address] BELINDA MOCK Facility:[facility] Start: 12-03-2021 End: 12-04-[address] BELINDA MOCK Facility:[facility] Start: 11-19-2021 End: 11-20-[address] SHANNA ROSA Facility:[facility] Start: 11-12-2021 End: 11-13-[address] HSANNA ROSA Facility:[facility] Start: 10-22-2021 End: 10-23-[address] BELINDA MOCK Facility:[facility] Start: 10-15-2021 End: 10-16-[address] BELINDA MOCK Facility:[facility] Procedures Date Procedure Procedure Detail Performing Clinician Start: 01-20-2025 Urine test visual color cmprsn meths Saurabh Maribel DO Work Phone: Start: 01-17-2025 ALL CBC WITH AUTO DIFF Rita BAHENA Work Phone: Start: 12-13-2024 Urnls dip stick/tabl et rgnt non-auto w/o micrscp Rita BAHENA Work Phone: Start: 06-16-2024 IGP,APTIMA HPV,AGE GDLN Saurabh Maribel DO Work Phone: Start: 06-16-2024 Microscopic observat ion [Identifier] in Cervix by Cyto stain Saurabh Maribel DO Work Phone: Start: 04-05-2024 COVID Antigen (POC) Start: 04-05-2024 Quick Strep (POC) Start: 06-09-2023 Microscopic observat ion [Identifier] in Cervix by Cyto stain Saurabh Maribel DO Work Phone: Start: 06-09-2023 Cytp cerv/vag auto t hin layer prep mnl screen Saurabh Maribel DO Work Phone: Plan of Treatment Date Care Activity Detail Author Start: 07-25-2030 Urine microalbumin profile DTaP,Tdap,Td Vaccine (2 - Td or Tdap) [facility] Start: 06-16-2029 Screening for malign ant neoplasm of cervix [facility] Start: 06-09-2028 Screening for malign ant neoplasm of cervix [facility] Start: 12-01-2025 End: 12-01-2025 Patient encounter procedure 12/01/2025 1:10 PM EDT Office Visit [facility] [address] [place] [address] Godwin Merchant, 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 [employer] ASSEMBLER [address] [place] [address] [facility] Start: 10-26-2025 End: 10-26-2025 Patient encounter procedure 10/26/2025 12:40 PM EDT Office Visit [facility] [address] [place] [phone] Kalyani Obregon PA [address] [place] [address] [facility] Start: 06-27-2025 End: 06-27-2025 Patient encounter procedure 06/27/2025 9:20 AM EST Office Visit [facility] [address] [place] [address] Saurabh López, DO [address] [place] [address] [facility] Start: 06-23-2025 End: 06-23-2025 Patient encounter procedure 06/23/2025 8:30 AM EST Office Visit [facility] [address] [place] [address] Saurabh López, DO [address] [place] [address] [facility] Start: 04-13-2025 End: 04-13-2025 Patient encounter procedure 04/13/2025 11:00 AM EDT Office Visit Rheumatology [address] [address] Beatriz Alston, DO [address] [place] [address] 6m SLE f/u per [facility] Comment on above: 6m SLE f/u per [facility] Start: 04-11-2025 Influenza vaccination Influenz a Vaccine (Season Ended) [facility] Start: 02-28-2025 End: 02-28-2025 Patient encounter procedure 02/28/2025 8:40 AM EDT Office Visit [facility] [address] [place] [id number] Saurabh López, DO [address] [place], [place] [id number] [facility] Start: 01-20-2025 End: 01-20-2025 Patient encounter procedure 01/20/2025 10:30 AM EDT Procedure Visit [facility] [address] [place] [id number] Saurabh López, DO [address] [place], [place] [id number] [facility] Start: 12-13-2024 End: 12-13-2025 aPTT in Blood by Coagulation assay APTT Lab Routine Menorrhagia with regular cycle Expected: 12/13/2024 (Approximate), Expires: 12/13/2025 [facility] Comment on above: Expected: 12/13/2024 (Approximate), Expires: 12/13/2025 Start: 12-13-2024 End: 12-13-2025 US Pelvis US Pelvis w/ TV Imaging Routine Menorrhagia with regular cycle Expected: 12/13/2024 (Approximate), Expires: 12/13/2025 [facility] Comment on above: Expected: 12/13/2024 (Approximate), Expires: 12/13/2025 Start: 12-01-2024 End: 12-01-2024 Patient encounter procedure 12/01/2024 1:40 PM EDT Office Visit [facility] [address] [place] [id number] Godwin Merchant, 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 [address] [place] [address] Arrived [facility] Comment on above: Arrived Start: 10-11-2024 End: 10-11-2024 Patient encounter procedure 10/11/2024 12:00 PM EST Office Visit VERNELL GERONIMO [address] [place] [address] Kalyani Obregon PA [address] [place] [address] [facility] GERONIMO Start: 06-16-2024 End: 09-15-2024 CBC W Auto Differential panel - Blood COMPLETE BLOOD COUNT AND DIFFERENTIAL Lab Routine Other forms of systemic lupus erythematosus, unspecified organ involvement status (HCC) Expected: 06/16/2024, Expires: 09/15/2024 [facility] Comment on above: Expected: 06/16/2024 , Expires: 09/15/2024 Start: 06-16-2024 End: 09-15-2024 Complement C3 [Mass/volume] in Serum or Plasma C3 COMPLEMENT Lab Routine Other forms of systemic lupus erythematosus, unspecified organ involvement status (HCC) Expected: 06/16/2024, Expires: 09/15/2024 [facility] Work Phone: Comment on above: Expected: 06/16/2024 , Expires: 09/15/2024 Start: 06-16-2024 End: 09-15-2024 Complement C4 [Mass/volume] in Serum or Plasma C4 COMPLEMENT Lab Routine Other forms of systemic lupus erythematosus, unspecified organ involvement status (HCC) Expected: 06/16/2024, Expires: 09/15/2024 [facility] Comment on above: Expected: 06/16/2024 , Expires: 09/15/2024 Start: 06-16-2024 End: 09-15-2024 Comprehensive metabolic 2000 panel - Serum or Plasma COMPREHENSIVE METABOLIC PANEL Lab Routine Other forms of systemic lupus erythematosus, unspecified organ involvement status (HCC) Expected: 06/16/2024, Expires: 09/15/2024 [facility] Comment on above: Expected: 06/16/2024 , Expires: 09/15/2024 Start: 06-16-2024 End: 09-15-2024 DNA ANTIBODY DS BLD DNA ANTIBODY DS BLD Lab Routine Other forms of systemic lupus erythematosus, unspecified organ involvement status (HCC) Expected: 06/16/2024, Expires: 09/15/2024 [facility] Comment on above: Expected: 06/16/2024 , Expires: 09/15/2024 Start: 06-16-2024 End: 09-15-2024 Protein/Creatinine [Mass Ratio] in Urine PROTEIN / CREATININE RATIO Lab Routine Other forms of systemic lupus erythematosus, unspecified organ involvement status (HCC) Expected: 06/16/2024, Expires: 09/15/2024 [facility] Comment on above: Expected: 06/16/2024 , Expires: 09/15/2024 Start: 06-16-2024 End: 09-15-2024 Urinalysis complete panel - Urine URINALYSIS, WITH MICROSCOPIC Lab Routine Other forms of systemic lupus erythematosus, unspecified organ involvement status (HCC) Expected: 06/16/2024, Expires: 09/15/2024 [facility] Comment on above: Expected: 06/16/2024 , Expires: 09/15/2024 Start: 06-16-2024 End: 06-16-2024 Patient encounter procedure 06/16/2024 11:00 AM EST Office Visit Rheumatology [address] [id number] Beatriz Alston DO [address] [place] [address] 6m SLE f/u per [facility] Comment on above: 6m SLE f/u per [facility] Start: 04-11-2024 Covid-19 Vaccine ( season) Covid-19 Vaccine () [facility] Start: 04-11-2024 Covid-19 Vaccine () Covid-19 Vaccine () [facility] Start: 04-11-2024 Influenza vaccination Influenza Vacc ine (#1) [facility] Start: 2023 End: 03-08-2024 VERNELL BY IFA SCREEN [facility] Comment on above: Expected: 2023 , Expires: 03/08/2024 Start: 2023 End: 03-08-2024 BLOOD TB SCREEN [facility] Comment on above: Expected: 2023 , Expires: 03/08/2024 Start: 2023 End: 03-08-2024 DNA ANTIBODY DS BLD [facility] Comment on above: Expected: 2023 , Expires: 03/08/2024 Start: 2023 End: 03-08-2024 Extractable nuclear Ab panel - Serum [facility] Work Phone: Comment on above: Expected: 2023 , Expires: 03/08/2024 Start: 08-11-2023 Behavioral Health Screening Behavioral Health Screening [facility] Start: 04-11-2023 Covid-19 Vaccine ( season) Covid-19 Vaccine () [facility] Start: 12-07-2017 Screening for malign ant neoplasm of cervix HPV Testing [facility] Start: 12-07-2008 Screening for malign ant neoplasm of cervix [facility] Start: 12-07-2005 Anxiety Screening Anxiety Screening [facility] Start: 12-07-2005 Depression Screening Depression Scre ening [facility] Start: 12-07-2005 HIV screening HIV Screening [facility] Start: 12-07-1998 Screening for malign ant neoplasm of cervix Cervical Cancer Screening [facility] Start: 1987 HPV Vaccine: Recommended Based On Risk HPV Vaccine: Recommended Based On Risk [facility] CBC W Auto Different ial panel - Blood CBC and differential Lab Routine Menorrhagia with regular cycle Ordered: 12/13/2024 [facility] [employer] Work Phone: Comment on above: Ordered: 12/13/2024 Cytology Cervical or vaginal smear or scraping study Pap Smear Pathology and Cytology Routine Well woman exam with routine gynecological exam Ordered: 06/16/2024 [facility] Work Phone: Comment on above: Ordered: 06/16/2024 Endometrial biopsy Endometrial b iopsy Procedures Routine Menorrhagia with irregular cycle Pelvic pain Abnormal uterine bleeding (AUB) Ordered: 01/20/2025 [facility] Work Phone: Comment on above: Ordered: 01/20/2025 hCG, quantitative, hCG, quantitative, Lab Routine Menorrhagia with regular cycle Ordered: 12/13/2024 [facility] Comment on above: Ordered: 12/13/2024 Hemoglobin A1c/Hemoglobin.total in Blood Hemoglobin A1c Lab Routine Menorrhagia with regular cycle Ordered: 12/13/2024 [facility] Comment on above: Ordered: 12/13/2024 Human papilloma viru s DNA [Presence] in Unspecified specimen by Probe with amplification HPV DNA probe, amplified Microbiology Routine Well woman exam with routine gynecological exam Ordered: 06/16/2024 [facility] Comment on above: Ordered: 06/16/2024 Prothrombin time (PT ) in Blood by Coagulation assay Protime-INR Lab Routine Menorrhagia with regular cycle Ordered: 12/13/2024 [facility] Comment on above: Ordered: 12/13/2024 Thyrotropin [Units/volume] in Serum or Plasma TSH Lab Routine Menorrhagia with regular cycle Ordered: 12/13/2024 [facility] Comment on above: Ordered: 12/13/2024 Thyroxine (T4) free [Mass/volume] in Serum or Plasma T4, free Lab Routine Menorrhagia with regular cycle Ordered: 12/13/2024 [facility] Comment on above: Ordered: 12/13/2024 Immunizations Immunization Date Immunization Notes Care Provider Jl mullins 05-15-2023 influenza virus vaccine, unspecified formulation Beatriz Alston DO Work Phone: [facility] Payers Date Payer Category Payer Self-pay 2020 [facility] Blue Shield [id number] 2020 Unknown [employer] PPO OOS [id number] 2020-Present [phone] [facility] [id number] [place] [address] PPO [id number] 1987 Unknown [id number] 2.16.840.1.687111.3.579. 2.593 1987 Unknown [id number] 2.16.840.1.246132.3.579. 2.593 1987 Unknown [id number] 2.16.840.1.057795.3.579. 2.593 1987 Unknown [id number] 2.16.840.1.519057.3.579. 2.593 1987 Unknown [id number] 2.16.840.1.403314.3.579. 2.593 1987 Unknown [id number] 2.16.840.1.006018.3.579. 2.593 1987 Unknown [id number] 2.16.840.1.834048.3.579. 2.593 1987 Unknown [id number] 2.16.840.1.527009.3.579. 2.593 1987 Unknown [id number] 2.16.840.1.816016.3.579. 2.593 1987 Unknown [id number] 2.16.840.1.029485.3.579. 2.593 1987 Unknown [id number] 2.16.840.1.777830.3.579. 2.593 1987 Unknown [id number] 2.16.840.1.282141.3.579. 2.593 1987 Unknown [id number] 2.16.840.1.057249.3.579. 2.593 1987 Unknown [id number] 2.16.840.1.035980.3.579. 2.593 1987 Unknown [id number] 2.16.840.1.118821.3.579. 2.1286 1987 Unknown [id number] 2.16.840.1.088616.3.579. 2.1259 1987 Unknown [id number] 2.16840.1.646676.3.579. 2.9 1987 Unknown [id number] 2.16.840.1.200270.3.579. 2.9 1987 Unknown [id number] 2.16.840.1.742833.3.579. 2.9 1987 Unknown [id number] 2.16.840.1.391945.3.579. 2.9 1987 Unknown [id number] 2.16.840.1.449435.3.579. 2.1259 1959 Unknown [id number] Private Health Insurance [employer] [id number] Unknown [id number] 2.16.840.1.892874.3.579. 2.531 Social History Date Type Detail Facility Start: 05-26-2023 End: 2023 Tobacco smoking status NYIS Never smoked tobacco [facility] Start: 2023 Tobacco use and exposure Smokeless tobacco non-user [facility] Start: 2023 End: 12-01-2024 History of Social function [facility] Start: 2023 End: 12-01-2024 Tobacco use panel [facility] Start: 06-02-2023 Adult Depression Screening Assessment 0 [facility] Start: 1987 Sex Assigned At Not on file [facility] Start: 1987 Sex Assigned At Female F [facility] Start: 06-09-2023 End: 01-20-2025 Alcoholic beverage intake Current drinker of alcohol (finding) [facility] Start: 05-26-2023 Alcohol Comment Moderate alcohol use [facility] Start: 06-02-2023 Gender identity Identifies as female gender (finding) [facility] Clinical Notes 06-07-2022 to 01-20-2025 Rita BusbyCOURT - 01/20/2025 10:30 AM EDTTelephone Encounter - Jerel Leiva RN - 12/28/2024 7:30 AM EDTTelephone Encounter - Jerel Leiva RN - 12/28/2024 7:30 AM EDT Note Date & Type Note Facility 01-20-2025 History of Presen t illness Narrative Reason for Appointment: Patient ID: Susan Hogue is a 39 y.o. female who presents for Pre-op Visit Patient presents today for Pre Op/Endometrial Biopsy appointment. Patient is scheduled to undergo Endometrial Ablation with Tiffanie on 02/18/[address] López at [facility]. MEDICATIONS Current Outpatient Medications Medication Instructions acyclovir (ZOVIRAX) 400 mg, Oral, 2 times daily citalopram (CELEXA) 20 mg, Oral, Every morning citalopram (CELEXA) 10 mg, Oral, Every morning hydroxychloroquine (Plaquenil) 200 MG tablet 1 tablet, Daily levothyroxine (Synthroid, Levoxyl) 50 MCG tablet TAKE 1 TABLET BY MOUTH EVERY DAY IN THE MORNING ON EMPTY STOMACH SUMAtriptan (IMITREX) 100 mg, Oral, Once [...] nursing note reviewed. Exam conducted with a tierce filler present. Vitals: Estimated body mass index is 23.96 kg/m as calculated from the following: Height [...] reviewed, and patient is to proceed to [facility]. Patient voiced that her last 2 cycles have been very painful. Patient voiced that they were so painful that she almost passed out. Patient aware that if she has severe cramps again that effect her ADL's she is to reach out to office and nursing can see if pain medication could be prescribed to help with symptoms until procedure. Follow Up: Patient is to follow up between 1-2 weeks post op to assess proper healing and recovery from procedure. Documented by Sunshine Fernandez LPN on behalf of: Saurabh López DO documented in this encounter [facility] 12-28-2024 Telephone encounter Note Scan on 12/27/2024 10:19 AM by Jose Owusu PA-C: Consultation - Ophthalmology [facility] 12-28-2024 Miscellaneous Notes Scan on 12/27/2024 10:19 AM by Jose Owusu PA-C: Consultation - Ophthalmology [facility] Scanned for review. documented in this encounter [facility] 12-27-2024 Telephone encounter Note Received medical records from [facility]. Scanned for review. [facility] 12-24-2024 Telephone encounter Note Patient called to ask if this can be for 90 day supply She will fax most recent eye exam to us today [facility] 12-24-2024 Miscellaneous Notes Patient called to ask if this can be for 90 day supply She will fax most recent eye exam to us today documented in this encounter [facility] 12-13-2024 History of Presen t illness Narrative Reason for Appointment: Patient ID: Susan Hogue is a 39 y.o. female who presents for Menorrhagia (Pt present today due to having heavy bleeding, cramping, shakiness and nausea w/menstrual cycle. ) Patient presents today for menorrhagia, cramping, nausea and shakiness w/menstrual cycle. MEDICATIONS Current Outpatient Medications Medication Instructions acyclovir (ZOVIRAX) 400 mg, Oral, 2 times daily citalopram (CELEXA) 20 mg, Oral, Every morning citalopram (CELEXA) 10 mg, Oral, Every morning hydroxychloroquine (Plaquenil) 200 MG tablet 1 tablet, Daily levothyroxine (Synthroid, Levoxyl) 50 MCG tablet TAKE 1 TABLET BY MOUTH EVERY DAY IN THE MORNING ON EMPTY STOMACH SUMAtriptan (IMITREX) 100 mg, Oral, Once as needed ALLERGIES Allergies Allergen Reactions Duloxetine Hcl Unknown PROBLEMS Active Ambulatory Problems Diagnosis Date Noted No Active Ambulatory Problems Resolved Ambulatory Problems Diagnosis Date Noted No Resolved Ambulatory Problems Past Medical History: Diagnosis Date Abnormal weight gain BMI 23.0-23.9, adult Genital herpes in women 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) Hypothyroidism (acquired) ([facility]) Lupus Pre-op evaluation Request for sterilization Skin infection Vitamin D deficiency HISTORY PAST MEDICAL HISTORY SOCIAL HISTORY Past Medical History: Diagnosis Date Abnormal weight gain BMI 23.0-23.9, adult Genital herpes in women 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[facility]) Hypothyroidism (acquired) ([facility]) Lupus Pre-op evaluation Request for sterilization Skin [...] Exam Constitutional: Appearance: Normal appearance. She is normal weight. HENT: Head: Normocephalic. Cardiovascular: Rate and Rhythm: Normal rate. Pulses: Normal pulses. Pulmonary: Effort: Pulmonary effort is normal. Breath sounds: Normal breath sounds. Abdominal: Palpations: Abdomen is soft. Musculoskeletal: General: Normal range of motion. Neurological: General: No focal deficit present. Mental Status: She is alert and oriented to person, place, and time. Psychiatric: Mood and Affect: Mood normal. Behavior: Behavior normal. Thought Content: Thought content normal. Judgment: Judgment normal. Vitals and nursing note reviewed. Vitals: Estimated body mass index is 25.13 kg/m as calculated from the following: Height as of 10/11/24: 5' 5 . Weight as of 10/11/24: 151 lb. BP: No LMP recorded. ASSESSMENT & PLAN ICD-10-CM 1. Nausea R11.0 POCT urinalysis dipstick manually resulted POCT , urine manually resulted 2. Pelvic cramping R10.2 POCT urinalysis dipstick manually resulted POCT , urine manually resulted Patient present today to discuss menorrhagia w/regular periods. Pt noticed nausea, cramping and shakiness with every period. Patient goes through super tampons and intense cramping while at work. Pt would like to discuss an endometrial ablation w/Rita Eid at this visit. Pt has a h/o a salpingectomy. Menorrhagia labs and pelvic US was ordered for patient to obtain. PT to set up a pre operative visit w/Dr. López to review labs/US and schedule surgery. Documented by Rita Busby MA on behalf of: SHRUTI Hillman documented in this encounter [facility] 12-10-2024 History of Presen t illness Narrative [facility] DEPART[facility] OF RHEUMATIC AND IMMUNOLOGIC DISEASES This visit was conducted as a virtual visit. SUBJECTIVE: Reason for visit: SLE Brief History of Present Illness: Susan Hogue is a 39 year old female with past medical history of migraines and SLE who is evaluated in [...] any change in her symptoms since stopping. 11/2023 she had left hip pain, spasming of upper back muscles and a red race on her face which was stable to her. At that time, HCQ was increased to 300 mg daily. 06/2024 she was feeling much better on the higher dose of HCQ. She still has hair loss and some joint pain in her elbows, knees and ankles. Today she feels very well! She has changed her diet, increasing her protein and water and cut out sweets and included vegetables. Joint pain is improved. She has eye exams every 6 months and will go again in March. She saw Derm and was told she had rosacea. Answers submitted by the patient for this visit: Review of Systems Rheumatology (Submitted on 12/10/2024) Fever : No Recent unintentional weight change: No Eye pain: No Eye redness: No Vision Disturbance: No Eye Dryness: No Nosebleeds: No Sores in your mouth: No Trouble Swallowing: No Dry Mouth: No Chest pain: No Leg Swelling: No A cough: No Shortness of breath: No Pain with breathing: No Heartburn: No Abdominal pain: No Diarrhea: No Black tarry stools: No Blood in urine: No Pain or burning with urination: No Joint pain or stiffness: Yes Muscle weakness: Yes Muscle aches: Yes Joint swelling: No Morning Stiffness in Joints: Yes A rash: No Skin Color Changes: No Hair Loss: No Nail Changes: Yes Headaches: Yes Numbness: No Memory Loss: No Swollen Glands: No PMHx: No past medical history on file. PSHx: No past surgical history on file. MEDICATIONS: hydrOXYchloroQUINE (PLAQUENIL) 200 mg tablet TAKE 1 AND 1/2 TABLETS BY MOUTH ONCE DAILY ALLERGIES: ALLERGIES Not on File OBJECTIVE: Physical Examination: Vitals: There were no vitals taken for this visit. General: Looks well, NAD, A & Ox3. HEENT: No facial rash. No alopecia. Skin: No rash. No ulcers. Musculoskeletal: Shoulders: No swelling, good ROM Elbows: No swelling, no flexion contractures, no nodules, good ROM Wrists: No swelling, no limitation in flexion and extension Hands: No evidence of synovitis. Able to make full fist bilaterally IMPRESSIONS/RECOMMENDATIONS: Systemic Lupus, improved Based on 2019 EULAR/ACR classification criteria: +VERNELL 1:640, low C3, arthralgia, myalgia of lower extremities, oral ulcerations and Raynaud's phenomenon. She has been placed on HCQ, methotrexate, mycophenolate, belimumab and azathioprine. MTX, MMF and BEL all stopped due to side effects. Currently on HCQ 300 mg PO daily. Symptoms today are improved from prior with improvement of joint pain and rashes and myalgias. SLE labs from 09/2024 have been reviewed and show no lupus activity. Plan: She will continue HCQ to 300 mg PO daily. We have discussed the risks and toxicities associated with the use of this medication and the appropriate monitoring. She will need to fax VF/MAY fax # provided today, going again March 2025. Follow up in person Fall 2024. Beatriz Alston D.O. Rheumatology Staff documented in this encounter [facility] 12-10-2024 Note HNO ID: [id number] Author: BEATRIZ ALSTON DO Service: ? Author Type: Physician Type: Progress Notes Filed: 12/10/2024 08:43 Note Text: [facility] DEPARTMENT OF RHEUMATIC AND IMMUNOLOGIC DISEASES This visit was conducted as a virtual visit. SUBJECTIVE: Reason for visit: SLE Brief History of Present Illness: Susan Hogue is a 39 year old female with past medical history of migraines and SLE who is evaluated in [...] any change in her symptoms since stopping. 11/2023 she had left hip pain, spasming of upper back muscles and a red race on her face which was stable to her. At that time, HCQ was increased to 300 mg daily. 06/2024 she was feeling much better on the higher dose of HCQ. She still has hair loss and some joint pain in her elbows, knees and ankles. Today she feels very well! She has changed her diet, increasing her protein and water and cut out sweets and included vegetables. Joint pain is improved. She has eye exams every 6 months and will go again in March. She saw Derm and was told she had rosacea. Answers submitted by the patient for this visit: Review of Systems Rheumatology (Submitted on 12/10/2024) Fever : No Recent unintentional weight change: No Eye pain: No Eye redness: No Vision Disturbance: No Eye Dryness: No Nosebleeds: No Sores in your mouth: No Trouble Swallowing: No Dry Mouth: No Chest pain: No Leg Swelling: No A cough: No Shortness of breath: No Pain with breathing: No Heartburn: No Abdominal pain: No Diarrhea: No Black tarry stools: No Blood in urine: No Pain or burning with urination: No Joint pain or stiffness: Yes Muscle weakness: Yes Muscle aches: Yes Joint swelling: No Morning Stiffness in Joints: Yes A rash: No Skin Color Changes: No Hair Loss: No Nail Changes: Yes Headaches: Yes Numbness: No Memory Loss: No Swollen Glands: No PMHx: No past medical history on file. PSHx: No past surgical history on file. MEDICATIONS: hydrOXYchloroQUINE (PLAQUENIL) 200 mg tablet TAKE 1 AND 1/2 TABLETS BY MOUTH ONCE DAILY ALLERGIES: ALLERGIES Not on File OBJECTIVE: Physical Examination: Vitals: There were no vitals taken for this visit. General: Looks well, NAD, A AND Ox3. HEENT: No facial rash. No alopecia. Skin: No rash. No ulcers. Musculoskeletal: Shoulders: No swelling, good ROM Elbows: No swelling, no flexion contractures, no nodules, good ROM Wrists: No swelling, no limitation in flexion and extension Hands: No evidence of synovitis. Able to make full fist bilaterally IMPRESSIONS/RECOMMENDATIONS: Systemic Lupus, improved Based on 2019 EULAR/ACR classification criteria: +VERNELL 1:640, low C3, arthralgia, myalgia of lower extremities, oral ulcerations and Raynaud's phenomenon. She has been placed on HCQ, methotrexate, mycophenolate, belimumab and azathioprine. MTX, MMF and BEL all stopped due to side effects. Currently on HCQ 300 mg PO daily. Symptoms today are improved from prior with improvement of joint pain and rashes and myalgias. SLE labs from 09/2024 have been reviewed and show no lupus activity. Plan: She will continue HCQ to 300 mg PO daily. We have discussed the risks and toxicities associated with the use of this medication and the appropriate monitoring. She will need to fax VF/OCT fax # provided today, going again March 2025. Follow up in person Fall 2024. Beatriz Alston D.O. Rheumatology Staff [facility] 12-01-2024 History of Presen t illness Narrative Lesions: Location: Abdomen Duration: Few months Quality: denies pain, denies itch, denies bleeding Associated symptoms: rough, new Treatments: none Lesion # 2: Location: Left palm/right middle finger Duration: Few month Quality: painful, denies itch, denies bleeding Modifying factors: aggravated by picking Associated symptoms: non-healing, rough, scaly Treatments: OTC wart remover New patient All pertinent medical history, medications, and allergies were reviewed. General Exam: alert, oriented to person, place, and time, normal affect, well appearing Unaccompanied A focused exam completed based on patient reported problems, see below: Skin Exam 1. CAPILLARY ANGIOMA (2) Abdomen (Lower Torso, Anterior), Chest (Upper Torso, Anterior) Scattered alejandra-red papule(s). The patient was informed that angiomas are benign growths on the the skin. No treatment is necessary. 2. SEBORRHEIC KERATOSIS Abdomen (Lower Torso, Anterior) Stuck on verrucous, snyder-brown papules and plaques. Patient was counseled regarding these benign growths. Removal is normally not necessary, but they may be removed if they are symptomatic or for cosmetic reasons. 3. OTHER ROSACEA Head Mid face erythema with telangiectasias +/- scattered inflammatory papules/pustules. Flaring today The patient was informed that rosacea a chronic condition that can be controlled but not cured. The appearance of redness and pimples can often be improved with a low dose antibiotic or topical medications. The patient was informed that telangiectasia is common and can be improved with laser treatment 4. COMMON WART (2) Left Mid Palm, Right Dorsal Mid 3rd Finger Erythematous verrucous papule(s). Patient and/or family member was counseled regarding warts. Treatment options were discussed including cryotherapy, terri antigen injections, and topical Cantharidin. It was explained that it typically requires multiple treatments before the wart(s) completely resolve. The importance of following up every 3-4 weeks was emphasized. Encouraged OTC wart removers in between appointments to hasten resolution. Start Fluowart at bedtime. 5. PAIN Next Visit: 1 [place] [facility] [place] in this encounter [facility] 10-21-2024 Telephone encounter Note Images from the original note were not included. Requesting refill on Plaquenil. Script pended. Tried to reach pt by phone, but no answer. Call back number provided on VM. Left VM advising pt that [employer] message was sent to her and to please read and respond to message. [employer] message sent asking pt about plaquenil eye exam. Thank you. Most recent Rheumatology visit: 06/16/2024 (with Beatriz Alston) Last Bone Density on file: None on file Rheumatology Care Team: None on file Recent Office Visits - This Specialty 06/16/2024 Other forms of systemic lupus erythematosus, unspecified organ involvement status (HCC) Rheumatology Beatriz Alston DO 2023 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) Rheumatology Beatriz Alston DO Upcoming Rheumatology Appointments - Next 365 Days No appointments to display CBC: Latest Ref Rng & Units 2023 09/14/2024 CBC WBC 3.70 - 11.00 k/uL 5.72 6.35 Hemoglobin 11.5 - 15.5 g/dL 12.6 13.6 Hematocrit 36.0 - 46.0 % 37.0 40.3 Platelet Count 150 - 400 k/uL 287 277 Abs Neut (ANC) 1.45 - 7.50 k/uL 3.61 3.99 Abs Lymph 1.00 - 4.00 k/uL 1.31 1.65 Vitamin D: None on file in the last 6 months LFT: Latest Ref Rng & Units 2023 09/14/2024 CMP Sodium 136 - 144 mmol/L 138 140 Potassium 3.7 - 5.1 mmol/L 3.6 3.8 Chloride 98 - 107 mmol/L 105 105 CO2 22 - 30 mmol/L 24 27 Glucose 74 - 99 mg/dL 89 93 BUN 7 - 21 mg/dL 8 11 Creatinine 0.58 - 0.96 mg/dL 0.70 0.66 Calcium 8.5 - 10.2 mg/dL 9.4 10.2 AST 13 - 35 U/L 20 22 ALT 7 - 38 U/L 15 16 Alkaline Phosphatase 34 - 123 U/L 67 50 Hepatic Function: Creatinine: Latest Ref Rng & Units 2023 09/14/2024 Creatinine Creatinine 0.58 - 0.96 mg/dL 0.70 0.66 ESR/CRP: None on file in the last 6 months Uric Acid: None on file in the last 6 months Open Standing (Multiple Instance) Lab Orders None Open Future (Single Instance) Lab Orders None [facility] 10-21-2024 Miscellaneous Notes Images from the original note were not included. Requesting refill on Plaquenil. Script pended. Tried to reach pt by phone, but no answer. Call back number provided on . Left advising pt that [employer] message was sent to her and to please read and respond to message. [employer] message sent asking pt about plaquenil eye exam. Thank you. Most recent Rheumatology visit: 06/16/2024 (with Beatriz Alston) Last Bone Density on file: None on file Rheumatology Care Team: None on file Recent Office Visits - This Specialty 06/16/2024 Other forms of systemic lupus erythematosus, unspecified organ involvement status (HCC) Rheumatology Beatriz Alston DO 2023 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) Rheumatology Beatriz Alston DO Upcoming Rheumatology Appointments - Next 365 Days No appointments to display CBC: Latest Ref Rng & Units 2023 09/14/2024 CBC WBC 3.70 - 11.00 k/uL 5.72 6.35 Hemoglobin 11.5 - 15.5 g/dL 12.6 13.6 Hematocrit 36.0 - 46.0 % 37.0 40.3 Platelet Count 150 - 400 k/uL 287 277 Abs Neut (ANC) 1.45 - 7.50 k/uL 3.61 3.99 Abs Lymph 1.00 - 4.00 k/uL 1.31 1.65 Vitamin D: None on file in the last 6 months LFT: Latest Ref Rng & Units 2023 09/14/2024 CMP Sodium 136 - 144 mmol/L 138 140 Potassium 3.7 - 5.1 mmol/L 3.6 3.8 Chloride 98 - 107 mmol/L 105 105 CO2 22 - 30 mmol/L 24 27 Glucose 74 - 99 mg/dL 89 93 BUN 7 - 21 mg/dL 8 11 Creatinine 0.58 - 0.96 mg/dL 0.70 0.66 Calcium 8.5 - 10.2 mg/dL 9.4 10.2 AST 13 - 35 U/L 20 22 ALT 7 - 38 U/L 15 16 Alkaline Phosphatase 34 - 123 U/L 67 50 Hepatic Function: Creatinine: Latest Ref Rng & Units 2023 09/14/2024 Creatinine Creatinine 0.58 - 0.96 mg/dL 0.70 0.66 ESR/CRP: None on file in the last 6 months Uric Acid: None on file in the last 6 months Open Standing (Multiple Instance) Lab Orders None Open Future (Single Instance) Lab Orders None documented in this encounter [facility] 10-11-2024 History of Presen t illness Narrative Images from the original note were not included. Subjective Susan Hogue is a 38 y.o. year old female Chief Complaint Patient presents with Migraine Past Medical History: Diagnosis Date BMI 23.0-23.9, adult Genital herpes in women 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[facility]) Hypothyroidism (acquired) ([facility]) Lupus Pre-op evaluation Request for sterilization Skin infection hospitalizatin history No past surgical history on file. Family History Problem Relation Name Age of Onset No Known Problems Sister Diabetes Maternal Grandmother Hypertension Maternal Grandfather Hypertension Paternal Grandmother Social History Tobacco Use Smoking status: Never Smokeless tobacco: Not on file Substance Use Topics Alcohol use: Yes Comment: Moderate alcohol use Medication Documentation Review Audit Reviewed by Diana Ruiz MA ([employer]) on 10/11/24 at 1207 Medication Order Taking? Sig Documenting Provider Last Dose Status acyclovir (Zovirax) 400 MG tablet [id number] TAKE 1 TABLET BY MOUTH TWICE A DAY Saurabh López DO Active citalopram (CeleXA) 10 MG tablet [id number] TAKE 1 TABLET BY MOUTH EVERY DAY IN THE MORNING Saurabh Maribel, DO Active citalopram (CeleXA) 20 MG tablet [id number] TAKE 1 TABLET BY MOUTH EVERY DAY IN THE MORNING Saurabh Maribel, DO Active hydroxychloroquine (Plaquenil) 200 MG tablet [id number] Take 1 tablet by mouth in the morning. Saurabh Maribel, DO Active levothyroxine (Synthroid, Levoxyl) 50 MCG tablet [id number] TAKE 1 TABLET BY MOUTH EVERY DAY IN THE MORNING ON EMPTY STOMACH Saurabh Maribel, DO Active SUMAtriptan (Imitrex) 100 MG tablet [id number] Take 1 tablet (100 mg) by mouth 1 (one) time if needed for migraine (december repeat x1) for up to 1 dose SHRUTI Peraza Active HPI Migraines -On Imitrex -she needs refills -migraines are well controlled with Imitrex -few times a month and last a few hours -Imitrex helps to about -worse with weather -admits light and sound sensitivity -admits nausea -she has some trouble staying asleep -she gets about 6-7 hours a night of broken sleep -she did not have a sleep study done due to cost ROS Review of Systems Constitutional: Negative. Eyes: Positive for photophobia. Respiratory: Negative. Cardiovascular: Negative. Musculoskeletal: Negative. Neurological: Positive for headaches. Psychiatric/Behavioral: Positive for sleep disturbance. Objective Visit Vitals BP 118/72 Ht 5' 5 Wt 151 lb BMI 25.13 kg/m Smoking Status Never BSA 1.77 m Neurological Exam Mental Status Awake, alert and oriented to person, place and time. Oriented to person, place, time and situation. Recent and remote memory are intact. Speech is normal. Language is fluent with no aphasia. Attention and concentration are normal. Fund of knowledge is appropriate for level of education. Cranial Nerves CN II: Visual scherer full to confrontation. CN III, IV, : Extraocular movements intact bilaterally. Normal lids and orbits bilaterally. Pupils equal round and reactive to light bilaterally. CN V: Left: Facial sensation is normal on the left. CN VII: Right: There is no facial weakness. Left: There is no facial weakness. CN VIII: Hearing is normal. CN IX, X: Palate elevates symmetrically CN XI: Shoulder shrug strength is normal. CN XII: Tongue midline without atrophy or fasciculations. Sensory Light touch is normal in upper and lower extremities. Coordination Otwhie-zy-ejvl, rapid alternating movements and [id number]-dg-flns normal bilaterally without dysmetria. Gait Normal casual, toe, heel and tandem gait. Motor Examination RUE Strength deltoid, biceps, triceps, wrist extensors, wrist extensors, wrist flexor, bit shaver strength 5/5. LUE Strength deltoid, biceps, triceps, wrist extensors, wrist extensors, wrist flexor, bit shaver strength 5/5. RLE Strength illopsoas, quadriceps, tibialis anterior, and gastrocnemius strength 5/5. LLE Strength illopsoas, quadriceps, tibialis anterior, and gastrocnemius strength 5/5. Tone Normal tone x4 extremities. Reflexes: RUE biceps reflex 2, LUE biceps reflex 2, RLE knee reflex 2, LLE knee reflex 2, Assessment and Plan Diagnoses and all orders for this visit: Migraine without status migrainosus, not intractable, unspecified migraine type (CMS/HCC) - SUMAtriptan (Imitrex) 100 MG tablet; Take 1 tablet (100 mg) by mouth 1 (one) time if needed for migraine (december repeat x1) Patient presented with headaches that occur approximately 3 times per month that can last days at a time possibly due to migraine headaches Without aura. The patient has been treated for these headaches with Imitrex which has worked in the past. She does have signs and symptoms of a sleep disorder inclucing difficulty maintaining sleep and hypersomnia which may be contributing to the patient's overall headache frequency. She did not have sleep study as ordered. She is doing well with Imitrex. Plan: Continue Imitrex 100mg PO prn migraine. I counseled the patient on the side effects of medications. She will let us know if her headaches worsen and we can consider preventative medication Follow up in 1 yr documented in this encounter [facility] 09-08-2024 Telephone encounter Note Sent! Appears she was started on 100mg in 2022. [facility] 09-08-2024 Miscellaneous Notes Sent! Appears she was started on 100mg in 2022. I am thinking she mean't imitrex. Is it ok to send? Pt called and scheduled an appt on 10/11 in [place]. Patient is requesting a refill of her Amotrix as a hold over script. documented in this encounter [facility] 09-08-2024 Telephone encounter Note I am thinking she mean't imitrex. Is it ok to send? [facility] 09-08-2024 Telephone encounter Note Pt called and scheduled an appt on 10/11 in [place]. Patient is requesting a refill of her Amotrix as a hold over script. 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 Exam conducted with a tierce filler present. Vitals: Estimated body mass index is [...] by Summer Murry LPN on behalf of: Saurabh López DO documented in this encounter [facility] 06-16-2024 History of Presen t illness Narrative [facility] DEPARTMENT OF RHEUMATIC [...] need Shingles vaccination beforehand. RTC 4-6 months. Beatriz Alston D.O. Rheumatology Staff documented in this encounter [facility] 06-16-2024 Note HNO ID: [id number] Author: BEATRIZ ALSTON DO Service: ? Author Type: Physician Type: Progress Notes Filed: 06/16/2024 11:15 Note Text: [facility] DEPARTMENT OF RHEUMATIC [...] need Shingles vaccination beforehand. RTC 4-6 months. Beatriz Alston D.O. Rheumatology Staff [facility] 05-13-2024 Telephone encounter Note Images from the original note were not included. Requesting refill on plaquenil. Script pended. No eye exam records in chart. [employer] message sent to pt asking if she had her eye exam/OCT done. Please adjust script quantity if needed. Thank you. Most recent Rheumatology visit: 2023 (with Beatriz Alston) Last Bone Density on file: None on file Rheumatology Care Team: None on file Recent Office Visits - This Specialty 2023 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) Rheumatology Beatriz Alston, DO Upcoming Rheumatology Appointments - Next 365 Days Visit Type Date Time Department [facility] 06/16/2024 11:00 AM [facility] MAIN A50 [...] Open Future (Single Instance) Lab Orders None [facility] 05-13-2024 Miscellaneous Notes Images from the original note were not included. Requesting refill on plaquenil. Script pended. No eye exam records in chart. [employer] message sent to pt asking if she had her eye exam/OCT done. Please adjust script quantity if needed. Thank you. Most recent Rheumatology visit: 2023 (with Beatriz Alston) Last Bone Density on file: None on file Rheumatology Care Team: None on file Recent Office Visits - This Specialty 2023 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) Rheumatology Beatriz Alston, DO Upcoming Rheumatology Appointments - Next 365 Days Visit Type Date Time Department [facility] 06/16/2024 11:00 AM [facility] A50 Last Ophthalmology Check [...] Lab Orders None documented in this encounter [facility] 2023 History of Presen t illness Narrative [facility] DEPARTMENT OF RHEUMATIC [...] portal with follow up in 3 months. Beatriz Alston DO documented in this encounter [facility] 08-02-2022 Note PROCEDURE: XR FOOT L T [...] authenticated by: SHRUTHI CHOW Date: 2022-08-02 10:27 [facility] 07-18-2022 Note PROCEDURE: XR FOOT L T MIN 3 VIEWS HISTORY: Pain in left foot ; acute left foot pain, no known injury COMPARISON: None. FINDINGS: BONES:No fracture, acute abnormality, or significant arthropathy. SOFT TISSUES:No visible soft tissue swelling. EFFUSION:None visible. OTHER: Negative. IMPRESSION: 1. Normal examination. Electronically authenticated by: SHRUTHI CHOW Date: 2022-07-18 08:45 [facility] 06-07-2022 Note OPERATIVE NOTE OPERATION DATE: 06/07/2022 PROCEDURE: Bilateral laparoscopic salpingectomy. PREOPERATIVE DIAGNOSIS: Desires permanent sterilization, multiparity. POSTOPERATIVE DIAGNOSIS: Desires permanent sterilization, multiparity. ANESTHESIA: General. SURGEON: Saurabh López D.O. VETERINARIAN ASSISTANT: BENJAMIN French URINE OUTPUT: Yellow and clear. [...] and needle counts were correct x2. The [facility] Evaluation note Diagnosis 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)- Primary [facility] noteNo assessment information availableThe [facility] Work Phone: Evaluation note* Diagnosis Other forms of systemic lupus erythematosus, unspecified organ involvement status (HCC)- Primary [facility] Diagnosis Well woman exam with routine gynecological exam Routine gynecological examination documented in this encounter [facility] HealthcareEvaluation note* Diagnosis Migraine without status migrainosus, not intractable, unspecified migraine type (CMS/HCC)- Primary documented in this encounter [facility] HealthcareEvaluation note* Diagnosis Migraine without status migrainosus, not intractable, unspecified migraine type (CMS/HCC) documented in this encounter [facility] HealthcareEvaluation note* Diagnosis Capillary angioma Nevus, non-neoplastic Seborrheic keratosis Other rosacea Common wart Other specified viral warts Pain Generalized pain documented in this encounter [facility] HealthcareEvaluation note* Diagnosis 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)- Primary [facility] Diagnosis Menorrhagia with regular cycle Pelvic cramping Nausea Nausea alone documented in this encounter [facility] HealthcareEvaluation note* Diagnosis Pre-op examination Menorrhagia with irregular cycle Pelvic pain Abnormal uterine bleeding (AUB) documented in this encounter [facility] Healthcare Summary Purpose Family History Relationship Condition Age at Onset Recorded Date/T kylie Not Specified No pertinent family history Unknown Advance Directives Advance Directive Response Recorded Date/ Time Advance Directives No April 05, 2024 10:10am Chief Complaint and Reason for Visit Chief Complaint Cough, sore throat Additional Source Comments INFORMATION SOURCE (unrecogn ized section and content) DATE CREATED AUTHOR 01/18/2022 [facility] dical Specialist DATE CREATED AUTHOR AUTHOR'S ORGANIZ ATION 08/08/2022 [facility] DATE CREATED AUTHOR AUTHOR'S ORGANIZ ATION 04/07/2024 [facility] DATE CREATED AUTHOR AUTHOR'S ORGANIZ ATION 12/29/[address] [facility] DATE CREATED AUTHOR AUTHOR'S ORGANIZ ATION 01/23/2025 [facility] dical [facility] DATE CREATED AUTHOR AUTHOR'S ORGANIZ ATION 01/26/2025 [facility] Source Comments (unrecognize d section and content) In the event this informatio n is protected by the Federal Confidentiality of Alcohol and Drug Abuse Patient Records regulations: The Federal rules restrict any use of the information to criminally investigate or prosecute any alcohol or drug abuse patient.[facility] the event this information is protected by the Federal Confidentiality of Alcohol and Drug Abuse Patient Records regulations: The Federal rules restrict any use of the information to criminally investigate or prosecute any alcohol or drug abuse patient.[facility] the event this information is protected by the Federal Confidentiality of Alcohol and Drug Abuse Patient Records regulations: The Federal rules restrict any use of the information to criminally investigate or prosecute any alcohol or drug abuse patient.[facility] the event this information is protected by the Federal Confidentiality of Alcohol and Drug Abuse Patient Records regulations: The Federal rules restrict any use of the information to criminally investigate or prosecute any alcohol or drug abuse patient.[facility] the event this information is protected by the Federal Confidentiality of Alcohol and Drug Abuse Patient Records regulations: The Federal rules restrict any use of the information to criminally investigate or prosecute any alcohol or drug abuse patient.[facility] the event this information is protected by the Federal Confidentiality of Alcohol and Drug Abuse Patient Records regulations: The Federal rules restrict any use of the information to criminally investigate or prosecute any alcohol or drug abuse patient.[facility] the event this information is protected by the Federal Confidentiality of Alcohol and Drug Abuse Patient Records regulations: The Federal rules restrict any use of the information to criminally investigate or prosecute any alcohol or drug abuse patient.[facility] the event this information is protected by the Federal Confidentiality of Alcohol and Drug Abuse Patient Records regulations: The Federal rules restrict any use of the information to criminally investigate or prosecute any alcohol or drug abuse patient.[facility] Care Teams (unrecognized sec tion and content) Team Status: Active Member Role Status Dates Belinda Mock DO Primary Care Provider Active Team Status: Inactive Member Role Status Dates Emma Negrete APRN Attending Provider Active Start: April 05, 2024 End: April 05, 2024 Belinda Mock DO Primary Care Provider Active Sta rt: April 05, 2024 End: April 05, 2024 Grazing Aide Relationship Specialty Start Date End Date Belinda Mock MD [address] [place] [address] PCP - General Internal Medicine 06/09/23 Grazing Aide Relationship Specialty Start Date End Date Belinda Mock MD [address] [place] [address] PCP - General Internal Medicine 06/09/23 Grazing Aide Relationship Specialty Start Date End Date Belinda Mock MD [address] [place] [address] PCP - General Internal Medicine 06/09/23 Grazing Aide Relationship Specialty Start Date End Date Belinda Mock MD [address] [place] [address] PCP - General Internal Medicine 06/09/23 Grazing Aide Relationship Specialty Start Date End Date Belinda Mock MD PCP - General Internal Medicine 06/09/23 Grazing Aide Relationship Specialty Start Date End Date Belinda Mock MD PCP - General Internal Medicine 06/09/23 Grazing Aide Relationship Specialty Start Date End Date Belinda Mock MD PCP - General Internal Medicine 06/09/23 Grazing Aide Relationship Specialty Start Date End Date Belinda Mock MD [address] [id number] PCP - General Internal Medicine 06/09/23 Goals (unrecognized section and content) Goals may be documented in a n alternate section Reason for Visit (unrecogniz ed section and content) Reason Comments Refill Request Reason Comments SLE Reason Comments Well Women Visit Reason Comments Migraine Reason Comments Suspicious Skin Lesion Reason Comments Menorrhagia Pt present today due to having heavy bleeding, cramping, shakiness and nausea w/menstrual cycle. Reason Comments Received Outside Medical Records Reason Comments Pre-op Visit FOR RECORDS PERTAINING TO PATIENTS WHO [...] BE BASED ON THE PRIMARY CLINICAL RECORDS. [employer] provides no warranty or guarantee of the accuracy or completeness of information in this document.
== END 2025-01-20 15:28 | disposition home or self-care (01) ==
LOC: LAB 15:27
PROVIDERS: PCP Internal Medicine; Visit Provider Obstetrics & Gynecology
DX: N92.1 Excessive and frequent menstruation with irregular cycle (principal); N93.9 Abnormal uterine and vaginal bleeding, unspecified
CPT/HCPCS: 88305

== ENCOUNTER 2025-02-08 08:56 | Outpatient (OUT) | payer BC, SELFPAY | END 2025-02-08 08:57 | disposition home or self-care (01) | LOC: PST 08:57 | PROVIDERS: PCP Internal Medicine; Visit Provider Obstetrics & Gynecology | DX: Z01.818 Encounter for other preprocedural examination (principal); N92.0 Excessive and frequent menstruation with regular cycle ==

== ENCOUNTER 2025-02-18 06:13 | Day surgery (SDC) | payer BC, SELFPAY ==
[2025-02-08 09:29] VITALS: BP 110/71; PULSE 69; TEMP 36.3; O2SAT 100; BMI 23.0
--- OUTSIDE RECORDS SUMMARY | 2025-02-18 06:17 | XMS_ITS | CCD ---
Author Organization [facility] CliniSyny Care Team Providers Care Interventional Cardiologist Name Role Phone MARIBEL, DR ZELAYA Attending [...] Care Provider UnavailMYA Marin Attending Unavailable BELINDA MCOK Referring Unavailable NISH, BELINDA Harrington Primary Care Unavailable Belinda Mock MD Primary Care Provider Belinda Mock MD Primary Care Provider [phone] BEATRIZ ALSTON Referring Unavailable HUDSON, BEATRIZ Abdul [...] Healthcare Raf 01-20-2025 L -- ---- Specimen: [id number] Received: 01/21/25 Status: BOYD Vallejo Num: [id number] Spec Type: Surgical Subm Dr: Saurabh López Tissues: A Endocervix - Biopsy (ENDOCERVIX) Procedures: HE/2, Gross/Micro L4 ---- Age/ Patient Sex Location Account Attending Physician ---- Susan Hogue 39/F LABELL [id number] Saurabh López ---- SPEC NUM: [id number] RECD: 01/21/25 STATUS: BOYD CORBIN NUM: [id number] VINNY: 01/20/25-[address]: Saurabh López ENTERED: 01/21/[address]: Sandeep,Lab SPEC TYPE: Surgical DEPT: BESSIE CUI ENTERED BY: [id number] RECV BY: [id number] ORDERED: HE/2, Gross/Micro L4 ORDERED: MARYBEL Gross/Micro [...] submitted in a single cassette. (1, ns, [id number]) Microscopic Description Microscopic examination is performed. ---- Specimen: [id number] Received: 01/21/25 Status: BOYD Corbin Num: [id number] Spec Type: Surgical Subm Dr: Saurabh López Tissues: A Endocervix - Biopsy (ENDOCERVIX) Procedures: MARYBEL, Gross/Micro L4 ---- Patient: Susan Hogue [id number] (Continued) ---- Specimen: [id number] Received: 01/21/25 (Continued) Signed (signature on file) Mati Inman MD 01/24/25 1340 ---- Specimen: [id number] Received: 01/21/25 Status: PACOLance Vallejo Num: [id number] Spec Type: Surgical Subm Dr: Saurabh López Tissues: A Endocervix - Biopsy (ENDOCERVIX) Procedures: HE/Lulu, Gross/Micro L4 ---- Patient: Susan Hogue [id number] (Continued) ---- Specimen: [id number] Received: 01/21/25 (Continued) CPT Codes 69778 ---- ---- Specimen: [id number] Received: 01/21/25 Status: BOYD [place]lejo Num: [id number] Spec Type: Surgical Subm Dr: Saurabh López Tissues: A Endocervix - Biopsy (ENDOCERVIX) Procedures: HE/2, Gross/Micro L4 ---- Patient: Susan Hogue [id number] (Continued) ---- Signed (signature on file) Mati Inman MD 01/24/25 1340 Normal [facility] ALL CBC WITH AUTO DIFFon BASOPHILS ABSOLUTE AUTO 0 [facility] Basophils/100 WBC (Bld) 0.6 % 0.2 - 2.0 % [facility] Eosinophils/100 WBC (Bld) 3.2 % 0.9 - 7.0 % [facility] Erythrocyte distribution width (RBC) [Ratio] 12.5 % 11.0 - 15.0 % [facility] Hematocrit (Bld) [Volume fraction] 35 % Low 36.0 - 48.0 % [facility] Hemoglobin (Bld) [Mass/Vol] 11.9 g/dL Low 12.0 - 16.0 g/dL [facility] IMMATURE GRANULOCYTES ABS AUTO 0.01 [facility] Immature granulocytes/100 WBC (Bld) 0.2 % 0.0 - 0.5 % [facility] Interpretation and review of laboratory results Abnormal [facility] LYMPHOCYTES ABSOLUTE AUTO 1.6 [facility] Lymphocytes/100 WBC (Bld) 30.4 % 20.5 - 60.0 % [facility] MCH (RBC) [Entitic mass] 31.5 pg 26.7 - 34.0 pg [facility] MCHC (RBC) [Mass/Vol] 34 g/dL 29.9 - 35.2 g/dL [facility] MCV (RBC) [Entitic vol] 92.6 fL 81.0 - 99.0 fL [facility] MONOCYTES ABSOLUTE AUTO 0.5 [facility] Monocytes/100 WBC (Bld) 8.8 % 1.7 - 12.0 % [facility] NEUTROPHILS ABSOLUTE AUTO 3.1 [facility] Neutrophils/100 WBC (Bld) 56.8 % 43.0 - 75.0 % [facility] Platelet mean volume (Bld) [Entitic vol] 10.6 fL 9.5 - 13.5 fL [facility] TB RBC 3.78 Low [facility] WBC 5.4 [facility] US PELVIC COMPLETE W/ TVon 0 - [...] II, MD, PHD at 11-Jan-2025 11:32:05 PM [facility] Normal Not Available Comment on above: Order Comment: US PE LVIS-TRANSVAG IF INDICATED Patient's last menstrual period was 12/12/2024 (exact date). Demi 12-27-2024 CNPN Telephone (RHEUMN) SUSAN HOGUE ([id number]) 1985 F Date Time Provider Department 12/27/24 [...] Reason for Visit: Received Outside Medical Records [[id number]] Prescriptions as of 12/28/2024 - hydrOXYchloroQUINE (PLAQUENIL) 200 mg tablet TAKE 1 AND 1/2 TABLETS BY MOUTH ONCE DAILY Problem List As Of Date: 12/27/2024 (None) Encounter Status:Closed by JEREL LEIVA on 12/28/[address] [facility] HCG ( test) Ql (U)o n 12-13-2024 Interpretation and review of laboratory results Normal [facility] Preg Test, Ur Negative Negative [facility] Urinalysis macro (dipstick) panel (U)on 12-13-2024 Bilirubin, UA Negative Negative - 4(70) +++ mg/dL [facility] Blood, UA Negative Negative - 50 Gino/mcL [facility] Clarity, UA Clear [facility] Color, UA Yellow [facility] Glucose, UA Negative Negative - 2000(110) ++++ mg/dL [facility] Interpretation and review of laboratory results Normal [facility] Ketones, UA Positive Negative - 160(16) ++++ mg/dL [facility] Comment on above: trace Leukocytes, UA Negative Negative - 500+++ Lisa/mcL [facility] Nitrite, UA Negative Negative - Positive [facility] pH, UA 5.5 5 - 9 [facility] Protein, UA Negative Negative - 2000(20) ++++ mg/dL [facility] Spec Grav, UA 1.03 1 - 1.03 [facility] Urobilinogen, UA 0.2 0.2 - 12 mg/dL [facility] C3 SerPl-mCncon 09-14-2024 Complement C3 [Mass/Vol] 97 mg/dL Normal 86-[address] [facility] Comment on above: Order Comment: Speci men Type: BLOOD SPECIMEN Ordering Facility: [facility] Address: [address] [place] [address] Performed By: #### 4 498-2, 4485-9 #### [facility] CLIA [id number] [address] [place] [address] [place] C4 SerPl-mCncon 09-14-2024 Complement C4 [Mass/Vol] 16 mg/dL Normal 13-[address] [facility] Comment on above: Order Comment: Speci men Type: BLOOD SPECIMEN Ordering Facility: [facility] Address: [address] [place] [address] Performed By: #### 4 498-2, 4485-9 #### [facility] CLIA [id number] [address] [facility] [place] [id number] [place] CBC W Auto Differential pane l (Bld)on 09-14-2024 Basophils (Bld) [#/Vol] 0.05 10*3/uL Normal <0.[address] [facility] Comment on above: Order Comment: Speci men Type: BLOOD SPECIMEN Ordering Facility: [facility] Address: [address] [place] [address] Performed By: #### 5 7021-8 #### [facility] CLIA [id number] [address] [place] [address] 29156 Basophils/100 WBC (Bld) 0.8 % Normal [facility] Comment on above: Order Comment: Speci men Type: BLOOD SPECIMEN Ordering Facility: [facility] Address: [address] [place] [address] Performed By: #### 5 7021-8 #### [facility] CLIA [id number] [address] [place] [address] 77909 Differential cell count method Nom (Bld) Auto Normal [facility] Comment on above: Order Comment: Speci men Type: BLOOD SPECIMEN Ordering Facility: [facility] Address: [address] [place] [address] Performed By: #### 5 7021-8 #### [facility] CLIA [id number] [address] [place] [address] 35373 Eosinophils (Bld) [#/Vol] 0.15 10*3/uL Normal <0.[address] [facility] Comment on above: Order Comment: Speci men Type: BLOOD SPECIMEN Ordering Facility: [facility] Address: [address] [place] [address] Performed By: #### 5 7021-8 #### [facility] CLIA [id number] [address] [place] [address] 19929 Eosinophils/100 WBC (Bld) 2.4 % Normal [facility] Comment on above: Order Comment: Speci men Type: BLOOD SPECIMEN Ordering Facility: [facility] Address: [address] [place] [address] 16674 Performed By: #### 5 7021-8 #### [facility] CLIA [id number] [address] [place] [address] 15779 Erythrocyte distribution width (RBC) [Ratio] 12.3 % Normal 11.5-15.[address] [facility] Comment on above: Order Comment: Speci men Type: BLOOD SPECIMEN Ordering Facility: [facility] Address: [address] [place] [address] 87703 Performed By: #### 5 7021-8 #### [facility] CLIA [id number] [address] [place] [address] 96276 Hematocrit (Bld) [Volume fraction] 40.3 % Normal 36.0-46.[address] [facility] Comment on above: Order Comment: Speci men Type: BLOOD SPECIMEN Ordering Facility: [facility] Address: [address] [place] [address] 12857 Performed By: #### 5 7021-8 #### [facility] CLIA [id number] [address] [place] [address] 26397 Hemoglobin (Bld) [Mass/Vol] 13.6 g/dL Normal 11.5-15.[address] [facility] Comment on above: Order Comment: Speci men Type: BLOOD SPECIMEN Ordering Facility: [facility] Address: [address] [place] [address]606 Performed By: #### 5 7021-8 #### [facility] CLIA [id number] [address] [place] [address] 30785 Immature granulocytes (Bld) [#/Vol] 10*3/uL Normal <0.[address] [facility] Comment on above: Order Comment: Speci men Type: BLOOD SPECIMEN Ordering Facility: [facility] Address: [address] [place] [address] 99397 Performed By: #### 5 7021-8 #### [facility] CLIA [id number] [address] [place] [address] Immature granulocytes/100 WBC (Bld) 0.2 % Normal [facility] Comment on above: Order Comment: Speci men Type: BLOOD SPECIMEN Ordering Facility: [facility] Address: [address] [place] [address] Performed By: #### 5 7021-8 #### [facility] CLIA [id number] [address] [place] [address] 38389 Lymphocytes (Bld) [#/Vol] 1.65 10*3/uL Normal 1.00-4.[address] [facility] Comment on above: Order Comment: Speci men Type: BLOOD SPECIMEN Ordering Facility: [facility] Address: [address] [place] [address] Performed By: #### 5 7021-8 #### [facility] CLIA [id number] [address] [place] [address] 81575 Lymphocytes/100 WBC (Bld) 26.0 % Normal [facility] Comment on above: Order Comment: Speci men Type: BLOOD SPECIMEN Ordering Facility: [facility] Address: [address] [place] [address] Performed By: #### 5 7021-8 #### [facility] CLIA [id number] [address] [place] [address] 02226 MCH (RBC) [Entitic mass] 30.2 pg Normal 26.0-34.[address] [facility] Comment on above: Order Comment: Speci men Type: BLOOD SPECIMEN Ordering Facility: [facility] Address: [address] [place] [address] Performed By: #### 5 7021-8 #### [facility] CLIA [id number] [address] [place] [address] 62430 MCHC (RBC) [Mass/Vol] 33.7 g/dL Normal 30.5-36.0 [facility] Comment on above: Order Comment: Speci men Type: BLOOD SPECIMEN Ordering Facility: [facility] Address: [address] [place] [address] Performed By: #### 5 7021-8 #### [facility] CLIA [id number] [address] [place] [address] 82550 MCV (RBC) [Entitic vol] 89.6 fL Normal 80.0-100.[address] [facility] Comment on above: Order Comment: Speci men Type: BLOOD SPECIMEN Ordering Facility: [facility] Address: [address] [place] [address] Performed By: #### 5 7021-8 #### [facility] CLIA [id number] [address] [place] [address] 19689 Monocytes (Bld) [#/Vol] 0.50 10*3/uL Normal <0.[address] [facility] Comment on above: Order Comment: Speci men Type: BLOOD SPECIMEN Ordering Facility: [facility] Address: [address] [place] [address] Performed By: #### 5 7021-8 #### [facility] CLIA [id number] [address] [place] [address] 60521 Monocytes/100 WBC (Bld) 7.9 % Normal [facility] Comment on above: Order Comment: Speci men Type: BLOOD SPECIMEN Ordering Facility: [facility] Address: [address] [place] [address] Performed By: #### 5 7021-8 #### [facility] CLIA [id number] [address] [place] [address] 48753 Neutrophils (Bld) [#/Vol] 3.99 10*3/uL Normal 1.45-7.[address] [facility] Comment on above: Order Comment: Speci men Type: BLOOD SPECIMEN Ordering Facility: [facility] Address: [address] [place] [address] Performed By: #### 5 7021-8 #### [facility] CLIA [id number] [address] [place] [address] 42395 Neutrophils/100 WBC (Bld) 62.7 % Normal [facility] Comment on above: Order Comment: Speci men Type: BLOOD SPECIMEN Ordering Facility: [facility] Address: [address] [place] [address] Performed By: #### 5 7021-8 #### [facility] CLIA [id number] [address] [place] [address] 02737 Nucleated RBC (Bld) [#/Vol] 10*3/uL Normal <0.[address] [facility] Comment on above: Order Comment: Speci men Type: BLOOD SPECIMEN Ordering Facility: [facility] Address: [address] [place] [address] Performed By: #### 5 7021-8 #### [facility] CLIA [id number] [address] [place] [address] 55210 Nucleated RBC/100 WBC (Bld) [Ratio] 0.0 /100 WBC Normal [facility] Comment on above: Order Comment: Speci men Type: BLOOD SPECIMEN Ordering Facility: [facility] Address: [address] [place] [address] 17794 Performed By: #### 5 7021-8 #### [facility] CLIA [id number] [address] [place] [address] 43790 Platelet mean volume (Bld) [Entitic vol] 10.7 fL Normal 9.0-12.[address] [facility] Comment on above: Order Comment: Speci men Type: BLOOD SPECIMEN Ordering Facility: [facility] Address: [address] [place] [address]92 Performed By: #### 5 7021-8 #### [facility] CLIA [id number] [address] [place] [address] 98455 Platelets (Bld) [#/Vol] 277 10*3/uL Normal 150-[address] [facility] Comment on above: Order Comment: Speci men Type: BLOOD SPECIMEN Ordering Facility: [facility] Address: [facility] [place] [address] Performed By: #### 5 7021-8 #### [facility] CLIA [id number] [address] [place] [address] RBC (Bld) [#/Vol] 4.50 10*6/uL Normal 3.90-5.20 [facility] Comment on above: Order Comment: Speci men Type: BLOOD SPECIMEN Ordering Facility: [facility] Address: [address] [place] [address] Performed By: #### 5 7021-8 #### [facility] CLIA [id number] [address] [place] [address] 10138 WBC (Bld) [#/Vol] 6.35 10*3/uL Normal 3.70-11.00 [facility] Comment on above: Order Comment: Speci men Type: BLOOD SPECIMEN Ordering Facility: [facility] Address: [address] [place] [address] Performed By: #### 5 7021-8 #### [facility] CLIA [id number] [address] [place] [address] 57860 Comprehensive metabolic 2000 panelon 09-14-2024 Albumin [Mass/Vol] 4.8 g/dL Normal 3.9-4.9 [facility] Comment on above: Order Comment: Speci men Type: BLOOD SPECIMEN Ordering Facility: [facility] Address: [address] [place] [address] Performed By: #### 2 4323-8 #### [facility] CLIA [id number] [address] [place] [address] 21645 ALP [Catalytic activity/Vol] 50 U/L Normal 34-[address] [facility] Comment on above: Order Comment: Speci men Type: BLOOD SPECIMEN Ordering Facility: [facility] Address: [address] [place] [address] 14909 Performed By: #### 2 4323-8 #### [facility] CLIA [id number] [address] [place] [address] 15293 ALT [Catalytic activity/Vol] 16 U/L Normal 7-[address] [facility] Comment on above: Order Comment: Speci men Type: BLOOD SPECIMEN Ordering Facility: [facility] Address: [address] [place] [address] Performed By: #### 2 4323-8 #### [facility] CLIA [id number] [address] [place] [address] Anion gap [Moles/Vol] 8 mmol/L Normal 8-15 [facility] Comment on above: Order Comment: Speci men Type: BLOOD SPECIMEN Ordering Facility: [facility] Address: [address] [place] [phone] Performed By: #### 2 4323-8 #### [facility] CLIA [id number] [address] [place] [address] AST [Catalytic activity/Vol] 22 U/L Normal 13-[address] [facility] Comment on above: Order Comment: Speci men Type: BLOOD SPECIMEN Ordering Facility: [facility] Address: [address] [place] [address] Performed By: #### 2 4323-8 #### [facility] CLIA [id number] [address] [place] [address] Bilirubin [Mass/Vol] 0.4 mg/dL Normal 0.2-1.3 [facility] Comment on above: Order Comment: Speci men Type: BLOOD SPECIMEN Ordering Facility: [facility] Address: [address] [place] [phone] Performed By: #### 2 4323-8 #### [facility] CLIA [id number] [address] [place] [address] Calcium [Mass/Vol] 10.2 mg/dL Normal 8.5-10.2 [facility] Comment on above: Order Comment: Speci men Type: BLOOD SPECIMEN Ordering Facility: [facility] Address: [address] [place] [phone] Performed By: #### 2 4323-8 #### [facility] CLIA [id number] [address] [place] [address] Chloride [Moles/Vol] 105 mmol/L Normal 98-107 [facility] Comment on above: Order Comment: Speci men Type: BLOOD SPECIMEN Ordering Facility: [facility] Address: [address] [place] [address] Performed By: #### 2 4323-8 #### [facility] CLIA [id number] [address] [place] [address] CO2 [Moles/Vol] 27 mmol/L Normal 22-[address] [facility] Comment on above: Order Comment: Speci men Type: BLOOD SPECIMEN Ordering Facility: [facility] Address: [address] [place] [address] Performed By: #### 2 4323-8 #### [facility] CLIA [id number] [address] [place] [address] 34684 Creatinine [Mass/Vol] 0.66 mg/dL Normal 0.58-0.96 [facility] Comment on above: Order Comment: Speci men Type: BLOOD SPECIMEN Ordering Facility: [facility] Address: [address] [place] [address] Performed By: #### 2 4323-8 #### [facility] CLIA [id number] [address] [place] [address] 83257 Creatinine and Glomerular filtration rate.predicted panel (S/P/Bld) 117 mL/min/1.73m??? Normal >=[address] [facility] Comment on above: Order Comment: Speci men Type: BLOOD SPECIMEN Ordering Facility: [facility] Address: [address] [place] [address] Result Comment: Prisca mated Glomerular Filtration Rate [...] GFR. Performed By: #### 2 4323-8 #### [facility] CLIA [id number] [address] [place] [address] 01550 Glucose [Mass/Vol] 93 mg/dL Normal 74-99 [facility] Comment on above: Order Comment: Speci men Type: BLOOD SPECIMEN Ordering Facility: [facility] Address: [address] [place] [address] 18611 Result Comment: The [place] [employer] (ADA) provides guidance for cutoff [...] Standards of Medical Care in Diabetes 2016, [place] [employer]. Diabetes Care. 2016.39(Suppl 1). Performed By: #### 2 4323-8 #### [facility] CLIA [id number] [address] [place] [address] 65284 Potassium [Moles/Vol] 3.8 mmol/L Normal 3.7-5.1 [facility] Comment on above: Order Comment: Speci men Type: BLOOD SPECIMEN Ordering Facility: [facility] Address: [address] [place] [address] 9[address]63 Performed By: #### 2 4323-8 #### [facility] CLIA [id number] [address] [place] [address] 96282 Protein [Mass/Vol] 7.4 g/dL Normal 6.3-8.0 [facility] Comment on above: Order Comment: Speci men Type: BLOOD SPECIMEN Ordering Facility: [facility] Address: [address] [place] [address] 92262 Performed By: #### 2 4323-8 #### [facility] CLIA [id number] [address] [place] [address] 33391 Sodium [Moles/Vol] 140 mmol/L Normal 136-144 [facility] Comment on above: Order Comment: Speci men Type: BLOOD SPECIMEN Ordering Facility: [facility] Address: [address] [place] [address] Performed By: #### 2 4323-8 #### [facility] CLIA [id number] [address] [place] [address] 86008 Urea nitrogen [Mass/Vol] 11 mg/dL Normal 7-[address] [facility] Comment on above: Order Comment: Speci men Type: BLOOD SPECIMEN Ordering Facility: [facility] Address: [address] [place] [address] Performed By: #### 2 4323-8 #### [facility] CLIA [id number] [address] [place] [address] 98331 DNA ANTIBODY DS BLDon 2024 DNA ANTIBODY 51 IU/mL Normal <=[address] [facility] Comment on above: Order Comment: Speci men Type: BLOOD SPECIMEN Ordering Facility: [facility] Address: [address] [place] [address] Result Comment: Nega tive: <200 IU/mL Equivocal: 201-300 IU/mL Moderate Positive: 301-800 IU/mL Strong Positive: >801 IU/mL Performed By: #### D NAAB #### [facility] CLIA [id number] [address] [place] [address] [place] DNA ANTIBODY QUALITATIVE INTERPRETATION Negative Normal Negative [facility] Comment on above: Order Comment: Speci men Type: BLOOD SPECIMEN Ordering Facility: [facility] Address: [address] [place] [address] Performed By: #### D NAAB #### [facility] CLIA [id number] [address] [place] [address] [place] Prot/Creat Uron 09-14-2024 Protein/Creatinine (U) [Mass ratio] 0.09 mg/mg Normal <0.[address] [facility] Comment on above: Order Comment: Speci men Type: URINE SPECIMEN Ordering Facility: [facility] Address: [address] [place] [address] Result Comment: Adul t Proteinuria Categories: <0.15 mg/mg is considered normal to mildly increased 0.15 - 0.50 mg/mg is considered moderately increased >0.50 mg/mg is considered severely increased KDIGO. (2013). KDIGO 2012 Clinical Practice Guideline for the Evaluation and Management of Chronic Kidney Disease. Official Journal of the International Society of Nephrology, 3(1), 1-150. Performed By: #### 2 890-2 #### [facility] CLIA [id number] [address] [place] [address] [place] Protein/Creatinine (U) [Mass ratio]on 09-14-2024 Creatinine (U) [Mass/Vol] 79.9 mg/dL Normal 20.0-300.[address] [facility] Comment on above: Order Comment: Speci men Type: URINE SPECIMEN Ordering Facility: [facility] Address: [address] [place] [address] Performed By: #### 2 890-2 #### [facility] CLIA [id number] [address] [place] [address] [place] Protein (U) [Mass/Vol] 7 mg/dL Normal 0-20 [facility] Comment on above: Order Comment: Speci men Type: URINE SPECIMEN Ordering Facility: [facility] Address: [address] [place] [address] Performed By: #### 2 890-2 #### [facility] CLIA [id number] [address] [place] [address] [place] Urinalysis complete panel (U )on 09-14-2024 BACTERIA UL 3984.7 uL High Negative [facility] Comment on above: Order Comment: Speci men Type: URINE SPECIMEN Ordering Facility: [facility] Address: [address] [place] [address] Performed By: #### 2 4356-8 #### [facility] CLIA [id number] [address] [place] [address] [place] Bilirubin Ql (U) Negative Normal Negative [facility] Comment on above: Order Comment: Speci men Type: URINE SPECIMEN Ordering Facility: [facility] Address: [address] [place] [address] Performed By: #### 2 4356-8 #### [facility] CLIA [id number] [address] [place] [address] [place] Clarity (Unsp spec) Clear Normal Clear [facility] Comment on above: Order Comment: Speci men Type: URINE SPECIMEN Ordering Facility: [facility] Address: [address] [place] [address] Performed By: #### 2 4356-8 #### [facility] CLIA [id number] [address] [place] [address] [place] Color (U) Yellow Normal Yellow [facility] Comment on above: Order Comment: Speci men Type: URINE SPECIMEN Ordering Facility: [facility] Address: [address] [place] [address] Performed By: #### 2 4356-8 #### [facility] CLIA [id number] [address] [place] [address] [place] Epithelial cells LM.HPF (Urine sed) [#/Area] Many Normal [facility] Comment on above: Order Comment: Speci men Type: URINE SPECIMEN Ordering Facility: [facility] Address: [address] [place] [address] Performed By: #### 2 4356-8 #### [facility] CLIA [id number] [address] [place] [address] [place] Glucose Test strip (U) [Mass/Vol] Negative Normal Negative [facility] Comment on above: Order Comment: Speci men Type: URINE SPECIMEN Ordering Facility: [facility] Address: [address] [place] [address] Performed By: #### 2 4356-8 #### [facility] CLIA [id number] [address] [place] [address] [place] Hemoglobin Ql (U) Negative Normal Negative [facility] Comment on above: Order Comment: Speci men Type: URINE SPECIMEN Ordering Facility: [facility] Address: [address] [place] [address] Performed By: #### 2 4356-8 #### [facility] CLIA [id number] [address] [place] [address] [place] Hyaline casts (Urine sed) [#/Area] 1-3 /LPF Abnormal 0 /LPF [facility] Comment on above: Order Comment: Speci men Type: URINE SPECIMEN Ordering Facility: [facility] Address: [address] [place] [address] Performed By: #### 2 4356-8 #### [facility] CLIA [id number] [address] [place] [address] [place] Ketones Ql (U) Negative Normal Negative [facility] Comment on above: Order Comment: Speci men Type: URINE SPECIMEN Ordering Facility: [facility] Address: [address] [place] [address] Performed By: #### 2 4356-8 #### [facility] CLIA [id number] [address] [place] [address] [place] Leukocyte esterase Test strip Ql (U) Trace Abnormal Negative [facility] Comment on above: Order Comment: Speci men Type: URINE SPECIMEN Ordering Facility: [facility] Address: [address] [place] [address] Performed By: #### 2 4356-8 #### [facility] CLIA [id number] [address] [place] [address] [place] Nitrite Ql (U) Negative Normal Negative [facility] Comment on above: Order Comment: Speci men Type: URINE SPECIMEN Ordering Facility: [facility] Address: [address] [place] [address] Performed By: #### 2 4356-8 #### [facility] CLIA [id number] [address] [place] [address] [place] pH (U) 6.5 [pH] Normal <8.[address] [facility] Comment on above: Order Comment: Speci men Type: URINE SPECIMEN Ordering Facility: [facility] Address: [address] [place] [address] Performed By: #### 2 4356-8 #### [facility] CLIA [id number] [address] [place] [address] [place] Protein (U) [Mass/Vol] Negative Normal Negative [facility] Comment on above: Order Comment: Speci men Type: URINE SPECIMEN Ordering Facility: [facility] Address: [address] [place] [address] Performed By: #### 2 4356-8 #### [facility] CLIA [id number] [address] [place] [address] [place] RBC LM.HPF (Urine sed) [#/Area] 0-2 /HPF Normal 0-2 /HPF [facility] Comment on above: Order Comment: Speci men Type: URINE SPECIMEN Ordering Facility: [facility] Address: [address] [place] [address] Performed By: #### 2 4356-8 #### [facility] CLIA [id number] [address] [place] [address] [place] Specific gravity (U) [Rel density] 1.017 Normal 1.005-1.[address] [facility] Comment on above: Order Comment: Speci men Type: URINE SPECIMEN Ordering Facility: [facility] Address: [address] [place] [address] Performed By: #### 2 4356-8 #### [facility] CLIA [id number] [address] [place] [address] [place] Urobilinogen Ql (U) 0.2 EU/dL Normal 0.2-1.0 EU/dL [facility] Comment on above: Order Comment: Speci men Type: URINE SPECIMEN Ordering Facility: [facility] Address: [address] [place] [address] Performed By: #### 2 4356-8 #### [facility] CLIA [id number] [address] [place] [address] [place] WBC LM.HPF (Urine sed) [#/Area] 6-10 /HPF Abnormal 0-5 /HPF [facility] Comment on above: Order Comment: Speci men Type: URINE SPECIMEN Ordering Facility: [facility] Address: [address] [place] [address] Performed By: #### 2 4356-8 #### [facility] CLIA [id number] [address] [place] [address] [place] IGP,APTIMA HPV,AGE GDLNon AGE GDLN ACOG TESTING Note . [facility] Comment on above: TESTS RESULT FLAG UN ITS REF RANGE LAB Clinician Provided Cytology Information Source.............Cervix;Endocervix No. of containers..01 ThinPrep Vial Age Algo ACOG Olga... FLAG LEGEND: L-Low Normal,H-High Normal,LL-Alert Low,HH-Alert High <-Panic Low,>-Panic High,A-Abnormal,AA-Critical Abnormal Performed at: 01 =G [address] [place] [address] Fide Bolton MD, HPV APTIMA Negative Negative [facility] Comment on above: This nucleic acid am plification test detects fourteen high- risk HPV types (16,18,31,33,35,39,45,51,52,56,58,59,66,68) without differentiation. Performed at: =G - [facility], [place] [id number] Product Line Manager: Fide Bolton MD, Phone: [phone] Performed at: - [address], [place] [id number] Product Line Manager: Fide Bolton MD, Phone: [phone] IGP, APTIMA HPV, RFX 16/18,45 Note . [facility] Comment on above: TESTS RESULT FLAG UN ITS REF RANGE LAB DIAGNOSIS: 02 NEGATIVE FOR INTRAEPITHELIAL LESION OR MALIGNANCY. Specimen adequacy: 02 Satisfactory for evaluation. No endocervical component is identified. Performed by: Kelton Rosa, Insurance Commissioner (ASCP) . 02 Note: Note 02 The [...] High,A-Abnormal,AA-Critical Abnormal Performed at: 02 WB [facility] [address] [place] [address] Fide Bolton MD, BRUSH-SPATULA CERVIX ENDOCERVIX CLINISYNC [facility] No Panel InformationOrdered By: Emma Negrete on 04-05-2024 COVID Antigen (POC) [facility] Quick Strep (POC) [facility] C3 COMPLEMENTon 2023 Complement C3 [Mass/Vol] 97 mg/dL 86 - 166 mg/dL [facility] C4 COMPLEMENTon 2023 Complement C4 [Mass/Vol] 21 mg/dL 13 - 46 mg/dL [facility] CBC W Auto Differential pane l (Bld)on 2023 Basophils (Bld) [#/Vol] 0.05 10*3/uL [facility] Basophils/100 WBC (Bld) 0.9 % [facility] Differential cell count method Nom (Bld) Auto [facility] Eosinophils (Bld) [#/Vol] 0.20 10*3/uL [facility] Eosinophils/100 WBC (Bld) 3.5 % [facility] Erythrocyte distribution width (RBC) [Ratio] 12.3 % 11.5 - 15.0 % [facility] Hematocrit (Bld) [Volume fraction] 37.0 % 36.0 - 46.0 % [facility] Hemoglobin (Bld) [Mass/Vol] 12.6 g/dL 11.5 - 15.5 g/dL [facility] Immature granulocytes (Bld) [#/Vol] [facility] Immature granulocytes/100 WBC (Bld) 0.2 % [facility] Lymphocytes (Bld) [#/Vol] 1.31 10*3/uL [facility] Lymphocytes/100 WBC (Bld) 22.9 % [facility] MCH (RBC) [Entitic mass] 31.3 pg 26.0 - 34.0 pg [facility] MCHC (RBC) [Mass/Vol] 34.1 g/dL 30.5 - 36.0 g/dL [facility] MCV (RBC) [Entitic vol] 91.8 fL 80.0 - 100.0 fL [facility] Monocytes (Bld) [#/Vol] 0.54 10*3/uL NINF [facility] Monocytes/100 WBC (Bld) 9.4 % [facility] Neutrophils (Bld) [#/Vol] 3.61 10*3/uL [facility] Neutrophils/100 WBC (Bld) 63.1 % [facility] Nucleated RBC (Bld) [#/Vol] NINF [facility] Nucleated RBC/100 WBC (Bld) [Ratio] 0.0 % /100 WBC [facility] Platelet mean volume (Bld) [Entitic vol] 10.6 fL 9.0 - 12.7 fL [facility] Platelets (Bld) [#/Vol] 287 10*3/uL [facility] RBC (Bld) [#/Vol] 4.03 10*6/uL 3.90 - 5.2 0 m/uL [facility] WBC (Bld) [#/Vol] 5.72 10*3/uL [facility] CK [Catalytic activity/Vol]o n 2023 Interpretation and review of laboratory results Normal [facility] CREATINE KINASE/CKon 024 CK [Catalytic activity/Vol] 103 U/L 42 - 196 U/L [facility] Comprehensive metabolic 2000 panelon 2023 Albumin [Mass/Vol] 4.4 g/dL 3.9 - 4.9 g/dL [facility] ALP [Catalytic activity/Vol] 67 U/L 34 - 123 U/L [facility] ALT [Catalytic activity/Vol] 15 U/L 7 - 38 U/L [facility] Anion gap [Moles/Vol] 9 mmol/L 9 - 18 mmol/L [facility] AST [Catalytic activity/Vol] 20 U/L 13 - 35 U/L [facility] Bilirubin [Mass/Vol] 0.6 mg/dL 0.2 - 1 .3 mg/dL [facility] Calcium [Mass/Vol] 9.4 mg/dL 8.5 - 10. 2 mg/dL [facility] Chloride [Moles/Vol] 105 mmol/L 97 - 10 5 mmol/L [facility] CO2 [Moles/Vol] 24 mmol/L 22 - 30 mmol/L [facility] Creatinine [Mass/Vol] 0.70 mg/dL 0.58 - 0.96 mg/dL [facility] GFR/1.73 sq M.predicted among non-blacks MDRD (S/P/Bld) [Vol rate/Area] 115 mL/min/{1.73_m2} - PINF [facility] Comment on above: Estimated Glomerular [...] [Mass/Vol] 89 mg/dL 74 - 99 mg/dL [facility] Comment on above: The [place] Diab[employer] s Association (ADA) provides guidance for [...] Standards of Medical Care in Diabetes 2016, [place] [employer]. Diabetes Care. 2016.39(Suppl 1). Interpretation and review of laboratory results Abnormal [facility] Potassium [Moles/Vol] 3.6 mmol/L Low 3.7 - 5.1 mmol/L [facility] Protein [Mass/Vol] 6.9 g/dL 6.3 - 8.0 g/dL [facility] Sodium [Moles/Vol] 138 mmol/L 136 - 144 mmol/L [facility] Urea nitrogen [Mass/Vol] 8 mg/dL 7 - 21 mg/dL [facility] No Panel Informationon 12-07 Interpretation and review of laboratory results Normal [facility] PROTEIN / CREATININE RATIOon 2023 Protein/Creatinine (U) [Mass ratio] 0.10 mg/mg NINF - 0.15 mg/mg [facility] Comment on above: Adult Proteinuria [...] [Mass/Vol] 48.3 mg/dL 20.0 - 300.0 mg/dL [facility] Interpretation and review of laboratory results Normal [facility] Protein (U) [Mass/Vol] 5 mg/dL 0 - 20 mg/dL [facility] Urinalysis complete panel (U )on 2023 Bacteria LM.HPF (Urine sed) [#/Area] Negative Negative /HPF [facility] Bilirubin Ql (U) Negative Negative [facility] Clarity (Unsp spec) Clear Clear [facility] Color (U) Yellow Yellow [facility] Epithelial cells LM.HPF (Urine sed) [#/Area] None Seen /HPF [facility] Glucose Test strip (U) [Mass/Vol] Negative Negative [facility] Hemoglobin Ql (U) Negative Negative [facility] Hyaline casts (Urine sed) [#/Area] 1-3 /LPF Abnormal 0 /LPF [facility] Interpretation and review of laboratory results Abnormal [facility] Ketones Ql (U) Negative Negative [facility] Leukocyte esterase Test strip Ql (U) Negative Negative [facility] Nitrite Ql (U) Negative Negative [facility] pH (U) 6.5 [pH] NINF - 8.5 [facility] Protein (U) [Mass/Vol] Negative Negative [facility] RBC LM.HPF (Urine sed) [#/Area] 0-2 /HPF 0-2 /HPF [facility] Specific gravity (U) [Rel density] 1.010 1.005 - 1.030 [facility] Urobilinogen Ql (U) 0.2 EU/dL 0.2-1.0 EU/dL [facility] WBC LM.HPF (Urine sed) [#/Area] 0-5 /HPF 0-5 /HPF [facility] This test was developed and its performance characteristics determined by [facility]'s [facility] Pathology and Laboratory Medicine [place] [facility] It has not been cleared or approved by the FDA. [facility] is regulated under CLIA as qualified to perform high-complexity testing. This test is used for clinical purposes. It should not be regarded as investigational or for research. [facility] Cytology Cervical or vaginal smear or scraping studyOrdered By: Rita Busby on 06-09-2023 [facility] SED RATE [facility] 2021 SED RATE 9 mm/hr Normal <=20 [facility] Comment on above: Performed By: #### S EDR #### [facility] [address] [place], [place] [address] Dr. Mio Spicer CBC AUTO DIFFon 06-07-2022 BASO # 0.1 103/ul Normal 0.0-0.1 [facility] Comment on above: Performed By: #### C BC ####[facility] [address] [place] [address]DrClaude Spicer Basophils/100 WBC (Bld) 1.1 % Normal 0.2-2.0 [facility] Comment on above: Performed By: #### C BC ####[facility] [address] [place] [id number] Spicer EO # 0.5 103/ul Normal 0.0-0.7 [facility] Comment on above: Performed By: #### C BC ####[facility] [address] [place] [address]DrClaude Spicer Eosinophils/100 WBC (Bld) 8.5 % Critically high 0.9-7.0 [facility] Comment on above: Performed By: #### C BC ####[facility] [address] [place] [id number] Spicer Erythrocyte distribution width (RBC) [Ratio] 12.8 % Normal 11.0-15.0 [facility] Comment on above: Performed By: #### C BC ####[facility] [address] [place] [address]Dr. Mio Spicer Hematocrit (Bld) [Volume fraction] 39.6 % Normal 36.0-48.0 [facility] Comment on above: Performed By: #### C BC ####[facility] [address] [place] [address]Dr. Mio Spicer Hemoglobin (Bld) [Mass/Vol] 13.4 g/dL Normal 12.0-16.0 [facility] Comment on above: Performed By: #### C BC ####[facility] [address] [place], [place] [address]Dr. Mio Spicer IG # 0.01 10e3/ul Normal 0.00-0.03 [facility] Comment on above: Performed By: #### C BC ####[facility] [address] [place], [place] [address]Dr. Mio Spicer IG % 0.2 % Normal 0.0-0.5 [facility] Comment on above: Performed By: #### C BC ####[facility] [address] [place], [place] [address]Dr. Mio Spicer LYMPH # 1.4 103/ul Normal 1.2-3.8 [facility] Comment on above: Performed By: #### C BC ####[facility] [address] [place], [place] [address]Dr. Mio Spicer Lymphocytes/100 WBC (Bld) 23.0 % Normal 20.5-60.0 [facility] Comment on above: Performed By: #### C BC ####[facility] [address] [place], [place] [address]Dr. Mio Spicer MANUAL DIFF REQ NO Normal [facility] Comment on above: Performed By: #### C BC ####[facility] [address] [place] [address]Dr. Mio Spicer MCH (RBC) [Entitic mass] 31.3 pg Normal 26.7-34.0 [facility] Comment on above: Performed By: #### C BC ####[facility] [address] [place] [id number]. Mio Nayan MCHC (RBC) [Mass/Vol] 33.8 g/dL Normal 29.9-35.2 [facility] Comment on above: Performed By: #### C BC ####[facility] [address] [place] [address]Dr. Mio Spicer MCV (RBC) [Entitic vol] 92.5 fL Normal 81.0-99.0 [facility] Comment on above: Performed By: #### C BC ####[facility] [address] [place], [place] [address]Dr. Mio Spicer MONO # 0.4 103/ul Normal 0.3-0.8 [facility] Comment on above: Performed By: #### C BC ####[facility] [address] [place], [place] [address]Dr. Mio Spicer Monocytes/100 WBC (Bld) 6.9 % Normal 1.7-12.0 [facility] Comment on above: Performed By: #### C BC ####[facility] [address] [place], [place] [address]Dr. Mio Spicer NEUT # 3.7 103/ul Normal 1.4-6.5 [facility] Comment on above: Performed By: #### C BC ####[facility] [address] [place], [place] [address]Dr. Mio Spicer Neutrophils/100 WBC (Bld) 60.3 % Normal 43.0-75.0 [facility] Comment on above: Performed By: #### C BC ####[facility] [address] [place], [place] [id number] Spicer Platelet mean volume (Bld) [Entitic vol] 10.1 fL Normal 9.5-13.5 [facility] Comment on above: Performed By: #### C BC ####[facility] [address] [place], [place] [address]Dr. Mio Spicer PLT 315 103/ul Normal 150-450 [facility] Comment on above: Performed By: #### C BC ####[facility] [address] [place], [place] [address]Ek. Mio Spicer RBC 4.28 106/ul Normal 4.20-5.40 [facility] Comment on above: Performed By: #### C BC ####[facility] [address] [place], [place] [address]Rr. Mio Spicer WBC 6.1 103/ul Normal 4.0-11.0 [facility] Comment on above: Performed By: #### C BC ####[facility] [address] [place], [place] [address]Uy. Mio Spicer PREG HCG QUALon 06-07-2022 , QUAL Negative Normal NEGATIVE [facility] Comment on above: Performed By: #### P REG #### [facility] [address] [place], [place] [address] Dr. Mio Spicer Covid-19 PCR (CVDTB)on 05-12 SARS-CoV-2 (COVID-19) RNA CANDICE+probe Ql (Unsp spec) Not detected Normal NOT DETECTED [facility] Comment on above: Result Comment: This test is not yet approved or cleared by the [place] FDA. When there are no FDA-approved or cleared tests available, and other criteria are met, FDA can make tests available under an emergency access mechanism called an Emergency Use Authorization (EUA). The EUA for this test is supported by the Senior Office Support Assistant Sosa of Health and Human Service's (HHS's) declaration [...] with SARS-CoV-2. Performed By: #### C VDTBH ####[facility] [address] [place] [address]Dr. Mio Spicer PAP ACOG PANEL 2: 30 to 65on 03-14-2022 . . Normal [facility] Comment on above: Result Comment: Perf ormed at: WB Performed By: #### 4 [id number] #### [facility] [address] [place] [address] [address] Mio Spicer Age Gdln ACOG Testing 30-65 Normal [facility] Comment on above: Performed By: #### 4 [id number] #### [facility] [address] [place] [address] [address] Mio Spicer DIAGNOSIS: Comment Normal [facility] Comment on above: Result Comment: NEGA TIVE FOR INTRAEPITHELIAL LESION OR MALIGNANCY. Performed at: WB Performed By: #### 4 [id number] #### [facility] [address] [place] [address] Dr. Mio Spicer HPV Aptima Negative Normal Negative [facility] Comment on above: Result Comment: This nucleic acid amplification test detects fourteen high-risk HPV types (16,18,31,33,35,39,45,51,52,56,58,59,66,68) without differentiation. Performed at: =G Performed By: #### 4 [id number] #### [facility] [address] [place] [address] Dr. Mio Spicer Methodology: Comment Normal [facility] Comment on above: Result Comment: This liquid based ThinPrep(R) pap test was screened with the use of an image guided system. Performed at: WB Performed By: #### 4 [id number] #### [facility] [address] [place] [address] Dr. Mio Spicer Note: Comment Normal [facility] Comment on above: Result Comment: The Pap smear is a screening test designed to aid in the detection of premalignant and malignant conditions of the uterine cervix. It is not a diagnostic procedure and should not be used as the sole means of detecting cervical cancer. Both false-positive and false-negative reports do occur. . Performed at: WB Performed By: #### 4 [id number] #### [facility] [address] [place] [address] [address] Mio Spicer Performed by: Comment Normal [facility] Comment on above: Result Comment: Carlo Goldman, Insurance Commissioner (ASCP) Performed at: WB Performed By: #### 4 [id number] #### [facility] [address] [place] [address] [address] Mio Spicer Specimen adequacy: Comment Normal [facility] Comment on above: Result Comment: Sati sfactory for evaluation. Endocervical and/or squamous metaplastic cells (endocervical component) are present. Performed at: WB Performed By: #### 4 [id number] #### [facility] [address] [place] [address] [address] Mio Spicer MRI Ankle w/o + [...] by [address] on 01/17/2022 1601 Normal [facility] Milieu Counselor VC INJ SCL ROSA FIELD NURSE VEINSon 0 01-08-2022 VC INJ SCL ROSA FIELD NURSE VEINS Patient: SUSAN HOGUE Exam Date: 01/08/2022 : 1985 Gender:F Ordering : DR SHANNA ROSA M.D. Admission #: [id number] Family : Order #: [id number] CLICK HERE TO VIEW EXAM RADIOLOGY REPORT [...] on 01/08/2022 at 10:33 Normal [facility] VC CONSULT FOLLOWUPon 2021 VC CONSULT FOLLOWUP Patient: SUSAN HOGUE Exam Date: 12/10/2021 : 1985 Gender:F Ordering : DR SHANNA ROSA M.D. Admission #: [id number] Family : Order #: [id number] CLICK HERE TO VIEW EXAM RADIOLOGY REPORT [...] Rosa MD on 12/10/2021 at 08:35 Normal [facility] VC EXT VENOUS RT LIMITEDon 0 12-10-2021 VC EXT VENOUS RT LIMITED Patient: SUSAN HOGUE Exam Date: 12/10/2021 : 1985 Gender:F Ordering : DR SHANNA ROSA M.D. Admission #: [id number] Family : Order #: [id number] CLICK HERE TO VIEW EXAM RADIOLOGY REPORT [...] on 12/10/2021 at 08:19 Normal [facility] VC ENDOVENOUS ABL 1ST V RTon 12-03-2021 VC ENDOVENOUS ABL 1ST V RT Patient: SUSAN HOGUE Exam Date: 12/03/2021 : 1985 Gender:F Ordering : DR SHANNA ROSA M.D. Admission #: [id number] Family : Order #: [id number] CLICK HERE TO VIEW EXAM RADIOLOGY REPORT [...] Rosa MD on 12/03/2021 at 11:18 Normal [facility] VC CONSULT FOLLOWUPon 2021 VC CONSULT FOLLOWUP Patient: SUSAN HOGUE Exam Date: 11/19/2021 : 1985 Gender:F Ordering : DR SHANNA ROSA M.D. Admission #: [id number] Family : Order #: [id number] CLICK HERE TO VIEW EXAM RADIOLOGY REPORT [...] Rosa MD on 11/19/2021 at 14:00 Normal [facility] VC EXT VENOUS LT LIMITEDon 0 11-19-2021 VC EXT VENOUS LT LIMITED Patient: SUSAN HOGUE Exam Date: 11/19/2021 : 1985 Gender:F Ordering : DR SHANNA ROSA M.D. Admission #: [id number] Family : Order #: [id number] CLICK HERE TO VIEW EXAM RADIOLOGY REPORT [...] on 11/19/2021 at 13:48 Normal [facility] VC ENDOVENOUS ABL 1ST V LTon 11-12-2021 VC ENDOVENOUS ABL 1ST V LT Patient: SUSAN HOGUE Exam Date: 11/12/2021 : 1985 Gender:F Ordering : DR SHANNA ROSA M.D. Admission #: [id number] Family : Order #: [id number] CLICK HERE TO VIEW EXAM RADIOLOGY REPORT [...] Rosa MD on 11/12/2021 at 10:02 Normal [facility] VC CONSULT FOLLOWUPon 2021 VC CONSULT FOLLOWUP Patient: SUSAN HOGUE Exam Date: 10/22/2021 : 1985 Gender:F Ordering : DR SHANNA ROSA M.D. Admission #: [id number] Family : Order #: [id number] CLICK HERE TO VIEW EXAM RADIOLOGY REPORT [...] on 10/22/2021 at 13:42 Normal [facility] VC EXT VENOUS RT LIMITEDon 0 10-22-2021 VC EXT VENOUS RT LIMITED Patient: SUSAN HOGUE Exam Date: 10/22/2021 : 1985 Gender:F Ordering : DR SHANNA ROSA M.D. Admission #: [id number] Family : Order #: [id number] CLICK HERE TO VIEW EXAM RADIOLOGY REPORT [...] on 10/22/2021 at 13:28 Normal [facility] VC ENDOVENOUS ABL 1ST V RTon 10-15-2021 VC ENDOVENOUS ABL 1ST V RT Patient: SUSAN HOGUE Exam Date: 10/15/2021 : 1985 Gender:F Ordering : DR SHANNA ROSA M.D. Admission #: [id number] Family : Order #: [id number] CLICK HERE TO VIEW EXAM RADIOLOGY REPORT [...] Rosa MD on 10/15/2021 at 10:35 Normal [facility] Vital Signs Date Time Vital Sign Value Performing Clinician Facility 01-20-2025 11:00-0400 Body mass index (BMI) [Ratio] 22.47 kg/m2 Toobla Work Phone: [facility] 01-20-2025 11:00-0400 Body weight 61.24 kg Toobla Work Phone: [facility] 01-20-2025 11:00-0400 Diastolic blood pressure 72 mm[Hg] [employer]aurabhBeijing [employer] Work Phone: [facility] 01-20-2025 11:00-0400 Systolic blood pressure 112 mm[Hg] Toobla Work Phone: [facility] 12-13-2024 14:51-0400 Body mass index (BMI) [Ratio] 23.96 kg/m2 Rita BAHENA Work Phone: [facility] 12-13-2024 14:51-0400 Body weight 65.32 kg Rita BAHENA Work Phone: [facility] 12-13-2024 14:51-0400 Diastolic blood pressure 68 mm[Hg] Rita Eid PA Work Phone: [facility] 12-13-2024 14:51-0400 Systolic blood pressure 110 mm[Hg] Rita Eid PA Work Phone: [facility] 10-11-2024 12:06-0500 Body height 165.1 cm Kalyani Lowe PA Work Phone: [facility] 10-11-2024 12:06-0500 Body mass index (BMI) [Ratio] 25.13 kg/m2 Kalyani Lowe PA Work Phone: [facility] 10-11-2024 12:06-0500 Body weight 68.49 kg Kalyani Lowe PA Work Phone: [facility] 10-11-2024 12:06-0500 Diastolic blood pressure 72 mm[Hg] Kalyani Lowe PA Work Phone: [facility] 10-11-2024 12:06-0500 Systolic blood pressure 118 mm[Hg] Kalyani Lowe PA Work Phone: [facility] 06-16-2024 14:37-0500 Body mass index (BMI) [Ratio] 23.86 kg/m2 Saurabh Maribel DO Work Phone: [facility] 06-16-2024 14:37-0500 Body weight 65.05 kg Saurabh Maribel DO Work Phone: [facility] 06-16-2024 14:37-0500 Diastolic blood pressure 60 mm[Hg] Saurabh Maribel DO Work Phone: [facility] 06-16-2024 14:37-0500 Systolic blood pressure 106 mm[Hg] Saurabh Maribel DO Work Phone: [facility] 04-05-2024 10:18-0400 Body height 165.1 cm [facility] 04-05-2024 10:18-0400 Body mass index (BMI) [Ratio] 23 kg/m2 [facility] 04-05-2024 10:18-0400 Body temperature 99.3 [degF] [facility] 04-05-2024 10:18-0400 Body weight 62.7 kg [facility] 04-05-2024 10:18-0400 Heart rate 91 /min [facility] 04-05-2024 10:18-0400 Respiratory rate 18 /min [facility] 04-05-2024 10:18-0400 SaO2% (BldA) [Mass fraction] 99 % [facility] 2023 12:42-0400 Body temperature 97.81 [degF] Beatriz Alston DO Work Phone: [facility] 2023 12:42-0400 Body weight 65.6 kg Beatriz Alston DO Work Phone: [facility] 2023 12:42-0400 Diastolic blood pressure 50 mm[Hg] Beatriz Alston DO Work Phone: [facility] 2023 12:42-0400 Heart rate 89 /min Beatriz Alston DO Work Phone: [facility] 2023 12:42-0400 Systolic blood pressure 123 mm[Hg] Beatriz Alston DO Work Phone: [facility] Encounters Encounter Date Encounter Type Care Provider Facility Start: 01-20-2025 End: 01-20-2025 ambulatory [facility] Facility:[facility] Start: 01-20-2025 End: 01-20-2025 Patient encounter procedure Saurabh Maribel DO Work Phone: [facility] Comment on above: Pre-op examination; Menorrhagia with irregular cycle; Pelvic pain; Abnormal uterine bleeding (AUB) Start: 01-20-2025 End: 01-20-2025 Preprocedural examination done Saurabh Mujicao DO Work Phone: [facility] Start: 01-20-2025 End: 01-20-2025 ambulatory SAURABH LÓPEZ [...] End: 12-01-2024 Bamboo flowsheet Godwin A Felter [employer] Work Phone: [facility] Start: 12-01-2024 End: 12-01-2024 Bamboo flowsheet Godwin A Felter [employer] Work Phone: [facility] Start: 12-01-2024 End: 12-01-2024 Office outpatient new 30 minutes Godwin A Felter [employer] Work Phone: [facility] Comment on [...] Start: 09-14-2024 End: 09-14-2024 ambulatory BEATRIZ ANTONYJOHN Facility:[facility] Start: 09-08-2024 End: 09-08-2024 Telephone encounter [...] Refill Request Start: 04-05-2024 End: 04-05-[address] 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) Start: 08-01-2022 End: 08-02-[address] SHRUTHI CHOW Facility:[facility] Start: 07-18-2022 End: 07-19-[address] BELINDA MOCK Facility:[facility] Start: 06-09-2022 Encounter for preprocedural laboratory examination DR SAURABH LÓPEZ [facility] Start: 06-07-2022 End: 06-07-[address] SAURABH [...] DTaP,Tdap,Td Vaccine (2 - Td or Tdap) [facility] Start: 06-16-2029 Screening for malign ant neoplasm of cervix [facility] Start: 06-09-2028 Screening for malign ant neoplasm of cervix [facility] Start: 12-01-2025 End: 12-01-2025 Patient encounter procedure 12/01/2025 1:10 PM EDT Office Visit [facility] [address] [place] [address] Godwin Merchant, [employer] [address] [place] [address] [facility] Start: 10-26-2025 End: 10-26-2025 Patient encounter procedure 10/26/2025 12:40 PM EDT Office Visit [facility] [address] [place] [phone] Kalyani Obregon PA [address] [place] [address] [facility] Start: 06-27-2025 End: 06-27-2025 Patient encounter procedure 06/27/2025 9:20 AM EST Office Visit [facility] [address] [place] [address] Saurabh López, DO [address] [place] [address] [facility] Start: 06-23-2025 End: 06-23-2025 Patient encounter procedure 06/23/2025 8:30 AM EST Office Visit [facility] [address] [place] [address] Saurabh López, DO [address] [place] [address] [facility] Start: 04-13-2025 End: 04-13-2025 Patient encounter procedure 04/13/2025 11:00 AM EDT Office Visit Rheumatology [address] [address] Beatriz Alston, DO [address] [place] [address] 6m SLE f/u per [facility] Comment on above: 6m SLE f/u per David ejohn Start: 04-11-2025 Influenza vaccination Influenz a Vaccine (Season Ended) [facility] Start: 02-28-2025 End: 02-28-2025 Patient encounter procedure 02/28/2025 8:40 AM EDT Office Visit [facility] [address] [place] [phone] Saurabh López, DO [address] [place], [place] [id number] [facility] Start: 01-20-2025 End: 01-20-2025 Patient encounter procedure 01/20/2025 10:30 AM EDT Procedure Visit [facility] [address] [place] [phone] Saurabh López, DO [address] [place], [place] [id number] [facility] Start: 12-13-2024 End: 12-13-2025 aPTT in Blood by Coagulation assay APTT Lab Routine Menorrhagia with regular cycle Expected: 12/13/2024 (Approximate), Expires: 12/13/2025 [facility] Comment on above: Expected: 12/13/2024 (Approximate), Expires: 12/13/2025 Start: 12-13-2024 End: 12-13-2025 US Pelvis US Pelvis w/ TV Imaging Routine Menorrhagia with regular cycle Expected: 12/13/2024 (Approximate), Expires: 12/13/2025 [facility] Comment on above: Expected: 12/13/2024 (Approximate), Expires: 12/13/2025 Start: 12-01-2024 End: 12-01-2024 Patient encounter procedure 12/01/2024 1:40 PM EDT Office Visit [facility] [address] [place] [address] Godwin Merchant, [employer] [address] [place] [address] Arrived [facility] Comment on above: Arrived Start: 10-11-2024 End: 10-11-2024 Patient encounter procedure 10/11/2024 12:00 PM EST Office Visit [facility] GERON[facility] [address] [place] [address] Kalyani Obregon PA [address] [place] [address] [facility] Start: 06-16-2024 End: 09-15-2024 CBC W Auto Differential panel - Blood COMPLETE BLOOD COUNT AND DIFFERENTIAL Lab Routine Other forms of systemic lupus erythematosus, unspecified organ involvement status (HCC) Expected: 06/16/2024, Expires: 09/15/2024 [facility] Comment on above: Expected: 06/16/2024 , Expires: 09/15/2024 Start: 06-16-2024 End: 09-15-2024 Complement C3 [Mass/volume] in Serum or Plasma C3 COMPLEMENT Lab Routine Other forms of systemic lupus erythematosus, unspecified organ involvement status (HCC) Expected: 06/16/2024, Expires: 09/15/2024 [facility] Work Phone: Comment on above: Expected: 06/16/2024 , Expires: 09/15/2024 Start: 06-16-2024 End: 09-15-2024 Complement C4 [Mass/volume] in Serum or Plasma C4 COMPLEMENT Lab Routine Other forms of systemic lupus erythematosus, unspecified organ involvement status (HCC) Expected: 06/16/2024, Expires: 09/15/2024 [facility] Comment on above: Expected: 06/16/2024 , Expires: 09/15/2024 Start: 06-16-2024 End: 09-15-2024 Comprehensive metabolic 2000 panel - Serum or Plasma COMPREHENSIVE METABOLIC PANEL Lab Routine Other forms of systemic lupus erythematosus, unspecified organ involvement status (HCC) Expected: 06/16/2024, Expires: 09/15/2024 [facility] Comment on above: Expected: 06/16/2024 , Expires: 09/15/2024 Start: 06-16-2024 End: 09-15-2024 DNA ANTIBODY DS BLD DNA ANTIBODY DS BLD Lab Routine Other forms of systemic lupus erythematosus, unspecified organ involvement status (HCC) Expected: 06/16/2024, Expires: 09/15/2024 [facility] Comment on above: Expected: 06/16/2024 , Expires: 09/15/2024 Start: 06-16-2024 End: 09-15-2024 Protein/Creatinine [Mass Ratio] in Urine PROTEIN / CREATININE RATIO Lab Routine Other forms of systemic lupus erythematosus, unspecified organ involvement status (HCC) Expected: 06/16/2024, Expires: 09/15/2024 [facility] Comment on above: Expected: 06/16/2024 , Expires: 09/15/2024 Start: 06-16-2024 End: 09-15-2024 Urinalysis complete panel - Urine URINALYSIS, WITH MICROSCOPIC Lab Routine Other forms of systemic lupus erythematosus, unspecified organ involvement status (HCC) Expected: 06/16/2024, Expires: 09/15/2024 [facility] Comment on above: Expected: 06/16/2024 , Expires: 09/15/2024 Start: 06-16-2024 End: 06-16-2024 Patient encounter procedure 06/16/2024 11:00 AM EST Office Visit Rheumatology [address] [id number] Beatriz Alston DO [address] [place] [address] 6m SLE f/u per [facility] Comment on above: 6m SLE f/u per David ejohn Start: 04-11-2024 Covid-19 Vaccine ( season) Covid-19 Vaccine () [facility] Start: 04-11-2024 Covid-19 Vaccine () Covid-19 Vaccine () [facility] Start: 04-11-2024 Influenza vaccination Influenza Vacc ine (#1) [facility] Start: 2023 End: 03-08-2024 VERNELL BY IFA SCREEN [facility] Comment on above: Expected: 2023 , Expires: 03/08/2024 Start: 2023 End: 03-08-2024 BLOOD TB SCREEN [facility] Comment on above: Expected: 2023 , Expires: 03/08/2024 Start: 2023 End: 03-08-2024 DNA ANTIBODY DS BLD [facility] Comment on above: Expected: 2023 , Expires: 03/08/2024 Start: 2023 End: 03-08-2024 Extractable nuclear Ab panel - Serum [facility] Work Phone: Comment on above: Expected: 2023 , Expires: 03/08/2024 Start: 08-11-2023 Behavioral Health Screening Behavioral Health Screening [facility] Start: 04-11-2023 Covid-19 Vaccine ( season) Covid-19 Vaccine () [facility] Start: 12-07-2017 Screening for malign ant neoplasm of cervix HPV Testing [facility] Start: 12-07-2008 Screening for malign ant neoplasm of cervix [facility] Start: 12-07-2005 Anxiety Screening Anxiety Screening [facility] Start: 12-07-2005 Depression Screening Depression Scre ening [facility] Start: 12-07-2005 HIV screening HIV Screening [facility] Start: 12-07-1998 Screening for malign ant neoplasm of cervix Cervical Cancer Screening [facility] Start: 1985 HPV Vaccine: Recommended Based On Risk HPV Vaccine: Recommended Based On Risk [facility] CBC W Auto Different ial panel - Blood CBC and differential Lab Routine Menorrhagia with regular cycle Ordered: 12/13/2024 [facility] [employer] Work Phone: Comment on above: Ordered: 12/13/2024 Cytology Cervical or vaginal smear or scraping study Pap Smear Pathology and Cytology Routine Well woman exam with routine gynecological exam Ordered: 06/16/2024 [facility] Work Phone: Comment on above: Ordered: 06/16/2024 Endometrial biopsy Endometrial b iopsy Procedures Routine Menorrhagia with irregular cycle Pelvic pain Abnormal uterine bleeding (AUB) Ordered: 01/20/2025 [facility] Work Phone: Comment on above: Ordered: 01/20/2025 hCG, quantitative, hCG, quantitative, Lab Routine Menorrhagia with regular cycle Ordered: 12/13/2024 [facility] Comment on above: Ordered: 12/13/2024 Hemoglobin A1c/Hemoglobin.total in Blood Hemoglobin A1c Lab Routine Menorrhagia with regular cycle Ordered: 12/13/2024 [facility] Comment on above: Ordered: 12/13/2024 Human papilloma viru s DNA [Presence] in Unspecified specimen by Probe with amplification HPV DNA probe, amplified Microbiology Routine Well woman exam with routine gynecological exam Ordered: 06/16/2024 [facility] Comment on above: Ordered: 06/16/2024 Prothrombin time (PT ) in Blood by Coagulation assay Protime-INR Lab Routine Menorrhagia with regular cycle Ordered: 12/13/2024 [facility] Comment on above: Ordered: 12/13/2024 Thyrotropin [Units/volume] in Serum or Plasma TSH Lab Routine Menorrhagia with regular cycle Ordered: 12/13/2024 [facility] Comment on above: Ordered: 12/13/2024 Thyroxine (T4) free [Mass/volume] in Serum or Plasma T4, free Lab Routine Menorrhagia with regular cycle Ordered: 12/13/2024 [facility] Comment on above: Ordered: 12/13/2024 Immunizations Immunization Date Immunization Notes Care Provider Jl mullins 05-15-2023 influenza virus vaccine, unspecified formulation Beatriz Alston DO Work Phone: [facility] Payers Date Payer Category Payer Self-pay 2020 [facility] Blue Shield [id number] 2020 Unknown [employer]UE C[employer] PPO OOS [id number] 2020-Present [phone] [facility] [id number] [place] [address] PPO [id number] 1987 Unknown [id number] 2.16.840.1.473654.3.579. 2.593 1987 Unknown [id number] 2.16.840.1.888740.3.579. 2.593 1987 Unknown [id number] 2.16.840.1.295497.3.579. 2.593 1987 Unknown [id number] 2.16.840.1.551081.3.579. 2.593 1987 Unknown [id number] 2.16.840.1.194959.3.579. 2.593 1987 Unknown [id number] 2.16.840.1.968038.3.579. 2.593 1987 Unknown [id number] 2.16.840.1.332397.3.579. 2.593 1987 Unknown [id number] 2.16.840.1.762424.3.579. 2.593 1987 Unknown [id number] 2.16.840.1.925083.3.579. 2.593 1987 Unknown [id number] 2.16.840.1.958637.3.579. 2.593 1987 Unknown [id number] 2.16.840.1.220739.3.579. 2.593 1987 Unknown [id number] 2.16.840.1.567155.3.579. 2.593 1987 Unknown [id number] 2.16.840.1.071403.3.579. 2.593 1987 Unknown [id number] 2.16.840.1.470547.3.579. 2.593 1987 Unknown [id number] 2.16.840.1.615007.3.579. 2.1286 1987 Unknown [id number] 2.16.840.1.353982.3.579. 2.1259 1987 Unknown [id number] 2.16840.1.419147.3.579. 2.9 1987 Unknown [id number] 2.16.840.1.269162.3.579. 2.9 1987 Unknown [id number] 2.16.840.1.538869.3.579. 2.9 1987 Unknown [id number] 2.16.840.1.743445.3.579. 2.9 1987 Unknown [id number] 2.16.840.1.998599.3.579. 2.1259 1959 Unknown [id number] Private Health Insurance [employer] [id number] Unknown [id number] 2.16.840.1.090737.3.579. 2.531 Social History Date Type Detail Facility Start: 05-26-2023 End: 2023 Tobacco smoking status INIS Never smoked tobacco [facility] Start: 2023 Tobacco use and exposure Smokeless tobacco non-user [facility] Start: 2023 End: 12-01-2024 History of Social function [facility] Start: 2023 End: 12-01-2024 Tobacco use panel [facility] Start: 06-02-2023 Adult Depression Screening Assessment 0 [facility] Start: 1985 Sex Assigned At Not on file [facility] Start: 1985 Sex Assigned At Female F [facility] Start: 06-09-2023 End: 01-20-2025 Alcoholic beverage intake Current drinker of alcohol (finding) [facility] Start: 05-26-2023 Alcohol Comment Moderate alcohol use [facility] Start: 06-02-2023 Gender identity Identifies as female gender (finding) [facility] Clinical Notes 06-07-2022 to 01-20-2025 Rita BusbyCOURT [...] on 02/18/[address] López at [facility]. MEDICATIONS Current Outpatient Medications Medication Instructions [...] nursing note reviewed. Exam conducted with a photographer motion picture present. Vitals: Estimated body mass index is [...] reviewed, and patient is to proceed to [facility] OR. Patient voiced that her last [...] and recovery from procedure. Documented by Sunshine Fernanedz LPN on behalf of: Saurabh López DO documented in this encounter [facility] 12-28-2024 Telephone encounter Note Scan on 12/27/2024 10:19 AM by Jose Owusu PA-C: Consultation - Ophthalmology [facility] 12-28-2024 Miscellaneous Notes Scan on 12/27/2024 10:19 AM by Jose Owusu PA-C: Consultation - Ophthalmology [facility] Scanned for review. documented in this encounter [facility] 12-27-2024 Telephone encounter Note [facility] Scanned for review. 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) Hypothyroidism (acquired) ([facility]) Lupus Pre-op evaluation Request for sterilization Skin infection Vitamin D deficiency HISTORY PAST MEDICAL HISTORY SOCIAL HISTORY Past Medical History: Diagnosis Date Abnormal weight gain BMI 23.0-23.9, adult Genital herpes in women 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[facility]) Hypothyroidism (acquired) ([facility]) Lupus Pre-op evaluation Request for sterilization Skin [...] of: SHRUTI Hillman documented in this encounter [facility] 12-10-2024 History of Presen t illness Narrative [facility] DEPARTMENT OF RHEUMATIC AND IMMUNOLOGIC DISEASES This [...] D.O. Rheumatology Staff documented in this encounter [facility] 12-10-2024 Note HNO ID: [id number] Author: BEATRIZ ALSTON DO Service: ? Author Type: Physician Type: Progress Notes Filed: 12/10/2024 08:43 Note Text: [facility] DEPARTMENT OF RHEUMATIC AND IMMUNOLOGIC DISEASES This [...] bedtime. 5. PAIN Next Visit: 1 year [facility] documented in this encounter [facility] 10-21-2024 Telephone encounter Note Images from the original note were not included. Requesting refill on Plaquenil. Script pended. Tried to reach pt by phone, but no answer. Call back number provided on VM. Left VM advising pt that Stayzilla message was sent to her and to please read and respond to message. Stayzilla message sent asking pt about plaquenil eye [...] Open Future (Single Instance) Lab Orders None [facility] 10-21-2024 Miscellaneous Notes Images from the original note were not included. Requesting refill on Plaquenil. Script pended. Tried to reach pt by phone, but no answer. Call back number provided on . Left advising pt that Stay[employer] message was sent to her and to please read and respond to message. Stayzilla message sent asking pt about plaquenil eye [...] Lab Orders None documented in this encounter [facility] 10-11-2024 History of Presen t illness Narrative Images from the original note were not included. Subjective Susan Hogue is a 38 y.o. year old female Chief Complaint Patient presents with Migraine Past Medical History: Diagnosis Date BMI 23.0-23.9, adult Genital herpes in women 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[facility]) Hypothyroidism (acquired) ([facility]) Lupus Pre-op evaluation Request for sterilization Skin [...] Review Audit Reviewed by Diana Ruiz MA (Nursing Director) on 10/11/24 at 1207 Medication Order Taking? Sig Documenting Provider Last Dose Status acyclovir (Zovirax) 400 MG tablet [id number] TAKE 1 TABLET BY MOUTH TWICE A DAY Saurabh López DO Active citalopram (CeleXA) 10 MG tablet [id number] TAKE 1 TABLET BY MOUTH EVERY DAY IN THE MORNING Saurabh Maribel, DO Active citalopram (CeleXA) 20 MG tablet [id number] TAKE 1 TABLET BY MOUTH EVERY DAY IN THE MORNING Saurabh Maribel, DO Active hydroxychloroquine (Plaquenil) 200 MG tablet [id number] Take 1 tablet by mouth in the morning. Saurabh Maribel, DO Active levothyroxine (Synthroid, Levoxyl) 50 MCG tablet [id number] TAKE 1 TABLET BY MOUTH EVERY DAY IN THE MORNING ON EMPTY STOMACH Saurabh Maribel, DO Active SUMAtriptan (Imitrex) 100 MG tablet [id number] Take 1 tablet (100 mg) by mouth [...] normal in upper and lower extremities. Coordination Zqopat-ao-slnr, rapid alternating movements and zoti-sj-mtlw normal bilaterally without dysmetria. Gait Normal casual, toe, heel and tandem gait. Motor Examination RUE Strength deltoid, biceps, triceps, wrist extensors, wrist extensors, wrist flexor, glass driller strength 5/5. LUE Strength deltoid, biceps, triceps, wrist extensors, wrist extensors, wrist flexor, glass driller strength 5/5. RLE Strength illopsoas, quadriceps, tibialis [...] in 1 yr documented in this encounter [facility] 09-08-2024 Telephone encounter Note Sent! Appears she was started on 100mg in 2022. [facility] 09-08-2024 Miscellaneous Notes Sent! Appears she was started on 100mg in 2022. I am thinking she mean't imitrex. Is it ok to send? Pt called and scheduled an appt on 10/11 in [place]. Patient is requesting a refill of her Amotrix as a hold over script. documented in this encounter [facility] 09-08-2024 Telephone encounter Note I am thinking she mean't imitrex. Is it ok to send? [facility] 09-08-2024 Telephone encounter Note Pt called and scheduled an appt on 10/11 in [place]. Patient is requesting a refill of her Amotrix as a hold over script. [facility] 06-16-2024 History of Presen t illness Narrative [...] adult Genital herpes in women 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[facility]) Hypothyroidism (acquired) ([facility]) Lupus Pre-op evaluation Request for sterilization Skin infection HISTORY PAST MEDICAL HISTORY SOCIAL HISTORY Past Medical History: Diagnosis Date BMI 23.0-23.9, adult Genital herpes in women 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[facility]) Hypothyroidism (acquired) ([facility]) Lupus Pre-op evaluation Request for sterilization Skin [...] nursing note reviewed. Exam conducted with a photographer motion picture present. Vitals: Estimated body mass index is [...] Saurabh López DO documented in this encounter [facility] 06-16-2024 History of Presen t illness Narrative [facility] DEPARTMENT OF RHEUMATIC [...] D.O. Rheumatology Staff documented in this encounter [facility] 06-16-2024 Note HNO ID: [id number] Author: BEATRIZ ALSTON DO Service: ? Author Type: Physician Type: Progress Notes Filed: 06/16/2024 11:15 Note Text: [facility] DEPARTMENT OF RHEUMATIC [...] pended. No eye exam records in chart. [employer] message sent to pt asking if she [...] Visit Type Date Time Department [facility] 06/16/2024 11:00 AM [facility] MAIN A50 [...] Open Future (Single Instance) Lab Orders None [facility] 05-13-2024 Miscellaneous Notes Images from the original note were not included. Requesting refill on plaquenil. Script pended. No eye exam records in chart. [employer] message sent to pt asking if she [...] Visit Type Date Time Department [facility] 06/16/2024 11:00 AM [facility] MAIN A50 Last Ophthalmology Check for Plaquenil [...] Lab Orders None documented in this encounter [facility] 2023 History of Presen t illness Narrative [facility] DEPARTMENT OF RHEUMATIC [...] Beatriz Alston DO documented in this encounter [facility] 08-02-2022 Note PROCEDURE: XR FOOT [...] SHRUTHI CHOW Date: 2022-08-02 10:27 [facility] 07-18-2022 Note PROCEDURE: XR FOOT L T MIN 3 VIEWS HISTORY: Pain in left foot ; acute left foot pain, no known injury COMPARISON: None. FINDINGS: BONES:No fracture, acute abnormality, or significant arthropathy. SOFT TISSUES:No visible soft tissue swelling. EFFUSION:None visible. OTHER: Negative. IMPRESSION: 1. Normal examination. Electronically authenticated by: SHRUTHI CHOW Date: 2022-07-18 08:45 [facility] 06-07-2022 Note OPERATIVE NOTE OPERATION DATE: 06/07/2022 PROCEDURE: Bilateral laparoscopic salpingectomy. PREOPERATIVE DIAGNOSIS: Desires permanent sterilization, multiparity. POSTOPERATIVE DIAGNOSIS: Desires permanent sterilization, multiparity. ANESTHESIA: General. SURGEON: Saurabh López D.O. LEAD PROJECT ENGINEER: BENJAMIN French URINE OUTPUT: Yellow and clear. [...] and needle counts were correct x2. [facility] Evaluation note Diagnosis 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)- Primary [facility] noteNo assessment information availableFostoria City Hospital Work Phone: Evaluation note* Diagnosis Other forms of systemic lupus erythematosus, unspecified organ involvement status (HCC)- Primary [facility] Diagnosis Well woman exam with routine gynecological exam Routine gynecological examination documented in this encounter [facility] HealthcareEvaluation note* Diagnosis Migraine without status migrainosus, not intractable, unspecified migraine type (CMS/HCC)- Primary documented in this encounter [facility] HealthcareEvaluation note* Diagnosis Migraine without status migrainosus, not intractable, unspecified migraine type (CMS/HCC) documented in this encounter [facility] HealthcareEvaluation note* Diagnosis Capillary angioma Nevus, non-neoplastic Seborrheic keratosis Other rosacea Common wart Other specified viral warts Pain Generalized pain documented in this encounter [facility] HealthcareEvaluation note* Diagnosis 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)- Primary [facility] Diagnosis Menorrhagia with regular cycle Pelvic cramping Nausea Nausea alone documented in this encounter [facility] HealthcareEvaluation note* Diagnosis Pre-op examination Menorrhagia with irregular cycle Pelvic pain Abnormal uterine bleeding (AUB) documented in this encounter [facility] Healthcare Summary Purpose Family History Relationship Condition Age at Onset Recorded Date/T kylie Not Specified No pertinent family history Unknown Advance Directives Advance Directive Response Recorded Date/ Time Advance Directives No April 05, 2024 10:10am Chief Complaint and Reason for Visit Chief Complaint Cough, sore throat Additional Source Comments INFORMATION SOURCE (unrecogn ized section and content) DATE CREATED AUTHOR 01/18/2022 [facility] dical Specialist DATE CREATED AUTHOR AUTHOR'S ORGANIZ ATION 08/08/2022 [facility] DATE CREATED AUTHOR AUTHOR'S ORGANIZ ATION 04/07/2024 [facility] DATE CREATED AUTHOR AUTHOR'S ORGANIZ ATION 12/29/[address] [facility] DATE CREATED AUTHOR AUTHOR'S ORGANIZ ATION 01/23/2025 [facility] dical [facility] DATE CREATED AUTHOR AUTHOR'S ORGANIZ ATION 01/26/2025 [facility] Source Comments (unrecognize d section and content) In the event this informatio n is protected by the Federal Confidentiality of Alcohol and Drug Abuse Patient Records regulations: The Federal rules restrict any use of the information to criminally investigate or prosecute any alcohol or drug abuse patient.[facility] the event this information is protected by the Federal Confidentiality of Alcohol and Drug Abuse Patient Records regulations: The Federal rules restrict any use of the information to criminally investigate or prosecute any alcohol or drug abuse patient.[facility] the event this information is protected by the Federal Confidentiality of Alcohol and Drug Abuse Patient Records regulations: The Federal rules restrict any use of the information to criminally investigate or prosecute any alcohol or drug abuse patient.[facility] Center[facility] the event this information is protected by the Federal Confidentiality of Alcohol and Drug Abuse Patient Records regulations: The Federal rules restrict any use of the information to criminally investigate or prosecute any alcohol or drug abuse patient.[facility] Center[facility] the event this information is protected by the Federal Confidentiality of Alcohol and Drug Abuse Patient Records regulations: The Federal rules restrict any use of the information to criminally investigate or prosecute any alcohol or drug abuse patient.[facility] Center[facility] the event this information is protected by the Federal Confidentiality of Alcohol and Drug Abuse Patient Records regulations: The Federal rules restrict any use of the information to criminally investigate or prosecute any alcohol or drug abuse patient.[facility] CenterIn the event this information is protected by the Federal Confidentiality of Alcohol and Drug Abuse Patient Records regulations: The Federal rules restrict any use of the information to criminally investigate or prosecute any alcohol or drug abuse patient.[facility] Center[facility] the event this information is protected by the Federal Confidentiality of Alcohol and Drug Abuse Patient Records regulations: The Federal rules restrict any use of the information to criminally investigate or prosecute any alcohol or drug abuse patient.[facility] Care Teams (unrecognized sec tion and content) Team Status: Active Member Role Status Dates Belinda Mock DO Primary Care Provider Active Team Status: Inactive Member Role Status Dates Emma Negrete APRN Attending Provider Active Start: April 05, 2024 End: April 05, 2024 Belinda Mock DO Primary Care Provider Active Sta rt: April 05, 2024 End: April 05, 2024 Interventional Cardiologist Relationship Specialty Start Date End Date Belinda Mock MD [address] [place] [address] PCP - General Internal Medicine 06/09/23 Interventional Cardiologist Relationship Specialty Start Date End Date Belinda Mock MD [address] [place] [address] PCP - General Internal Medicine 06/09/23 Interventional Cardiologist Relationship Specialty Start Date End Date Belinda Mock MD [address] [place] [address] PCP - General Internal Medicine 06/09/23 Interventional Cardiologist Relationship Specialty Start Date End Date Belinda Mock MD [address] [place] [address] PCP - General Internal Medicine 06/09/23 Interventional Cardiologist Relationship Specialty Start Date End Date Belinda Mock MD PCP - General Internal Medicine 06/09/23 Interventional Cardiologist Relationship Specialty Start Date End Date Belinda Mock MD PCP - General Internal Medicine 06/09/23 Interventional Cardiologist Relationship Specialty Start Date End Date Belinda Mock MD PCP - General Internal Medicine 06/09/23 Interventional Cardiologist Relationship Specialty Start Date End Date Belinda Mock MD [address] [id number] PCP - General Internal Medicine 06/09/23 Goals [...] BE BASED ON THE PRIMARY CLINICAL RECORDS. [employer] provides no warranty or guarantee of the accuracy or completeness of information in this document.
[2025-02-18 06:21] VITALS: BP 110/67; PULSE 80; TEMP 36.4; O2SAT 100; BMI 22.5
[2025-02-18 06:28] LABS: Hematocrit 39.1 % (36.0-48.0); Hemoglobin 13.0 g/dL (12.0-16.0); Immature Granulocytes Abs Auto 0.00 10^3/uL (0.00-0.03); Immature Granulocytes Pct Auto 0.0 % (0.0-0.5); Lymphocytes Absolute Auto 1.8 10^3/uL (1.2-3.8); Mean Corpuscular HGB Conc 33.2 g/dL (29.9-35.2); Mean Corpuscular Hemoglobin 31.0 pg (26.7-34.0); Mean Corpuscular Volume 93.1 fL (81.0-99.0); Platelet Count 259 10^3/uL (150-450); Red Blood Count 4.20 10^6/uL (4.20-5.40); White Blood Count 5.1 10^3/uL (4.0-11.0)
--- NOTE | 2025-02-18 09:04 | PM.ONB ---
Brief Operative Note Date of procedure: 02/18/25 Pre-op diagnosis general: menorrhagia Post-op diagnosis: same as pre-op Procedure: NAME OF PROCEDURE: [ ] Tiffanie endometrial ablation with hysteroscopy. PROCEDURE: The patient was taken back to the OR where she was prepped and draped in the normal sterile fashion after being placed in the dorsal lithotomy position, after being placed under general anesthesia without difficulty.? A weighted speculum was placed into the vagina. The anterior lip was grasped with a single tooth tenaculum. The patient was then sounded to approximated 8cm. The patient?s cervix was gently dilated using hegardilators. The hysteroscope was passed through the cervix into the uterus where both ostia were seen. No gross evidence of polyps, fibroids or malignancy. The cervical length was noted to be 4 cm. The total cavity length is 4cm.? The Tiffanie ablation apparatus was set to approximately 4cm in length. This was placed through the cervix and into the uterus. After the seal was tested, at that time the total ablation of 120 seconds was performed with the Tiffanie withoutdifficulty. All instruments were removed from the vagina. Excellent hemostasis noted.? Sponge and lap count correct times 2.? Patient taken to recovery in stable condition. Anesthesia: MAC Surgeon: Saurabh López Estimated blood loss (mL): 5 Pathology: none sent Condition: stable Disposition: PACU Urinary Catheter Management Urinary Catheter Management Straight: Cath placed during this visit: no
[2025-02-18 09:10] VITALS: BP 91/55; PULSE 68; TEMP 36.3; O2SAT 99
[2025-02-18 09:25] VITALS: BP 93/63; PULSE 66; O2SAT 100
[2025-02-18 09:55] VITALS: BP 112/67; PULSE 69; O2SAT 96
--- NOTE | 2025-02-18 09:56 | PC.NURSE ---
Denies urge to void; peripad dry
[2025-02-18 10:25] VITALS: BP 109/69; PULSE 72; O2SAT 97
--- NOTE | 2025-02-18 10:31 | PC.NURSE ---
Up to bathroom and voids clear yellow without difficulty; peripad dry
== END 2025-02-18 10:32 | disposition home or self-care (01) ==
PROVIDERS: PCP Internal Medicine; Visit Provider Obstetrics & Gynecology
PROC: (CPT 952; principal; 2025-02-18 07:30)
DX: N92.0 Excessive and frequent menstruation with regular cycle (principal); N93.9 Abnormal uterine and vaginal bleeding, unspecified; R10.2 Pelvic and perineal pain; Z98.51 Tubal ligation status; K21.9 Gastro-esophageal reflux disease without esophagitis; E06.3 Autoimmune thyroiditis; F41.9 Anxiety disorder, unspecified
CPT/HCPCS: 58563; 36415; 84702; 85025; J1100; J1885; J2250; J2405; J2704; J3010

== ENCOUNTER 2025-06-30 16:10 | Outpatient (REF) | payer BC, SELFPAY ==
--- OUTSIDE RECORDS SUMMARY | 2025-06-30 08:50 | XMS_ITS | Encounter Summary ---
Author Organization [facility] Address [address] [place] [address] Care Team Providers Care Shirt Cleaner Name Role Phone Aba Garner MD Primary Care Provider [phone] Brenna Merchant APRN-CHANCELLOR Unavailable Reason for Visit * ReasonCommentsWell Women Visit Encounter Details DateTypeDepartmentCare Team (Latest Contact Info)Epjisevasyu95/20/2025 8:50 AM ESTOffice Visit [facility] [address] [place] [phone] Saurabh López DO [address] [place], [facility] Well woman exam with routine gynecological exam; Vaginal discharge; Yeast infection; Pelvic pain; Diarrhea, unspecified type; Mood changes; Change in bowel habits Social History Tobacco UseTypesPacks/DayYears UsedDateSmoking Tobacco: NeverAlcohol UseStandard Drinks/WeekCommentsYes0 (1 standard drink = 0.6 oz pure alcohol)Moderate alcohol useCommentsNoSex and Gender InformationValueDate RecordedSex Assigned at BpturVqlnzp14/23/2023 9:24 AM EDTLegal HgdFfalpg47/15/2023 11:33 PM EDTGender HuwyjzgjSrunhr20/23/2023 9:24 AM EDTSexual ZwockjhiejhJjlwzhs80/23/2023 9:24 AM EDTdocumented as of this encounter Last Filed Vital Signs Vital SignReadingTime TakenCommentsBlood Iltqdzug942/6006/30/2025 8:56 AM EST Pulse--Temperature--Respiratory Rate--Oxygen Saturation--Inhaled Oxygen Concentration--Fisjcf55.9 kg (140 lb 12.8 oz)06/30/2025 8:56 AM ESTHeight--Body Mass Index23.43010/11/2024 12:06 PM ESTdocumented in this encounter Plan of Treatment DateTypeDepartmentCare Team (Latest Contact Info)Nkhozwnxiuh07/01/2025 8:00 AM ESTAncillary Procedure [facility] [address] [place] [phone] 12/01/2025 1:15 PM EDTOffice Visit [facility] [address] [place] [phone] Brenna Merchant, MECHANOTHERAPIST-CHANCELLOR [address] [place] [address] 07/13/2026 8:30 AM ESTProcedure Visit [facility] [address] [place] [address] [place] [phone] Saurabh López DO [address] [place] [address] NameTypePriorityAssociated DiagnosesOrder SchedulePap SmearPathology and CytologyRoutine Well woman exam with routine gynecological exam Ordered: 06/30/2025HPV DNA probe, amplifiedMicrobiologyRoutine Well woman exam with routine gynecological exam Ordered: 06/30/2025SURESWAB(R) ADVANCED VAGINITIS PLUS, TMAPathology and CytologyRoutine Vaginal discharge Yeast infection Pelvic pain Ordered: 06/30/2025HLAMYDIA TRACHOMATIS (GENITO/STI)LabRoutine Vaginal discharge Yeast infection Pelvic pain Ordered: 06/30/2025Neisseria gonorrhea DNA probe, directLabRoutine Vaginal discharge Yeast infection Pelvic pain Ordered: 06/30/2025US Pelvis w/ TVImagingRoutine Vaginal discharge Yeast infection Pelvic pain Expected: 06/30/2025, Expires: 12/28/2025documented as of this encounter Visit Diagnoses Diagnosis Well woman exam with routine gynecological exam Routine gynecological examination Vaginal discharge Leukorrhea, not specified as infective Yeast infection Pelvic pain Diarrhea, unspecified type Mood changes Unspecified episodic mood disorder Change in bowel habits Other symptoms involving digestive system documented in this encounter Care Teams Team MemberRelationshipSpecialtyStart DateEnd Date Aba Garner MD [address] [place] [address] PCP - GeneralInternal Jwyjcooj63/30/23 Brenna Merchant APRN-CHANCELLOR [address] [address] PCP - Cale Bain01/09/25documented as of this encounter
--- OUTSIDE RECORDS SUMMARY | 2025-06-30 16:15 | XMS_ITS | Patient Health Record ---
Author Organization [facility] in [place] Address [address] [place] [address] Care Team Providers Care Professional Advisor Name Role Phone Aba Garner DO Primary Care Provider Unavailabl e Allergies Allergen (clinical drug ingredient) Drug/Non Drug Allergy documented on EMR Reaction Allergy Type Onset Date Status duloxetine Duloxetine HCl Unknown Drug Allergy Active Reason For Referral No Information Medications Medication SIG (Take, Route, Frequency, Duration) Notes Start Date End Date Status NIFEdipine ER 30 MG 1 tablet on an empty stomach Orally Once a day; Duration: 30 Not-TakingAcyclovir 400 MG1 tablet Orally prnprnActiveMagic Mouthwash 80 ml viscous lidocaine 2%, 80 ml Mylanta, 80 ml diphenhydramine 12.5 mg per 5 ml el ixir, 80 ml nystatin 100,000U suspension, 80 ml prednisolone 15mg per 5ml solution, 80 ml distilledwateras directed Swish, gargle, and spit 5-10 mL Q6h. May be swallowed if esophageal involvement.; Duration: 10 days02/18/2017 Not-TakingMycophenolate Mofetil 500 MG1 Orally Daily; Duration: 30 day(s) 01/18/2019Not-TakingLamISIL 250 MG1 tablet Orally Once a day; Duration: 10 day(s)called patient and instructed not to take- risk of SLE exacerbation. (DW 05/26/19 1645)10/22/2018Not-TakingLoratadine 10 MG1 tablet Orally Once a day Not-TakingFolic Acid 1 MG1 tablet Orally Once a day; Duration: 90 days12/30/2016 Not-TakingJolessa 0.15-0.03 MG1 tablet Orally Once a dayNot-TakingCelecoxib 200 mg1 capsule with food Orally Once a day; Duration: 90Not-TakingClindamycin HCl 300 MGone Orally TID; Duration: 10 day(s)07/27/2020Not-TakingBenlysta 200 MG/ML1 ml Subcutaneous once a week; Duration: 30 day(s)06/03/2018Not-Taking Hydroxychloroquine Sulfate 200 MGTAKE 1 TABLET BY MOUTH EVERY DAY FOR 90 DAYS; Duration: 90ActiveazaTHIOprine 50 MG1 tablet Orally BID; Duration: 90 daysActive Ambien 5 MG1 tablet at bedtime Orally Once a day; Duration: 14 days05/19/2017 Not-TakingBactrim DS 800-160 MG1 tablet Orally BID; Duration: 10 day(s) 06/02/2017Not-TakingSUMAtriptan Succinate 25 MG1 tablet at least 2 hours between doses as needed Orally Twice a day; Duration: 30 daysdx: G43.9616308/28/2020ctive ZyrTEC Allergy 10 MG1 tablet Orally Once a day; Duration: 30 day(s)Active Naproxen 500 MGTAKE 1 TABLET BY MOUTH EVERY 12 HOURS WITH FOOD OR MILK NEEDED FOR 30 DAYS; Duration: 30ActivepredniSONE 5 MGas directed Orally 4 tabs daily x 3 days, 3 tabs daily x 3 days , 2 tabs daily x 3 days , 1 tab daily x 3 days; Duration: 12 days03/25/2022Not-TakingLevothyroxine Sodium 50 MCG1 tablet Orally Once a dayActiveCyclobenzaprine HCl 10 MG1 tablet as needed Orally BID; Duration: 30 smgbmid9601/28/2019ActivepredniSONE 5 MG0.5 Orally Once a day Not-TakingpredniSONE 5 MG30 mg x 3 days, 25 mg x 3 days, 20 mg x 3 days, 15 mg x 3 days, 10 mg x 3 days 5 mg x 3 days OrallyOnce a day; Duration: 18 days 06/28/2021Not-TakingPennsaid 2 %2 applications to affected area Transdermal Twice a day* Lot # [id number] Expiration Date 01/26 Rosa Gallagher RMA 12/30/2016 02:39:57 PM EDT >12/30/2016Not-TakingpredniSONE 10 MG40 mg x 3 days, 30 mg x 3 days, 20 mg x 3 days, 10 mg x 3 days Orally Once a day; Duration: 16 days05/19/2017Not-TakingIbuprofen 800 MG1 tablet with food or milk as needed Orally every 8 hrs; Duration: 7 Dayshold all other nsaids while on08/28/2022 Active Social History Tobacco Use: Social History [...] Problem Status W/U Status Risk Notes Problem Rheumatoid arthritis (25406325) Rheumatoid nodule, unspecified site (M06.30) ActiveconfirmedProblemSystemic lupus erythematosus (85576307)Systemic lupus erythematosus, unspecified (M32.9)ActiveconfirmedProblemChronic fatigue syndrome (disorder) (81967899)Chronic fatigue, unspecified (R53.82)ActiveconfirmedProblem Chronic fatigue syndrome (27366748)Chronic fatigue (R53.82)Activeconfirmed ProblemAutoimmune disease (67176947)Autoimmune disease (M35.9)Activeconfirmed ProblemHistory of methicillin resistant Staphylococcus aureus infection (613195287)History of MRSA infection (Z86.14)ActiveconfirmedProblemSicca syndrome (12029963)Sicca syndrome (M35.00)ActiveconfirmedProblemRefractory migraine (864329447)Intractable migraine without status migrainosus, unspecified migraine type (G43.919)ActiveconfirmedProblemDiffuse disease of connective tissue (58633605)Diffuse connective tissue disease (M35.9)ActiveconfirmedProblem Hypothyroidism (09468620)Hypothyroidism, unspecified type (E03.9)Activeconfirmed ProblemRaynaud's disease (108390150)Raynaud's disease without gangrene (I73.00) ActiveconfirmedProblemLocalized, primary osteoarthritis of the pelvic region and thigh (568826583)Arthritis of both hips (M16.0)ActiveconfirmedProblemDisorder of peripheral nerve of bilateral upper limbs (disorder) (12234561114761854) 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)ActiveconfirmedProblemAcute migraine (983424187685333)Acute migraine (G43.909)Activeconfirmed Plan Of Treatment Pending Test Test Name Order Date VERNELL SUBTYPE (8) (dsDNA, SSA, SSB, MILIAN, SERVICER TRAVEL TRAILERS, SCL70,JO1,CENTOMERE) 03/25/2022 MRI Brain w/wo contrast * [...] Date BCBS OUT OF STATE [address] [place] [phone] [id number] Mukul Hogue Spouse - patient is the spouse of the insured 2020 Medications Administered Medication Instructions Date of Administration Dosage Notes Kenalog, 40 mg/mL 10/09/201640 mg Medical (General) History Medical History History ICD Code Hypothyroidism 244.9 Genital herpes, unspecified 054.10 Systemic lupus erythematosus, unspecifie d M32.9 Surgical History Surgery Date(Month/Year) salpingectomy 05/2022 Hospitalization History Reason Date(Month/Year) childbirth. 2010, 2015
--- OUTSIDE RECORDS SUMMARY | 2025-06-30 16:15 | XMS_ITS | Encounter Summary ---
Author Organization [facility] Address [address] [place] [address] Care Team Providers Care Band And Cuff Cutter Name Role Phone Aba Garner MD Primary Care Provider [phone] Brenna Merchant APRN-RESCUE BOAT OPERATOR Unavailable Encounter Details DateTypeDepartmentCare Team (Latest Contact Info)Caukjorcqgz70/20/2025amboo flowsheet [facility] [address] [place] [address] Saurabh López DO [address] [facility] [address] [place], [facility]11 Social History Tobacco UseTypesPacks/DayYears UsedDateSmoking Tobacco: NeverAlcohol UseStandard Drinks/WeekCommentsYes0 (1 standard drink = 0.6 oz pure alcohol)Moderate alcohol useCommentsNoSex and Gender InformationValueDate RecordedSex Assigned at ZgbclNopbpq99/23/2023 9:24 AM EDTLegal MahNzhasu14/15/2023 11:33 PM EDTGender DiqmdaxqKzxfyf04/23/2023 9:24 AM EDTSexual AyuspafyeldIbhitxe80/23/2023 9:24 AM EDTdocumented as of this encounter Plan of Treatment DateTypeDepartmentCare Team (Latest Contact Info)Bgyxitncsnw60/01/2025 8:00 AM ESTAncillary Procedure [facility] [address] [place] [address] 12/01/2025 1:15 PM EDTOffice Visit [facility] [place] [facility] [address] [place] [address] Brenna Merchant APRN-JENNIFER [address] [place] [address] 07/13/2026 8:30 AM ESTProcedure Visit [facility] [place] [facility] [address] [place] [place] [address] Saurabh López DO [address] [facility] [place] [address] documented as of this encounter Visit Diagnoses Not on filedocumented in this encounter Care Teams Team MemberRelationshipSpecialtyStart DateEnd Date Aba Garner MD [address] [place] [address] PCP - GeneralInternal Onaxtskg43/30/23 Brenna Merchant APRN-RESCUE BOAT OPERATOR [address] [place] [address] PCP - Cale Bain01/09/25documented as of this encounter
--- OUTSIDE RECORDS SUMMARY | 2025-06-30 16:15 | XMS_ITS | Encounter Summary ---
Author Organization [facility] Address [address] [place] [address] Care Team Providers Care Corporate Ethics Officer Name Role Phone Unavailable Primary Care Provider Unavailabl e Source Comments In the event this information is protected by the Federal Confidentiality of Alcohol and Drug AbusePatient Records regulations: The Federal rules restrict any use of the information to criminally investigate or prosecute any alcohol or drug abuse patient.[facility] Encounter Details DateTypeDepartmentCare Team (Latest Contact Info)Gahzaukcchp47/05/2024Telephone [facility] [address] [address] [place] [address] [place] [address], [address] [place], [place] [id number] Social History Tobacco UseTypesPacks/DayYears UsedDateSmoking Tobacco: NeverSmokeless Tobacco: NeverPHQ-2AnswerDate RecordedPHQ-2 tuvlz273rea Deprivation IndexAnswer Date RecordedNational Score (1-100), lower number is lower ugau568212/10/2024State Score (1-10), lower number is lower mtxo360Data from: https://www.neighborhoodatlas.medicine.[facility].edu/. Last address used for egeygphuyf[address] [facility] CommentsUnknownSex and Gender InformationValueDate RecordedSex Assigned at BirthNot on fileLegal SexFemale 11/12/2023 3:09 PM EDTGender IdentityNot on fileSexual OrientationNot on file documented as of this encounter Plan of Treatment DateTypeDepartmentCare Team (Latest Contact Info)Cyodpsoeiux49/03/2026 11:30 AM EDTOffice Visit Rheumatology [address] [id number] Becka Treviño, [address], [address] [place], [place] [id number] 9m f/u per walkupdocumented as of this encounter Visit Diagnoses Not on filedocumented in this encounter
--- OUTSIDE RECORDS SUMMARY | 2025-06-30 16:15 | XMS_ITS | Clinical Summary ---
Author Organization [facility] tem Address [facility] [address] [place] [address] Care Team Providers Care Firer Electric Locomotive Name Role Phone VianeyAba harman Juany RAGLAND Primary Care Provider [phone] Allergies No known active allergies Medications MedicationSigDispense QuantityRefillsLast FilledStart DateEnd DateStatus levothyroxine (SYNTHROID, LEVOTHROID) 50 MCG tablet Take 1 tablet (50 mcg total) by mouth in the morning.Active acyclovir (ZOVIRAX) 400 mg tablet acyclovir 400 mg tablet as neededActive SUMAtriptan (IMITREX) 100 mg tablet TAKE 1 TABLET BY MOUTH TWICE A DAY WITH AT LEAST 2 HOURS BETWEEN DOSES NEEDED FOR 30 DAYS10/23/2022ctive hydroxychloroquine (PLAQUENIL) 200 mg tablet Indications:Systemic lupus erythematosus, unspecified SLE type, unspecified organ involvement status ([facility])Take 1 tablet (200 mg total) by mouth in the morning and 1 tablet (200 mg total) before bedtime. 60 tablet ctive citalopram (CeleXA) 20 mg tablet Daily06/09/2023ctive citalopram (CeleXA) 10 mg tablet Daily07/29/2023ctive methylPREDNISolone (MEDROL, NAILA,) 4 mg tablet Indications:Upper respiratory tract infection, unspecified typefollow package directions 21 tablet 04/05/2024ctive pyrilamine-dextromethorphan 30-30 mg tablet Indications:Rhinitis, unspecified typeTake 1 tablet by mouth 3 (three) times a day as needed (congestion). 15 tablet 108/26/2024Active Active Problems ProblemNoted DateDiagnosed DateChronic fatigue efngzvnb25/07/2022Hypothyroidism 07/17/2022jogren's hodbyden81/07/2022LE (systemic lupus erythematosus) 07/17/2022LE-Sjogren overlap gulnevfx77/10/2018 Resolved Problems ProblemNoted DateDiagnosed DateResolved DateMRSA (methicillin resistant Staphylococcus aureus) tiygazjed59ubacute osteomyelitis of krqyhq11Osteomyelitis of ankle or foot Immunizations ImmunizationAdministration DatesNext DueInfluenza Vaccine, Quadrivalent, Utnncirhfv82/05/2023Influenza, Injectable, Mdck, Preservative Free, Quad 05/28/2018,05/30/2017Influenza, Injectable, quadrivalent (PF)05/21/2022, 05/12/2020,06/12/2019Influenza, Ayqvjyikser93/11/8563Vvcn03/15/2020 Family History Medical HistoryRelationNameCommentsNo Known ProblemsFatherNo Known Problems MotherNo Known ProblemsSisterRelationNameStatusCommentsFatherAliveMotherAlive SisterAlive Social History Tobacco UseTypesPacks/DayYears UsedDateSmoking Tobacco: NeverSmokeless Tobacco: Never Tobacco Cessation:Counseling Given: Not Answered Alcohol UseStandard Drinks/WeekCommentsYes0 (1 standard drink = 0.6 oz pure alcohol)PHQ-2AnswerDate RecordedTotal Lkpci3304ChildcareAnswerDate JfhxasmxDiytsaktcVrjvqjt91/12/2019EmploymentAnswerDate RecordedEmploymentUnknown 01/20/2019Hunger ScreeningAnswerDate RecordedWithin the past 12 months we worried whether our food would run out before we got money to buy more.Never True04/05/2024Within the past 12 months the food we bought just didn't last and we didn't have money to get more.Never True4Purpose - LifeAnswerDate RecordedPurpose and direction in bboxIxnfsav18/11/2021CommentsUnknownSex and Gender InformationValueDate RecordedSex Assigned at BirthNot on fileLegal NyaUagztb62/06/2015 11:37 AM EDTGender IdentityNot on fileSexual OrientationNot on file Last Filed Vital Signs Vital SignReadingTime TakenCommentsBlood Dmupzimu184/5008 2:55 PM EDT Zznxd238304/05/2024 2:55 PM FBGLjafukeztuj83.9 ??C (98.4 ??F)04/05/2024 2:55 PM EDTRespiratory Keke665704/05/2024 2:55 PM EDTOxygen Oyvtbizvwh76%04/05/2024 2:55 PM EDTInhaled Oxygen Concentration--Uxjgep95.7 kg (136 lb)04/05/2024 2:55 PM EDT Avpubz147.1 cm (5' 5 )04/05/2024 2:55 PM EDTBody Mass Index22.63004/05/2024 2:55 PM EDT Plan of Treatment Health MaintenanceDue DateLast DoneCommentsAdult BMI Puqdlgjeq03/26/2025 04/05/2024epression Qqrqozvpw02/26/098104/Tobacco Qlszzvtez66/26/2025 4COVID-19 Vaccine ( season)/, 04/02/2021 Influenza Lolthcd59/12/2022, 05/21/2022, 05/21/2022, Additional history existsPap Smear610/3DTaP,Tdap and Td Vaccines (2 - Td or Tdap) Medical Devices Not on file Insurance Advance Directives * Full Code (Latest Code Status on File) Date ActivatedDate InactivatedComments08/20/2017 8:46 PM08/22/2017 6:59 PM Care Teams Team MemberRelationshipSpecialtyStart DateEnd Date Aba Garner DO [address] [place] [address] PCP - GeneralInternal Medicine08/20/17
--- OUTSIDE RECORDS SUMMARY | 2025-06-30 16:16 | XMS_ITS | Clinical Summary ---
Author Organization [facility] Address [address] [facility] [place] [address] Care Team Providers Care Cutter In Name Role Phone Aba Garner MD Primary Care Provider [phone] Brenna Merchant APRN-TRANSMISSION SPECIALIST Unavailable Allergies Active AllergyReactionsCriticalityNoted DateCommentsDuloxetine HclUnknown 12/01/2024 Medications MedicationSigDispense QuantityRefillsLast FilledStart DateEnd DateStatus hydroxychloroquine (Plaquenil) 200 MG tablet Take 1 tablet by mouth in the morning.Active citalopram (CeleXA) 20 MG tablet Indications:Mood changesTAKE 1 TABLET BY MOUTH EVERY DAY IN THE MORNING 90 tablet 4Active acyclovir (Zovirax) 400 MG tablet Indications:H/O cold soresTAKE 1 TABLET BY MOUTH TWICE A DAY 180 tablet 5Active SUMAtriptan (Imitrex) 100 MG tablet Indications:Migraine without status migrainosus, not intractable, unspecified migraine typeTake 1 tablet (100 mg) by mouth 1 (one) time if needed for migraine (december repeat x1) 27 tablet 5Active levothyroxine (Synthroid, Levoxyl) 50 MCG tablet Indications:Hypothyroidism, unspecifiedTAKE 1 TABLET BY MOUTH EVERY DAY IN THE MORNING ON EMPTY STOMACH 90 tablet 5Active citalopram (CeleXA) 10 MG tablet Indications:Mood changesTAKE 1 TABLET BY MOUTH EVERY DAY IN THE MORNING 90 tablet 5Active fluconazole (Diflucan) 100 MG tablet Indications:Vaginal discharge,Yeast infection,Pelvic painTake 1 tablet (100 mg) by mouth Daily for 10 days 10 tablet /5Active citalopram (CeleXA) 20 MG tablet Indications:Mood changesTake 2 tablets (40 mg) by mouth Daily 30 tablet 5Active fluconazole (Diflucan) 150 MG tablet Indications:Yeast infectionTake 1 tablet (150 mg) by mouth every 3rd (third) day for 2 doses This is a 1 time dose, take single tablet by mouth. 2 tablet Discontinued(Dose adjustment) Active Problems ProblemNoted DateDiagnosed DateWell woman exam with routine gynecological exam 06/30/2025east hheuyftnq70/20/4129Auhgcgbf33/20/2025Vaginal jewgzmoma42/20/2025 Mood ounckaj6806/30/2025Pelvic pain06/30/2025hange in bowel yvtmsk3206/30/2025 Encounters DateTypeDepartmentCare GuonOvfeqmplkek21/20/2025 8:50 AM ESTOffice Visit NOMJered [facility]ADDEN [address] [place] [address] Saurabh López, Well woman exam with routine gynecological exam; Vaginal discharge; Yeast infection; Pelvic pain; Diarrhea, unspecified type; Mood changes; Change in bowel cisfjn2406/30/2025amboo flowsheet [facility] [address] [place] [address] Saurabh López DO 05/12/2025Telephone [facility] [address] [place] [address] Rosalie Jones MA 05/05/2025Refill [facility] [address] [place] [address] Saurabh López, DO Mood qsdjcko4604/24/2025Refill [facility] [place] [facility] [address] [place] [address] Jammie Tee MD Hypothyroidism, unspecifiedfrom Last 3 Months Family History Medical HistoryRelationNameCommentsHypertensionMaternal GrandfatherDiabetes Maternal GrandmotherHypertensionPaternal GrandmotherNo Known ProblemsSister RelationNameStatusCommentsFatherAliveMaternal GrandfatherMaternal Grandmother MotherAlivePaternal GrandmotherSisterSon 1AliveSon 2Alive Social History Tobacco UseTypesPacks/DayYears UsedDateSmoking Tobacco: Never Tobacco Cessation:Counseling Given: Not Answered Alcohol UseStandard Drinks/WeekCommentsYes0 (1 standard drink = 0.6 oz pure alcohol)Moderate alcohol useCommentsNoSex and Gender InformationValue Date RecordedSex Assigned at VbmaaCqsmhk56/23/2023 9:24 AM EDTLegal SexFemale 10/23/2022 11:33 PM EDTGender AmlwnhjeOptesb74/23/2023 9:24 AM EDTSexual QzewndyummmPppebwd49/23/2023 9:24 AM EDT Last Filed Vital Signs Vital SignReadingTime TakenCommentsBlood Avvaxjvf098/6006/30/2025 8:56 AM EST Iwgul609307/07/2023 3:09 PM ESTTemperature--Respiratory Oghz500009/06/2022 3:09 PM ESTOxygen Dlcebeyfrs96%07/07/2023 3:09 PM ESTInhaled Oxygen Concentration-- Djhdod70.9 kg (140 lb 12.8 oz)06/30/2025 8:56 AM EPAMbsoqt696.1 cm (5' 5 ) 10/11/2024 12:06 PM ESTBody Mass Index23.4303 12:06 PM EST Plan of Treatment DateTypeDepartmentCare Team (Latest Contact Info)Amvrcxkultz09/01/2025 8:00 AM ESTAncillary Procedure [facility] OBOBD[facility] [address] [place] [address] [place] [address] 12/01/2025 1:15 PM EDTOffice Visit [facility] [place] [facility] [address] [place] [address] Brenna Merchant APRN-TRANSMISSION SPECIALIST [address] [place] [address] 07/13/2026 8:30 AM ESTProcedure Visit [facility] [address] [facility] [address] [place] [address] Saurabh López DO [address] [facility] [address] [place], [place] [id number] Health MaintenanceDue DateLast DoneCommentsPneumococcal Vaccine: Pediatrics (0 to 5 Years) and At-Risk Patients (6 to 64 Years) (1 of 2 - PCV)12/07/2006COVID- 19 Vaccine (3 - Pfizer risk series)/, 04/02/2021Influenza Vaccine (#1)/12/2022, 05/21/2022, 05/12/2020, Additional history existsCervical Cancer Kwdailuzt77/06/2029HPV/Cjvyle5306/16/2029Pap Smear06/16/2029 06/16/2024, 06/09/2023 Procedures Procedure NamePriorityDate/TimeAssociated DiagnosisCommentsPAP SMEARRoutine 06/16/2024 12:00 AM ESTfrom Last 3 Months or Most Recently Relevant to Health Maintenance Results * Pap Smear (06/16/2024 12:00 AM EST)Specimen (Source)Anatomical Location / LateralityCollection Method / VolumeCollection TimeReceived TimeSwabCervical swab / Unknown Narrative Authorizing ProviderResult TypeResult StatusCorey Maribel [facility] CYTOLOGY ORDERABLESFinal ResultPerforming OrganizationAddressCity/State/ZIP CodePhone Number EXTERNAL LAB from Last 3 Months or Most Recently Relevant to Health Maintenance Insurance * Guarantor: Susan Hogue TypeRelation to PatientDate of BirthPhone Billing AddressPersonal/WmiaqsEeuy82/29/1986 [facility] [address] Care Teams Team MemberRelationshipSpecialtyStart DateEnd Date Aba Garner MD [address] [place] [address] PCP - GeneralInternal Ltjcwgns34/30/23 Brenna Merchant APRN-TRANSMISSION SPECIALIST [address] [address] PCP - Cale Bain01/09/25
--- OUTSIDE RECORDS SUMMARY | 2025-06-30 16:16 | XMS_ITS | Clinical Summary ---
Author Organization [facility] Address [address] [place] [address] Care Team Providers Care Foundry Laborer Coreroom Name Role Phone Unavailable Primary Care Provider Unavailabl e Allergies Active AllergyReactionsCriticalityNoted DateCommentsDuloxetine HclOther: See Bdhwkdgq31/23/2025 Jaw clenching Medications MedicationSigDispense QuantityRefillsLast FilledStart DateEnd DateStatus levothyroxine (SYNTHROID) 50 mcg tablet Take 50 mcg by mouth once daily.Active SUMAtriptan (IMITREX) 100 mg tablet Take 100 mg by mouth as needed.Active citalopram hydrobromide (CELEXA) 10 mg tablet Take 10 mg by mouth every morning.Active citalopram (CELEXA) 20 mg tablet Take 20 mg by mouth every morning.Active acyclovir (ZOVIRAX) 400 mg tablet Take 400 mg by mouth two times a day.5Active hydrOXYchloroQUINE (PLAQUENIL) 200 mg tablet Take 1.5 tablets by mouth once daily. 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)04/12/20251299Cmvyee66/27/2025 Patient [facility] HB-[address] [place] [address] Brenna Lima RPh At your next appointment, choose [facility].from Last 3 Months Social History Tobacco UseTypesPacks/DayYears UsedDateSmoking Tobacco: NeverSmokeless Tobacco: Never Tobacco Cessation:Counseling Given: Not Answered PHQ-2AnswerDate RecordedPHQ-2 jyvig208rea Deprivation IndexAnswerDate RecordedNational Score (1-100), lower number is lower jmnd530912/10/2024State Score (1-10), lower number is lower smjq098Data from: https://www.neighborhoodatlas.[facility]/. Last address used for jwasjtiup[address] [facility] [address]/10/2024CommentsUnknownSex and Gender InformationValueDate RecordedSex Assigned at BirthNot on fileLegal SexFemale 11/12/2023 3:09 PM EDTGender IdentityNot on fileSexual OrientationNot on file Last Filed Vital Signs Vital SignReadingTime TakenCommentsBlood Hkctjvkk484/72004/13/2025 10:55 AM EDT Tgldv567704/13/2025 10:55 AM XBQLwhagopjlrr87.7 ??C (98.1 ??F)04/13/2025 10:55 AM EDTRespiratory Rate--Oxygen Saturation--Inhaled Oxygen Concentration--Hmoszl85.6 kg (138 lb 0.1 oz)04/13/2025 10:55 AM SYTSymxos682.1 cm (5' 5 )04/13/2025 10:55 AM EDTBody Mass Index22.9704/13/2025 10:55 AM EDT Plan of Treatment DateTypeDepartmentCare Team (Latest Contact Info)Fbbprqahhyy57/03/2026 11:30 AM EDTOffice Visit Rheumatology [address] [phone] Becka Treviño DO [address], [address] [place], [place] [phone] 9m f/u per walkupHealth MaintenanceDue DateLast DoneCommentsCervical Cancer Bjfwesoig86/29/1999Anxiety Aaazhctlb31/29/2006Depression Ppeeynsuc15/29/2006HIV Cpfqeoscu93/29/2006HPV Vaccine (1 - Risk 3-dose SCDM series)12/07/2014Covid-19 Vaccine (3 season)509/, 04/02/2021Influenza Vaccine (#1)510/12/2022, 05/21/2022, 05/12/2020, Additional history exists DTaP,Tdap,Td Vaccine (2 - Td or Tdap)Hepatitis C Screening Xilvtukxn53/29/2024 Procedures Procedure NamePriorityDate/TimeAssociated DiagnosisCommentsURINALYSIS, WITH FQRCOZXGNJNCrahahi40/03/2025 2:42 PM EDT 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) PROTEIN CREATININE HHLEABwrztxw01/03/2025 2:42 PM EDT 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) DNA ANTIBODY DS HYZKwoodjv15/03/2025 11:21 AM EDT 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) COMPREHENSIVE METABOLIC UPHLTKqalqdh94/03/2025 11:21 AM EDT 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) CBC + VVDYSfqhkxl84/03/2025 11:21 AM EDT 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) C4 COMPLEMENT KUOIygywoi89/03/2025 11:21 AM EDT 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) C3 COMPLEMENT YDVLzdadbj11/03/2025 11:21 AM EDT 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) HEPATITIS C ANTIBODY IA WITH ULLSBOMZJHSNGdlpzjt02/29/2024 2:12 PM EDT 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) from Last 3 Months or Most Recently Relevant to Health Maintenance Results * (ABNORMAL) PROTEIN / CREATININE RATIO (04/13/2025 2:42 PM EDT)ComponentValue Ref RangeTest MethodAnalysis TimePerformed AtPathologist SignatureProtein, Urine Random<40 - 20 mg/dL04/13/2025 9:03 PM [facility] LABCreatinine, Ur Random (UCRR)5.0(L)20.0 - 300.0 mg/dL04/13/2025 9:03 PM EDT [facility] LABProtein/Creat Ratio<0.80(H)<0.15 mg/mg 04/13/2025 9:03 PM [facility] LABComment: Adult Proteinuria Categories: <0.15 mg/mg is considered normal to mildly increased 0.15 - 0.50 mg/mg is considered moderately increased >0.50 mg/mg is considered severely increased KDIGO. (2013). KDIGO 2012 Clinical Practice Guideline for the Evaluation and Management of Chronic Kidney Disease. Official Journal of the International Society of Nephrology, 3(1), 1150. Specimen (Source)Anatomical Location / LateralityCollection Method / Volume Collection TimeReceived TimeUrineURINE SPECIMEN / UnknownNon Blood / Unknown 04/13/2025 2:42 PM EDT04/13/2025 2:42 PM EDT Narrative Authorizing ProviderResult TypeResult StatusEmily Chantell Treviño DOLABORATORYFinal ResultPerforming OrganizationAddressCity/State/ZIP CodePhone Number [facility] [address] [place] [address], * (ABNORMAL) URINALYSIS, WITH MICROSCOPIC (04/13/2025 2:42 PM EDT)ComponentValue Ref RangeTest MethodAnalysis TimePerformed AtPathologist SignatureColorYellow Jjxwda6104/13/2025 5:26 PM ED[facility] LABClarityClearClear 04/13/2025 5:26 PM ED[facility] LABGlucose, UrineNegative Atkuxsyx76/03/2025 5:26 PM [facility] LABBilirubin, Urine KscxupccUiuqspda65/03/2025 5:26 PM EDMER[facility] LABKetones, IgyyuMrhwedydDegielmj00/03/2025 5:26 PM [facility] Specific Huggins, Ur1.003(L)1.005 - 1.9276804/13/2025 5:26 PM EDTCPARMA COMM[facility]ITY [facility] LABHemoglobin/Blood,HbGqqckhiyWmrinoff38/03/2025 5:26 PM EDMER[facility] LABpH, Urine7.55.0 - 8.009 5:26 PM EDT [facility] LABProtein, GqpnvMqnzmpqvZvbyljmg93/03/2025 5:26 PM [facility] LABUrobilinogen0.2 EU/dL0.2-1.0 EU/dL 04/13/2025 5:26 PM EDMER[facility] LABNitritesNegativeNegative 04/13/2025 5:26 PM EDMER[facility] LABLeuk EsteraseNegative Xnciawso09/03/2025 5:26 PM EDMER[facility] LABWBC, Urine0-5 /HPF0-5 /HPF04/13/2025 5:26 PM EDMER[facility] LABRBC, Urine0- 2 /HPF0-2 /HPF04/13/2025 5:26 PM EDMER[facility] LABBacteria NegativeNegative /HPF04/13/2025 5:26 PM EDMER[facility] LAB Squamous Epithelial CellsNone Seen/HPF04/13/2025 5:26 PM EDMER[facility] LABCasts, Hyaline0 /LPF0 /LPF04/13/2025 5:26 PM [facility] LABSpecimen (Source)Anatomical Location / Laterality Collection Method / VolumeCollection TimeReceived TimeUrineURINE SPECIMEN / UnknownNon Blood / Pahjvew0604/13/2025 2:42 PM EDT04/13/2025 2:42 PM EDT Narrative [facility] - 04/13/2025 5:26 PM EDT This test was developed and its performance characteristics determined by [facility]'s [facility] Pathology [facility] Laboratory Medicine [place] ([facility]). It has not been cleared or approved by the FDA. [facility] is regulated under CLIA as qualified to perform high-complexity testing. This test is used for clinical purposes. It should not be regarded as investigational or for research. Authorizing ProviderResult TypeResult StatusEmily A Hudson DOLABORATORYFinal ResultPerforming OrganizationAddressCity/State/ZIP CodePhone Number [facility] [address] [phone], * DNA ANTIBODY DS BLD (04/13/2025 11:21 AM EDT)ComponentValueRef RangeTest MethodAnalysis TimePerformed AtPathologist SignatureDNA Uovyelqo05<=200 IU/mL 04/14/2025 4:17 PM EDTCPARMA COMMUNITY GENERAL [facility] LABComment: Negative: <200 IU/mL Equivocal: 201-300 IU/mL Moderate Positive: 301-800 IU/mL Strong Positive: >801 IU/mL DNA Antibody Qualitative KogytijkdeblatDxpbolptQieposbm88/04/2025 4:17 PM EDT [facility] LABSpecimen (Source)Anatomical Location / LateralityCollection Method / VolumeCollection TimeReceived TimeBloodBLOOD SPECIMEN / UnknownVenipuncture / Nxnnfvu0704/13/2025 11:21 AM EDT04/13/2025 11:21 AM EDT Narrative [facility] - 04/14/2025 4:17 PM EDT This test is used as an aid in diagnosis of systemic lupus erythematous in patients with positive anti-nuclear antibody (VERNELL) test result. It may also be used for prognostication and monitoring response to treatment where clinically warranted. Results were obtained with the QUANTA Lite dsDNA FLACA. Double-stranded DNA values obtained with different manufacturers' assay methods should not be used interchangeably. Authorizing ProviderResult TypeResult StatusEmily A Hudson DOLABORATORYCabrini Medical Centeral ResultPerforming OrganizationAddressty/State/ZIP CodePhone Number [facility] [address] [phone], * COMPREHENSIVE METABOLIC PANEL (04/13/2025 11:21 AM EDT)ComponentValueRef Range Test MethodAnalysis TimePerformed AtPathologist SignatureProtein, Total7.36.3 - 8.0 g/dL04/13/2025 5:55 PM EDMER[facility] LABAlbumin4.73.9 - 4.9 g/dL04/13/2025 5:55 PM EDTCPARMA COMM[facility]ITY [facility] LABCalcium, Total 9.68.5 - 10.2 mg/dL04/13/2025 5:55 PM [facility] Bilirubin, Total0.50.2 - 1.3 mg/dL04/13/2025 5:55 PM [facility] LABAlkaline Vjxkpwszfiy5565 - 123 U/L04/13/2025 5:55 PM [facility] EOYLJK1762 - 35 U/L04/13/2025 5:55 PM [facility] OQCBRS078 - 38 U/L04/13/2025 5:55 PM [facility] IXSZitsadj8648 - 99 mg/dL04/13/2025 5:55 PM [facility] LABComment: The [place] Diabetes Association (ADA) provides guidance for cutoff values for fasting glucose andrandom glucose. The ADA defines fasting as no [...] Standards of Medical Care in Diabetes 2016, [place] [employer]. Diabetes Care. 2016.39(Suppl 1). BUN77 - 21 mg/dL04/13/2025 5:55 PM [facility] LABCreatinine 0.590.58 - 0.96 mg/dL04/13/2025 5:55 PM [facility] Fclvxz413083 - 144 mmol/L04/13/2025 5:55 PM [facility] Potassium4.13.7 - 5.1 mmol/L04/13/2025 5:55 PM [facility] IHONppzholu05042 - 107 mmol/L04/13/2025 5:55 PM [facility] NPGNA41658 - 30 mmol/L04/13/2025 5:55 PM [facility] Anion Hiu235 - 15 mmol/L04/13/2025 5:55 PM [facility] Estimated Glomerular Filtration Bwtb335>=60 mL/min/1.73m 04/13/2025 5:55 PM [facility] LABComment:Estimated Glomerular Filtration Rate (eGFR) is calculated using the 2020 CKD-EPI creatinine equation. This equation utilizes serum creatinine, sex, and age as parameters. The creatinine assay has traceable calibration to isotope dilution- mass spectrometry. Refer to KDIGO guidelines for clinical interpretation. In patients with unstable renal function, e.g. those with acute kidney injury, the eGFRmay not accurately reflect actual GFR.Specimen (Source)Anatomical Location / LateralityCollection Method / VolumeCollection TimeReceived TimeBloodBLOOD SPECIMEN / UnknownVenipuncture / Qzvsxch9704/13/2025 11:21 AM EDT04/13/2025 11:21 AM EDT Narrative Authorizing ProviderResult TypeResult StatusEmily Chantell Treviño DOLABORATORYFinal ResultPerforming OrganizationAddressCity/State/ZIP CodePhone Number [facility] [address] [place] [address], * COMPLETE BLOOD COUNT AND DIFFERENTIAL (04/13/2025 11:21 AM EDT)ComponentValue Ref RangeTest MethodAnalysis TimePerformed AtPathologist SignatureWBC6.563.70 - 11.00 k/uL04/13/2025 12:14 PM [facility] LABRBC4.523.90 - 5.20 m/uL04/13/2025 12:14 PM [facility] LABHemoglobin 14.011.5 - 15.5 g/dL04/13/2025 12:14 PM [facility] Gsddbidcvb95.636.0 - 46.0 %04/13/2025 12:14 PM [facility] AVLGBL36.080.0 - 100.0 fL04/13/2025 12:14 PM [facility] EHKVEV39.026.0 - 34.0 pg04/13/2025 12:14 PM [facility] LHCCRGY67.730.5 - 36.0 g/dL04/13/2025 12:14 PM [facility] LABRDW-CV12.711.5 - 15.0 %04/13/2025 12:14 PM [facility] LABPlatelet Jyghj413041 - 400 k/04/13/2025 12:14 PM [facility] ODBKBK74.19.0 - 12.7 fL04/13/2025 12:14 PM [facility]TC[facility] LABNeutrophils %53.3%04/13/2025 12:14 PM [facility]TC[facility] LABAbs Neut3.511.45 - 7.50 k/04/13/2025 12:14 PM [facility]TC[facility] LABLymphocytes %32.2%04/13/2025 12:14 PM [facility]TCLEVELAND [facility] LABAbs Lymph2.111.00 - 4.00 k/04/13/2025 12:14 PM [facility] LABMonocytes %9.8%04/13/2025 12:14 PM [facility] LABAbs Mono0.64<0.87 k/04/13/2025 12:14 PM [facility]TC[facility] LABEosinophils %3.7%04/13/2025 12:14 PM [facility]TC[facility] LABAbs Eosin0.24<0.46 k/04/13/2025 12:14 PM [facility] LABBasophils %0.8%04/13/2025 12:14 PM [facility] LABAbs Baso0.05<0.11 k/04/13/2025 12:14 PM [facility] LAB Immature Granulocytes %0.2%04/13/2025 12:14 PM [facility]TC[facility] LABAbs Immature Gran<0.03<0.10 k/04/13/2025 12:14 PM [facility]TC[facility] LABNRBC0.0/100 WBC04/13/2025 12:14 PM [facility]TCLEVEL[facility] LABAbsolute nRBC<0.01<0.01 /04/13/2025 12:14 PM EDMER[facility] LABDiff HjlpDzmd21/03/2025 12:14 PM [facility] LABSpecimen (Source)Anatomical Location / LateralityCollection Method / VolumeCollection TimeReceived TimeBloodBLOOD SPECIMEN / UnknownVenipuncture / Pmntgsr5304/13/2025 11:21 AM EDT04/13/2025 11:21 AM EDT Narrative Authorizing ProviderResult TypeResult StatusEmily A Hudson DOLABORATORYFinal ResultPerforming OrganizationAddressCity/State/ZIP CodePhone Number [facility] [address] [address], [place] * C4 COMPLEMENT (04/13/2025 11:21 AM EDT)ComponentValueRef RangeTest Method Analysis TimePerformed AtPathologist SignatureC4 Gcdscuibfz7902 - 46 mg/dL 04/13/2025 5:55 PM [facility] LABSpecimen (Source) Anatomical Location / LateralityCollection Method / VolumeCollection Time Received TimeBloodBLOOD SPECIMEN / UnknownVenipuncture / Tpzvici7404/13/2025 11:21 AM EDT04/13/2025 11:21 AM EDT Narrative Authorizing ProviderResult TypeResult StatusEmily A Hudson DOLABORATORYFinal ResultPerforming OrganizationAddressCity/State/ZIP CodePhone Number [facility] [address] [address], [place] * C3 COMPLEMENT (04/13/2025 11:21 AM EDT)ComponentValueRef RangeTest Method Analysis TimePerformed AtPathologist SignatureC3 Mcllsfcfly80740 - 166 mg/dL 04/13/2025 5:55 PM [facility] LABSpecimen (Source) Anatomical Location / LateralityCollection Method / VolumeCollection Time Received TimeBloodBLOOD SPECIMEN / UnknownVenipuncture / Zhjywrt8104/13/2025 11:21 AM EDT04/13/2025 11:21 AM EDT Narrative Authorizing ProviderResult TypeResult StatusEmily A Hudson DOLABORATORYFinal ResultPerforming OrganizationAddressCity/State/ZIP CodePhone Number [facility] [address] [address], [place] * HEPATITIS C ANTIBODY IA WITH CONFIRMATION (2023 2:12 PM EDT)Component ValueRef RangeTest MethodAnalysis TimePerformed AtPathologist SignatureHep C Antibody IPAxezvbltVuwirbav30/29/2024 5:39 PM EDTCPARMA COMM[facility]ITY [facility] LABComment:The result suggests no evidence of active infection with Hepatitis C virus. Should recent infectionbe suspected, repeat testing may be considered 4-6 weeks after this draw.Specimen (Source)Anatomical Location / Laterality Collection Method / VolumeCollection TimeReceived TimeBloodBLOOD SPECIMEN / UnknownVenipuncture / Wksqwuu8012/08/2023 2:12 PM EDT2023 2:14 PM EDT Narrative Authorizing ProviderResult TypeResult StatusEmily Chantell Treviño DOLABORATORYFinal ResultPerforming OrganizationAddressCity/State/ZIP CodePhone Number [facility] [address] [facility] [address] from Last 3 Months or Most Recently Relevant to Health Maintenance Insurance [address] [place] [phone]
[2025-07-05 12:08] LABS: Age Gdln ACOG Testing Note (.); IGP, Aptima HPV, rfx 16/18,45 Note (.)
== END 2025-06-30 16:11 | disposition home or self-care (01) ==
LOC: LAB 16:10
PROVIDERS: PCP Internal Medicine; Visit Provider Obstetrics & Gynecology
DX: Z01.419 Encounter for gynecological examination (general) (routine) without abnormal findings (principal)
CPT/HCPCS: 87624; 88175

== ENCOUNTER 2025-07-18 16:35 | Outpatient (OUT) | payer BC, SELFPAY ==
--- OUTSIDE RECORDS SUMMARY | 2025-07-18 16:41 | XMS_ITS | CCD ---
Author Organization [facility] CliniSytx Care Team Providers Care Hearing Therapist Name Role Phone MARIBEL, DR ZELAYA Attending [...] Consulting Unavailable TREADWELL, BUSHRA NEWSOME Consulting Unavailable SUSANPATRICK Holbrook Consulting Unavailable MARIBEL, DR ZELAYA Attending Unavailable MARIBEL, DR ZELAYA Admitting Unavailable NISH, DR TREVINO Primary Care Unavailable Unavailable Primary Care Provider UnavailMYA Marin Attending Unavailable BELINDA MOCK Referring Unavailable BELINDA MOCK Primary Care Unavailable Belinda Mock MD Primary Care Provider Belinda Mock MD Primary Care Provider Belinda Mock Primary Care Unavailable Saurabh López Attending Unavailable Saurabh López Admitting Unavailable Godwin Kay Unavailable KALYANI OBREGON Attending Unavailable GODWIN MERCHANT Attending Unavailable RITA FERMIN Attending Unavailable RITA FERMIN Referring Unavailable SAURABH LÓPEZ Attending Unavailable SAURABH LÓPEZ Attending Unavailable SAURABH LÓPEZ Attending Unavailable BEATRIZ TREVIÑO Referring Unavailable BEATRIZ TREVIÑO Attending Unavailable BEATRIZ TREVIÑO Referring Unavailable BEATRIZ TREVIÑO Attending Unavailable BEATRIZ TREVIÑO Attending Unavailable Belinda Mock MD Primary Care Provider Allergies Allergy ClassificationReported Allergen(s)Allergy TypeDate of OnsetReaction(s) Facility (2 sources)DULoxetine; Translations: [DULOXETINE HCL]Drug [id number] Other: See CommentsSelect Medical Specialty Hospital [facility] Medications Current Medications MedicationDrug Class(es)DatesSig (Normalized)Sig (Original)acyclovir 400 mg oral tablet (19 sources)Herpesvirus Nucleoside Analog DNA Polymerase Inhibitor, Herpes Simplex Virus Nucleoside Analog DNA Polymerase Inhibitor, Herpes Zoster Virus Nucleoside Analog DNA Polymerase InhibitorStart: 38-29-4672zntp 1 tablet by mouth twice dailyacyclovir (ZOVIRAX) 400 mg tablet Take 400 mg by mouth two times a day. 09/20/2024 ActiveStart: 57-50-9642dsnd 1 tablet by mouth twice dailyacyclovir (Zovirax) 400 MG tablet Indications: H/O cold sores TAKE 1 TABLET BY MOUTH TWICE A DAY 180 tablet 06/25/2024 Active End: 64-64-7434vfxpgslpa (Zovirax) 400 MG tablet every 12 (twelve) hours. 06/25/2024 Discontinuedcitalopram 20 mg oral tablet (20 sources)Serotonin Reuptake InhibitorStart: 90-53-2723addn 1 tablet by mouth once daily in the morningcitalopram (CeleXA) 20 MG tablet Indications: Mood changes TAKE 1 TABLET BY MOUTH EVERY DAY IN THE MORNING 90 tablet 3 05/04/2024 ActiveStart: 46-99-5639pkpy 1 tablet by mouth once daily in the morning citalopram (CeleXA) 10 MG tablet Indications: Mood changes TAKE 1 TABLET BY MOUTH EVERY DAY IN THE MORNING 90 tablet 3 05/04/2024 Activehydroxychloroquine sulfate 200 mg oral tablet (20 sources)Antimalarial, Antirheumatic AgentStart: 04-13-2025 End: 63-26-3259loqg 1.5 tablets by mouth once dailyhydrOXYchloroQUINE (PLAQUENIL) 200 mg tablet Take 1.5 tablets by mouth once daily. 135 tablet 1 04/13/2025 10/10/2025 ActiveStart: 10-21-2024 End: 60-09-5821pqrzXHGeybsaaIUVTK (PLAQUENIL) 200 mg tablet TAKE 1 AND 1/2 TABLETS BY MOUTH ONCE DAILY 136 tablet 12/24/2024 04/13/2025 DiscontinuedStart: 2023 End: 46-89-0360uino 1.5 tablets by mouth once dailyhydrOXYchloroQUINE (PLAQUENIL) 200 mg tablet Take 1.5 tablets by mouth once daily. 135 tablet 06/16/2024 09/14/2024 Activelevothyroxine sodium 0.05 mg oral tablet (20 sources)l-ThyroxineStart: 67-90-0509cpew 1 tablet by mouth once daily in the morninglevothyroxine (Synthroid, Levoxyl) 50 MCG tablet Indications: Hypothyroidism, unspecified TAKE 1 TABLET BY MOUTH EVERY DAY IN THE MORNING ON EMPTY STOMACH 90 tablet 1 10/29/2024 ActiveStart: 84-41-5876fqig 50 ug by mouth once dailyLevothyroxine Active 50 MCG PO Daily April 05, 2024 12:00am SUMAtriptan 100 mg oral tablet (17 sources)Serotonin-1b and Serotonin-1d Receptor AgonistStart: 09-08-2024 End: 92-85-6791mqha 1 tablet by mouth onceSUMAtriptan (Imitrex) 100 MG tablet Indications: Migraine without status migrainosus, not intractable, unspecified migraine type Take 1 tablet (100 mg) by mouth 1 (one) time if needed for migraine (december repeat x1) 27 tablet 2 10/11/2024 ActiveSUMAtriptan (IMITREX) 100 mg tablet Take 100 mg by mouth as needed. Active Completed/Discontinued Medications MedicationDrug Class(es)DatesSig (Normalized)Sig (Original)azaTHIOprine 50 mg oral tablet (3 sources)Purine AntimetaboliteStart: 06-02-2020 End: 42-86-2648Gpcyyo 50 MG tablet as directed Orally 06/02/2020 06/16/2024 Discontinued Problems Active Problems Problem ClassificationProblemDateDocumented DateEpisodic/ChronicAbdominal pain (3 sources)Pain in pelvis; Translations: [Pelvic and perineal pain]12-13-2024 EpisodicContraceptive and procreative management (4 sources)Encounter for sterilization; Translations: [ENCOUNTER FOR STERILIZATION]Onset: 82-45-1677TnhmssisSenjecuo; including migraine (3 sources)Migraine; Translations: [Migraine, unspecified, not intractable, without status migrainosus]58-15-7429QitlrsgRqnbsqike disorders (3 sources)Menorrhagia; Translations: [Excessive and frequent menstruation with regular cycle]45-94-6221IjiszvjFcxlgn and vomiting (2 sources)Nausea; Translations: [Nausea]99-63-0540MfdyldhoXgqdu aftercare (2 sources)Surgical follow-up; Translations: [Encounter for follow-up examination after completed treatment for conditions other than malignant neoplasm]12-09-5731TofetqreJegkl circulatory disease (2 sources)Spider nevus; Translations: [Nevus, non-neoplastic]31-12-9038Bjpaykhh Other connective tissue disease (4 sources)Pain in left foot; Translations: [PAIN IN LEFT FOOT]Onset: 08-01-2022 EpisodicOther female genital disorders (1 source)Abnormal uterine bleeding; Translations: [Abnormal uterine and vaginal bleeding, unspecified]97-94-4323OzjbwseSayhy inflammatory condition of skin (2 sources)Rosacea; Translations: [Other rosacea]98-11-4353OvtpjkcMpltj skin disorders (2 sources)Seborrheic keratosis; Translations: [Other seborrheic keratosis] 13-55-8858RevfzzfcGjocb upper respiratory disease (1 source)Chronic rhinitis; Translations: [Chronic rhinitis]Onset: 04-05-2024 ChronicOther upper respiratory disease (1 source)Pain in throatOnset: 09-77-1950PrdthmxwEbihg upper respiratory disease (1 source)Nasal congestionOnset: 22-55-6331OlzplxryNpwxr upper respiratory infections (1 source)Acute upper respiratory infection, unspecified; Translations: [Acute upper respiratory infection, unspecified]Onset: 33-07-3202GopcntczQxmjzzwj codes; unclassified (2 sources)Pain; Translations: [Pain, unspecified]79-83-2744GwqakoyvDytfpkka lupus erythematosus and connective tissue disorders (10 sources)Systemic lupus erythematosus, unspecified; Translations: [Systemic lupus erythematosus]Onset: 96-58-1377LnvsplqIdklwap disorders (2 sources)Autoimmune thyroiditis; Translations: [Hypothyroidism, unspecified] Onset: 42-52-4646PcafjiaMxafjzqnivia (1 source)CONTACT W/AND (SUSP) EXPOS COVID-19; Translations: [CONTACT W/AND (SUSP) EXPOS COVID-19]Onset: 89-10-8874Yseeh infection (2 sources)Verruca vulgaris; Translations: [Other viral warts]17-09-7039Bgmwgbrn Past or Other Problems Problem ClassificationProblemDateDocumented DateEpisodic/ChronicImmunizations and screening for infectious disease (1 source)Encounter for screening for human papillomavirus (HPV); Translations: [ENC SCREENING HUMAN PAPILLOMAVIRUS]Onset: 63-78-1927ZvqfhnwoJjmhs aftercare (4 sources)Encounter for surgical aftercare following surgery on the circulatory system; Translations: [ENC SURG AFTRCARE FLW SURG CIRC SYS]Onset: 12-10-2021 EpisodicOther screening for suspected conditions (not mental disorders or infectious disease) (4 sources)Encounter for screening for malignant neoplasm of cervix; Translations: [ENC SCREENING MALIG NEOPLASM CERV]Onset: 37-00-0222Pfrjsxro Phlebitis; thrombophlebitis and thromboembolism (9 sources)Phlebitis and thrombophlebitis of superficial vessels of right lower extremity; Translations: [Phlebitis and thrombophlebitis of superficial vessels of left lower extremity]Onset: 20-25-1479BnptadbcKbfuypky veins of lower extremity (5 sources)Varicose veins of bilateral lower extremities with pain; Translations: [VARICOSE VNS SANTANA LOW EXTREMW/PAIN]Onset: 63-00-5372Axmkegfw Results Test NameValueInterpretationReference RangeFacilityC3 COMPLEMENTon 04-13-2025 Complement C3 [Mass/Vol]106 mg/dL86 - 166 mg/dLDaniel Ville [address] SerPl-mCncon 07-20-4839Bxwuznoibs C3 [Mass/Vol]106 mg/tBPicgka21-318OeacqsqgxAvita Health SystemComment on above:Order Comment: Specimen Type: BLOOD SPECIMEN Ordering Facility: [facility] Address: [address] [place], [place] [address]Performed By: #### 4485-9, 4498-2, 66938-8 #### [facility] CLIA [id number] [address] [place] [address] STATES OF AMERICAC4 COMPLEMENTon 04-13-2025 Complement C4 [Mass/Vol]17 mg/dL13 - 46 mg/dLJohnathan Ville [address] SerPl-mCncon 42-77-0705Svqewozmwt C4 [Mass/Vol]17 mg/kIQpdcyd24-17DpcrrzbgzAvita Health System Comment on above:Order Comment: Specimen Type: BLOOD SPECIMEN Ordering Facility: [facility] Address: [address] [place], [place] [address]Performed By: #### 4485-9, 4498-2, 91968-8 #### [facility] CLIA [id number] [address] [place] [address] [place] OF AMERICACBC W Auto Differential panel (Bld)on 27-92-4930Wmszorchh (Bld) [#/Vol]0.05 10*3/uLNINFSelect Medical Specialty Hospital [facility] Basophils/100 WBC (Bld)0.8 %[facility] SouthDifferential cell count method Nom (Bld)AutoCleveland ClinicEosinophils (Bld) [#/Vol]0.24 10*3/uLNINFSelect Medical Specialty Hospital - [facility] SouthEosinophils/100 WBC (Bld)3.7 %[facility] SouthErythrocyte distribution width (RBC) [Ratio]12.7 %11.5 - 15.0 %[facility] SouthHematocrit (Bld) [Volume fraction]41.6 %36.0 - 46.0 %[facility] SouthHemoglobin (Bld) [Mass/Vol]14.0 g/dL 11.5 - 15.5 g/dLSelect Medical Specialty Hospital - [facility] SouthImmature granulocytes (Bld) [#/Vol]NINFCleveland ClinicImmature granulocytes/100 WBC (Bld)0.2 %[facility] SouthLymphocytes (Bld) [#/Vol]2.11 10*3/uLSelect Medical Specialty Hospital - Columbus SouthLymphocytes/100 WBC (Bld)32.2 %[facility] HospitalH (RBC) [Entitic mass]31.0 pg26.0 - 34.0 pgClevelUnited Hospital District HospitalHC (RBC) [Mass/Vol]33.7 g/dL30.5 - 36.0 g/dLWooster Community HospitalV (RBC) [Entitic vol]92.0 fL80.0 - 100.0 fLCleveland ClinicMonocytes (Bld) [#/Vol]0.64 10*3/uLNINF [facility] SouthMonocytes/100 WBC (Bld)9.8 %[facility] SouthNeutrophils (Bld) [#/Vol]3.51 10*3/uLIsland Park ClinicNeutrophils/100 WBC (Bld)53.3 %[facility] SouthNucleated RBC (Bld) [#/Vol]NINFCleveland ClinicNucleated RBC/100 WBC (Bld) [Ratio]0.0 %/100 WBCSelect Medical Specialty Hospital - Columbus SouthPlatelet mean volume (Bld) [Entitic vol] 11.1 fL9.0 - 12.7 fLCleveland ClinicPlatelets (Bld) [#/Vol]293 10*3/uLCleveland ClinicRBC (Bld) [#/Vol]4.52 10*6/uL3.90 - 5.20 m/[facility] Community HospitalWBC (Bld) [#/Vol]6.56 10*3/[facility] CenterBasophils (Bld) [#/Vol]0.05 10*3/uLNormal<0.11CCleveland Clinic [facility] on above:Order Comment: Specimen Type: BLOOD SPECIMEN Ordering Facility: [facility] Address: [address] [place], [place] [address]Performed By: #### 19121-4 #### [facility] CLIA [id number] [address] [place] [address] [place] AMERICABasophils/100 WBC (Bld)0.8 % NormalMemorial Health System on above:Order Comment: Specimen Type: BLOOD SPECIMEN Ordering Facility: [facility] Address: [address] [place], [place] [address]Performed By: #### 68351-2 #### [facility] CLIA [id number] [address] [place] [address] [place] OF AMERICADifferential cell count method Nom (Bld)AutoNormalCCleveland Clinic South Pointe Hospital on above:Order Comment: Specimen Type: BLOOD SPECIMEN Ordering Facility: [facility] Address: [address] [place], [place] [address]Performed By: #### 91483-8 #### [facility] CLIA [id number] [address] [place], [place] [address] [place] OF AMERICAEosinophils (Bld) [#/Vol] 0.24 10*3/uLNormal<0.46[facility] on above:Order Comment: Specimen Type: BLOOD SPECIMEN Ordering Facility: [facility] Address: [address] [place], [place] [address]Performed By: #### 54031-4 #### [facility] CLIA [id number] [address] [place] [address] [place] AMERICAEosinophils/100 WBC (Bld)3.7 %NormalMemorial Health System on above:Order Comment: Specimen Type: BLOOD SPECIMEN Ordering Facility: [facility] Address: [address] [place], [place] [address]Performed By: #### 44669-5 #### [facility] CLIA [id number] [address] [place] [address] [place] AMERICAErythrocyte distribution width (RBC) [Ratio]12.7 %Hfkvfr83.5-15.0[facility] on above:Order Comment: Specimen Type: BLOOD SPECIMEN Ordering Facility: [facility] Address: [address] [place], [place] [address]Performed By: #### 23425-6 #### [facility] CLIA [id number] [address] [place] [address] [place] OF AMERICAHematocrit (Bld) [Volume fraction]41.6 %Grbiiw08.0-46.0[facility] on above:Order Comment: Specimen Type: BLOOD SPECIMEN Ordering Facility: [facility] Address: [address] [place], [place] [address]Performed By: #### 75073-0 #### [facility] CLIA [id number] [address] [place] [address] [place] AMERICAHemoglobin (Bld) [Mass/Vol] 14.0 g/bJXemhgo06.5-15.5CCleveland Clinic [facility] on above:Order Comment: Specimen Type: BLOOD SPECIMEN Ordering Facility: [facility] Address: [address] [place], [place] [address]Performed By: #### 08179-4 #### [facility] CLIA [id number] [address] [place] [address] [place] AMERICAImmature granulocytes (Bld) [#/Vol]10*3/uLNormal<0.10[facility] on above:Order Comment: Specimen Type: BLOOD SPECIMEN Ordering Facility: [facility] Address: [address] [place], [place] [address]Performed By: #### 01204-0 #### [facility] CLIA [id number] [address] [place] [address] [place] AMERICAImmature granulocytes/100 WBC (Bld)0.2 %NormalMemorial Health System on above:Order Comment: Specimen Type: BLOOD SPECIMEN Ordering Facility: [facility] Address: [address] [place], [place] [address]Performed By: #### 62735-2 #### [facility] CLIA [id number] [address] [place] [address] [place] OF AMERICALymphocytes (Bld) [#/Vol] 2.11 10*3/uLNormal1.00-4.00[facility] on above:Order Comment: Specimen Type: BLOOD SPECIMEN Ordering Facility: [facility] Address: [address] [place], [place] [address]Performed By: #### 79297-5 #### [facility] CLIA [id number] [address] [place] [address] [place] OF AMERICALymphocytes/100 WBC (Bld) 32.2 %NormalMemorial Health System on above:Order Comment: Specimen Type: BLOOD SPECIMEN Ordering Facility: [facility] Address: [address] [place], [place] [address]Performed By: #### 65864-2 #### [facility] CLIA [id number] [address] [place], [place] [address] [place] OF AMERICAMCH (RBC) [Entitic mass]31.0 wpCsdnyd38.0-34.0[facility] on above:Order Comment: Specimen Type: BLOOD SPECIMEN Ordering Facility: [facility] Address: [address] [place], [place] [address]Performed By: #### 01222-9 #### [facility] CLIA [id number] [address] [place] [address] [place] AMERICAMCHC (RBC) [Mass/Vol]33.7 g/aKSgbgsy51.5-36.0[facility] on above:Order Comment: Specimen Type: BLOOD SPECIMEN Ordering Facility: [facility] Address: [address] [place], [place] [address]Performed By: #### 83831-4 #### [facility] CLIA [id number] [address] [place] [address] [place] AMERICAMCV (RBC) [Entitic vol]92.0 vXOlkduh73.0-100.0[facility] on above:Order Comment: Specimen Type: BLOOD SPECIMEN Ordering Facility: [facility] Address: [address] [place], [place] [address]Performed By: #### 05774-1 #### [facility] CLIA [id number] [address] [place] [address] [place] AMERICAMonocytes (Bld) [#/Vol]0.64 10*3/uLNormal<0.87[facility] on above:Order Comment: Specimen Type: BLOOD SPECIMEN Ordering Facility: [facility] Address: [address] [place], [place] [address]Performed By: #### 21418-8 #### [facility] CLIA [id number] [address] [place] [address] [place] AMERICAMonocytes/100 WBC (Bld)9.8 % NormalMemorial Health System on above:Order Comment: Specimen Type: BLOOD SPECIMEN Ordering Facility: [facility] Address: [address] [place], [place] [address]Performed By: #### 42653-2 #### [facility] CLIA [id number] [address] [place] [address] [place] AMERICANeutrophils (Bld) [#/Vol] 3.51 10*3/uLNormal1.45-7.50[facility] on above:Order Comment: Specimen Type: BLOOD SPECIMEN Ordering Facility: [facility] Address: [address] [place], [place] [address]Performed By: #### 08308-7 #### [facility] CLIA [id number] [address] [place] [address] [place] AMERICANeutrophils/100 WBC (Bld) 53.3 %NormalMemorial Health System on above:Order Comment: Specimen Type: BLOOD SPECIMEN Ordering Facility: [facility] Address: [address] [place], [place] [address]Performed By: #### 07417-0 #### [facility] CLIA [id number] [address] [place] [address] [place] AMERICANucleated RBC (Bld) [#/Vol] 10*3/uLNormal<0.01[facility] on above:Order Comment: Specimen Type: BLOOD SPECIMEN Ordering Facility: [facility] Address: [address] [place], [place] [address]Performed By: #### 81449-5 #### [facility] CLIA [id number] [address] [place] [address] [place] AMERICANucleated RBC/100 WBC (Bld) [Ratio]0.0 /100 WBCNormalCCleveland Clinic South Pointe Hospital on above:Order Comment: Specimen Type: BLOOD SPECIMEN Ordering Facility: [facility] Address: [address] [place], [place] [address]Performed By: #### 85260-8 #### [facility] CLIA [id number] [address] [place] [address] [place] AMERICAPlatelet mean volume (Bld) [Entitic vol]11.1 fLNormal9.0-12.7CCleveland Clinic [facility] on above: Order Comment: Specimen Type: BLOOD SPECIMEN Ordering Facility: [facility] Address: [address] [place], [place] [address]Performed By: #### 55130-8 #### [facility] CLIA [id number] [address] [place], [place] [address]Platelets (Bld) [#/Vol]293 10*3/uOSgwsnw950-883QwqokggdiMemorial Health System on above:Order Comment: Specimen Type: BLOOD SPECIMEN Ordering Facility: [facility] Address: [address] [place], [place] [address]Performed By: #### 74200-6 #### [facility] CLIA [id number] [address] [place] [address] (d) [#/Vol]4.52 10*6/uLNormal3.90-5.20[facility] on above:Order Comment: Specimen Type: BLOOD SPECIMEN Ordering Facility: [facility] Address: [address] [place], [place] [address]Performed By: #### 74483-3 #### [facility] CLIA [id number] [address] [place], [place] [address] (d) [#/Vol]6.56 10*3/uLNormal3.70-11.00[facility] on above:Order Comment: Specimen Type: BLOOD SPECIMEN Ordering Facility: [facility] Address: [address] [place], [place] [address]Performed By: #### 98163-0 #### [facility] IA [id number] [address] [place], [place] [address]CNOVon 25-31-1118IGZHZniecy Visit (RHEUMN) SUSAN HOGUE ([id number]) 1985 F Date Time Provider Department 04/13/25 11:00 AM BEATRIZ TREVIÑO RHEUMN During your visit today, we recorded the following information about you: Temperature Pulse Blood pressure Weight 98.1 degrees 65/minute 121/72 62.6 kg Height 1.651 m Beatriz Treviño DO 04/13/2025 11:27 AM Signed [facility] DEPARTMENT OF RHEUMATIC AND IMMUNOLOGIC DISEASES SUBJECTIVE: Reason for visit: SLE Brief History of Present Illness: Susan Hogue is a 39 year old female with migraines and SLE [...] pain in her elbows, knees and ankles. 12/2024 She had changed her diet, increasing her protein and water and cut out sweets and included vegetables. Joint pain is improved. She saw Derm and was told she had rosacea. Today she has been well. No flares since she was last seen. She has had some joint pain in her hands and elbows and right knee. In particular, she has left 3rd finger pain (she is left handed) with overuse. Answers submitted by the patient for this visit: Review of Systems Rheumatology (Submitted on 04/12/2025) Fever : No Recent unintentional weight change: [...] Joint pain or stiffness: Yes Muscle weakness: No Muscle aches: Yes Joint swelling: No Morning Stiffness in Joints: Yes A rash: No Skin Color Changes: No Hair Loss: Yes Nail Changes: No Headaches: No Numbness: No Memory Loss: No Swollen Glands: No PMHx: No past medical history on file. PSHx: No past surgical history on file. MEDICATIONS: levothyroxine (SYNTHROID) 50 mcg tablet Take 50 mcg by mouth once daily. SUMAtriptan (IMITREX) 100 mg tablet Take 100 mg by mouth as needed. citalopram hydrobromide (CELEXA) 10 mg tablet Take 10 mg by mouth every morning. citalopram (CELEXA) 20 mg tablet Take 20 mg by mouth every morning. acyclovir (ZOVIRAX) 400 mg tablet Take 400 mg by mouth two times a day. hydrOXYchloroQUINE (PLAQUENIL) 200 mg tablet Take 1.5 tablets by mouth once daily. ALLERGIES: ALLERGIES Allergen Reactions Duloxetine Hcl Other: See Comments Jaw clenching OBJECTIVE: Physical Examination: Vitals: BP 121/72 Pulse 65 Temp 36.7 ?C (98.1 ?F) (Temporal) Ht 165.1 cm (5' 5 ) Wt 62.6 kg (138 lb 0.1 oz) BMI 22.97 kg/m? General: Looks well, NAD, A AND Ox3. HEENT: No facial rash. No alopecia. Neck: No LAD. CVS: RRR, nl S1/S2, no R/M/G, Resp: CTAB. No rales or wheezing. Ext: No edema. Neuro: Gait Normal. Skin: No rash. No ulcers. Musculoskeletal: Shoulders: No swelling, no tenderness, good ROM Elbows: No swelling, no tenderness, no flexion contractures, no nodules, good ROM Wrists: No swelling, no tenderness, no limitation in flexion and extension Hands: No evidence of synovitis. Able to make full fist bilaterally Knees: No effusion, no tenderness, good ROM Ankles: No swelling, no tenderness, good ROM Feet/Toes/ MTP: No evidence of synovitis IMPRESSIONS/RECOMMENDATIONS: Systemic Lupus, doing well Based on 2019 EULAR/ACR classification criteria: +VERNELL 1:640, low C3, arthralgia, myalgia of lower extremities, oral ulcerations and Raynaud's phenomenon. She has been placed on HCQ, methotrexate, mycophenolate, belimumab and azathioprine. MTX, MMF and BEL all stopped due to side effects. Currently on HCQ 300 mg PO daily. Symptoms today are improved from prior with improvemen (more content not included)...[facility]Ke[facility] metabolic 2000 panelon 43-64-3840Hkefycv [Mass/Vol]4.7 g/dL3.9 - 4.9 g/dLIsland Park ClinicALP [Catalytic activity/Vol]43 U/L34 - 123 U/LCleveland ClinicALT [Catalytic activity/Vol]19 U/L7 - 38 U/LCleveland ClinicAnion gap [Moles/Vol]11 mmol/L8 - 15 mmol/LCleveland ClinicAST [Catalytic activity/Vol]23 U/L13 - 35 U/LCleveland ClinicBilirubin [Mass/Vol]0.5 mg/dL0.2 - 1.3 mg/dL [facility] SouthCalcium [Mass/Vol]9.6 mg/dL8.5 - 10.2 mg/dLSelect [facility] Chloride [Moles/Vol]103 mmol/L98 - 107 mmol/LCleveland ClinicCO2 [Moles/Vol]24 mmol/L22 - 30 mmol/LCleveland ClinicCreatinine [Mass/Vol]0.59 mg/dL0.58 - 0.96 mg/dLSelect [facility] Specialty Hospital [facility] SouthGFR/1.73 sq M.predicted among non-blacks MDRD (S/P/Bld) [Vol rate/Area]119 mL/min/{1.73_m2}- PINFCleveland ClinicComment on above: Estimated Glomerular Filtration Rate (eGFR) is calculated using the 2021 CKD-EPI creatinine equation. This equation utilizes serum creatinine, sex, and age as parameters. The creatinine assay has traceable calibration to isotope dilution- mass spectrometry. Refer to KDIGO guidelines for clinical interpretation. In patients with unstable renal function, e.g. those with acute kidney injury, the eGFRmay not accurately reflect actual GFR.Glucose [Mass/Vol]85 mg/dL74 - 99 mg/dLBarnesville Hospital on above:The [place] Diabetes Association (ADA) provides guidance for cutoff values for fasting glucose andrandom glucose. The ADA defines fasting as no caloric intake for at least 8 hours. Fasting plasma gl ucose results between 100 to 125 mg/dL indicate [...] Standards of Medical Care in Diabetes 2016, [place] Diabetes Association. Diabetes Care. 2016.39(Suppl 1). Potassium [Moles/Vol]4.1 mmol/L3.7 - 5.1 mmol/LCleveland ClinicProtein [Mass/Vol]7.3 g/dL6.3 - 8.0 g/dLIsland Park ClinicSodium [Moles/Vol]138 mmol/L136 - 144 mmol/LCleveland ClinicUrea nitrogen [Mass/Vol]7 mg/dL7 - 21 mg/dLIsland Park ClinicAlbumin [Mass/Vol]4.7 g/dLNormal3.9-4.9CC[facility] on above:Order Comment: Specimen Type: BLOOD SPECIMEN Ordering Facility: [facility] Address: [address] [place], [place] [address]Performed By: #### 4485-9, 4498-2, 61532-1 #### [facility] CLIA [id number] [address] [place] [address] [place] AMERICAALP [Catalytic activity/Vol] 43 U/YTqtscc52-185IwgccqstoMemorial Health System on above:Order Comment: Specimen Type: BLOOD SPECIMEN Ordering Facility: [facility] Address: [address] [place], [place] [address]Performed By: #### 4485-9, 4498-2, 64154-5 #### [facility] CLIA [id number] [address] [place] [address] [place] AMERICAALT [Catalytic activity/Vol] 19 U/LNormal7-38[facility] on above:Order Comment: Specimen Type: BLOOD SPECIMEN Ordering Facility: [facility] Address: [address] [place], [place] [address]Performed By: #### 4485-9, 4498-2, 24805-2 #### [facility] CLIA [id number] [address] [place] [address] [place] AMERICAAnion gap [Moles/Vol]11 mmol/LNormal8-15[facility] on above:Order Comment: Specimen Type: BLOOD SPECIMEN Ordering Facility: [facility] Address: [address] [place], [place] [address]Performed By: #### 4485-9, 4498-2, 42919-2 #### [facility] CLIA [id number] [address] [place] [address] [place] AMERICAAST [Catalytic activity/Vol] 23 U/BTpddtn81-75MaagmnncbMemorial Health System on above:Order Comment: Specimen Type: BLOOD SPECIMEN Ordering Facility: [facility] Address: [address] [place], [place] [address]Performed By: #### 4485-9, 4498-2, 77918-2 #### [facility] CLIA [id number] [address] [place], [place] [address] [place] AMERICABilirubin [Mass/Vol]0.5 mg/dLNormal0.2-1.3CC[facility] on above:Order Comment: Specimen Type: BLOOD SPECIMEN Ordering Facility: [facility] Address: [address] [place], [place] [address]Performed By: #### 4485-9, 4498-2, #### [facility] CLIA [id number] [address] [place] [address] [place] AMERICACalcium [Mass/Vol]9.6 mg/dL Normal8.5-10.2CC[facility] on above:Order Comment: Specimen Type: BLOOD SPECIMEN Ordering Facility: [facility] Address: [address] [place], [place] [address]Performed By: #### 4485-9, 4498-2, #### [facility] CLIA [id number] [address] [place] [address] [place] AMERICAChloride [Moles/Vol]103 mmol/ZQuzfbq93-171YwenjxlhcMemorial Health System on above:Order Comment: Specimen Type: BLOOD SPECIMEN Ordering Facility: [facility] Address: [address] [place], [place] [address]Performed By: #### 4485-9, 4498-2, #### [facility] CLIA [id number] [address] [place] [address] [place] AMERICACO2 [Moles/Vol]24 mmol/L Azortz65-21NvjlipyniMemorial Health System on above:Order Comment: Specimen Type: BLOOD SPECIMEN Ordering Facility: [facility] Address: [address] [place], [place] [address]Performed By: #### 4485-9, 4498-2, #### [facility] CLIA [id number] [address] [place] [address] [place] AMERICACreatinine [Mass/Vol]0.59 mg/dLNormal0.58-0.96[facility] on above:Order Comment: Specimen Type: BLOOD SPECIMEN Ordering Facility: [facility] Address: [address] [place], [place] [address]Performed By: #### 4485-9, 4498-2, 50832-2 #### [facility] CLIA [id number] [address] [place] [address] [place] AMERICAeGFRcr SerPlBld CKD-EPI 2020 119 mL/min/1.73m???Normal>=60[facility] on above:Order Comment: Specimen Type: BLOOD SPECIMEN Ordering Facility: [facility] Address: [address] [place], [place] [address]Result Comment: Estimated Glomerular Filtration Rate (eGFR) is calculated using the 2020 CKD-EPI cre atinine equation. This equation utilizes serum creatinine, sex, and age as parameters. The creatinine assay has traceable calibration to isotope dilution- mass spectrometry. Refer to KDIGO guidelines for clinical interpretation. In patients with unstable renal function, e.g. those with acute kidney injury, the eGFR may not accurately reflect actual GFR.Performed By: #### 4485-9, 4498-2, 23704-8 #### [facility] IA [id number] [address] [place] [address] [place] AMERICAGlucose [Mass/Vol]85 mg/dL Wxqwct33-45SexcabadxMemorial Health System on above:Order Comment: Specimen Type: BLOOD SPECIMEN Ordering Facility: [facility] Address: [address] [place], [place] [address]Result Comment: The [place] Diabetes Association (ADA) provides guidance for cutoff [...] Standards of Medical Care in Diabetes 2016, [place] Diabetes Association. Diabetes Care. 2016.39(Suppl 1).Performed By: #### 4485-9, 4498-2, 38741-4 #### [facility] IA [id number] [address] [place] [address] [place] AMERICAPotassium [Moles/Vol]4.1 mmol/LNormal3.7-5.1CC[facility] on above:Order Comment: Specimen Type: BLOOD SPECIMEN Ordering Facility: [facility] Address: [address] [place], [place] [address]Performed By: #### 4485-9, 4498-2, 00232-3 #### [facility] CLIA [id number] [address] [place] [address] [place] AMERICAProtein [Mass/Vol]7.3 g/dL Normal6.3-8.0[facility] on above:Order Comment: Specimen Type: BLOOD SPECIMEN Ordering Facility: [facility] Address: [address] [place], [place] [address]Performed By: #### 4485-9, 4498-2, 82568-5 #### [facility] CLIA [id number] [address] [place] [address] [place] AMERICASodium [Moles/Vol]138 mmol/L Ncwacz337-915JedthkevfMemorial Health System on above:Order Comment: Specimen Type: BLOOD SPECIMEN Ordering Facility: [facility] Address: [address] [place], [place] [address]Performed By: #### 4485-9, 4498-2, 60844-5 #### [facility] CLIA [id number] [address] [place] [address] [place] AMERICAUrea nitrogen [Mass/Vol]7 mg/dLNormal7-21[facility] on above:Order Comment: Specimen Type: BLOOD SPECIMEN Ordering Facility: [facility] Address: [address] [place], [place] [address]Performed By: #### 4485-9, 4498-2, 42161-8 #### [facility] CLIA [id number] [address] [place] [address] [place] AMERICADNA ANTIBODY DS BLDon 35-64-8341ZPT GOYFXYWR87 IU/mLNormal<=200[facility] on above:Order Comment: Specimen Type: URINE SPECIMEN Ordering Facility: [facility] Address: [address] [place], [place] [address]Result Comment: Negative: <200 IU/mL Equivocal: 201-300 IU/mL Moderate Positive: 301-800 IU/mL Strong Positive: >801 IU/mLPerformed By: #### 84285-6 #### [facility] CLIA [id number] [address] [place], [place] [address]DNA ANTIBODY QUALITATIVE INTERPRETATIONNegativeNormalNegativeMemorial Health System on above: Order Comment: Specimen Type: URINE SPECIMEN Ordering Facility: [facility] Address: [address] [place], [place] [address]Performed By: #### 12671-6 #### [facility] CLIA [id number] [address] [place] [address] Panel Informationon 72-26-2850Idzevirpftiknz and review of laboratory resultsNormalCSalem City HospitalPROTEIN / CREATININE RATIOon 36-13-7008Hgzighw/Creatinine (U) [Mass ratio]mg/mgHighNINF - 0.15 mg/mgBarnesville Hospital on above:Adult Proteinuria Categories: <0.15 mg/mg is considered normal to mildly increased 0.15 - 0.50 mg/mg is considered moderately increased >0.50 mg/mg is considered severely increased KDIGO. (2013). KDIGO 2012 Clinical Practice Guideline for the Evaluation and Management of Chronic Kidney Disease. Official Journal of the International Society of Nephrology, 3(1), 1-150. Prot/Creat Uron 25-68-9847Kkdfvni/Creatinine (U) [Mass ratio]mg/gHigh<0.15 [facility] on above:Order Comment: Specimen Type: URINE SPECIMEN Ordering Facility: [facility] Address: [address] [place], [place] [address]Result Comment: Adult Proteinuria Categories: <0.15 mg/mg is considered normal to mildly increased 0.15 - 0.50 mg/mg is considered moderately increased >0.50 mg/mg is considered severely increased KDIGO. (2013). KDIGO 2012 Clinical Practice Guideline for the Evaluation and Management of Chronic Kidney Disease. Official Journal of the International Society of Nephrology, 3(1), 1-150.Performed By: #### 2890-2 #### [facility] CLIA [id number] [address] [place] [address] [place] AMERICAProtein/Creatinine (U) [Mass ratio]on 39-76-9118Travclszya (U) [Mass/Vol]5.0 mg/dLLow20.0 - 300.0 mg/dL [facility] SouthInterpretation and review of laboratory resultsAbnormalClevelHighland District HospitalProtein (U) [Mass/Vol]mg/dL0 - 20 mg/dLKettering Health Springfield Creatinine (U) [Mass/Vol]5.0 mg/dLLow20.0-300.0Avita Health SystemComment on above:Order Comment: Specimen Type: URINE SPECIMEN Ordering Facility: [facility] Address: [address] [place], [place] [address]Performed By: #### 2890-2 #### [facility] CLIA [id number] [address] [place] [address] [place] AMERICAProtein (U) [Mass/Vol]mg/dL Normal0-20[facility] on above:Order Comment: Specimen Type: URINE SPECIMEN Ordering Facility: [facility] Address: [address] [place], [place] [address]Performed By: #### 2890-2 #### [facility] CLIA [id number] [address] [place] [address] [place] AMERICAUrinalysis complete panel (U)on 80-24-3301Csltetwx LM.HPF (Urine sed) [#/Area]NegativeNegative /HPF [facility] SouthBilirubin Ql (U)NegativeNegativeSelect Medical Specialty Hospital - [facility] SouthClarity (Unsp spec)ClearClearCleveland ClinicColor (U)YellowYellowCleOhioHealth Doctors HospitalEpithelial cells LM.HPF (Urine sed) [#/Area]None Seen/HPFSelect Medical Specialty Hospital - [facility] SouthGlucose Test strip (U) [Mass/Vol]NegativeNegativeSelect Medical Specialty Hospital - [facility] SouthHemoglobin Ql (U)NegativeNegative [facility] SouthHyaline casts (Urine sed) [#/Area]0 /[LPF]0 /LPFCcoshocton regional medical centerand [facility] Interpretation and review of laboratory resultsAbnormalCleveland ClinicKetones Ql (U)NegativeNegativeSelect Medical Specialty [facility] SouthLeukocyte esterase Test strip Ql (U) NegativeNegativeSelect Medical Specialty Hospital - [facility] SouthNitrite Ql (U)NegativeNegativeSelect Medical Specialty Hospital - [facility] SouthpH (U)7.5 [pH]5.0 - 8.0[facility] SouthProtein (U) [Mass/Vol]NegativeNegative [facility] SouthRBC LM.HPF (Urine sed) [#/Area]0-2 /HPF0-2 /HPFSelect Medical Specialty Hospital - [facility] Specific gravity (U) [Rel density]1.024Peb7.005 - 1.030[facility] Urobilinogen Ql (U)0.2 EU/dL0.2-1.0 EU/dLSelect Medical Specialty Hospital - [facility] SouthWBC LM.HPF (Urine sed) [#/Area]0-5 /HPF0-5 /HPFSelect Medical Specialty Hospital - [facility] SouthThis test was developed and its performance characteristics determined by [facility]'s [facility] Pathology and Laboratory Medicine [place] ([facility] HOSPITALSPLMI). It has not been cleared or approved by the FDA. [facility] is regulated under CLIA as qualified to perform high-complexity testing. Thistest is used for clinical purposes. It should not be regarded as investigational or for research. [facility]tering Health SpringfieldBacteria LM.HPF (Urine sed) [#/Area]Negative NormalNegativeSt. Mary's Medical Center, Ironton Campusment on above:Order Comment: Specimen Type: URINE SPECIMEN Ordering Facility: [facility] Address: [address] [place], [place] [address]Performed By: #### 54893-7 #### [facility] CLIA [id number] [address] [place] [address] [facility] AMERICABilirubin Ql (U)Negative NormalNegativeMemorial Health System on above:Order Comment: Specimen Type: URINE SPECIMEN Ordering Facility: [facility] Address: [address] [place], [place] [address]Performed By: #### 02404-6 #### [facility] CLIA [id number] [facility] [address] [place] AMERICAClarity (Unsp spec)Clear NormalClearCCleveland Clinic [facility]inte [facility] on above:Order Comment: Specimen Type: URINE SPECIMEN Ordering Facility: [facility] Address: [address] [place], [place] [address]Performed By: #### 14786-5 #### [facility] CLIA [id number] [address] [place], [place] [address] [place] AMERICAColor (U)YellowNormalYellow [facility] on above:Order Comment: Specimen Type: URINE SPECIMEN Ordering Facility: [facility] Address: [address] [place], [place] [address]Performed By: #### 58358-5 #### [facility] CLIA [id number] [address] [place], [place] [address] [place] AMERICAEpithelial cells LM.HPF (Urine sed) [#/Area]None SeenNormalCCleveland Clinic [facility] on above: Order Comment: Specimen Type: URINE SPECIMEN Ordering Facility: [facility] Address: [address] [place], [place] [address]Performed By: #### 64513-6 #### [facility] CLIA [id number] [address] [place] [address] [place] AMERICAGlucose Test strip (U) [Mass/Vol]NegativeNormalNegativeMemorial Health System on above:Order Comment: Specimen Type: URINE SPECIMEN Ordering Facility: [facility] Address: [address] [place], [place] [address]Performed By: #### 70549-8 #### [facility] CLIA [id number] [address] [place] [address] [place] AMERICAHemoglobin Ql (U)Negative NormalNegativeMemorial Health System on above:Order Comment: Specimen Type: URINE SPECIMEN Ordering Facility: [facility] Address: [address] [place], [place] [address]Performed By: #### 84158-0 #### [facility] CLIA [id number] [address] [place] [address] [place] AMERICAHyaline casts (Urine sed) [#/Area]0 /[LPF]Normal0 /LPFCCleveland Clinic South Pointe Hospital on above:Order Comment: Specimen Type: URINE SPECIMEN Ordering Facility: [facility] Address: [address] [place], [place] [address]Performed By: #### 31052-9 #### [facility] CLIA [id number] [address] [place] [address] [place] AMERICAKetones Ql (U)NegativeNormal NegativeMemorial Health System on above:Order Comment: Specimen Type: URINE SPECIMEN Ordering Facility: [facility] Address: [address] [place], [place] [address]Performed By: #### 72923-8 #### [facility] CLIA [id number] [address] [place] [address] [place] AMERICALeukocyte esterase Test strip Ql (U)NegativeNormalNegativeMemorial Health System on above: Order Comment: Specimen Type: URINE SPECIMEN Ordering Facility: [facility] Address: [address] [place], [place] [address]Performed By: #### 38247-8 #### [facility] CLIA [id number] [address] [place], [place] [address] [place] AMERICANitrite Ql (U)NegativeNormal NegativeMemorial Health System on above:Order Comment: Specimen Type: URINE SPECIMEN Ordering Facility: [facility] Address: [address] [place], [place] [address]Performed By: #### 46852-0 #### [facility] CLIA [id number] [address] [place], [place] [address] [place] AMERICApH (U)7.5 [pH]Normal5.0-8.0 [facility] on above:Order Comment: Specimen Type: URINE SPECIMEN Ordering Facility: [facility] Address: [address] [place], [place] [address]Performed By: #### 53072-8 #### [facility] CLIA [id number] [address] [place] [address] [place] AMERICAProtein (U) [Mass/Vol] NegativeNormalNegativeMemorial Health System on above:Order Comment: Specimen Type: URINE SPECIMEN Ordering Facility: [facility] Address: [address] [place], [place] [address]Performed By: #### 45552-7 #### [facility] IA [id number] [address] [place] [address] [place] [facility]ICAL CENTERRB LM.HPF (Urine sed) [#/Area]0-2 /HPFNormal0-2 /HPFMemorial Health System on above:Order Comment: Specimen Type: URINE SPECIMEN Ordering Facility: [facility] Address: [address] [place], [place] [address]Performed By: #### 23257-1 #### [facility] IA [id number] [address] [place] [address] [place] AMERICASpecific gravity (U) [Rel density]1.913Rnu2.005-1.030[facility] on above:Order Comment: Specimen Type: URINE SPECIMEN Ordering Facility: [facility] Address: [address] [place], [place] [address]Performed By: #### 47421-6 #### [facility] IA [id number] [address] [place] [address] [place] [facility] MEDICAL CENTERUrobilinogen Ql (U)0.2 EU/dL Normal0.2-1.0 EU/dLMemorial Health System on above:Order Comment: Specimen Type: URINE SPECIMEN Ordering Facility: [facility] Address: [address] [place], [place] [address]Performed By: #### 22380-1 #### [facility] IA [id number] [address] [place], [place] [address] LM.HPF (Urine sed) [#/Area]0-5 /HPFNormal0-5 /HPFAvita Health SystemComment on above:Order Comment: Specimen Type: URINE SPECIMEN Ordering Facility: [facility] Address: [address] [place], [place] [address]Performed By: #### 27185-4 #### [facility] CLIA [id number] [address] [place], [place] [address]CNPNon [id number] Telephone (RHEUMN) SUSAN HOGUE ([id number]) 1985 F Date Time Provider Department 03/23/25 BEATRIZ TREVIÑO During your visit today, we recorded the following information about you: Julia Mcarthur 03/23/2025 4:40 PM Signed [facility] on 03/22/25. Scanned for review. Flash Castelan, CHEYANNE 03/24/2025 7:19 AM Signed Eye exam completed 01/20/2025, no evidence HCQ toxicity: Scan on 03/23/2025 3:51 PM by Provider, KENYON Garcia: Consultation - Ophthalmology Allergies As of Date: 03/23/2025 (Not on File) Date Reviewed: Never Reviewed Reason for Visit: Received Outside Medical Records [3463] Prescriptions as of 03/24/2025 - hydrOXYchloroQUINE (PLAQUENIL) 200 mg tablet TAKE 1 AND 1/2 TABLETS BY MOUTH ONCE DAILY Problem List As Of Date: 03/23/2025 (None) Encounter Status:Closed by FLASH CASTELAN on 03/24/25[facility] CBC WITH AUTO DIFFon 62-84-1109HEHLWMIIM ABSOLUTE AUTO0.1NOMS HealthcareBasophils/100 WBC (Bld)1.2 %0.2 - 2.0 %NOMS HealthcareEosinophils/100 WBC (Bld)5.5 %0.9 - 7.0 %NOMS HealthcareErythrocyte distribution width (RBC) [Ratio]12.6 %11.0 - 15.0 %NOMS HealthcareHematocrit (Bld) [Volume fraction]39.1 %36.0 - 48.0 %NOMS HealthcareHemoglobin (Bld) [Mass/Vol]13 g/dL12.0 - 16.0 g/dL NOMS HealthcareIMMATURE GRANULOCYTES ABS [id number] HealthcareImmature granulocytes/100 WBC (Bld)0 %0.0 - 0.5 %[facility] HealthcareInterpretation and review of laboratory resultsAbnormalNOTN HealthcareLYMPHOCYTES ABSOLUTE AUTO1.8NOMS HealthcareLymphocytes/100 WBC (Bld)36.1 %20.5 - 60.0 %NOMS [facility] HospitalMCH (RBC) [Entitic mass]31 pg26.7 - 34.0 pgNOTN HealthcareMCHC (RBC) [Mass/Vol]33.2 g/dL 29.9 - 35.2 g/dLNOCarondelet HealthMCV (RBC) [Entitic vol]93.1 fL81.0 - 99.0 fLNOTN HealthcareMONOCYTES ABSOLUTE AUTO0.6NOMS HealthcareMonocytes/100 WBC (Bld)12.6 % High1.7 - 12.0 %NOMS HealthcareNEUTROPHILS ABSOLUTE AUTO2.3[facility] Neutrophils/100 WBC (Bld)44.6 %43.0 - 75.0 %NOMS HealthcarePlatelet mean volume (Bld) [Entitic vol]10.8 fL9.5 - 13.5 fLNOTN HealthcareTBH EO #0.3[facility] TBH [id number] HealthcareTB RBC4.2NOMS HealthcareTBH WBC5.1[facility] CLINISYNCNOMS HealthcareHCG ( test) Ql (U)on 17-07-5784Avctfpuwxmlywx and review of laboratory resultsNormalNO HealthcarePreg Test, UrNegative NegativeNOMS Theo KiddLon 01-20-2025L Specimen: [id number] Received: 01/21/25 Status: BOYD Alaniz Num: [id number] Spec Type: Surgical Subm Dr: Saurabh López Tissues: A Endocervix - Biopsy (ENDOCERVIX) Procedures: HE/2, Gross/Micro L4 Age/ Patient Sex Location Account Attending Physician Susan Hogue 39/F LABELL [id number] Saurabh López SPEC NUM: [id number] RECD: 01/21/25 STATUS: BOYD ALANIZ NUM: [id number] VINNY: 01/20/25- SUBM DR: Saurabh López ENTERED: 01/21/[address] [facility] [address]: Sandeep,Lab SPEC TYPE: Surgical DEPT: BESSIE CUI ENTERED BY: [id number] RECV BY: [id number] ORDERED: HE/2, Gross/Micro L4 ORDERED: HE/2, Gross/Micro L4 Pathological Diagnosis Endometrium, biopsy: - [...] submitted in a single cassette. (1, ns, [id number]) Microscopic Description Microscopic examination is performed. Specimen: [id number] Received: 01/21/25 Status: BOYD Alaniz Num: [id number] Spec Type: Surgical Subm Dr: Saurabh López Tissues: A Endocervix - Biopsy (ENDOCERVIX) Procedures: HE/2, Gross/Micro L4 Patient: Susan Hogue [id number] (Continued) Specimen: [id number] Received: 01/21/25 (Continued) Signed (signature on file) Mati Inman MD 01/24/25 1340 Specimen: [id number] Received: 01/21/25 Status: BOYD Alaniz Num: [id number] Spec Type: Surgical Subm Dr: Saurabh López Tissues: A Endocervix - Biopsy (ENDOCERVIX) Procedures: Julian NO/Shy L4 Patient: Susan Hogue [id number] (Continued) Specimen: [id number] Received: 01/21/25 (Continued) CPT Codes 71875 Specimen: [id number] Received: 01/21/25 Status: BOYD Alaniz Num: [id number] Spec Type: Surgical Subm Dr: Saurabh López Tissues: A Endocervix - Biopsy (ENDOCERVIX) Procedures: TINA/Julian Lawson/Shy L4 Patient: Susan Hogue [id number] (Continued) Signed (signature on file) Mati Inman MD 01/24/25 1340Normal [facility] GroupALL CBC WITH AUTO DIFFon 07-31-3739QLYROJZTL ABSOLUTE [id number] HealthcareBasophils/100 WBC (Bld)0.6 %0.2 - 2.0 %NOMS HealthcareEosinophils/100 WBC (Bld)3.2 %0.9 - 7.0 %NOMS HealthcareErythrocyte distribution width (RBC) [Ratio]12.5 %11.0 - 15.0 %NOMS HealthcareHematocrit (Bld) [Volume fraction]35 %Low36.0 - 48.0 %NOMS HealthcareHemoglobin (Bld) [Mass/Vol]11.9 g/dLLow12.0 - 16.0 g/dLNOTN HealthcareIMMATURE GRANULOCYTES ABS AUTO0.01NOMS HealthcareImmature granulocytes/100 WBC (Bld)0.2 %0.0 - 0.5 %NOMS HealthcareInterpretation and review of laboratory resultsAbnormalNOTN Healthcare LYMPHOCYTES ABSOLUTE AUTO1.6NOMS HealthcareLymphocytes/100 WBC (Bld)30.4 %20.5 - 60.0 %NOMS [facility] HospitalMCH (RBC) [Entitic mass]31.5 pg26.7 - 34.0 pgNOCarondelet HealthMCHC (RBC) [Mass/Vol]34 g/dL29.9 - 35.2 g/dLNOCarondelet HealthMCV (RBC) [Entitic vol]92.6 fL81.0 - 99.0 fLNOTN HealthcareMONOCYTES ABSOLUTE AUTO0.5NOMS HealthcareMonocytes/100 WBC (Bld)8.8 %1.7 - 12.0 %NOMS HealthcareNEUTROPHILS ABSOLUTE AUTO3.1NOMS HealthcareNeutrophils/100 WBC (Bld)56.8 %43.0 - 75.0 %NOMS HealthcarePlatelet mean volume (Bld) [Entitic vol]10.6 fL9.5 - 13.5 fLNOMS HealthcareTBH EO #0.2NOMS HealthcareTBH [id number] HealthcareTB RBC3.78LowNOMS HealthcareTBH WBC5.4NOMS HealthcareCLINISYNCNOMS HealthcareUS PELVIC COMPLETE W/ TVon 19-72-9114CW PELVIC COMPLETE W/ TVEXAM: US PELVIC COMPLETE W/ TV HISTORY: Menorrhagia. [...] II, MD, PHD at 11-Jan-2025 11:32:05 PM [facility]eleradiologyNormalNot AvailableComment on above:Order Comment: US PELVIS-TRANSVAG IF INDICATED Patient's last menstrual period was 12/12/2024 (exact date).Demi 12-27-2024 CNPNTelephone (RHEUMN) SUSAN HOGUE ([id number]) 1985 F Date Time Provider Department 12/27/24 HUDSON, BEATRIZ A RHEUMN During your visit today, we recorded the following information about you: Julia Mcarthur 12/27/2024 3:08 PM Signed [facility] Scanned for review. Jerel Leiva RN 12/28/2024 7:30 AM Signed Scan on 12/27/2024 10:19 AM by Provider, External, REMAC: Consultation - Ophthalmology Allergies As of Date: 12/27/2024 (Not on File) Date Reviewed: Never Reviewed Reason for Visit: Received Outside Medical Records [3576] Prescriptions as of 12/28/2024 - hydrOXYchloroQUINE (PLAQUENIL) 200 mg tablet TAKE 1 AND 1/2 TABLETS BY MOUTH ONCE DAILY Problem List As Of Date: 12/27/2024 (None) Encounter Status:Closed by JEREL LEIVA on [facility]/24[facility] ( [facility]) Ql (U)on 15-96-5446Ctuqsyilsaitve and review of laboratory resultsNormalNOMS HealthcarePreg Test, UrNegativeNegativeNOMS HealthcareNOMS HealthcareUrinalysis macro (dipstick) panel (U)on 12-13-2024 Bilirubin, UANegativeNegative - 4(70) +++ mg/dLNOMS HealthcareBlood, UANegative Negative - 50 Gino/mcLNOMS HealthcareClarity, UAClearNOMS HealthcareColor, UA YellowNOMS HealthcareGlucose, UANegativeNegative - 2000(110) ++++ mg/dLNOMS HealthcareInterpretation and review of laboratory resultsNormalNOMS Healthcare Ketones, UAPositiveNegative - 160(16) ++++ mg/dLNOMS HealthcareComment on above: traceLeukocytes, UANegativeNegative - 500+++ Lisa/mcLNOMS HealthcareNitrite, UA NegativeNegative - PositiveNOMS HealthcarepH, UA5.55 - 9NOMS HealthcareProtein, UANegativeNegative - 2000(20) ++++ mg/dLNOMS HealthcareSpec Grav, UA1.031 - 1.03 NOMS HealthcareUrobilinogen, UA0.20.2 - 12 mg/dLNOMS HealthcareNOMS HealthcareC3 SerPl-mCncon 59-72-7665Fweahndmzy C3 [Mass/Vol]97 mg/nHAliaqh28-370QlltwxkotMemorial Health System on above:Order Comment: Specimen Type: URINE SPECIMEN Ordering Facility: [facility] Address: [address] [place], [place] [address]Performed By: #### 01326-3 #### [facility] CLIA [id number] [address] [place] [address] [place] AMERICAC4 SerPl-mCncon 09-14-2024 Complement C4 [Mass/Vol]16 mg/cJZrhssd82-16MqtushpheMemorial Health System on above:Order Comment: Specimen Type: URINE SPECIMEN Ordering Facility: [facility] Address: [address] [place], [place] [address]Performed By: #### 27807-9 #### [facility] CLIA [id number] [address] [place] [address] [place] AMERICACB W Auto Differential panel (Bld)on 89-71-5742Laupvoxqj (Bld) [#/Vol]0.05 10*3/uLNormal<0.11CCleveland [facility] on above:Order Comment: Specimen Type: URINE SPECIMEN Ordering Facility: [facility] Address: [address] [place], [place] [address]Performed By: #### 15014-6 #### [facility] CLIA [id number] [address] [place] [address] [place] AMERICABasophils/100 WBC (Bld)0.8 % NormalMemorial Health System on above:Order Comment: Specimen Type: URINE SPECIMEN Ordering Facility: [facility] Address: [address] [place], [place] [address]Performed By: #### 76535-7 #### [facility] CLIA [id number] [address] [place] [address] [place] AMERICADifferential cell count method Nom (Bld)AutoNormalCCleveland Clinic South Pointe Hospital on above:Order Comment: Specimen Type: URINE SPECIMEN Ordering Facility: [facility] Address: [address] [place], [place] [address]Performed By: #### 32492-7 #### [facility] CLIA [id number] [address] [place] [address] [place] AMERICAEosinophils (Bld) [#/Vol] 0.15 10*3/uLNormal<0.46[facility] on above:Order Comment: Specimen Type: URINE SPECIMEN Ordering Facility: [facility] Address: [address] [place], [place] [address]Performed By: #### 32387-4 #### [facility] CLIA [id number] [address] [place] [address] [place] AMERICAEosinophils/100 WBC (Bld)2.4 %NormalMemorial Health System on above:Order Comment: Specimen Type: URINE SPECIMEN Ordering Facility: [facility] Address: [address] [place], [place] [address]Performed By: #### 58617-7 #### [facility] CLIA [id number] [address] [place] [address] [place] AMERICAErythrocyte distribution width (RBC) [Ratio]12.3 %Ofvhes52.5-15.0[facility] on above:Order Comment: Specimen Type: URINE SPECIMEN Ordering Facility: [facility] Address: [address] [place], [place] [address]Performed By: #### 05368-8 #### [facility] CLIA [id number] [address] [place], [place] [address] [place] AMERICAHematocrit (Bld) [Volume fraction]40.3 %Wxqlpx70.0-46.0[facility] on above:Order Comment: Specimen Type: URINE SPECIMEN Ordering Facility: [facility] Address: [address] [place], [place] [address]Performed By: #### 34345-9 #### [facility] CLIA [id number] [address] [place] [address] [place] AMERICAHemoglobin (Bld) [Mass/Vol] 13.6 g/tKNarrjg71.5-15.5CC[facility] on above:Order Comment: Specimen Type: URINE SPECIMEN Ordering Facility: [facility] Address: [address] [place], [place] [address]Performed By: #### 90654-3 #### [facility] CLIA [id number] [address] [place] [address] [place] AMERICAImmature granulocytes (Bld) [#/Vol]10*3/uLNormal<0.10[facility] on above:Order Comment: Specimen Type: URINE SPECIMEN Ordering Facility: [facility] Address: [address] [place], [place] [address]Performed By: #### 23366-9 #### [facility] CLIA [id number] [address] [place] [address] [place] AMERICAImmature granulocytes/100 WBC (Bld)0.2 %NormalMemorial Health System on above:Order Comment: Specimen Type: URINE SPECIMEN Ordering Facility: [facility] Address: [address] [place], [place] [address]Performed By: #### 44343-2 #### [facility] CLIA [id number] [address] [place] [address] [place] AMERICALymphocytes (Bld) [#/Vol] 1.65 10*3/uLNormal1.00-4.00[facility] on above:Order Comment: Specimen Type: URINE SPECIMEN Ordering Facility: [facility] Address: [address] [place], [place] [address]Performed By: #### 62856-6 #### [facility] CLIA [id number] [address] [place], [place] [address] [place] AMERICALymphocytes/100 WBC (Bld) 26.0 %NormalMemorial Health System on above:Order Comment: Specimen Type: URINE SPECIMEN Ordering Facility: [facility] Address: [address] [place], [place] [address]Performed By: #### 22671-0 #### [facility] CLIA [id number] [address] [place] [address] (RBC) [Entitic mass]30.2 vsWtficf70.0-34.0[facility] on above:Order Comment: Specimen Type: URINE SPECIMEN Ordering Facility: [facility] Address: [address] [place], [place] [address]Performed By: #### 27620-5 #### [facility] CLIA [id number] [address] [place], [place] [address]MCHC (RBC) [Mass/Vol]33.7 g/sQIhrrdo46.5-36.0[facility] on above:Order Comment: Specimen Type: URINE SPECIMEN Ordering Facility: [facility] Address: [address] [place], [place] [address]Performed By: #### 51002-3 #### [facility] CLIA [id number] [address] [place] [address] (RBC) [Entitic vol]89.6 kTMbydbz38.0-100.0[facility] on above:Order Comment: Specimen Type: URINE SPECIMEN Ordering Facility: [facility] Address: [address] [place], [place] [address]Performed By: #### 49175-1 #### [facility] CLIA [id number] [address] [place], [place] [address]Monocytes (Bld) [#/Vol]0.50 10*3/uLNormal<0.87[facility] on above:Order Comment: Specimen Type: URINE SPECIMEN Ordering Facility: [facility] Address: [address] [place], [place] [address]Performed By: #### 87033-2 #### [facility] CLIA [id number] [address] [place] [address] [place] AMERICAMonocytes/100 WBC (Bld)7.9 % NormalMemorial Health System on above:Order Comment: Specimen Type: URINE SPECIMEN Ordering Facility: [facility] Address: [address] [place], [place] [address]Performed By: #### 21562-0 #### [facility] CLIA [id number] [address] [place] [address] [place] AMERICANeutrophils (Bld) [#/Vol] 3.99 10*3/uLNormal1.45-7.50[facility] on above:Order Comment: Specimen Type: URINE SPECIMEN Ordering Facility: [facility] Address: [address] [place], [place] [address]Performed By: #### 01106-2 #### [facility] CLIA [id number] [address] [place] [address] [place] AMERICANeutrophils/100 WBC (Bld) 62.7 %NormalMemorial Health System on above:Order Comment: Specimen Type: URINE SPECIMEN Ordering Facility: [facility] Address: [address] [place], [place] [address]Performed By: #### 43109-4 #### [facility] CLIA [id number] [address] [place] [address] [place] AMERICANucleated RBC (Bld) [#/Vol] 10*3/uLNormal<0.01[facility] on above:Order Comment: Specimen Type: URINE SPECIMEN Ordering Facility: [facility] Address: [address] [place], [place] [address]Performed By: #### 77861-7 #### [facility] CLIA [id number] [address] [place] [address] [place] AMERICANucleated RBC/100 WBC (Bld) [Ratio]0.0 /100 WBCNormalCCleveland Clinic South Pointe Hospital on above:Order Comment: Specimen Type: URINE SPECIMEN Ordering Facility: [facility] Address: [address] [place], [place] [address]Performed By: #### 66060-5 #### [facility] CLIA [id number] [address] [place] [address] [place] AMERICAPlatelet mean volume (Bld) [Entitic vol]10.7 fLNormal9.0-12.7CC[facility] Clinic [facility] on above: Order Comment: Specimen Type: URINE SPECIMEN Ordering Facility: [facility] Address: [address] [place], [place] [address]Performed By: #### 38506-2 #### [facility] CLIA [id number] [address] [place] [address] [place] AMERICAPlatelets (Bld) [#/Vol]277 10*3/fBVjmpta126-518VdtbgeeuyMemorial Health System on above:Order Comment: Specimen Type: URINE SPECIMEN Ordering Facility: [facility] Address: [address] [place], [place] [address]Performed By: #### 41846-0 #### [facility] CLIA [id number] [address] [place] [address] [place] AMERICARBC (Bld) [#/Vol]4.50 10*6/uLNormal3.90-5.20[facility] on above:Order Comment: Specimen Type: URINE SPECIMEN Ordering Facility: [facility] Address: [address] [place], [place] [address]Performed By: #### 27590-2 #### [facility] CLIA [id number] [address] [place] [address] [place] AMERICAWBC (Bld) [#/Vol]6.35 10*3/uLNormal3.70-11.00[facility] on above:Order Comment: Specimen Type: URINE SPECIMEN Ordering Facility: [facility] Address: [address] [place], [place] [address]Performed By: #### 45444-4 #### [facility] CLIA [id number] [address] [place] [address] [place] AMERICAComprehensive metabolic 2000 panelon 01-12-1338Aadbdxz [Mass/Vol]4.8 g/dLNormal3.9-4.9CC[facility] on above:Order Comment: Specimen Type: URINE SPECIMEN Ordering Facility: [facility] Address: [address] [place], [place] [address]Performed By: #### 34426-2 #### [facility] CLIA [id number] [address] [place], [place] [address] [place] AMERICAALP [Catalytic activity/Vol] 50 U/YYdajax69-078JevkldaftMemorial Health System on above:Order Comment: Specimen Type: URINE SPECIMEN Ordering Facility: [facility] Address: [address] [place], [place] [address]Performed By: #### 82983-9 #### [facility] CLIA [id number] [address] [place] [address] [place] AMERICAALT [Catalytic activity/Vol] 16 U/LNormal7-38[facility] on above:Order Comment: Specimen Type: URINE SPECIMEN Ordering Facility: [facility] Address: [address] [place], [place] [address]Performed By: #### 61920-0 #### [facility] CLIA [id number] [address] [place], [place] [address] [place] AMERICAAnion gap [Moles/Vol]8 mmol/LNormal8-15[facility] on above:Order Comment: Specimen Type: URINE SPECIMEN Ordering Facility: [facility] Address: [address] [place], [place] [address]Performed By: #### 16345-6 #### [facility] CLIA [id number] [address] [place], [place] [address] [place] AMERICAAST [Catalytic activity/Vol] 22 U/IDnbtee73-84JijtheftbMemorial Health System on above:Order Comment: Specimen Type: URINE SPECIMEN Ordering Facility: [facility] Address: [address] [place], [place] [address]Performed By: #### 14309-8 #### [facility] CLIA [id number] [address] [place], [place] [address] [place] AMERICABilirubin [Mass/Vol]0.4 mg/dLNormal0.2-1.3CC[facility] on above:Order Comment: Specimen Type: URINE SPECIMEN Ordering Facility: [facility] Address: [address] [place], [place] [address]Performed By: #### 40504-2 #### [facility] CLIA [id number] [address] [place], [place] [address] [place] AMERICACalcium [Mass/Vol]10.2 mg/dL Normal8.5-10.2CC[facility] on above:Order Comment: Specimen Type: URINE SPECIMEN Ordering Facility: [facility] Address: [address] [place], [place] [address]Performed By: #### 99518-4 #### [facility] CLIA [id number] [address] [place], [place] [address] [place] AMERICAChloride [Moles/Vol]105 mmol/LEazvfi77-161VrodizdmkMemorial Health System on above:Order Comment: Specimen Type: URINE SPECIMEN Ordering Facility: [facility] Address: [address] [place], [place] [address]Performed By: #### 40786-6 #### [facility] CLIA [id number] [address] [place], [place] [address] [place] AMERICACO2 [Moles/Vol]27 mmol/L Quckvo99-27ZtxfyhhncMemorial Health System on above:Order Comment: Specimen Type: URINE SPECIMEN Ordering Facility: [facility] Address: [address] [place], [place] [address]Performed By: #### 71471-9 #### [facility] CLIA [id number] [address] [place] [address] [place] AMERICACreatinine [Mass/Vol]0.66 mg/dLNormal0.58-0.96[facility] on above:Order Comment: Specimen Type: URINE SPECIMEN Ordering Facility: [facility] Address: [address] [place], [place] [address]Performed By: #### 10338-7 #### [facility] [place] [id number] [address] [place] [address] [place] AMERICACreatinine and Glomerular filtration rate.predicted panel (S/P/Bld)117 mL/min/1.73m???Normal>=60[facility] on above:Order Comment: Specimen Type: URINE SPECIMEN Ordering Facility: [facility] Address: [address] [place], [place] [address]Result Comment: Estimated Glomerular Filtration Rate (eGFR) is calculated using the 2020 CKD-EPI cre atinine equation. This equation utilizes serum creatinine, sex, and age as parameters. The creatinine assay has traceable calibration to isotope dilution- mass spectrometry. Refer to KDIGO guidelines for clinical interpretation. In patients with unstable renal function, e.g. those with acute kidney injury, the eGFR may not accurately reflect actual GFR.Performed By: #### 87114-3 #### [facility] CLIA [id number] [address] [place], [place] [address] [place] AMERICAGlucose [Mass/Vol]93 mg/dL Wefvqj60-50FaoiboombMemorial Health System on above:Order Comment: Specimen Type: URINE SPECIMEN Ordering Facility: [facility] Address: [address] [place], [place] [address]Result Comment: The [place] Diabetes Association (ADA) provides guidance for cutoff [...] Standards of Medical Care in Diabetes 2016, [place] [employer]. Diabetes Care. 2016.39(Suppl 1).Performed By: #### 59149-5 #### [facility] CLIA [id number] [address] [place] [address] [place] AMERICAPotassium [Moles/Vol]3.8 mmol/LNormal3.7-5.1CC[facility] on above:Order Comment: Specimen Type: URINE SPECIMEN Ordering Facility: [facility] Address: [address] [place], [place] [address]Performed By: #### 39436-3 #### [facility] IA [id number] [address] [place] [address] [place] AMERICAProtein [Mass/Vol]7.4 g/dL Normal6.3-8.0[facility] on above:Order Comment: Specimen Type: URINE SPECIMEN Ordering Facility: [facility] Address: [address] [place], [place] [address]Performed By: #### 49644-4 #### [facility] CLIA [id number] [address] [place] [address] [place] AMERICASodium [Moles/Vol]140 mmol/L Mmyzid027-299SqwlaoztnMemorial Health System on above:Order Comment: Specimen Type: URINE SPECIMEN Ordering Facility: [facility] Address: [address] [place], [place] [address]Performed By: #### 87084-4 #### [facility] CLIA [id number] [address] [place] [address] [place] AMERICAUrea nitrogen [Mass/Vol]11 mg/dLNormal7-21[facility] on above:Order Comment: Specimen Type: URINE SPECIMEN Ordering Facility: [facility] Address: [address] [place], [place] [address]Performed By: #### [id number] #### [facility] CLIA [id number] [address] [place] [address] [place] AMER[place]ADNA ANTIBODY DS BLDon [id number] IU/mLNormal<=200[facility] on above:Order Comment: Specimen Type: BLOOD SPECIMEN Ordering Facility: [facility] Address: [address] [place], [place] [address]Result Comment: Negative: <200 IU/mL Equivocal: 201-300 IU/mL Moderate Positive: 301-800 IU/mL Strong Positive: >801 IU/mLPerformed By: #### DNAAB #### [facility] CLIA [id number] [address] [place] [address] [place] AMER[place]ADNA ANTIBODY QUALITATIVE INTERPRETATIONNegativeNormalNegativeMem[facility] on above: Order Comment: Specimen Type: BLOOD SPECIMEN Ordering Facility: [facility] Address: [address] [place], [place] [address]Performed By: #### DNAAB #### [facility] CLIA [id number] [address] [place] [address] [place] AMERICAProt/Creat Uron 09-14-2024 Protein/Creatinine (U) [Mass ratio]0.09 mg/mgNormal<0.15[facility] on above:Order Comment: Specimen Type: URINE SPECIMEN Ordering Facility: [facility] Address: [address] [place], [place] [address]Result Comment: Adult Proteinuria Categories: <0.15 mg/mg is considered normal to mildly increased 0.15 - 0.50 mg/mg is considered moderately increased >0.50 mg/mg is considered severely increased KDIGO. (2013). KDIGO 2012 Clinical Practice Guideline for the Evaluation and Management of Chronic Kidney Disease. Official Journal of the International Society of Nephrology, 3(1), 1-150.Performed By: #### 2890-2 #### [facility] CLIA [id number] [address] [place] [address] [place] AMERICAProtein/Creatinine (U) [Mass ratio]on 34-55-5545Hbjqhxmnxl (U) [Mass/Vol]79.9 mg/qFDkvzpg06.0-300.0[facility] on above:Order Comment: Specimen Type: URINE SPECIMEN Ordering Facility: [facility] Address: [address] [place], [place] [address]Performed By: #### 2890-2 #### [facility] CLIA [id number] [address] [place] [address] [place] AMERICAProtein (U) [Mass/Vol]7 mg/dLNormal0-20[facility] on above:Order Comment: Specimen Type: URINE SPECIMEN Ordering Facility: [facility] Address: [address] [place], [place] [address]Performed By: #### 2890-2 #### [facility] CLIA [id number] [address] [place] [address] [place] [facility] CENTERUrinalysis complete panel (U)on 05-12-2035VDAHQYVK FO8913.7 uLHighNegativeAvita Health System Comment on above:Order Comment: Specimen Type: URINE SPECIMEN Ordering Facility: [facility] Address: [address] [place], [place] [address]Performed By: #### 79254-9 #### [facility] CLIA [id number] [address] [place] [address] [place] AMERICABilirubin Ql (U)Negative NormalNegativeMemorial Health System on above:Order Comment: Specimen Type: URINE SPECIMEN Ordering Facility: [facility] Address: [address] [place], [place] [address]Performed By: #### 34818-9 #### [facility] CLIA [id number] [address] [place] [address], [place] [address] [place] OF AMERICAClarity (Unsp spec)Clear NormalClearCCleveland Clinic South Pointe Hospital on above:Order Comment: Specimen Type: URINE SPECIMEN Ordering Facility: [facility] Address: [address] [place], [place] [address]Performed By: #### 37167-2 #### [facility] CLIA [id number] [address] [place] [address] [place] [address] [place] OF AMERICAColor (U)YellowNormalYellow [facility] on above:Order Comment: Specimen Type: URINE SPECIMEN Ordering Facility: [facility] Address: [address] [place], [place] [address]Performed By: #### 52686-2 #### [facility] CLIA [id number] [address] [place] [address] [place] AMERICAEpithelial cells LM.HPF (Urine sed) [#/Area]ManyNormalCCleveland Clinic South Pointe Hospital on above:Order Comment: Specimen Type: URINE SPECIMEN Ordering Facility: [facility] Address: [address] [place], [place] [address]Performed By: #### 26055-9 #### [facility] CLIA [id number] [address] [place] [address] [place] [address] [place] AMERICAGlucose Test strip (U) [Mass/Vol]NegativeNormalNegativeMemorial Health System on above:Order Comment: Specimen Type: URINE SPECIMEN Ordering Facility: [facility] Address: [address] [place], [place] [address]Performed By: #### 58817-0 #### [facility] CLIA [id number] [address] [place] [address] [place] [address] [place] AMERICAHemoglobin Ql (U)Negative NormalNegativeMemorial Health System on above:Order Comment: Specimen Type: URINE SPECIMEN Ordering Facility: [facility] Address: [address] [place], [place] [address]Performed By: #### 70593-9 #### [facility] CLIA [id number] [address] [place], [place] [address] [place] AMERICAHyaline casts (Urine sed) [#/Area]1-3 /LPFAbnormal0 /LPFCCleveland Clinic South Pointe Hospital on above:Order Comment: Specimen Type: URINE SPECIMEN Ordering Facility: [facility] Address: [address] [place], [place] [address]Performed By: #### 78815-1 #### [facility] CLIA [id number] [address] [place] [address] [place] AMERICAKetones Ql (U)NegativeNormal NegativeMemorial Health System on above:Order Comment: Specimen Type: URINE SPECIMEN Ordering Facility: [facility] Address: [address] [place], [place] [address]Performed By: #### 97289-6 #### [facility] CLIA [id number] [address] [place], [place] [address] [place] AMERICALeukocyte esterase Test strip Ql (U)TraceAbnormalNegativeMemorial Health System on above: Order Comment: Specimen Type: URINE SPECIMEN Ordering Facility: [facility] Address: [address] [place], [place] [address]Performed By: #### 57338-1 #### [facility] CLIA [id number] [address] [place] [address] [place] OF AMERICANitrite Ql (U)NegativeNormal NegativeMemorial Health System on above:Order Comment: Specimen Type: URINE SPECIMEN Ordering Facility: [facility] Address: [address] [place], [place] [address]Performed By: #### 06902-6 #### [facility] CLIA [id number] [address] [place] [address] [place] AMERICApH (U)6.5 [pH]Normal<8.5 [facility] on above:Order Comment: Specimen Type: URINE SPECIMEN Ordering Facility: [facility] Address: [address] [place], [place] [address]Performed By: #### 49163-4 #### [facility] IA [id number] [address] [place] [address] [place] AMERICAProtein (U) [Mass/Vol] NegativeNormalNegativeMemorial Health System on above:Order Comment: Specimen Type: URINE SPECIMEN Ordering Facility: [facility] Address: [address] [place], [place] [address]Performed By: #### 45642-2 #### [facility] IA [id number] [address] [place] [address] [place] [facility] CENTERRBC LM.HPF (Urine sed) [#/Area]0-2 /HPFNormal0-2 /HPFMemorial Health System on above:Order Comment: Specimen Type: URINE SPECIMEN Ordering Facility: [facility] Address: [address] [place], [place] [address]Performed By: #### 60520-7 #### [facility] IA [id number] [address] [place] [address] [place] AMERICASpecific gravity (U) [Rel density]1.948Xkqise9.005-1.030[facility] on above:Order Comment: Specimen Type: URINE SPECIMEN Ordering Facility: [facility] Address: [address] [place], [place] [address]Performed By: #### 47946-1 #### [facility] IA [id number] [address] [place] [address] [place] AMERICAUrobilinogen Ql (U)0.2 EU/dL Normal0.2-1.0 EU/dLMemorial Health System on above:Order Comment: Specimen Type: URINE SPECIMEN Ordering Facility: [facility] Address: [address] [place], [place] [address]Performed By: #### 14478-7 #### [facility] CLIA [id number] [address] [place], [place] [address]WBC LM.HPF (Urine sed) [#/Area]6-10 /HPFAbnormal0-5 /HPFAvita Health SystemComment on above: Order Comment: Specimen Type: URINE SPECIMEN Ordering Facility: [facility] Address: [address] [place], [place] [address]Performed By: #### 98641-5 #### [facility] CLIA [id number] [address] [place], [place] [address]MM TOMOSYNTHESIS SCREENING BIon 81-37[place], [place] [address] Mammography Report Signed Patient: SUSAN HOGUE MR#: [id number] : 1985 Acct:[id number] Age/Sex: 38 / F ADM Date: 07/26/24 Loc: MAMMO Attending Dr: Saurabh López D.O. Ordering Physician: Saurabh López D.O. Results: Date of Service: 07/26/24 Follow Up: Procedure(s): MM tomosynthesis screening BI Accession Number(s): [id number] cc: Saurabh López D.O.; BELINDA MOCK Patient Name: SUSAN HOGUE MR#: [id number] : 1985 Exam Date: 07/26/2024 Ordering Doctor: DR Saurabh López . RADIOLOGY REPORT PROCEDURE: MM TOMOSYNTHESIS SCREENING BI COMPARISON: None. INDICATIONS: Screening Calculator Name NCI Breast Cancer Risk Assessment Tool 5 Year Breast Cancer Risk 0.30% Lifetime Breast Cancer Risk 9.20% Personal Breast Cancer No Personal Ovarian Cancer No Treatments None Family Cancers None LOCATION: [facility] BREAST COMPOSITION: The breasts are heterogeneously [...] PALPABLE LUMP SHOULD BE BIOPSIED. Dictated by: Shanna Linn MD on 07/26/2024 at 14:12 Approved by: Shanna Linn MD on 07/26/2024 at 14:13 Dictated By: Shanna Linn M.D. Signed By: 07/26/24 1414 DD/ 1413 TD/TT: Hydrodynamics Professor:TBHRadiology, Radiologist, - 07/26/2024 [place] [address] Mammography Report Signed Patient: SUSAN HOGUE MR#: [id number] : 1985 Acct:[id number] Age/Sex: 38 / F ADM Date: 07/26/24 Loc: MAMMO Attending Dr: Saurabh López D.O. Ordering Physician: Saurabh López D.O. Results: Date of Service: 07/26/24 Follow Up: Procedure(s): MM tomosynthesis screening BI Accession Number(s): [id number] cc: Saurabh López D.O.; BELINDA MOCK Patient Name: SUSAN HOGUE MR#: [id number] : 1985 Exam Date: 07/26/2024 Ordering Doctor: DR Saurabh López . RADIOLOGY REPORT PROCEDURE: MM TOMOSYNTHESIS SCREENING BI COMPARISON: None. INDICATIONS: Screening Calculator Name NCI Breast Cancer Risk Assessment Tool 5 Year Breast Cancer Risk 0.30% Lifetime Breast Cancer Risk 9.20% Personal Breast Cancer No Personal Ovarian Cancer No Treatments None Family Cancers None LOCATION: [facility] BREAST COMPOSITION: The breasts are heterogeneously [...] PALPABLE LUMP SHOULD BE BIOPSIED. Dictated by: Shanna Linn MD on 07/26/2024 at 14:12 Approved by: Shanna Linn MD on 07/26/2024 at 14:13 Dictated By: Shanna Linn M.D. Signed By: 07/26/241413 DD/ 12 TD/TT: Hydrodynamics Professor: FIGUEROA HealthcareRadiology Study observation (narrative)[facility] TOMOSYNTHESIS SCREENING BIOrdered By: Radiologist Radiology on 04-09-4550YIWA Healthcare Work Phone: IGP,APTIMA HPV,AGE GDLNon 33-00-2839GCG GDLN ACOG TESTINGNote.[facility] HealthcareComment on above:TESTS RESULT FLAG UNITS REF RANGE LAB Clinician Provided Cytology Information Source.............Cervix;Endocervix No. of containers..01 ThinPrep Vial Age Algo ACOG Olga... 30-65 01 FLAG LEGEND: L-Low Normal,H-High Normal,LL-Alert Low,HH-Alert High <-Panic Low,>-Panic High,A-Abnormal,AA-Critical Abnormal Performed at: 01 =G [address] [address] Fide Bolton MD, HPV APTIMANegativeNegativeGARFIELD MEMORIAL HOSPITAL HealthcareComment on above:This nucleic acid amplification test detects fourteen high- risk HPV types (16,18,31,33,35,39,45,51,52,56,58,59,66,68) without differentiation. Performed at: = - [facility] [id number] Business Quality Assurance Analyst: Fide Bolton MD, Phone: [phone] Performed at: - [facility], [place] [id number] Business Quality Assurance Analyst: Fide Bolton MD, Phone: [phone] IGP, APTIMA HPV, RFX 16/18,45Note.[facility] HealthcareComment on above:TESTS RESULT FLAG UNITS REF RANGE LAB DIAGNOSIS: 02 NEGATIVE FOR INTRAEPITHELIAL LESION OR MALIGNANCY. Specimen adequacy: 02 Satisfactory for evaluation. No endocervical component is identified. Performed by: 02 Inés Linn After School Coordinator (ASCP) . 02 Note: Note 02 The [...] High,A-Abnormal,AA-Critical Abnormal Performed at: 02 [facility] [address] [place] [address] Fide Bolton MD, BRUSH-SPATULA CERVIX ENDOCERVIX [facility] HealthNo Panel InformationOrdered By: Emma Negrete on 14-34-3669JUEBY Antigen (POC)[facility] CenterQuick Strep (POC) [facility] CenterC3 COMPLEMENTon 66-43-8120Qcewzuwuaz C3 [Mass/Vol]97 mg/dL86 - 166 mg/dLSelect Medical Specialty Hospital - Columbus SouthC4 COMPLEMENTon 2023 Complement C4 [Mass/Vol]21 mg/dL13 - 46 mg/dLProMedica Toledo HospitalC W Auto Differential panel (Bld)on 62-20-7690Hlzlzztsr (Bld) [#/Vol]0.05 10*3/uLNINF [facility] SouthBasophils/100 WBC (Bld)0.9 %[facility] SouthDifferential cell count method Nom (Bld)AutoCleveland ClinicEosinophils (Bld) [#/Vol]0.20 10*3/uL NINFCleveland ClinicEosinophils/100 WBC (Bld)3.5 %[facility] SouthErythrocyte distribution width (RBC) [Ratio]12.3 %11.5 - 15.0 %[facility] SouthHematocrit (Bld) [Volume fraction]37.0 %36.0 - 46.0 %[facility] SouthHemoglobin (Bld) [Mass/Vol]12.6 g/dL11.5 - 15.5 g/dLSelect Medical Specialty Hospital - Columbus SouthImmature granulocytes (Bld) [#/Vol]NINFCleveland ClinicImmature granulocytes/100 WBC (Bld)0.2 %[facility] SouthLymphocytes (Bld) [#/Vol]1.31 10*3/uLSelect Medical Specialty Hospital - Columbus SouthLymphocytes/100 WBC (Bld)22.9 %[facility] HospitalH (RBC) [Entitic mass]31.3 pg26.0 - 34.0 pg [facility] SouthMCHC (RBC) [Mass/Vol]34.1 g/dL30.5 - 36.0 g/dLSelect Medical Specialty Hospital - [facility] South MCV (RBC) [Entitic vol]91.8 fL80.0 - 100.0 fLCpremier health atrium medical center ClinicMonocytes (Bld) [#/Vol]0.54 10*3/uLNINFSelect Medical Specialty Hospital - [facility] SouthMonocytes/100 WBC (Bld)9.4 %[facility] SouthNeutrophils (Bld) [#/Vol]3.61 10*3/uLSelect Medical Specialty Hospital - Columbus SouthNeutrophils/100 WBC (Bld)63.1 %[facility] SouthNucleated RBC (Bld) [#/Vol]NINFClevelHighland District Hospital Nucleated RBC/100 WBC (Bld) [Ratio]0.0 %/100 WBCSelect Medical Specialty Hospital - Columbus SouthPlatelet mean volume (Bld) [Entitic vol]10.6 fL9.0 - 12.7 fLCFayette County Memorial HospitalPlatelets (Bld) [#/Vol]287 10*3/uLIsland Park ClinicRBC (Bld) [#/Vol]4.03 10*6/uL3.90 - 5.20 m/uL [facility] SouthWBC (Bld) [#/Vol]5.72 10*3/uLKettering Health SpringfieldCK [Catalytic activity/Vol]on 08-98-2825Wcelvoettuiysr and review of laboratory resultsNormalCleveland [facility] Medical CenterCREATINE KINASE/CKon 43-11-2742DQ [Catalytic activity/Vol]103 U/L42 - 196 U/LCleveland [facility] Medical CenterComprehensive metabolic 2000 panelon 68-76-6294Uounthn [Mass/Vol]4.4 g/dL3.9 - 4.9 g/dL [facility] HospitalP [Catalytic activity/Vol]67 U/L34 - 123 U/LCleveland [facility] ALT [Catalytic activity/Vol]15 U/L7 - 38 U/LCleveland ClinicAnion gap [Moles/Vol]9 mmol/L9 - 18 mmol/LCleveland ClinicAST [Catalytic activity/Vol]20 U/L13 - 35 U/LCleveland ClinicBilirubin [Mass/Vol]0.6 mg/dL0.2 - 1.3 mg/dL [facility] SouthCalcium [Mass/Vol]9.4 mg/dL8.5 - 10.2 mg/dLSelect Medical Specialty [facility] Chloride [Moles/Vol]105 mmol/L97 - 105 mmol/LCleveland ClinicCO2 [Moles/Vol]24 mmol/L22 - 30 mmol/LCleveland ClinicCreatinine [Mass/Vol]0.70 mg/dL0.58 - 0.96 mg/dLIsland Park ClinicGFR/1.73 sq M.predicted among non-blacks MDRD (S/P/Bld) [Vol rate/Area]115 mL/min/{1.73_m2}- PINFCleveland ClinicComment on above: Estimated Glomerular Filtration Rate (eGFR) is calculated using the 2020 CKD-EPI creatinine equation. This equation utilizes serum creatinine, sex, and age as parameters. The creatinine assay has traceable calibration to isotope dilution- mass spectrometry. Refer to KDIGO guidelines for clinical interpretation. In patients with unstable renal function, e.g. those with acute kidney injury, the eGFRmay not accurately reflect actual GFR.Glucose [Mass/Vol]89 mg/dL74 - 99 mg/dLSelect Medical Specialty Hospital - Columbus SouthComment on above:The [place] Diabetes Association (ADA) provides guidance for cutoff values for fasting glucose andrandom glucose. The ADA defines fasting as no caloric intake for at least 8 hours. Fasting plasma gl ucose results between 100 to 125 mg/dL indicate [...] Standards of Medical Care in Diabetes 2016, [place] Diabetes Association. Diabetes Care. 2016.39(Suppl 1). Interpretation and review of laboratory resultsAbnormalCleveland ClinicPotassium [Moles/Vol]3.6 mmol/LLow3.7 - 5.1 mmol/LCleveland ClinicProtein [Mass/Vol]6.9 g/dL6.3 - 8.0 g/dLIsland Park ClinicSodium [Moles/Vol]138 mmol/L136 - 144 mmol/L [facility] SouthUrea nitrogen [Mass/Vol]8 mg/dL7 - 21 mg/dLAvita Health System ClinicNo Panel Informationon 57-44-6013Xyjxqfxvrvbnku and review of laboratory resultsNormalCleveland [facility] ClinicPROTEIN / CREATININE RATIOon 13-56-3950Qfilbyr/Creatinine (U) [Mass ratio]0.10 mg/mgNINF - 0.15 mg/mg [facility] SouthComment on above:Adult Proteinuria Categories: <0.15 mg/mg is considered normal to mildly increased 0.15 - 0.50 mg/mg is considered moderately increased >0.50 mg/mg is considered severely increased KDIGO. (2013). KDIGO 2012 Clinical Practice Guideline for the Evaluation and Management of Chronic Kidney Disease. Official Journal of the International Society of Nephrology, 3(1), 1-150. Protein/Creatinine (U) [Mass ratio]on 83-52-3274Zwgkashwtw (U) [Mass/Vol]48.3 mg/dL20.0 - 300.0 mg/dLIsland Park ClinicInterpretation and review of laboratory resultsNormalCleveland ClinicProtein (U) [Mass/Vol]5 mg/dL0 - 20 mg/dLAultman Hospital ClinicUrinalysis complete panel (U)on 69-68-1143Arfdiwmj LM.HPF (Urine sed) [#/Area]NegativeNegative /HPFSelect Medical Specialty Hospital - Columbus SouthBilirubin Ql (U) NegativeNegativeIsland Park ClinicClarity (Unsp spec)ClearClearCleveland Clinic Color (U)YellowYellowSelect Medical Specialty Hospital - Columbus SouthEpithelial cells LM.HPF (Urine sed) [#/Area]None Seen/HPFSelect Medical Specialty Hospital - Columbus SouthGlucose Test strip (U) [Mass/Vol]Negative NegativeSelect Medical Specialty Hospital - Columbus SouthHemoglobin Ql (U)NegativeNegativeSelect Medical Specialty Hospital - [facility] SouthHyaline casts (Urine sed) [#/Area]1-3 /LPFAbnormal0 /LPFCleveland ClinicInterpretation and review of laboratory resultsAbnormalCleveland ClinicKetones Ql (U)Negative NegativeSelect Medical Specialty Hospital - Columbus SouthLeukocyte esterase Test strip Ql (U)NegativeNegative [place] ClinicNitrite Ql (U)NegativeNegativeIsland Park ClinicpH (U)6.5 [pH]NINF - 8.5Cleveland ClinicProtein (U) [Mass/Vol]NegativeNegativeSelect Medical Specialty Hospital - Columbus SouthRBC LM.HPF (Urine sed) [#/Area]0-2 /HPF0-2 /HPFIsland Park ClinicSpecific gravity (U) [Rel density]1.0101.005 - 1.030Clesamaritan north health center ClinicUrobilinogen Ql (U)0.2 EU/dL0.2- 1.0 EU/dLSelect Medical Specialty Hospital - Columbus SouthWBC LM.HPF (Urine sed) [#/Area]0-5 /HPF0-5 /HPF [facility] test was developed and its performance characteristics determined by [facility]'s [facility] HospitalClaude [facility] Pathology and Laboratory Medicine [place] ([facility]). It has not been cleared or approved by the FDA. [facility] is regulated under CLIA as qualified to perform high-complexity testing. Thistest is used for clinical purposes. It should not be regarded as investigational or for research. [facility]tering Health SpringfieldCytology Cervical or vaginal smear or scraping studyOrdered By: Rita Busby on 43-07-2525ADFF HealthcareSED RATE DAMIAN on 06-07-1205UFV RATE9 mm/hrNormal<=20The [facility] Mercy HospitalComment on above: Performed By: #### SEDR #### [facility] [address] [address] [address] Mio SpicerOUR LADY OF [facility] AUTO DIFFon 19-32-9431IYQB #0.1 103/ulNormal0.0-0.1The [facility] HospitalComment on above:Performed By: #### CBC ####[facility] [address] [address]DrYobani ChangBasophils/100 WBC (Bld)1.1 %Normal0.2-2.0[facility] Hospital - CincinnatiComment on above:Performed By: #### CBC ####[facility] [address] [address]DrYobani ChangEO #0.5 103/ulNormal0.0-0.7The [facility] HospitalComment on above:Performed By: #### CBC ####[facility] [address] [address]DrYobani ChangEosinophils/100 WBC (Bld)8.5 %Critically high0.9-7.0The [facility] HospitalComment on above:Performed By: #### CBC ####[facility] Ulaiwwcgu[address] [place], [place] [address]Dr. Mio ChangErythrocyte distribution width (RBC) [Ratio]12.8 %Kwvrpq31.0-15.0The [facility] HospitalComment on above:Performed By: #### CBC ####[facility] [address] [address]Dr.Mio ChangHematocrit (Bld) [Volume fraction]39.6 %Obzwta07.0-48.0The [facility] HospitalComment on above:Performed By: #### CBC ####[facility] Fbj[address]bjx[address] [place], [place] [address]Dr.Mio ChangHemoglobin (Bld) [Mass/Vol]13.4 g/dL Pjller72.0-16.0The [facility] HospitalComment on above:Performed By: #### CBC ####[facility] Kuvvrpqswu[address] [place], [place] [address]Dr. Yilan ChangIG #0.01 10e3/ulNormal0.00-0.03The [facility] HospitalComment on above: Performed By: #### CBC ####[facility] Tgievghejl[address] [place], [place] [address]Dr.Yilan ChangIG %0.2 %Normal0.0-0.5The [facility] HospitalComment on above:Performed By: #### CBC ####[facility] [address]uf[address] [place], [place] [address]Dr.Brandylan ChangLYMPH #1.4 103/ulNormal1.2-3.8The [facility] HospitalComment on above:Performed By: #### CBC ####[facility] Wisnnyottj[address] [place], [place] [address]Dr. Brandylan ChangLymphocytes/100 WBC (Bld)23.0 %Izjqva35.5-60.0[facility] Comment on above:Performed By: #### CBC ####[facility] Zaomwormcl[address] [place], [place] [address]Dr.Brandylan ChangMANUAL DIFF REQNONormalThe [facility] Clinic Mercy HospitalComment on above:Performed By: #### CBC ####[facility] Obx[address] [place], [place] [address]Dr.Mio SpicerH (RBC) [Entitic mass]31.3 ijManwyt41.7-34.0The [facility] HospitalComment on above: Performed By: #### CBC ####[facility] Uahmoxcwbu[address] [place], [place] [address]Dr.Mio SpicerHC (RBC) [Mass/Vol]33.8 g/dLNormal 29.9-35.2The [facility] HospitalComment on above:Performed By: #### CBC ####[facility] Apz[address]rz[address] [place], [place] [address]Dr. Mio NayanV (RBC) [Entitic vol]92.5 iDIlqnia07.0-99.0[facility] Comment on above:Performed By: #### CBC ####[facility] Yllxcwtdik[address] [place], [place] [address]Dr.Mio SpicerMONO #0.4 103/ulNormal0.3-0.8 [facility] HospitalComment on above:Performed By: #### CBC ####[facility] Cmtdnxenlc[address] [place], [place] [address]Dr.Brandysanthosh Spicer Monocytes/100 WBC (Bld)6.9 %Normal1.7-12.0The [facility] on above: Performed By: #### CBC ####[facility] F[address] [place], [place] [address]Dr.Mio NayanNEUT #3.7 103/ulNormal1.4-6.5The [facility] Hospitalment on above:Performed By: #### CBC ####[facility] W[address] [place], [place] [address]Dr.Mio NayanNeutrophils/100 WBC (Bld)60.3 %Urqicr70.0-75.0The [facility] HospitalComment on above:Performed By: #### CBC ####[facility] [address] [place], [place] [address]Dr.Brandysanthosh SpicerPlatelet mean volume (Bld) [Entitic vol]10.1 fLNormal9.5-13.5 The [place] HospitalComment on above:Performed By: #### CBC ####[facility] [address] [place], [place] [address]Yl.Mio OeulsCJX333 103/ldMkuafv007-858Zfu [facility] HospitalComment on above:Performed By: #### CBC ####[facility] Panmalicgz[address] [place], [place] [address]He. Mio ChangRBC4.28 106/ulNormal4.20-5.40The [facility] HospitalComment on above: Performed By: #### CBC ####[facility] Vohclixnxr480[address] [place], [place] [address]Xp.Mio ChangWBC6.1 103/ulNormal4.0-11.0The [facility] HospitalComment on above:Performed By: #### CBC ####[facility] J[address] [place], [place] [address]Oi.Brandysanthosh SpicerPREG HCG QUALon 63-93-1621HSSTWQXHW, QUALNegativeNormalNEGATIVEThe [facility] HospitalComment on above:Performed By: #### PREG #### [facility] [address] [place], [place] [address] Dr. Mio Ma-[address] ([address] [facility])on 64-62-1805OZHG-CoV-2 (COVID-19) RNA CANDICE+probe Ql (Unsp spec)Not detectedNormalNOT DETECTEDThe [facility] Comment on above:Result Comment: This test is not yet approved or cleared by the [place] FDA. When there are no FDA-approved or cleared tests available, and other criteria are met, FDA can make tests available under an emergency access mechanism called an Emergency Use Authorization (EUA). The EUA for this test is supported by the Material Clerk of Health and Human Service's (HHS's) declaration that circumstances exist to justify the emergency use of in vitro diagnostics for the detection and/or diagnosis of the virus that causes COVID- 19. This EUA will remain in effect (meaning [...] of clinical signs and symptoms consistent with SARS-CoV-2.Performed By: #### CVDTBH ####[facility] [address] [place] [address]Dr. Mio Langley ACOG PANEL 2: 30 to 65on 03-14-2022..NormalSelect [facility]ty Hospital [facility] CincinnatiComhawthorn center on above:Result Comment: Performed at: WBPerformed By: #### [id number] #### [facility] [address] [place] [address] Dr. Mio SpicerAge Gdln ACOG Tfynudf07-43HhjlncBivOhio State Harding HospitalComment on above:Performed By: #### [id number] #### [facility] [address] [place] [address] Dr. Mio SpicerDIAGNOSIS:CommentNorwalk Memorial Hospital on above: Result Comment: NEGATIVE FOR INTRAEPITHELIAL LESION OR MALIGNANCY. Performed at: WBPerformed By: #### [id number] #### [facility] [address] [place] [address] Dr. Mio SpicerHPV AptimaNegativeNormalNegativeOhioHealth Grady Memorial Hospital on above:Result Comment: This nucleic acid amplification test detects fourteen high-risk HPV types (16,18,31,33,35,39,45,51,52,56,58,59,66,68) without differentiation. Performed at: =GPerformed By: #### [id number] #### [facility] [address] [place] [address] Dr. Mio SpicerMethodology:CommentNorwalk Memorial Hospital on above: Result Comment: This liquid based ThinPrep(R) pap test was screened with the use of an image guided system. Performed at: WBPerformed By: #### [id number] #### [facility] [address] [place] [address] Dr. Mio SpicerNote:CommentNorwalk Memorial Hospital on above:Result Comment: The Pap smear is a screening test designed to aid in the detection of premalignant and malignant conditions of the uterine cervix. It is not a diagnostic procedure and should not be used as the sole means of detecting cervical cancer. Both false-positive and false-negative reports do occur. . Performed at: WBPerformed By: #### [id number] #### [facility] [address] [place] [address] Dr. Mio SpicerPerformed by:CommentNorwalk Memorial Hospital on above: Result Comment: Xenia Tan, After School Coordinator (ASCP) Performed at: WBPerformed By: #### [id number] #### [facility] [address] [place] [address] Dr. Mio SpicerSpecimedewayne adequacy:CommentNorwalk Memorial Hospital on above:Result Comment: Satisfactory for evaluation. Endocervical and/or squamous metaplastic cells (endocervical component) are present. Performed at: WBPerformed By: #### [id number] #### [facility] [address] [place] [address] Dr. Mio SpicerMRI Ankle w/o + w/ Lefton 83-73-1604BJH Ankle w/o + w/ Left HISTORY: Painful [...] and signed by [address] on 01/17/2022 1601NormalNortbanner payson medical centern Backus HospitalVC INJ SCL ROSA VISUAL ASSOCIATE VEINSon 90-17-2957BJ INJ SCL ROSA VISUAL ASSOCIATE VEINSPatient: SUSAN HOGUE Exam Date: 01/08/2022 : 1985 Gender:F Ordering : DR SHANNA LINN M.D. Admission #: [id number] Family : Order #: [id number] CLICK HERE TO VIEW EXAM RADIOLOGY REPORT [...] successful sclerotherapy as described Dictated by: Shanna Linn MD on 01/08/2022 at 10:33 Approved by: Shanna Linn MD on 01/08/2022 at 10:33[facility] HospitalVC CONSULT FOLLOWUPon 86-43-9764DX CONSULT FOLLOWUPPatient: SUSAN HOGEU Exam Date: 12/10/2021 : 1985 Gender:F Ordering : DR SHANNA LINN M.D. Admission #: [id number] Family : Order #: [id number] CLICK HERE TO VIEW EXAM RADIOLOGY REPORT [...] physical exam and consultation Dictated by: Shanna Linn MD on 12/10/2021 at 08:33 Approved by: Shanna Linn MD on 12/10/2021 at 08:35[facility] HospitalVC EXT VENOUS RT LIMITEDon 00-85-1622DI EXT VENOUS RT LIMITEDPatient: ELIUD SUSANRADHA Burnette Exam Date: 12/10/2021 : 1985 Gender:F Ordering : DR SHANNA LINN M.D. Admission #: [id number] Family : Order #: [id number] CLICK HERE TO VIEW EXAM RADIOLOGY REPORT [...] right small saphenous vein Dictated by: Shanna Linn MD on 12/10/2021 at 08:17 Approved by: Shanna Linn MD on 12/10/2021 at 08:19[facility] HospitalVC ENDOVENOUS ABL 1ST V RTon 99-40-7435DE ENDOVENOUS ABL 1ST V RTPatient: SUSAN HOGUE Exam Date: 12/03/2021 : 1985 Gender:F Ordering : DR SHANNA LINN M.D. Admission #: [id number] Family : Order #: [id number] CLICK HERE TO VIEW EXAM RADIOLOGY REPORT [...] right small saphenous vein. Dictated by: Shanna Linn MD on 12/03/2021 at 11:15 Approved by: Shanna Linn MD on 12/03/2021 at 11:18[facility] HospitalVC CONSULT FOLLOWUPon 94-37-2523PJ CONSULT FOLLOWUPPatient: SUSAN HOGUE Exam Date: 11/19/2021 : 1985 Gender:F Ordering : DR SHANNA LINN M.D. Admission #: [id number] Family : Order #: [id number] CLICK HERE TO VIEW EXAM RADIOLOGY REPORT [...] physical exam and consultation Dictated by: Shanna Linn MD on 11/19/2021 at 13:58 Approved by: Shanna Linn MD on 11/19/2021 at 14:00[facility] HospitalVC EXT VENOUS LT LIMITEDon 33-72-9059XY EXT VENOUS LT LIMITEDPatient: SUSAN HOGUE Exam Date: 11/19/2021 : 1985 Gender:F Ordering : DR SHANNA LINN M.D. Admission #: [id number] Family : Order #: [id number] CLICK HERE TO VIEW EXAM RADIOLOGY REPORT [...] from the saphenofemoral junction Dictated by: Shanna Linn MD on 11/19/2021 at 13:46 Approved by: Shanna Linn MD on 11/19/2021 at 13:48[facility] HospitalVC ENDOVENOUS ABL 1ST V LTon 46-36-8288KC ENDOVENOUS ABL 1ST V LTPatient: SUSAN HGOUE Exam Date: 11/12/2021 : 1985 Gender:F Ordering : DR SHANNA LINN M.D. Admission #: [id number] Family : Order #: [id number] CLICK HERE TO VIEW EXAM RADIOLOGY REPORT [...] left great saphenous vein. Dictated by: Shanna Linn MD on 11/12/2021 at 10:01 Approved by: Shanna Linn MD on 11/12/2021 at 10:02[facility] HospitalVC CONSULT FOLLOWUPon 47-45-3489OC CONSULT FOLLOWUPPatient: SUSAN HOGUE Exam Date: 10/22/2021 : 1985 Gender:F Ordering : DR SHANNA LINN M.D. Admission #: [id number] Family : Order #: [id number] CLICK HERE TO VIEW EXAM RADIOLOGY REPORT [...] physical exam and consultation Dictated by: Shanna Linn MD on 10/22/2021 at 13:40 Approved by: Shanna Linn MD on 10/22/2021 at 13:42[facility] HospitalVC EXT VENOUS RT LIMITEDon 62-39-7742HQ EXT VENOUS RT LIMITEDPatient: ELIUD SUSAN Vasile Exam Date: 10/22/2021 : 1985 Gender:F Ordering : DR SHANNA LINN M.D. Admission #: [id number] Family : Order #: [id number] CLICK HERE TO VIEW EXAM RADIOLOGY REPORT [...] from the saphenofemoral junction. Dictated by: Shanna Linn MD on 10/22/2021 at 13:26 Approved by: Shanna Linn MD on 10/22/2021 at 13:28[facility] HospitalVC ENDOVENOUS ABL 1ST V RTon 02-94-8122CS ENDOVENOUS ABL 1ST V RTPatient: SUSAN HOGUEClaude Exam Date: 10/15/2021 : 1985 Gender:F Ordering : DR SHANNA LINN M.D. Admission #: [id number] Family : Order #: [id number] CLICK HERE TO VIEW EXAM RADIOLOGY REPORT [...] right great saphenous vein. Dictated by: Shanna Linn MD on 10/15/2021 at 10:26 Approved by: Shanna Linn MD on 10/15/2021 at 10:35[facility] Vital Signs Date TimeVital SignValuePerforming FyqgganueOncfoggp22-38-8971 10:55-0400Body kaaqhs088.1 cmEmily Hudson DO Work Phone: [facility]09-03-2025 10:55-0400Body mass index (BMI) [Ratio]22.97 kg/u6Qzxlhjeremy Treviño DO Work Phone: [facility]09-03-2025 10:55-0400Body temperature 98.1 [degF]Beatrizjeremy Treviño DO Work Phone: [facility]09-03-2025 10:55-0400Body .6 kgBeatriz Treviño DO Work Phone: [facility]09-03-2025 10:55-0400Diastolic blood oidaxhlv59 mm[Hg]Beatriz Treviño DO Work Phone: [facility]09-03-2025 10:55-0400Heart rate65 /min Beatriz Treviño DO Work Phone: [facility]09-03-2025 10:55-0400Systolic blood mm[Hg]Beatriz Treviño DO Work Phone: [facility]07-21-2025 08:38-0400Body mass index (BMI) [Ratio]22.7 kg/m4Ohper Maribel DO Work Phone: [facility]Qjksq[facility]adld[facility]1939 08:38-0400Body sybwua65.87 kgCorey Maribel DO Work Phone: [facility] HospitalXesziadrne38-58-6690 08:38-0400Diastolic blood mm[Hg]Saurabh Maribel DO Work Phone: [facility] HospitalPjrunuzaxz90-97-3695 08:38-0400Systolic blood nndtwayz770 mm[Hg]Saurabh Maribel DO Work Phone: [facility] HospitalEimdexffkh68-64-0136 11:00-0400Body mass index (BMI) [Ratio]22.47 kg/p5Wrjhx Maribel DO Work Phone: [facility] HospitalIdbsvgqfxi63-98-3565 11:00-0400Body uwqkex90.24 kgCorey Maribel DO Work Phone: [facility] HospitalPklqjxaxlw19-88-8310 11:00-0400Diastolic blood ympqtfxy92 mm[Hg]Saurabh Maribel DO Work Phone: [facility] HospitalAueaadxhpe87-57-1045 11:00-0400Systolic blood myofsmfe975 mm[Hg]Saurabh Maribel DO Work Phone: [facility] HospitalZhjzherpgp53-57-3280 14:51-0400Body mass index (BMI) [Ratio]23.96 kg/m2Amy Zander PA Work Phone: [facility] HospitalSwzohjovkn32-75-8336 14:51-0400Body .32 kgAmy Zander PA Work Phone: [facility] HospitalZpsdkbtxjc81-66-9617 14:51-0400Diastolic blood rewfgbcf85 mm[Hg]Rita Sharpey PA Work Phone: [facility] HospitalVadwxlxzsq00-47-6951 14:51-0400Systolic blood muhjgbtj150 mm[Hg]Rita Brant PA Work Phone: [facility] HospitalQiwfmiapvx40-18-4371 12:06-0500Body hjsihh659.1 cmAngela Lowe PA Work Phone: [facility] HospitalXcycgmvike72-52-2416 12:06-0500Body mass index (BMI) [Ratio]25.13 kg/r8Aheddx Lowe PA Work Phone: [facility] HospitalTufuftmfbl62-48-8340 12:06-0500Body uspihq95.49 kgAngela Lowe PA Work Phone: [facility] HospitalCdcvjjullf37-29-5431 12:06-0500Diastolic blood odsrykgg75 mm[Hg]Kalyani Lowe PA Work Phone: [facility] HospitalHofzsyfobd95-29-1301 12:06-0500Systolic blood kequndat670 mm[Hg]Kalyani Lowe PA Work Phone: [facility] HospitalEkzaywudsk41-25-3725 14:37-0500Body mass index (BMI) [Ratio]23.86 kg/z2Zokek Maribel DO Work Phone: [facility] HospitalFyxlbwujci81-78-3564 14:37-0500Body nohapi97.05 kgCorey Maribel DO Work Phone: [facility] HospitalDkkhptztfv15-04-5511 14:37-0500Diastolic blood ktvaylwr33 mm[Hg]Saurabh Maribel DO Work Phone: [facility] HospitalZdwydhlwug66-29-1510 14:37-0500Systolic blood whsncygf707 mm[Hg]Saurabh Maribel DO Work Phone: [facility] HospitalKqarnblydp13-51-9820 10:18-0400Body ozlldt598.1 cmL[facility]08-26-2024 10:18-0400Body mass index (BMI) [Ratio]23 kg/m2JeytrxuvkLakehealth Beachwood Medical Center08-26-2024 10:18-0400Body spebyjkvqkk31.3 [degF][facility]08-26-2024 10:18-0400Body cibkyx22.7 kgLakehealth [facility] Center08-26-2024 10:18-0400Heart rate91 /[facility]08-26-2024 10:18-0400Respiratory rate18 /[facility]08-26-2024 10:18-6969OqY3% (BldA) [Mass fraction]99 %[facility]04-29-2024 12:42-0400Body nnlybkbbtbx81.81 [degF]Beatriz Treviño DO Work Phone: [facility]04-29-2024 12:42-0400Body qnthwu43.6 kgBeatriz Treviño DO Work Phone: [facility]04-29-2024 12:42-0400Diastolic blood xiagqqcl02 mm[Hg]Beatriz Treviño DO Work Phone: [facility]04-29-2024 12:42-0400Heart rate89 /min Beatriz Treviño DO Work Phone: [facility]04-29-2024 12:42-0400Systolic blood vechtrzc285 mm[Hg]Beatriz Treviño DO Work Phone: [facility] Encounters Encounter DateEncounter TypeCare ProviderFacilityStart: 04-13-2025 End: 55-42-6076Nmzwbci encounter procedureEmjeremy Treviño DO Work Phone: RheumatologyComment on above: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)Start: 04-13-2025 End: 28-68-8907qylvdetxfxPKFVM A HUDSONFacility:[facility] Start: 03-23-2025 End: 44-99-0608Mvsdgxnap encounterEmjeremy Treviño DO Work Phone: RheumatologyComment on above:Received Outside Medical RecordsStart: 02-28-2025 End: 42-05-7073Xlphyq flowsheetCorey Maribel DO Work Phone: noms BCP OBStart: 02-28-2025 End: 57-14-3595Ygnhas flowsheetCorey Maribel DO Work Phone: [facility]oms BCP OBStart: 02-28-2025 End: 25-02-4105Kccatb follow up visit related to original pxCorey Maribel DO Work Phone: noms BCP OBComment on above:Postoperative examination Start: 02-28-2025 End: 05-85-0568vtyzaiidebUVMKC FAZIONot AvailableStart: 02-18-2025 End: 15-08-9247Pwrtdvlun Result EncounterCorey Maribel DO Work Phone: noms External Department UnsolicitedStart: 02-18-2025 End: 26-18-6503Yzoowjclf Result EncounterCorey Maribel DO Work Phone: noms External Department UnsolicitedStart: 01-20-2025 End: 38-49-1822edwcarijsoUtlw Vianeyva [facility]-dsmFacility:[facility] Start: 01-20-2025 End: 21-66-0851Hsyjqxl encounter procedureCorey Maribel DO Work Phone: noms BCP OBComment on above:Pre-op examination; Menorrhagia with irregular cycle; Pelvic pain; Abnormal uterine bleeding (AUB)Start: 01-20-2025 End: 91-04-2478Xuvlqqydcmzzx examination doneCorey Maribel DO Work Phone: noms HealthcareStart: 01-20-2025 End: 27-26-4535ztufjelrydYTNTN FAZIONot AvailableStart: 01-17-2025 End: 33-84-8214Ovbwznpfi Result EncounterRita Sharpramona BAHENA Work Phone: noms External Department UnsolicitedStart: 01-17-2025 End: 26-62-4723Fcrjawvae Result EncounterRita Sharpramona BAHENA Work Phone: noms External Department UnsolicitedStart: 01-10-2025 End: 81-27-3134gwazmjwxqaAET ZANDERNot AvailableStart: 12-27-2024 End: 56-72-1197Fupguccvh encounterEmjeremy Treviño DO Work Phone: RheumatologyComment on above:Received Outside Medical RecordsStart: 12-24-2024 End: 13-52-8077AqgxnsPzcif A Hudson DO Work Phone: RheumatologyComment on above:Refill RequestStart: 12-13-2024 End: 40-83-2598Cpeofq outpatient visit 15 minutesRita Zander BAHENA Work Phone: noms BCP OBComment on above:Menorrhagia with regular cycle; Pelvic cramping; NauseaStart: 12-13-2024 End: 76-46-8876bqyxcrrrxpASI RAMEYNot AvailableStart: 12-10-2024 End: 32-72-9861Huqdnwxirlkk consultation with patientEmjeremy Treviño DO Work Phone: RheumatologyStart: 12-10-2024 End: 12-97-5748ecizqheridOvxdi A Hudson DO Work Phone: RheumatologyComment on above: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)Start: 12-01-2024 End: 27-92-8973Nzqlgo flowsheetNatalie A Felter BANKING REPRESENTATIVE-YOUTH SERVICES LIBRARIAN Work Phone: noms SWS DERMStart: 12-01-2024 End: 31-38-3601Vheiih flowsheetNatalie A Felter BANKING REPRESENTATIVE-YOUTH SERVICES LIBRARIAN Work Phone: noms SWS DERMStart: 12-01-2024 End: 34-10-5515Kgkrjn outpatient new 30 minutesNatalie A Felter BANKING REPRESENTATIVE-YOUTH SERVICES LIBRARIAN Work Phone: [facility] SWS DERMComment on above:Capillary angioma; Seborrheic keratosis; Other rosacea; Common wart; PainStart: 12-01-2024 End: 78-90-2186xxfdkqmkbbLOZLLRX A FELTERNot AvailableStart: 10-21-2024 End: 18-02-9133ZarrfiWabbt A Hudson DO Work Phone: RheumatologyComment on above:Refill RequestStart: 10-11-2024 End: 59-67-6953bxklmfdheaHIVOCJ LOWENot AvailableStart: 10-11-2024 End: 34-63-2698Ljchtg outpatient visit 15 minutesAngela Sabas PA Work Phone: aNA DEBORAHUSKYComment on above:Migraine without status migrainosus, not intractable, unspecified migraine type (CMS/HCC)Start: 09-20-2024 End: 26-70-8475Lsfteu-up encounterEmily A Hudson DO Work Phone: RheumatologyStart: 09-14-2024 End: 62-38-1114hdshrtzmmvIKDTR A LITTLEJOHNFacility:[facility] Start: 09-08-2024 End: 89-89-7992Urzartvnp encounterAngela Lowe PA Work Phone: aNA SANDUSKYStart: 07-26-2024 End: 19-68-7546Anvwmbcmy Result EncounterCorey Maribel DO Work Phone: [facility] External Department UnsolicitedStart: 07-26-2024 End: 92-96-7795Watopalwx Result EncounterCorey Maribel DO Work Phone: [facility] External Department UnsolicitedStart: 06-16-2024 End: 33-60-8163Fehvjr flowsheetCorey Maribel DO Work Phone: [facility] BCP OBStart: 06-16-2024 End: 98-13-5899Dowayy flowsheetCorey Maribel DO Work Phone: noms BCP OBStart: 06-16-2024 End: 87-90-5603Fvoufqdej Result EncounterCorey Maribel DO Work Phone: noms External Department UnsolicitedStart: 06-16-2024 End: 09-12-1193Abmfclg encounter procedureCorey Maribel DO Work Phone: [facility] Work Phone: Start: 06-16-2024 End: 08-59-6248Yqbkgkmj preventive med est patient 18-39 yrsCorey Maribel DO Work Phone: noms BCP OBComment on above:Well woman exam with routine gynecological examStart: 06-16-2024 End: 01-41-2466xtcmfmwzllHmowj A Hudson DO Work Phone: RheumatologyComment on above:Other forms of systemic lupus erythematosus, unspecified organ involvement status (HCC) (Primary Dx) Start: 06-16-2024 End: 40-20-3435Futefnzesxwz consultation with patientEmily Chantell Treviño DO Work Phone: RheumatologyStart: 05-13-2024 End: 17-19-7358JonawbVncmx A Hudson DO Work Phone: RheumatologyComment on above:Refill RequestStart: 04-05-2024 End: 34-37-3188zwbtdztbkhHSCYGFMSwedish [facility] Start: 04-05-2024 End: 26-72-7127ldqtafvkwpAcyjwffouHarrison Community Hospital Work Phone: Start: 04-05-2024 End: 68-95-2333Zhdoihl encounter procedureUn[facility] Jose Alberto Work Phone: Start: 2023 End: 53-59-0521Eincvyu encounter procedureEmjeremy Goyaljohn DO Work Phone: RheumatologyComment on above: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)Start: 08-01-2022 End: 88-68-6808mqdcovhjjuYK SHRUTHI CHOWFacility:G5Sfcsb: 07-18-2022 End: 17-00-0735nmabqcwltgJV BELINDA PARISISFacility:M7Vjhvm: 96-92-0768Osjlutayp for preprocedural laboratory examinationDR SAURABH FAMADIHASegun Crawford HospitalStart: 06-07-2022 End: 62-82-1202mortpzviauDQ SAURABH FAZIOFacility:P5Ttpxm: 06-04-2022 End: 51-48-9016qzcuvdnwtgUQ SAURABH FAZIOFacility:K7Upcpx: 06-04-2022 End: 89-65-3938Hzpnflilr for preprocedural laboratory examinationDR SAURABH MARIBEL Facility:W8Qyxlk: 14-70-9599jmlizlrtyzLG SAURABH FAZIOFacility:O9Bahbl: 03-11-2022 End: 24-55-7656mtyggqejkcLU SAURABH FAZIOFacility:B7Mhpwz: 56-06-6383xdpenxfjgkYT BELINDA PARISISFacility:B9Yyhsx: 01-08-2022 End: 72-04-1950fsanvbskwsPZ BELINDA PARISISFacility:I4Jrify: 12-10-2021 End: 44-05-3411lycvsnrhdcQP BELINDA PARISISFacility:F1Mrafv: 12-03-2021 End: 88-71-5066fnffmibglgYH BELINDA PARISISFacility:W7Bbdjk: 11-19-2021 End: 65-10-9601cgxxdgyyxoWQ SHANNA LINNFacility:K7Intnn: 11-12-2021 End: 10-24-4762oinnkqjdpnSF SHANNA Tarangocility:G8Poset: 10-22-2021 End: 96-43-2203vbjssfhqvbKQ BELINDA YUHASFacility:B1Vxwsv: 10-15-2021 End: 22-98-5364grnioipuwaJG BELINDA PARISISFacility:H1 Procedures DateProcedureProcedure DetailPerforming ClinicianStart: 69-27-8281NBH CBC WITH AUTO DIFFCorey Maribel DO Work Phone: Start: 35-13-7758Ymbeh test visual color cmprsn methsCorey Vibrynt Work Phone: Start: 81-33-4863BXK CBC WITH AUTO DIFFAmy Zander BAHENA Work Phone: Start: 10-19-4069Aevab dip stick/tablet rgnt non-auto w/o micrscpAmy Zander BAHENA Work Phone: Start: 55-31-2271GG TOMOSYNTHESIS SCREENING BICorey Vibrynt Work Phone: Start: 41-29-2602IHS,APTIMA HPV,AGE GDLNCorey Vibrynt Work Phone: Start: 24-50-8607Qcxiafinmec observation [Identifier] in Cervix by Cyto stainCorey Vibrynt Work Phone: Start: 63-29-9122PGEKR Antigen (POC)Start: 04-05-2024 Quick Strep (POC)Start: 08-35-6898Ipjvlcqnnol observation [Identifier] in Cervix by Cyto stainCorey Vibrynt Work Phone: Start: 09-15-4513Xvny cerv/vag auto thin layer prep mnl screenCorey Vibrynt Work Phone: Plan of Treatment DateCare ActivityDetailAuthorStart: 86-00-8383Huhgk microalbumin profile DTaP,Tdap,Td Vaccine (2 - Td or Tdap)[facility] Centertart: 90-89-5164Cwiqervxa for malignant neoplasm of cervixNOMS HealthcareStart: 64-43-1450Idghmjudr for malignant neoplasm of cervixNOMS HealthcareStart: 01-11-2026 End: 11-82-1923Zqlvwuw encounter /03/2026 11:30 AM EDT Office Visit Rheumatology [address] [address] Beatriz Treviño DO [address], [address] [place] [address] 9m f/u per walkupRheumatologyComment on above:9m f/u per walkupStart: 12-01-2025 End: 77-90-8705Rzcagfk encounter procedureNOMS SWS DERMStart: 10-26-2025 End: 62-23-9323Xufemqe encounter hewjgehgg72/18/2026 12:40 PM EDT Office Visit VERNELL HOPKINS [address] [place] [address] Kalyani Obregon PA [address] [place], [place] [id number] VERNELL BRASWELLtart: 06-30-2025 End: 03-50-6083Zocajzv encounter zmciljosz83/20/2025 8:50 AM EST Office Visit [facility] [place] [facility] [address] [place], [id number] Saurabh López, DO [address] [place], [place] [address] NOMJered [place] OBGYNStart: 06-27-2025 End: 15-86-8740Kbcknoe encounter bmjcfidjj28/17/2025 9:20 AM EST Office Visit [facility] [address] [place] [address] Saurabh López, DO [address] [place], [facility] BCP OBStart: 06-23-2025 End: 70-75-5532Rjtdbcq encounter /13/2025 8:30 AM EST Office Visit [facility] [address] [place] [id number] Saurabh López, DO [address] [facility] [address] Hopkins, [place] [id number] [facility] OBStart: 04-13-2025 End: [id number] ANTIBODY DS [facility] Work Phone: Comment on above:Expected: 04/13/2025, Expires: 07/13/2025Start: 04-13-2025 End: 95-83-7051Svdtfpt encounter olejgyxiq40/03/2025 11:00 AM EDT Office Visit Rheumatology [address] [address] Beatriz Treviño, [address], [id number] [place] [address] 6m SLE f/u per HudsonRheumatologyComment on above:6m SLE f/u per LittlejohnStart: 94-28-2076Fjrmjiqrf vaccinationNOMS HealthcareStart: 02-28-2025 End: 62-08-6013Kuvrcsh encounter procedureNOMS BCP OBComment on above:Arrived Start: 01-20-2025 End: 55-15-5192Sgkvxvk encounter cwkxcqotj40/12/2025 10:30 AM EDT Procedure Visit [facility] [address] [place] [address] Saurabh López, DO [address], [place] [address] NOMS BCP OBStart: 12-13-2024 End: 11-42-3290iSJT in Blood by Coagulation assayAPTT Lab Routine Menorrhagia with regular cycle Expected: 12/13/2024 (Approximate), Expires: 12/13/2025NOMS HealthcareComment on above:Expected: 12/13/2024 (Approximate), Expires: 12/13/2025Start: 12-13-2024 End: 83-78-8171NJ PelvisUS Pelvis w/ TV Imaging Routine Menorrhagia with regular cycle Expected: 12/13/2024 (Approximate), Expires: 12/13/2025[facility] Comment on above:Expected: 12/13/2024 (Approximate), Expires: 12/13/2025Start: 12-01-2024 End: 81-87-4886Oohowzv encounter eqquirtfv40/23/2025 1:40 PM EDT Office Visit [facility] [address] [place] [address] Godwin Merchant, BANKING REPRESENTATIVE-YOUTH SERVICES LIBRARIAN [address] [place] [address] ArrivedNO SWS DERMComment on above: ArrivedStart: 10-11-2024 End: 54-27-9634Uyuikwl encounter pkxhwytjv63/03/2025 12:00 PM EST Office Visit [place]LL [place] [address] [facility] [address] [place] [address] Kalyani Obregon PA [address] [place] [address] VERNELL JOZEFYStart: 06-16-2024 End: 88-52-8304LEF W Auto Differential panel - BloodCOMPLETE BLOOD COUNT AND DIFFERENTIAL Lab Routine Other forms of systemic lupus erythematosus, unspe cified organ involvement status (HCC) Expected: 06/16/2024, Expires: 09/15/2024 [facility] on above:Expected: 06/16/2024, Expires: 09/15/2024Start: 06-16-2024 End: 88-40-1911Vphwjosllc C3 [Mass/volume] in Serum or PlasmaC3 COMPLEMENT Lab Routine Other forms of systemic lupus erythematosus, unspecified organ involvement status (HCC) Expected: 06/16/2024, Expires: 09/15/2024[facility] Work Phone: Comment on above:Expected: 06/16/2024, Expires: 09/15/2024Start: 06-16-2024 End: 24-34-6575Qvdwmotabm C4 [Mass/volume] in Serum or PlasmaC4 COMPLEMENT Lab Routine Other forms of systemic lupus erythematosus, unspecified organ involvement status (HCC) Expected: 06/16/2024, Expires: 09/15/2024[facility] HospitalComment on above:Expected: 06/16/2024, Expires: 09/15/2024Start: 06-16-2024 End: 93-83-4805Xbxbguczpocal metabolic 2000 panel - Serum or PlasmaCOMPREHENSIVE METABOLIC PANEL Lab Routine Other forms of systemic lupus erythematosus, unspecified organ involvement status (HCC) Expected: 06/16/2024, Expires: 09/15/2024leveland ClinicComment on above:Expected: 06/16/2024, Expires: 09/15/2024Start: 06-16-2024 End: 42-89-5310PTA ANTIBODY DS BLDDNA ANTIBODY DS BLD Lab Routine Other forms of systemic lupus erythematosus, unspecified organ involvement status (HCC) Expected: 06/16/2024, Expires: 09/15/2024leveland ClinicComment on above: Expected: 06/16/2024, Expires: 09/15/2024Start: 06-16-2024 End: 53-88-5625Pemdzsm/Creatinine [Mass Ratio] in UrinePROTEIN / CREATININE RATIO Lab Routine Other forms of systemic lupus erythematosus, unspecified organ involvement status (HCC) Expected: 06/16/2024, Expires: 09/15/2024leveland ClinicComment on above:Expected: 06/16/2024, Expires: 09/15/2024Start: 06-16-2024 End: 09-97-9192Ykbkxfnbni complete panel - UrineURINALYSIS, WITH MICROSCOPIC Lab Routine Other forms of systemic lupus erythematosus, unspecified organ involvement status (HCC) Expected: 06/16/2024, Expires: 09/15/2024leveland ClinicComment on above:Expected: 06/16/2024, Expires: 09/15/2024Start: 06-16-2024 End: 01-17-3708Qwwvaxl encounter gpjlvpvoe43/06/2024 11:00 AM EST Office Visit Rheumatology [address] [address] Beatriz Treviño DO [address], [address] [place] [address] 6m SLE f/u per HudsonRheumatologyComment on above:6m SLE f/u per JyotsnajohnStart: 29-03-1028Dbins-19 Vaccine ()Covid-19 Vaccine ()[facility]: 06-67-4777Vvyyy-19 Vaccine ()Covid-19 Vaccine ()[facility]: 23-83-7623Howvxtziw vaccinationInfluenza Vaccine (#1)[facility]: 2023 End: 36-99-6288RBR BY IFA SCREENSelect Medical Specialty Hospital [facility] SouthComment on above:Expected: 2023, Expires: 03/08/2024Start: 2023 End: 29-59-4548RLMWL TB SCREENSelect Medical Specialty Hospital - [facility] SouthComment on above:Expected: 2023, Expires: 03/08/2024Start: 2023 End: 13-14-1564MMD ANTIBODY DS BLDCleveland ClinicComment on above:Expected: 2023, Expires: 03/08/2024Start: 2023 End: 74-17-2043Akewakfyyhy nuclear Ab panel - SerumSumma Health Work Phone: Comment on above:Expected: 2023, Expires: 03/08/2024Start: 92-00-8785Axkgqaoseq Health ScreeningBehavioral Health ScreeningMetroHealth Parma Medical Centertart: 83-82-7369Aujgm-19 Vaccine ( season) Covid-19 Vaccine ()[facility]: 78-19-7547Lpylzqfwe for malignant neoplasm of cervixHPV TestingMetroHealth Parma Medical Centertart: 98-63-6789DSO Vaccine (1 - Risk 3-dose SCDM series)HPV Vaccine (1 - Risk 3-dose SCDM series) [facility]: 00-55-2949Lcrcitruy for malignant neoplasm of cervix [facility]: 52-86-3896Ltxprxk ScreeningAnxiety ScreeningMetroHealth Parma Medical Centertart: 17-48-7416Xgbzcbldkv ScreeningDepression ScreeningSelect [facility] Specialty [facility] Start: 35-61-6049XCS screeningHIV ScreeningMetroHealth Parma Medical Centertart: 12-07-1998 Screening for malignant neoplasm of cervixCervical Cancer ScreeningMetroHealth Parma Medical Centertart: 85-86-7938RPK Vaccine: Recommended Based On RiskHPV Vaccine: Recommended [facility]Sam[facility] W Auto Differential panel - Blood CBC and differential Lab Routine Menorrhagia with regular cycle Ordered: 12/13/2024[facility] Work Phone: comment on above:Ordered: 12/13/2024ytology Cervical or vaginal smear or scraping studyPap Smear Pathology and Cytology Routine Well woman exam with routine gynecological exam Ordered: 06/16/2024[facility] Work Phone: comment on above:Ordered: 06/16/2024Endometrial biopsy Endometrial biopsy Procedures Routine Menorrhagia with irregular cycle Pelvic pain Abnormal uterinebleeding (AUB) Ordered: 01/20/2025[facility] Work Phone: comment on above:Ordered: 01/20/2025hCG, quantitative, pregnancyhCG, quantitative, Lab Routine Menorrhagia with regular cycle Ordered: 12/13/2024[facility] HealthcareComment on above:Ordered: 12/13/2024Hemoglobin A1c/Hemoglobin.total in BloodHemoglobin A1c Lab Routine Menorrhagia with regular cycle Ordered: 12/13/2024[facility] HealthcareComment on above:Ordered: 12/13/2024 Human papilloma virus DNA [Presence] in Unspecified specimen by Probe with amplificationHPV DNA probe, amplified Microbiology Routine Well woman exam with routine gynecological exam Ordered: 06/16/2024[facility] HealthcareComment on above: Ordered: 06/16/2024rothrombin time (PT) in Blood by Coagulation assayProtime- INR Lab Routine Menorrhagia with regular cycle Ordered: 12/13/2024[facility] HealthcareComment on above:Ordered: 12/13/2024Thyrotropin [Units/volume] in Serum or PlasmaTSH Lab Routine Menorrhagia with regular cycle Ordered: 12/13/2024[facility] HealthcareComment on above:Ordered: 12/13/2024Thyroxine (T4) free [Mass/volume] in Serum or PlasmaT4, free Lab Routine Menorrhagia with regular cycle Ordered: 12/13/2024NOTN HealthcareComment on above:Ordered: 12/13/2024 Immunizations Immunization DateImmunizationNotesCare QolbxporGbypfwzy15-20-4381rmkizzsae virus vaccine, unspecified formulationEmjeremy Treviño DO Work Phone: [facility] Payers DatePayer CategoryPayerPolicy [id number] Cross Blue [id number] BLUE CARD PPO OOS [id number] 2020-Present [phone] [address] [place], [place] [id number] [id number] 2.0.1.937862.3.579.[id number] 2.0.1.555702.3.579.[id number] 2.0.1.489966.3.579.2.67182-90-1651Ooyxbjd6861710 2.0.1.748380.3.579.2.99098-19-9312Wvfjggc5513464 2.0.1.095599.3.579.[id number] 2.0.1.535380.3.579.2.99122-93-5323Zvkjelh2504776 2.0.1.914462.3.579.[id number] 2.840.1.271860.3.579.2.64847-78-2087Vsczywm3975811 2.840.1.575471.3.579.2.65093-91-4517Lbxqdla5345704 2.16.840.1.870542.3.579.2.56077-36-1307Skgfmby6564559 2.16.840.1.041801.3.579.2.80596-34-5755Kfgzovm8706908 2.16840.1.144668.3.579.2.36422-38-4980Sifdryv8264718 2.16840.1.593310.3.579.[id number] 2.840.1.279119.3.579.2.[id number] 2.840.1.281311.3.579.2.3[id number] 2.0.1.924595.3.579.2.599046-50-9292Ogzwlms63375132 2.0.1.753826.3.579.2.763061-46-8765Bzoqjjn6512566 2.16840.1.530186.3.579.2.311568-16-4209Ssfqdxn2718110 2.0.1.988797.3.579.2.822143-69-5589Zsecpcc0899213 2.0.1.374418.3.579.2.936868-34-3707Egypxmc7461205 2.0.1.644441.3.579.2.513827-60-7836Gnyxpky3070970 2.16840.1.531906.3.579.2.7[id number] Health InsuranceLifecare Hospitals Of [facility] [place] Insurance [id number] 2.16.840.1.175238.3.579.2.531 Social History DateTypeDetailFacilityStart: 05-26-2023 End: 14-83-2493Qtrrfli smoking status NHISNever smoked tobaccoSelect Medical Specialty Hospital [facility] Start: 69-90-4079Kdfnmkl use and exposureSmokeless tobacco non-userMetroHealth Parma Medical Centertart: 2023 End: 27-86-8004Tjislfz of Social functionMetroHealth Parma Medical Centertart: 2023 End: 15-53-5182Rjkuiqi use panelMetroHealth Parma Medical Centertart: 10-23-2022 End: 28-83-1303Gnjdo Depression Screening Hcfvchvcdg4Cecpfhudb ClinicStart: 58-14-6308Edk Assigned At BirthNot on fileMetroHealth Parma Medical Centertart: 44-83-1118Qpw Assigned At BirthFeMercy Health Defiance Hospitaltart: 06-09-2023 End: 86-60-2965Kptzpccsn beverage intakeCurrent drinker of alcohol (finding)[facility] HospitalStart: 74-35-3675Lxqnlwt CommentModerate alcohol useBarnes-Jewish Hospital Start: 17-88-4058Cxefwy identityIdentifies as female gender (finding)[facility] Clinical Notes 06-07-2022 to 04-13-2025 Note Date & SwyyPcanZengqsiz86-03-9867 History of Present illness Narrative* Beatriz Treviño, - 04/13/2025 11:00 AM EDT Images from the original note were not included. [facility] DEPARTMENT OF RHEUMATIC AND IMMUNOLOGIC DISEASES SUBJECTIVE: Reason for visit: SLE Brief History of Present Illness: Susan Hogue is a 39 year old female with migraines and SLE [...] pain in her elbows, knees and ankles. 12/2024 She had changed her diet, increasing her protein and water and cut out sweets and included vegetables. Joint pain is improved. She saw Derm and was told she had rosacea. Today she has been well. No flares since she was last seen. She has had some joint pain in her hands and elbows and right knee. In particular, she has left 3rd finger pain (she is left handed) with overuse. Answers submitted by the patient for this visit: Review of Systems Rheumatology (Submitted on 04/12/2025) Fever : No Recent unintentional weight change: [...] Joint pain or stiffness: Yes Muscle weakness: No Muscle aches: Yes Joint swelling: No Morning Stiffness in Joints: Yes A rash: No Skin Color Changes: No Hair Loss: Yes Nail Changes: No Headaches: No Numbness: No Memory Loss: No Swollen Glands: No PMHx: No past medical history on file. PSHx: No past surgical history on file. MEDICATIONS: levothyroxine (SYNTHROID) 50 mcg tablet Take 50 mcg by mouth once daily. SUMAtriptan (IMITREX) 100 mg tablet Take 100 mg by mouth as needed. citalopram hydrobromide (CELEXA) 10 mg tablet Take 10 mg by mouth every morning. citalopram (CELEXA) 20 mg tablet Take 20 mg by mouth every morning. acyclovir (ZOVIRAX) 400 mg tablet Take 400 mg by mouth two times a day. hydrOXYchloroQUINE (PLAQUENIL) 200 mg tablet Take 1.5 tablets by mouth once daily. ALLERGIES: ALLERGIES Allergen Reactions Duloxetine Hcl Other: See Comments Jaw clenching OBJECTIVE: Physical Examination: Vitals: BP 121/72 Pulse 65 Temp 36.7 C (98.1 F) (Temporal) Ht 165.1 cm (5' 5 ) Wt 62.6 kg (138 lb 0.1 oz) BMI 22.97 kg/m General: Looks well, NAD, A & Ox3. HEENT: No facial rash. No alopecia. Neck: No LAD. CVS: RRR, nl S1/S2, no R/M/G, Resp: CTAB. No rales or wheezing. Ext: No edema. Neuro: Gait Normal. Skin: No rash. No ulcers. Musculoskeletal: Shoulders: No swelling, no tenderness, good ROM Elbows: No swelling, no tenderness, no flexion contractures, no nodules, good ROM Wrists: No swelling, no tenderness, no limitation in flexion and extension Hands: No evidence of synovitis. Able to make full fist bilaterally Knees: No effusion, no tenderness, good ROM Ankles: No swelling, no tenderness, good ROM Feet/Toes/ MTP: No evidence of synovitis IMPRESSIONS/RECOMMENDATIONS: Systemic Lupus, doing well Based on 2019 EULAR/ACR classification criteria: +VERNELL 1:640, low C3, arthralgia, myalgia of lower extremities, oral ulcerations and Raynaud's phenomenon. She has been placed on HCQ, methotrexate, mycophenolate, belimumab and azathioprine. MTX, MMF and BEL all stopped due to side effects. Currently on HCQ 300 mg PO daily. Symptoms today are improved from prior with improvement of joint pain and rashes and myalgias. She is due for SLE labs which will be done today. Plan: She will continue HCQ to 300 mg PO daily. We have discussed the risks and toxicities associated with the use of this medication and the appropriate monitoring. Up to date with VF and OCT as of 03/22/2025 (scanned in) I have advised the use of Voltaren Gel 1% for her left 3rd MCP pain. RTC 9 months. Beatriz Treviño D.O. Rheumatology Staff documented in this encounterSelect [facility]09-[facility]-2025 NoteHNO ID: [id number] Author: BEATRIZ TREVIÑO DO Service: ? Author Type: Physician Type: Progress Notes Filed: 04/13/2025 11:27 Note Text: [facility] DEPARTMENT OF RHEUMATIC AND IMMUNOLOGIC DISEASES SUBJECTIVE: Reason for visit: SLE Brief History of Present Illness: Susan Hogue is a 39 year old female with migraines and SLE [...] pain in her elbows, knees and ankles. 12/2024 She had changed her diet, increasing her protein and water and cut out sweets and included vegetables. Joint pain is improved. She saw Derm and was told she had rosacea. Today she has been well. No flares since she was last seen. She has had some joint pain in her hands and elbows and right knee. In particular, she has left 3rd finger pain (she is left handed) with overuse. Answers submitted by the patient for this visit: Review of Systems Rheumatology (Submitted on 04/12/2025) Fever : No Recent unintentional weight change: [...] Joint pain or stiffness: Yes Muscle weakness: No Muscle aches: Yes Joint swelling: No Morning Stiffness in Joints: Yes A rash: No Skin Color Changes: No Hair Loss: Yes Nail Changes: No Headaches: No Numbness: No Memory Loss: No Swollen Glands: No PMHx: No past medical history on file. PSHx: No past surgical history on file. MEDICATIONS: levothyroxine (SYNTHROID) 50 mcg tablet Take 50 mcg by mouth once daily. SUMAtriptan (IMITREX) 100 mg tablet Take 100 mg by mouth as needed. citalopram hydrobromide (CELEXA) 10 mg tablet Take 10 mg by mouth every morning. citalopram (CELEXA) 20 mg tablet Take 20 mg by mouth every morning. acyclovir (ZOVIRAX) 400 mg tablet Take 400 mg by mouth two times a day. hydrOXYchloroQUINE (PLAQUENIL) 200 mg tablet Take 1.5 tablets by mouth once daily. ALLERGIES: ALLERGIES Allergen Reactions Duloxetine Hcl Other: See Comments Jaw clenching OBJECTIVE: Physical Examination: Vitals: BP 121/72 Pulse 65 Temp 36.7 ?C (98.1 ?F) (Temporal) Ht 165.1 cm (5' 5 ) Wt 62.6 kg (138 lb 0.1 oz) BMI 22.97 kg/m? General: Looks well, NAD, A AND Ox3. HEENT: No facial rash. No alopecia. Neck: No LAD. CVS: RRR, nl S1/S2, no R/M/G, Resp: CTAB. No rales or wheezing. Ext: No edema. Neuro: Gait Normal. Skin: No rash. No ulcers. Musculoskeletal: Shoulders: No swelling, no tenderness, good ROM Elbows: No swelling, no tenderness, no flexion contractures, no nodules, good ROM Wrists: No swelling, no tenderness, no limitation in flexion and extension Hands: No evidence of synovitis. Able to make full fist bilaterally Knees: No effusion, no tenderness, good ROM Ankles: No swelling, no tenderness, good ROM Feet/Toes/ MTP: No evidence of synovitis IMPRESSIONS/RECOMMENDATIONS: Systemic Lupus, doing well Based on 2019 EULAR/ACR classification criteria: +VERNELL 1:640, low C3, arthralgia, myalgia of lower extremities, oral ulcerations and Raynaud's phenomenon. She has been placed on HCQ, methotrexate, mycophenolate, belimumab and azathioprine. MTX, MMF and BEL all stopped due to side effects. Currently on HCQ 300 mg PO daily. Symptoms today are improved from prior with improvement of joint pain and rashes and myalgias. She is due for SLE labs which will be done today. Plan: She will continue HCQ to 300 mg PO daily. We have discussed the risks and toxicities associated with the use of this medication and the appropriate monitoring. Up to date with VF and OCT as o (more content not included)... [facility]08-14-2025 Telephone encounter Note* Telephone Encounter - Flash Castelan RN - 03/24/2025 7:17 AM EDT Eye exam completed 01/20/2025, no evidence HCQ toxicity: Scan on 03/23/2025 3:51 PM by ProviderJose PA-C: Consultation - Ophthalmology [facility]08-14-2025 Miscellaneous Notes* Telephone Encounter - Flash Castelan RN - 03/24/2025 7:17 AM EDT Eye exam completed 01/20/2025, no evidence HCQ toxicity: Scan on 03/23/2025 3:51 PM by ProviderJose PAQianC: Consultation - Ophthalmology * Telephone Encounter - Julia Mcarthur - 03/23/2025 4:38 PM EDT [facility]25. Scanned for review. documented in this encounterSelect Medical [facility]ty [facility]08-13-2025 Telephone encounter Note * Telephone Encounter - Julia Mcarthur - 03/23/2025 4:38 PM EDT [facility] from [facility] dated on 03/22/25. Scanned for review. [facility]07-21-2025 History of Present illness Narrative* SHRUTI Hillman - 02/28/2025 8:40 AM EDT Reason for Appointment: Patient ID: Susan Hogue is a 39 y.o. female who presents for Post-op Visit Patient presents today for 1 Week Post Op Follow Up appointment. MEDICATIONS Current Outpatient Medications Medication Instructions acyclovir [...] Pre-op evaluation Request for sterilization Skin infection [facility] history Vitamin D deficiency Social History Tobacco Use Smoking status: Never Smokeless tobacco: Not on file Substance Use Topics Alcohol use: Yes Comment: Moderate alcohol use Drug use: Never FAMILY HISTORY Family History Problem Relation Name Age of Onset No Known Problems Sister Diabetes Maternal Grandmother Hypertension Maternal Grandfather Hypertension Paternal Grandmother SURGICAL HISTORY Past Surgical History: Procedure Laterality Date ENDOMETRIAL ABLATION 02/18/2025 with Hysteroscopy SALPINGECTOMY REVIEW OF SYSTEMS Review of Systems: [...] reviewed. Vitals: Estimated body mass index is 22.7 kg/m as calculated from the following: Height as of 10/11/24: 5' 5 . Weight as of this encounter: 136 lb 6.4 oz. BP: 100/68 Patient's last menstrual period was 02/11/2025. ASSESSMENT & PLAN ICD-10-CM 1. Postoperative examination Z09 Patient presents for post op ablation on 02/18/25. Patient doing well, restrictions lifted, no patholgy sent to review. Patient will follow up for annual in june 2025 Documented by SHRUTI Hillman on behalf of: Saurabh López DO documented in this encounterBarnes-Jewish HospitalLoekptvrmf72-19-0542 History of Present illness Narrative* Rita Busby MA - 01/20/2025 10:30 AM EDT Reason for Appointment: Patient ID: Susan Hogue is a 39 y.o. female who presents for Pre-op Visit Patient presents today for Pre Op/Endometrial Biopsy appointment. Patient is scheduled to undergo Endometrial Ablation with Tiffanie on 02/18/[address] López at [facility]. MEDICATIONS Current Outpatient Medications Medication Instructions [...] nursing note reviewed. Exam conducted with a rehabilitation inspector present. Vitals: Estimated body mass index is [...] reviewed, and patient is to proceed to [facility]. Patient voiced that her last [...] of: Saurabh López DO documented in this encounterBarnes-Jewish HospitalKrnfeyesne05-35-7135 Telephone encounter Note* Telephone Encounter - Jerel Leiva RN - 12/28/2024 7:30 AM EDT Scan on 12/27/2024 10:19 AM by ProviderJose PA-C: Consultation - Ophthalmology [facility]05-20-2025 Miscellaneous Notes* Telephone Encounter - Jerel Leiva RN - 12/28/2024 7:30 AM EDT Scan on 12/27/2024 10:19 AM by Jose Owusu PA-C: Consultation - Ophthalmology * Telephone Encounter - Julia Mcarthur - 12/27/2024 3:06 PM EDT [facility] Scanned for review. documented in this encounterSelect Medical [facility]ty [facility]05-19-2025 Telephone encounter Note * Telephone Encounter - Julia Mcarthur - 12/27/2024 3:06 PM EDT [facility] Scanned for review. [facility]05-16-2025 Telephone encounter Note* Telephone Encounter - Kinza Ocasio - 12/24/2024 9:34 AM EDT Patient called to ask if this can be for 90 day supply She will fax most recent eye exam to us today [facility]05-16-2025 Miscellaneous Notes* Telephone Encounter - Kinza Ocasio - 12/24/2024 9:34 AM EDT Patient called to ask if this can be for 90 day supply She will fax most recent eye exam to us today documented in this encounterSelect Medical Specialty [facility]05-[facility]-2025 History of Present illness Narrative* SHRUTI Hillman - 12/13/2024 2:30 PM EDT Reason for Appointment: Patient ID: Susan [...] adult Genital herpes in women 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CMS/HCC) Hypothyroidism (acquired) (CMS/HCC) Lupus Pre-op evaluation Request for sterilization Skin infection Vitamin D deficiency HISTORY PAST MEDICAL HISTORY SOCIAL HISTORY Past Medical History: Diagnosis Date Abnormal weight gain BMI 23.0-23.9, adult Genital herpes in women 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CMS/HCC) Hypothyroidism (acquired) (CMS/HCC) Lupus Pre-op evaluation Request for sterilization Skin [...] like to discuss an endometrial ablation w/Rita Fermin at this visit. Pt has a h/o a salpingectomy. Menorrhagia labs and pelvic US was ordered for patient to obtain. PT to set up a pre operative visit w/Dr. López to review labs/US and schedule surgery. Documented by Rita Busby MA on behalf of: SHRUTI Hillman documented in this encounterBarnes-Jewish HospitalYdaglzyhcu67-32-0149 History of Present illness Narrative* Beatriz Treviño, DO - 12/10/2024 8:30 AM EDT [facility] DEPARTMENT OF RHEUMATIC AND IMMUNOLOGIC DISEASES This [...] need to fax /MAY fax # provided today, going again March 2025. Follow up in person Fall 2024. Beatriz Treviño D.O. Rheumatology Staff documented in this encounterSelect Medical Specialty [facility]05-02-2025 NoteHNO ID: [id number] Author: BEATRIZ TREVIÑO DO Service: ? Author Type: Physician Type: Progress Notes Filed: 12/10/2024 08:43 Note Text: [facility] DEPARTMENT OF RHEUMATIC AND IMMUNOLOGIC DISEASES This [...] appropriate monitoring. She will need to fax /OCT fax # provided today, going again March 2025. Follow up in person Fall 2024. Beatriz Treviño D.O. Rheumatology StaffAvita Health System04-23-2025 History of Present illness Narrative* Godwin Chantell Merchant, BANKING REPRESENTATIVE-YOUTH SERVICES LIBRARIAN - 12/01/2024 1:40 PM EDT Lesions: Location: Abdomen Duration: Few months Quality: [...] that can be controlled but not cured. Theappearance of redness and pimples can often be [...] the wart(s) completely resolve. The importance of followingup every 3-4 weeks was emphasized. Encouraged OTC wart removers in between appointments to hasten resolution. Start Fluowart at bedtime. 5. PAIN Next Visit: 1 [place] [facility] [place] documented in this encounterBarnes-Jewish [id number] Telephone encounter Note* Telephone Encounter - Carmen Oquendo RN - 10/21/2024 10:42 AM EDT Images from the original note were not included. Requesting refill on Plaquenil. Script pended. Tried to reach pt by phone, but no answer. Call backnumber provided on VM. Left VM advising pt that Styloola message was sent to her and to please read and respond to message. Styloola message sent asking pt about plaquenil eye exam. Thank you. Most recent Rheumatology visit: 06/16/2024 (with Beatriz Treviño) Last Bone Density on file: None on file Rheumatology Care Team: None on file Recent Office Visits - This Specialty 06/16/2024 Other forms of systemic lupus erythematosus, unspecified organ involvement status (HCC) Rheumatology Beatriz Treviño DO 2023 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) Rheumatology Beatriz Treviño DO Upcoming Rheumatology Appointments - Next 365 [...] Open Future (Single Instance) Lab Orders None [facility]03-13-2025 Miscellaneous Notes* Telephone Encounter - Carmen Oquendo RN - 10/21/2024 10:42 AM EDT Images from the original note were not included. Requesting refill on Plaquenil. Script pended. Tried to reach pt by phone, but no answer. Call backnumber provided on . Left advising pt that Styl[employer]a message was sent to her and to please read and respond to message. Styloola message sent asking pt about plaquenil eye exam. Thank you. Most recent Rheumatology visit: 06/16/2024 (with Beatriz Treviño) Last Bone Density on file: None on file Rheumatology Care Team: None on file Recent Office Visits - This Specialty 06/16/2024 Other forms of systemic lupus erythematosus, unspecified organ involvement status (HCC) Rheumatology Beatriz Treviño DO 2023 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) Rheumatology Beatriz Treviño DO Upcoming Rheumatology Appointments - Next 365 [...] Instance) Lab Orders None documented in [facility] History of Present illness Narrative* SHRUTI Peraza - 10/11/2024 12:00 PM EST Images from the original note were not included. Subjective Susan Hogue is a 38 y.o. year old female Chief Complaint Patient presents with Migraine Past Medical History: Diagnosis Date BMI 23.0-23.9, adult Genital herpes in women 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CMS/HCC) Hypothyroidism (acquired) (CMS/[facility]) Lupus Pre-op evaluation Request for sterilization Skin [...] Review Audit Reviewed by Diana Ruiz MA (Motor Bus Driver) on 10/11/24 at 1207 Medication Order Taking? Sig Documenting Provider Last Dose Status acyclovir (Zovirax) 400 MG tablet [id number] TAKE 1 TABLET BY MOUTH TWICE A DAY Saurabh López, DO Active citalopram (CeleXA) 10 MG tablet [id number] TAKE 1 TABLET BY MOUTH EVERY DAY IN THE MORNING Saurabh Maribel, DO Active citalopram (CeleXA) 20 MG tablet [id number] TAKE 1 TABLET BY MOUTH EVERY DAY IN THE MORNING Saurabh López, DO Active hydroxychloroquine (Plaquenil) 200 MG tablet [id number] Take 1 tablet by mouth in the morning. Saurabh Maribel, DO Active levothyroxine (Synthroid, Levoxyl) 50 MCG tablet [id number] TAKE 1 TABLET BY MOUTH EVERY DAY IN THE MORNING ON EMPTY STOMACH Saurabh Maribel, DO Active SUMAtriptan (Imitrex) 100 MG tablet [id number] Take 1 tablet (100 mg) by mouth 1 (one) time if neededfor migraine (may repeat x1) for up to 1 dose [...] time. Oriented to person, place, time and situation.Recent and remote memory are intact. Speech is [...] normal in upper and lower extremities. Coordination Wxtxpq-gv-wrul, rapid alternating movements and scyi-hz-ywqi normal bilaterally without dysmetria. Gait Normal casual, toe, heel and tandem gait. Motor Examination RUE Strength deltoid, biceps, triceps, wrist extensors, wrist extensors, wrist flexor, tram driver strength 5/5. LUE Strength deltoid, biceps, triceps, wrist extensors, wrist extensors, wrist flexor, tram driver strength 5/5. RLE Strength illopsoas, quadriceps, tibialis [...] if needed for migraine (may repeat x1) Patient presented with headaches that occur approximately 3 times per month that can last days at atime possibly due to migraine headaches Without aura. [...] up in 1 yr documented in this encounterBarnes-Jewish [id number] Telephone encounter Note* Telephone Encounter - SHRUTI Peraza - 09/08/2024 12:00 PM EST Sent! Appears she was started on 100mg in 2022. [facility] [id number] Miscellaneous Notes* Telephone Encounter - SHRUTI Peraza - 09/08/2024 12:00 PM EST Sent! Appears she was started on 100mg in 2022. * Telephone Encounter - Juliet Nolen MA - 09/08/2024 11:46 AM EST I am thinking she mean't imitrex. Is it ok to send? * Telephone Encounter - Gisell Lopez - 09/08/2024 10:31 AM EST Pt called and scheduled an appt on 10/11 in [place]. Patient is requesting a refill of her Amotrix as a hold over script. documented in this [facility]01-29-2025 Telephone encounter Note* Telephone Encounter - Juliet Nolen MA - 09/08/2024 11:46 AM EST I am thinking she mean't imitrex. Is it ok to send? [facility] [id number] Telephone encounter Note* Telephone Encounter - Gisell Jessica - 09/08/2024 10:31 AM EST Pt called and scheduled an appt on 10/11 in [place]. Patient is requesting a refill of her Amotrix as a hold over script. [facility] [id number] History of Present illness Narrative* Summer Murry LPN - 06/16/2024 2:00 PM EST Reason for Appointment: Patient ID: Susan Hogue [...] EVERY DAY IN THE MORNING ONEMPTY STOMACH ALLERGIES No Known Allergies PROBLEMS Active Ambulatory Problems Diagnosis Date Noted No Active Ambulatory Problems Resolved Ambulatory Problems Diagnosis Date Noted No Resolved Ambulatory Problems Past Medical History: Diagnosis Date BMI 23.0-23.9, adult Genital herpes in women 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CMS/HCC) Hypothyroidism (acquired) ([facility]) Lupus Pre-op evaluation Request for sterilization Skin infection HISTORY PAST MEDICAL HISTORY SOCIAL HISTORY Past Medical History: Diagnosis Date BMI 23.0-23.9, adult Genital herpes in women 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CMS/HCC) Hypothyroidism (acquired) (CMS/[facility]) Lupus Pre-op evaluation Request for sterilization Skin [...] nursing note reviewed. Exam conducted with a rehabilitation inspector present. Vitals: Estimated body mass index is [...] of: Saurabh López DO documented in this encounterBarnes-Jewish [id number] History of Present illness Narrative* Beatriz Treviño DO - 06/16/2024 11:00 AM EST [facility] DEPARTMENT OF [...] she is aware that she will need Shinglesvaccination beforehand. RTC 4-6 months. Beatriz Treviño D.O. Rheumatology Staff documented in this encounterSelect [facility]24 NoteHNO ID: [id number] Author: BEATRIZ TREVIÑO DO Service: ? Author Type: Physician Type: Progress Notes Filed: 06/16/2024 11:15 Note Text: [facility] DEPARTMENT OF [...] Shingles vaccination beforehand. RTC 4-6 months. Beatriz Treviño D.O. Rheumatology StaffAv[facility] Health System10-03-2024 Telephone encounter Note * Telephone Encounter - Carmen Oquendo RN - 05/13/2024 4:40 PM EDT Images from the original note were not included. Requesting refill on plaquenil. Script pended. No eye exam records in chart. Aircrmt message sent to pt asking if she had her eye exam/OCT done. Please adjust script quantity if needed. Thank you. Most recent Rheumatology visit: 2023 (with Beatriz Treviño) Last Bone Density on file: None on file Rheumatology Care Team: None on file Recent Office Visits - This Specialty 2023 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) Rheumatology Beatriz Treviño, DO Upcoming Rheumatology Appointments - Next 365 Days Visit Type Date Time Department [facility] 06/16/2024 11:00 AM RHEU MAIN A50 Last [...] Open Future (Single Instance) Lab Orders None [facility]10-03-2024 Miscellaneous Notes* Telephone Encounter - Carmen Oquendo RN - 05/13/2024 4:40 PM EDT Images from the original note were not included. Requesting refill on plaquenil. Script pended. No eye exam records in chart. Aircrmt message sent to pt asking if she had her eye exam/OCT done. Please adjust script quantity if needed. Thank you. Most recent Rheumatology visit: 2023 (with Beatriz Treviño) Last Bone Density on file: None on file Rheumatology Care Team: None on file Recent Office Visits - This Specialty 2023 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) Rheumatology Beatriz Treviño, DO Upcoming Rheumatology Appointments - Next 365 Days Visit Type Date Time Department [facility] 06/16/2024 11:00 AM RHEU MAIN A50 Last [...] Instance) Lab Orders None documented in this encounterSelect [facility] History of Present illness Narrative* Hudson, Emily Chantell, - 2023 1:00 PM EDT [facility] DEPARTMENT OF [...] she is aware that she will need Shinglesvaccination beforehand. She will see Dermatology locally. 2. [...] with follow up in 3 months. Beatriz Treviño DO documented in this encounterSelect [facility] NotePROCEDURE: XR FOOT LT MIN 3 VIEWS HISTORY: Pain in left foot ; acute left foot pain, progression of pain to lateral, dorsal, and plantar forefoot COMPARISON: XR foot left 07/18/2022 FINDINGS: BONES:No fracture, acute abnormality, or significant arthropathy. SOFT TISSUES:No visible soft tissue swelling. EFFUSION:None visible. OTHER: Negative. IMPRESSION: 1. Normal examination. Electronically authenticated by: SHRUTHI CHOW Date: 2022-08-02 10:27[facility] NotePROCEDURE: XR FOOT LT MIN 3 VIEWS HISTORY: Pain in left foot ; acute left foot pain, no known injury COMPARISON: None. FINDINGS: BONES:No fracture, acute abnormality, or significant arthropathy. SOFT TISSUES:No visible soft tissue swelling. EFFUSION:None visible. OTHER: Negative. IMPRESSION: 1. Normal examination. Electronically authenticated by: SHRUTHI CHOW Date: 2022-07-18 08:45[facility]10-28-2022 NoteOPERATIVE NOTE OPERATION DATE: 06/07/2022 PROCEDURE: Bilateral laparoscopic salpingectomy. PREOPERATIVE DIAGNOSIS: Desires permanent sterilization, multiparity. POSTOPERATIVE DIAGNOSIS: Desires permanent sterilization, multiparity. ANESTHESIA: General. SURGEON: Saurabh López D.O. MULTIMEDIA PRODUCTION ASSISTANT: BENJAMIN French URINE OUTPUT: Yellow and [...] Sponge, lap and needle counts were correct x2.[facility] Evaluation note* Diagnosis 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)- Primary documented in this encounter [facility]Evaluation noteNo assessment information availableSycamore Medical Center Work Phone: Evaluation note* Diagnosis Other forms of systemic lupus erythematosus, unspecified organ involvement status (HCC)- Primary documented in this encounter [facility]* Diagnosis Well woman exam with routine gynecological exam Routine gynecological examination documented in this encounter [facility] HealthcareEvaluation note* Diagnosis Migraine without status migrainosus, not intractable, unspecified migraine type (CMS/HCC)- Primary documented in this encounter [facility] HealthcareEvaluation note* Diagnosis Migraine without status migrainosus, not intractable, unspecified migraine type (CMS/HCC) documented in this encounter [facility] HealthcareEvaluation note* Diagnosis Capillary angioma Nevus, non-neoplastic Seborrheic keratosis Other rosacea Common wart Other specified viral warts Pain Generalized pain documented in this encounter [facility] HealthcareEvaluation note* Diagnosis 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)- Primary documented in this encounter [facility]* Diagnosis Menorrhagia with regular cycle Pelvic cramping Nausea Nausea alone documented in this encounter [facility] HealthcareEvaluation note* Diagnosis Pre-op examination Menorrhagia with irregular cycle Pelvic pain Abnormal uterine bleeding (AUB) documented in this encounter [facility] HealthcareEvaluation note* Diagnosis Postoperative examination Follow-up examination, following unspecified surgery documented in this encounter [facility] HealthcareEvaluation note* Diagnosis 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)- Primary documented in this encounter [facility] Summary Purpose Family History Relationship Condition Age at Onset Recorded Date/T kylie Not Specified No pertinent family history Unknown Advance Directives Advance Directive Response Recorded Date/ Time Advance Directives No April 05, 2024 10:10am Chief Complaint and Reason for Visit Chief Complaint Cough, sore throat Additional Source Comments INFORMATION SOURCE (unrecogn ized section and content) DATE CREATED AUTHOR 01/18/2022 [facility] DATE CREATED AUTHOR AUTHOR'S ORGANIZ ATION 08/08/2022 [facility] DATE CREATED AUTHOR AUTHOR'S ORGANIZ ATION 04/07/2024 [facility] DATE CREATED AUTHOR AUTHOR'S ORGANIZ ATION 01/26/2025 [facility] DATE CREATED AUTHOR AUTHOR'S ORGANIZ ATION 03/01/2025 [facility] DATE CREATED AUTHOR AUTHOR'S ORGANIZ ATION 04/15/2025 [facility] Source Comments (unrecognize d section and content) In the event this informatio n is protected by the Federal Confidentiality of Alcohol and Drug Abuse Patient Records regulations: The Federal rules restrict any use of the information to criminally investigate or prosecute any alcohol or drug abuse patient.[facility] the event this information is protected by the Federal Confidentiality of Alcohol and Drug Abuse Patient Records regulations: The Federal rules restrict any use of the information to criminally investigate or prosecute any alcohol or drug abuse patient.[facility] the event this information is protected by the Federal Confidentiality of Alcohol and Drug Abuse Patient Records regulations: The Federal rules restrict any use of the information to criminally investigate or prosecute any alcohol or drug abuse patient.[facility] the event this information is protected by the Federal Confidentiality of Alcohol and Drug Abuse Patient Records regulations: The Federal rules restrict any use of the information to criminally investigate or prosecute any alcohol or drug abuse patient.[facility] the event this information is protected by the Federal Confidentiality of Alcohol and Drug Abuse Patient Records regulations: The Federal rules restrict any use of the information to criminally investigate or prosecute any alcohol or drug abuse patient.[facility]In the event this information is protected by the Federal Confidentiality of Alcohol and Drug Abuse Patient Records regulations: The Federal rules restrict any use of the information to criminally investigate or prosecute any alcohol or drug abuse patient.[facility] the event this information is protected by the Federal Confidentiality of Alcohol and Drug Abuse Patient Records regulations: The Federal rules restrict any use of the information to criminally investigate or prosecute any alcohol or drug abuse patient.[facility] the event this information is protected by the Federal Confidentiality of Alcohol and Drug Abuse Patient Records regulations: The Federal rules restrict any use of the information to criminally investigate or prosecute any alcohol or drug abuse patient.[facility] SouthIn the event this information is protected by the Federal Confidentiality of Alcohol and Drug Abuse Patient Records regulations: The Federal rules restrict any use of the information to criminally investigate or prosecute any alcohol or drug abuse patient.[facility] Care Teams (unrecognized sec tion and content) Team Status: Active Member Role Status Dates Belinda Mock DO Primary Care Provider Active Team Status: Inactive Member Role Status Dates Emma Negrete APRN Attending Provider Active Start: April 05, 2024 End: April 05, 2024Ariadna Rangel Care ProviderActiveStart: April 05, 2024 End: April 05, 2024Team MemberRelationshipSpecialtyStart DateEnd Date Belinda Mock MD [address] [place] [address] PCP - GeneralInternal Zsnevkzt41/30/23Team MemberRelationshipSpecialtyStart Date End Date Belinda Mock MD [address] [place] [address] PCP - GeneralInternal Uiiqwvie77/30/23Team MemberRelationshipSpecialtyStart Date End Date Belinda Mock MD [address] [place] [address] PCP - GeneralInternal Ydihtwqo53/30/23Te MemberRelationshipSpecialtyStart Date End Date Belinda Mock MD [address] [place] [address] PCP - GeneralInternal Xitqinez49/30/23Te MemberRelationshipSpecialtyStart Date End Date Belinda Mock MD PCP - GeneralInternal Whzrhqah75/30/23Te MemberRelationshipSpecialtyStart Date End Date Belinda Mock MD PCP - GeneralInternal Irkqsqir14/30/23Te MemberRelationshipSpecialtyStart Date End Date Belinda Mock MD PCP - GeneralInternal Tbcjocbz79/30/23Te MemberRelationshipSpecialtyStart Date End Date Belinda Mock MD [address] [place] [address] PCP - [facility] Medical Centernal Jvkrameq88/30/23Te MemberRelationshipSpecialtyStart Date End Date Belinda Mock MD [address] [place] [address] PCP - GeneralInternal Vgoupnqn93/30/23 Godwin Merchant APRN-YOUTH SERVICES LIBRARIAN [address] [address] PCP - [employer]01/09/25Team MemberRelationshipSpecialtyStart DateEnd Date Belinda Mock MD [address] [place] [address] PCP - GeneralInternal Prdfniid63/30/23 Godwin Merchant APRNLONGWOOD HOSP[facility] [address] [place] [address] PCP - [employer]01/09/25Te MemberRelationshipSpecialRiverside [facility] DateEnd Date Belinda Mock MD [address] [place] [address] PCP - GeneralInternal Snvmsnii49/30/23 Godwin Merchant, [facility]NALONGWOOD [facility] [address] [place] [address] PCP - [employer]01/09/25 Goals (unrecognized section and content) Goals may be documented in a n alternate section Reason for Visit (unrecogniz ed section and content) ReasonCommentsRefill RequestReasonCommentsSLEReasonCommentsWell Women Visit ReasonCommentsMigraineReasonCommentsSuspicious Skin LesionReasonComments MenorrhagiaPt present today due to having heavy bleeding, cramping, shakiness and nausea w/menstrual cycle.ReasonCommentsReceived Outside Medical Records ReasonCommentsPre-op VisitReasonCommentsPost-op Visit FOR RECORDS PERTAINING TO PATIENTS WHO [...] BE BASED ON THE PRIMARY CLINICAL RECORDS. [facility]. provides no warranty or guarantee of the accuracy or completeness of information in this document.
[2025-07-20 04:07] LABS: AFP, Serum, Tumor Marker 3.6 ng/mL (0.0-6.4); CEA 2.1 ng/mL (0.0-4.7)
== END 2025-07-18 16:36 | disposition home or self-care (01) ==
LOC: LAB 16:36
PROVIDERS: PCP Internal Medicine; Visit Provider Nurse Practitioner Family
DX: N83.299 Other ovarian cyst, unspecified side (principal)
CPT/HCPCS: 36415; 82105; 82378; 83615; 83625; 84702; 86304